=== PATIENT | female | born 1955 | race Caucasian/White ===

== ENCOUNTER 2016-10-05 09:14 | Day surgery (SDC) | payer MEDICARE, MEDICAID ==
[~2016-10-05] VITALS: Ht 165.1 cm; Wt 93.0 kg
[2016-10-05] VITALS (9 sets, daily range): BP systolic 107–142; BP diastolic 56–83
[~2016-10-05 09:14] MED LIST: AMOX-355 PO; ASP81CT PO; ASP81TEC PO; ASPI-906 PO; ASPI-999 PO; ASPI325T32 PO; ATOR40TA70 PO; CEPH500C PO; CIPR500T4 PO; CLOP75TA PO; CLPD75T PO; CPR500T PO; DIABETIC MED; DIABETIC PILL; DICY20TA10 PO; DILT180C84 PO; HORMONE; HTN MED; HYDR-3583 PO; IBUP200T48 PO; INSU100I29 SC; INSU100I29 SQ; INSU100V5 SQ; INSULIN; LEVE1U SQ; LOSA50TA6 PO; LSRT50T PO; METF-380 PO; METF1000 PO; MTF500T PO; NAPR500T3 PO; NOVALOG SQ; PNT40TEC PO; REQUIP; RIVA20TA PO; ROPI0.5T2 PO; ROPI1TAB PO; ROPI1TAB2 PO; SIMV20TA3 PO; SIMV40TA4 PO; TRM50T PO; [UNRECOGNIZED DRUG - OTHER]
--- OUTSIDE RECORDS SUMMARY | 2016-10-05 09:18 | XMS REPORT | Continuity of Care Document ---
Author Author [facility] Organization [facility] Address Unknown Phone Unavailable Care Team Providers Care Receivables Specialist Name Role Phone [facility] PCP Insurance Providers Payer Name Policy Number Subscriber Name Relationship [employer] Medicare [id number] Rei Fernandes 18 Self / Same As Patient Medicaid [place] [id number] Rei Fernandes 18 Self / Same As Patient Advance Directives Directive Response Recorded Date/Time Advance Directives Yes 07/17/14 5:58pm Health Care Power of Network Engineer Administrator No 07/17/14 5:58pm Organ Donor Yes 07/17/14 5:58pm Resuscitation Status Full Code 07/17/14 5:58pm Chief Complaint and Reason for Visit Chief Complaint CHEST PAIN ON EXERTION,COLLAZO,DIZZINESS Reason for Visit Dyspnea on exertion Dizziness Chest pain on exertion Dyspnea on exertion Problems Medical Problems Problem Onset Date Status Dyspnea on exertion Unknown Active Dizziness Unknown Active Chest pain on exertion Unknown Active Dyspnea on exertion Unknown Active Medications Medication Dose Route Sig Days/Qty Instructions Order Date Discontinued Date Status [Requip] 0.5 01/10/09 02/12/10 Discontinued [Diabetic Med] 01/10/09 02/12/10 Discontinued [Insulin] 01/10/09 02/11/10 Discontinued [Htn Med] 01/10/09 02/12/10 Discontinued [Diabetic Pill] 01/10/09 02/11/10 Discontinued Tramadol HCl 50 - 100 Mg PO TWICE A DAY 40 Qty 01/10/09 02/12/10 Discontinued Cephalexin Monohydrate (Keflex) 1 Each PO THREE TIMES A DAY 30 Qty 13/0502/12/10 Discontinued Metformin HCl (Glucophage) 1,000 Mg PO TWICE A DAY 02/11/10 Discontinued [levenir] 50 02/11/10 02/12/10 Discontinued Losartan Potassium 50 Mg PO BEDTIME 02/11/10 12/13/13 Discontinued Dicyclomine Hcl 20 Mg PO NEEDED 02/12/10 07/10/11 Discontinued Ropinirole Hcl 0.5 Mg PO BEDTIME 02/12/10 12/13/13 Discontinued Insulin Detemir 60 Units SQ BEDTIME 02/12/10 12/13/13 Discontinued [Novalog] 10 Unit SQ THREE TIMES A DAY 05/18/11 12/13/13 Discontinued Clopidogrel Bisulfate 1 Each PO DAILY 05/18/11 12/13/13 Discontinued Aspirin 81 Mg PO DAILY 05/18/11 12/13/13 Discontinued Ciprofloxacin 1 Tab PO TWICE A DAY 10 Qty 05/27/11 07/10/11 Discontinued Acetaminophen/Hydrocodone Bitart 1-2 Ea PO Q4HR PRN 05/27/11 Discontinued Aspirin 325 Mg PO DAILY 12/13/13 12/13/13 Discontinued Aspirin 81 Mg PO DAILY 30 Days 12/14/13 07/17/14 Discontinued Insulin Detemir 30 Unit SQ BEDTIME 30 Days 12/14/13 07/17/14 Discontinued Losartan Potassium 50 Mg PO BEDTIME 30 Days 12/14/13 07/17/14 Discontinued Metformin HCl (Glucophage) 1,000 Mg PO DAILY@ 30 Days 12/14/13 Discontinued Simvastatin 40 Mg PO D 07/17/14 07/17/14 Discontinued Aspirin 325 Mg PO BEDTIME 07/17/14 07/18/14 Discontinued Insulin Detemir 30 Unit SQ TWICE A DAY 07/17/14 Active Losartan Potassium 50 Mg PO BEDTIME 07/17/14 Active Metformin Hcl 1,000 Mg PO TWICE A DAY 07/17/14 Active Simvastatin 40 Mg PO BEDTIME TAKES 2 (20MG) TABLETS 07/17/14 Active Ropinirole Hcl 1 Mg PO BEDTIME 07/17/14 Active Ibuprofen 400-1200 Mg PO TWICE A DAY PRN HEADACHE/KNEE PAIN 07/17/14 07/18/14 Discontinued Aspirin 81 Mg PO DAILY 30 Qty 07/18/14 Active Clopidogrel Bisulfate 75 Mg PO DAILY 30 Qty 07/18/14 Active Pantoprazole Sod 40 Mg PO DAILY@0700 30 Qty 07/18/14 Active Social History Social History Problem Response Recorded Date/Time Alcohol Use Denies Use 07/17/2014 5:59pm Recreational Drug Use No 07/17/2014 5:59pm Recent Foreign Travel No 07/17/2014 6:11pm Recent Infectious Disease Exposure No 07/17/2014 5:59pm Hospitalization with Isolation Denies 07/18/2014 10:27pm Sexually Transmitted Disease No 07/17/2014 5:59pm Smoking Status Never a Smoker 07/17/2014 6:06pm Query Response Start Date Stop Date Smoking Status Never a Smoker Hospital Discharge Instructions Patient Instructions Physician Instructions New, Converted or Re-Newed RX: RX on Chart Patient Instructions: Please return on July 23 as previously scheduled for cardiac cath Plan of Care Discharge Date 07/18/14 5:23pm Disposition 01 HOME, SELF-CARE Instructions/Education Provided Chest Pain (GEN) Forms Provided PDI Medical Prescriptions See Medications Section Referrals (Unspecified) Reason(s) for Referral: keep already scheduled appointment for heart cath/ July 23 Functional Status Query Response Date Recorded Comprehension Ability Understands Concepts July 18, 2014 8:30am Allergies, Adverse Reactions, Alerts Allergen Type Severity Reaction Status Last Updated Sulfa (Sulfonamide Antibiotics) ([id number]) Allergy Unknown Active 26/03 Pseudoephedrine Allergy Unknown Active 05/27/07 Triprolidine Allergy Unknown Active 05/27/07 Immunizations Name Given Type Tetanus Booster (TDap) Unknown Historical influenza, split (incl. purified surface antigen) 07/18/14 Administered influenza, split (incl. purified surface antigen) 07/18/14 Administered Vital Signs Acute Vital Signs Vital Response Date/Time Temperature (Fahrenheit) 98.0 degrees F (97.6 - 99.5) Temperature (Calculated Celsius) 36.71264 degrees C (36.4 - 37.5) Temperature Source Tympanic Pulse Rate (adult) 77 bpm (60 - 90) Respiratory Rate 18 bpm (12 - 24) O2 Sat by Pulse Oximetry 97 % (88 - 100) Blood Pressure 129/82 mm Hg Pain Pain Intensity 0 Height (Feet) 5 feet Height (Inches) 5.00 inches Height (Calculated Centimeters) 165.031188 cm Weight (Pounds) 220 pounds Weight (Ounces) 3.0 oz Weight (Calculated Grams) 70286.371 gm Weight (Calculated Kilograms) 99.729478 kilograms Calculated BMI 36.44 Results Laboratory Results Test Name Result Units Flags Reference Collection Date/Time Result Date/ Time Comments Blood Urea Nitrogen 9 MG/DL 03-1506/20/2014 12:45pm 06/20/2014 1:07pm Creatinine 0.85 MG/DL 0.60-1.30 06/20/2014 12:45pm 06/20/2014 1:07pm BUN/Creatinine Ratio 11 06/20/2014 12:45pm 06/20/2014 1:07pm Estimat Glomerular Filtration Rate > 60 06/20/2014 12:45pm 2013 1:07pm GFR INTERPRETIVE DATA UNITS FOR ESTIMATED GFR (eGFR): mL/min/1.73 M2 REFERENCE RANGE FOR ESTIMATED GFR (eGFR) eGFR NORMAL eGFR >60 MODERATELY DECREASED eGFR 30-59 SEVERLY DECREASED eGFR 15-29 KIDNEY FAILURE <15 (OR DIALYSIS) Sodium Level 139 MMOL/L 135-145 07/08/2014 12:14pm 07/08/2014 1:00pm Potassium Level 4.2 MMOL/L 3.6-5.0 07/08/2014 12:14pm 07/08/2014 1: 00pm Chloride Level 103 MMOL/L 98-107 07/08/2014 12:14pm 07/08/2014 1:00pm Carbon Dioxide Level 30 MMOL/L 21-32 07/08/2014 12:14pm 07/08/2014 1: 00pm Blood Urea Nitrogen 10 MG/DL -07/08/2014 12:14pm 07/08/2014 1:00pm Creatinine 0.77 MG/DL 0.60-1.30 07/08/2014 12:14pm 07/08/2014 1:00pm BUN/Creatinine Ratio 13 07/08/2014 12:07/08/2014 1:00pm Estimat Glomerular Filtration Rate > 60 07/08/2014 12:2013 1:00pm GFR INTERPRETIVE DATA UNITS FOR ESTIMATED GFR (eGFR): mL/min/1.73 M2 REFERENCE RANGE FOR ESTIMATED GFR (eGFR) eGFR NORMAL eGFR >60 MODERATELY DECREASED eGFR 30-59 SEVERLY DECREASED eGFR 15-29 KIDNEY FAILURE <15 (OR DIALYSIS) Glucose Level 231 MG/DL H 70-105 07/08/2014 12:07/08/2014 1:00pm Calcium Level 9.2 MG/DL 8.5-10.1 07/08/2014 12:1407/08/2014 1:00pm Total Bilirubin 0.6 MG/DL 0.1-1.0 07/08/2014 12:07/08/2014 1:00pm Alkaline Phosphatase 92 U/L 40-136 07/08/2014 12:07/08/2014 1: 00pm Aspartate Amino Transf (AST/SGOT) 15 U/L 5-34 07/08/2014 12:2013 1:00pm Alanine Aminotransferase (ALT/SGPT) 16 U/L 0-55 07/08/2014 12:05/2014 1:00pm Total Protein 7.1 G/DL 6.4-8.2 07/08/2014 12:07/08/2014 1:00pm Albumin 3.4 G/DL 3.2-4.5 07/08/2014 12:07/08/2014 1:00pm Triglycerides Level 141 MG/DL <150 07/08/2014 12:07/08/2014 1: 00pm Cholesterol Level 158 MG/DL < 200 07/08/2014 12:07/08/2014 1:00pm HDL Cholesterol 37 MG/DL L 40-60 07/08/2014 12:07/08/2014 1:00pm LDL Cholesterol Direct 94 MG/DL 1-129 07/08/2014 12:07/08/2014 1: 00pm VLDL Cholesterol 28 MG/DL 5-40 07/08/2014 12:14pm 07/08/2014 1:00pm White Blood Count 10.4 10^3/uL 4.3-11.0 07/18/2014 5:33am 07/18/2014 5: 48am Red Blood Count 4.49 10^6/uL 4.35-5.85 07/18/2014 5:33am 07/18/2014 5: 48am Hemoglobin 13.0 G/DL 11.5-16.0 07/18/2014 5:33am 07/18/2014 5:48am Hematocrit 39 % 35-52 07/18/2014 5:33am 07/18/2014 5:48am Mean Corpuscular Volume 87 FL 80-99 07/18/2014 5:33am 07/18/2014 5: 48am Mean Corpuscular Hemoglobin 29 PG 25-34 07/18/2014 5:33am 07/18/2014 5: 48am Mean Corpuscular Hemoglobin Concent 33 G/DL 32-36 07/18/2014 5:33am 5:48am Red Cell Distribution Width 13.6 % 10.0-14.5 07/18/2014 5:33am 2013 5:48am Platelet Count 185 10^3/uL 130-400 07/18/2014 5:33am 07/18/2014 5:48am Mean Platelet Volume 11.7 FL H 7.4-10.4 07/18/2014 5:33am 07/18/2014 5: 48am Neutrophils (%) (Auto) 69 % 42-75 07/17/2014 2:58pm 07/17/2014 3:09pm Lymphocytes (%) (Auto) 20 % 12-44 07/17/2014 2:58pm 07/17/2014 3:09pm Monocytes (%) (Auto) 9 % 0-12 07/17/2014 2:58pm 07/17/2014 3:09pm Eosinophils (%) (Auto) 1 % 0-10 07/17/2014 2:58pm 07/17/2014 3:09pm Basophils (%) (Auto) 1 % 0-10 07/17/2014 2:58pm 07/17/2014 3:09pm Neutrophils # (Auto) 5.5 X 10^3 1.8-7.8 07/17/2014 2:58pm 07/17/2014 3: 09pm Lymphocytes # (Auto) 1.6 X 10^3 1.0-4.0 07/17/2014 2:58pm 07/17/2014 3: 09pm Monocytes # (Auto) 0.7 X 10^3 0.0-1.0 07/17/2014 2:58pm 07/17/2014 3: 09pm Eosinophils # (Auto) 0.1 10^3/uL 0.0-0.3 07/17/2014 2:58pm 07/17/2014 3 :09pm Basophils # (Auto) 0.1 10^3/uL 0.0-0.1 07/17/2014 2:58pm 07/17/2014 3: 09pm Prothrombin Time 12.7 SEC 12.2-14.7 07/17/2014 2:58pm 07/17/2014 3: 24pm INR Comment 1.0 0.8-1.4 07/17/2014 2:58pm 07/17/2014 3:24pm INTERPRETIVE DATA SUGGESTED THERAPEUTIC RANGE FOR INR'S: VENOUS THROMBOSIS, PULMONARY EMBOLISM, OR PREVENTION OF SYSTEMIC EMBOLISM (EG. IN ATRIAL FIBRILLATION): 2.0 - 3.0 MECHANICAL PROSTHETIC HEART VALVES: 2.5 - 3.5* *NOTE: INR'S UP TO 4.5 MAY BE NECESSARY IN SELECTED GROUPS OF HIGH RISK PATIENTS. [employer]ST PH[employer]IC[employer] CONSENSUS CONFERENCE ON ANTITHROMBOTIC THERAPY (2000). Activated Partial Thromboplast Time 32 SEC 24-35 07/17/2014 2:58pm 3:24pm Sodium Level 137 MMOL/L 135-145 07/18/2014 5:33am 07/18/2014 6:12am Potassium Level 3.6 MMOL/L 3.6-5.0 07/18/2014 5:33am 07/18/2014 6:12am Chloride Level 105 MMOL/L 98-107 07/18/2014 5:33am 07/18/2014 6:12am Carbon Dioxide Level 23 MMOL/L 21-32 07/18/2014 5:33am 07/18/2014 6: 12am Blood Urea Nitrogen 9 MG/DL 7-18 07/18/2014 5:33am 07/18/2014 6:12am Creatinine 0.82 MG/DL 0.60-1.30 07/18/2014 5:33am 07/18/2014 6:12am BUN/Creatinine Ratio 07/18/2014 5:33am 07/18/2014 6:12am Estimat Glomerular Filtration Rate > 60 07/18/2014 5:33am 2013 6:12am GFR INTERPRETIVE DATA UNITS FOR ESTIMATED GFR (eGFR): mL/min/1.73 M2 REFERENCE RANGE FOR ESTIMATED GFR (eGFR) eGFR NORMAL eGFR >60 MODERATELY DECREASED eGFR 30-59 SEVERLY DECREASED eGFR 15-29 KIDNEY FAILURE <15 (OR DIALYSIS) Glucose Level 239 MG/DL H 70-105 07/18/2014 5:33am 07/18/2014 6:12am Glucometer 263 MG/DL H 70-110 07/18/2014 12:53pm 07/18/2014 12:59pm Calcium Level 8.7 MG/DL 8.5-10.1 07/18/2014 5:33am 07/18/2014 6:12am Magnesium Level 1.8 MG/DL 1.8-2.4 07/17/2014 2:58pm 07/17/2014 3:29pm Total Bilirubin 0.6 MG/DL 0.1-1.0 07/18/2014 5:33am 07/18/2014 6:12am Alkaline Phosphatase 76 U/L 40-136 07/18/2014 5:33am 07/18/2014 6:12am Aspartate Amino Transf (AST/SGOT) 12 U/L 5-34 07/18/2014 5:33am 2013 6:12am Alanine Aminotransferase (ALT/SGPT) 13 U/L 0-55 07/18/2014 5:33am 07/18 6:12am Troponin I < 0.30 NG/ML <0.30 07/17/2014 9:02pm 07/17/2014 9:33pm Troponin I < 0.30 NG/ML <0.30 07/17/2014 2:58pm 07/17/2014 3:34pm Myoglobin 44.9 NG/ML 10.0-92.0 07/17/2014 2:58pm 07/17/2014 3:34pm Total Protein 6.4 G/DL 6.4-8.2 07/18/2014 5:33am 07/18/2014 6:12am Albumin 3.1 G/DL L 3.2-4.5 07/18/2014 5:33am 07/18/2014 6:12am Triglycerides Level 124 MG/DL <150 07/18/2014 5:33am 07/18/2014 6:14am Cholesterol Level 122 MG/DL < 200 07/18/2014 5:33am 07/18/2014 6:14am HDL Cholesterol 32 MG/DL L 40-60 07/18/2014 5:33am 07/18/2014 6:14am LDL Cholesterol Direct 68 MG/DL 1-129 07/18/2014 5:33am 07/18/2014 6: 14am VLDL Cholesterol 25 MG/DL 5-40 07/18/2014 5:33am 07/18/2014 6:14am Procedures Procedure Status Date Provider(s) Tracing only of electrocardiogram completed 07/17/14 NO KIRK APRN Tracing only of electrocardiogram completed 07/17/14 SULEMAN YAP Encounters Encounter Location Date/Time Discharged Inpatient Via [facility] 07/17/14 4:34pm Registered Clinic Via [facility] 07/09/14 8:29am Registered Clinic [facility] 07/08/14 12:05pm Registered Clinic Via [facility] 06/24/14 12:36pm Registered Clinic [facility] 06/20/14 12:31pm Recent Diagnosis Dyspnea on exertion Dizziness Chest pain on exertion Dyspnea on exertion
--- OUTSIDE RECORDS SUMMARY | 2016-10-05 09:18 | XMS REPORT | Continuity of Care Document ---
Author Author [facility] Organization [facility] Address Unknown Phone Unavailable Care Team Providers Care Rn Infusion Name Role Phone [facility] PCP Insurance Providers Payer Name Policy Number Subscriber Name Relationship [employer] Medicare [id number] Rei Fernandes 18 Self / Same As Patient Medicaid [place] [id number] Rei Fernandes 18 Self / Same As Patient Advance Directives Directive Response Recorded Date/Time Advance Directives Yes 07/17/14 5:58pm Health Care Power of Section Leader And Machine Setter No 07/17/14 5:58pm Organ Donor Yes 07/17/14 [...] Reaction Status Last Updated Sulfa (Sulfonamide Antibiotics) ([id number]) Allergy Unknown Active 26/03 Pseudoephedrine Allergy Unknown Active 05/27/07 Triprolidine Allergy Unknown Active 05/27/07 Immunizations Name Given Type Tetanus Booster (TDap) Unknown Historical influenza, split (incl. purified surface antigen) 07/18/14 Administered influenza, split (incl. purified surface antigen) 07/18/14 Administered Vital Signs Acute Vital Signs Vital Response Date/Time Temperature (Fahrenheit) 98.0 degrees F (97.6 - 99.5) Temperature (Calculated Celsius) 36.71706 degrees C (36.4 - 37.5) Temperature Source Tympanic Pulse Rate (adult) 77 bpm (60 - 90) Respiratory Rate 18 bpm (12 - 24) O2 Sat by Pulse Oximetry 97 % (88 - 100) Blood Pressure 129/82 mm Hg Pain Pain Intensity 0 Height (Feet) 5 feet Height (Inches) 5.00 inches Height (Calculated Centimeters) 165.717262 cm Weight (Pounds) 220 pounds Weight (Ounces) 3.0 oz Weight (Calculated Grams) 66732.371 gm Weight (Calculated Kilograms) 99.612963 kilograms Calculated BMI 36.44 Results Laboratory Results [...] SELECTED GROUPS OF HIGH RISK PATIENTS. [employer] CONSENSUS CONFERENCE ON [...] Encounters Encounter Location Date/Time Discharged Inpatient Via [facility] 07/17/14 4:34pm Registered Clinic [facility] 07/09/14 8:29am Registered Clinic [facility] 07/08/14 12:05pm Registered Clinic [facility] 06/24/14 12:36pm Registered Clinic [facility] 06/20/14 12:31pm Recent Diagnosis Dyspnea on exertion Dizziness Chest pain on exertion Dyspnea on exertion
[2016-10-05] MEDS ORDERED: NS IV 1000 ML 1,000 ML ONE (09:26)
[2016-10-05] MEDS ORDERED: LIDOCAINE 1% INJ 20 ML (XYLOCAINE) VIAL ONE (09:26)
[2016-10-05] MEDS ORDERED: HEParin (CATH LAB) 2,000 ML IV ONE (09:27)
[2016-10-05] MEDS ORDERED: NS IV 1000 ML 1,000 ML IV SCH ×2 (09:46→14:34)
[2016-10-05 10:34] LABS: PROTHROMBIN TIME PATIENT 12.7 SEC (12.2-14.7)
[2016-10-05 10:35] LABS: MEAN PLATELET VOLUME 12.2 FL (7.4-10.4); RED BLOOD COUNT 4.85 10^6/uL (4.35-5.85); RED CELL DISTRIBUTION WIDTH 13.7 % (10.0-14.5); WHITE BLOOD COUNT 6.9 10^3/uL (4.3-11.0)
[2016-10-05 10:40] LABS: ALANINE AMINOTRANSFERASE 19 U/L (0-55); ALBUMIN 3.5 G/DL (3.2-4.5); ANION GAP 9 MMOL/L (5-14); ASPARTATE AMINO TRANSFERASE 14 U/L (5-34); BILIRUBIN,TOTAL 0.7 MG/DL (0.1-1.0); BLOOD UREA NITROGEN 17 MG/DL (7-18); BUN/CREATININE RATIO 20; CALCIUM 9.6 MG/DL (8.5-10.1); CARBON DIOXIDE 24 MMOL/L (21-32); CHLORIDE 100 MMOL/L (98-107); CHOLESTEROL 181 MG/DL (< 200); CREATININE SERUM 0.87 MG/DL (0.60-1.30); DIRECT LDL 107 MG/DL (1-129); GFR ESTIMATED > 60; GLUCOSE 398 MG/DL (70-105); POTASSIUM 3.8 MMOL/L (3.6-5.0); SODIUM 133 MMOL/L (135-145); TOTAL PROTEIN 6.9 G/DL (6.4-8.2); TRIGLYCERIDES 336 MG/DL (<150); VLDL CHOLESTEROL 67 MG/DL (5-40)
[2016-10-05] MEDS ORDERED: FLU TRIvalent (5 YOA+) 2016-17 (AFLURIA) 0.5 ML IM ONE (11:00)
[2016-10-05] MEDS ORDERED: NAPR500T3 PO (11:11)
[2016-10-05] MEDS ORDERED: MIDAZOLAM 5 MG/5 ML (VERSED) VIAL ONE (11:58)
[2016-10-05] MEDS ORDERED: fentaNYL INJECTION 100 MCG/2 ML AMP ONE (11:58)
[2016-10-05] MEDS ORDERED: diphenhydrAMINE 50 MG/ML INJ (BENADRYL) ONE (11:58)
--- NOTE | 2016-10-05 12:46 | Cardiac Procedure Note-CS/ASA ---
Pre-Procedure Note Pre-Op Procedure Note H&P Reviewed The H&P was reviewed, patient examined and no changes noted. Date H&P Reviewed: Oct 05, 2016 Time H&P Reviewed: 12:46 Conscious Sedation Pre-Proced Time Reviewed: 12:46 ASA Class: 3 Airway Mallampati Classification: (cachil dehe appropriate class) I. II. III, IV Lungs Heart ASA score ASA 1: a normal healthy patient ASA 2: a patient with a mild systemic disease (mid diabetes, controlled hypertension, obesity ASA 3: a patient with a severe systemic disease that limits activity (angina , COPD, prior Myocardial infarction) ASA 4: a patient with an incapacitating disease that is a constant threat to life (CHF, renal failure) ASA 5: a moribund patient not expected to survive 24 hrs. (ruptured aneurysm) ASA 6: a declared brain patient whose organs are being harvested. For emergent operations, add the letter E after the classification Grade 2 Sedation Plan: Analgesia, Amnesia, Plan communicated to team members, Discussed options with patient/fam, Discussed risks with patient/fam Note The patient is an appropriate candidate to undergo the planned procedure, sedation, and anesthesia. The patient immediately re-assessed prior to indication. REX FERRELL MD FACP FACC CCDS Oct 05, 2016 12:46
[2016-10-05] MEDS ORDERED: HEParin 1000 UNIT/ML (10ML VIAL) FOR BOLUS ONE (13:13)
[2016-10-05] MEDS ORDERED: EPTIFIBATIDE DRIP 100 ML IV ONE (13:14)
[2016-10-05] MEDS ORDERED: EPTIFIBATIDE BOLUS 20 ML IV ONE (13:14)
[2016-10-05] MEDS ORDERED: NITROGLYCERIN DRIP 25 MG/D5W 250 ML IV ONE (13:25)
[2016-10-05] MEDS ORDERED: CLOPIDOGREL 300 MG (PLAVIX) TABLET PO ONE (14:07)
[2016-10-05] MEDS ORDERED: ASPIRIN 81 MG CHEW (CHILDREN'S ASA) ONE (14:07)
[2016-10-05] MEDS ORDERED: NON-FORMULARY MEDICATION 1 EA EA (Naproxen 500 MG) PO PRN (14:45)
[2016-10-05] MEDS ORDERED: PANTOPRAZOLE 40 MG (PROTONIX) TAB PO NR (14:45)
[2016-10-05] MEDS ORDERED: PATIENT MAY USE OWN MEDS, ALL PO SCH (14:45)
[2016-10-05] MEDS ORDERED: NAPROXEN 250 MG (NAPROSYN) TABLET PO PRN (16:30)
[2016-10-05] MEDS ORDERED: rOPINIRole 1 MG (REQUIP) TABLET PO SCH (21:00)
[2016-10-05] MEDS ORDERED: ATORVASTATIN 40 MG (LIPITOR) TABLET PO SCH (21:00)
[2016-10-06] VITALS: BP 102/65
[2016-10-06] MEDS ORDERED: METF500T4 PO (01:26)
[2016-10-06 04:00] VITALS: BP 111/69
[2016-10-06 04:32] LABS: MEAN PLATELET VOLUME 11.9 FL (7.4-10.4); RED BLOOD COUNT 3.91 10^6/uL (4.35-5.85); RED CELL DISTRIBUTION WIDTH 13.7 % (10.0-14.5); WHITE BLOOD COUNT 9.1 10^3/uL (4.3-11.0)
[2016-10-06 05:05] LABS: ANION GAP 9 MMOL/L (5-14); BLOOD UREA NITROGEN 14 MG/DL (7-18); BUN/CREATININE RATIO 18; CALCIUM 8.4 MG/DL (8.5-10.1); CARBON DIOXIDE 25 MMOL/L (21-32); CHLORIDE 100 MMOL/L (98-107); GFR ESTIMATED > 60; GLUCOSE 264 MG/DL (70-105); POTASSIUM 3.8 MMOL/L (3.6-5.0); SODIUM 134 MMOL/L (135-145)
[2016-10-06] MEDS ORDERED: PANTOPRAZOLE 40 MG (PROTONIX) TAB PO SCH (07:00)
[2016-10-06 08:01] VITALS: BP 91/60
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
[2016-10-06] MEDS ORDERED: PANT40TA3 PO (08:50)
[2016-10-06] MEDS ORDERED: CLOP75TA28 PO (08:50)
[2016-10-06] MEDS ORDERED: ATOR40TA PO (08:50)
--- NOTE | 2016-10-06 08:51 | Discharge Inst-Cardiology ---
Discharge Inst-Cardiac Discharge Medications New Medications: Atorvastatin Calcium (Lipitor) 40 Mg Tablet 40 MG PO HS #90 Ref 3 TAB Clopidogrel Bisulfate (Clopidogrel) 75 Mg Tablet 75 MG PO DAILY #90 Ref 3 TAB Pantoprazole Sodium (Pantoprazole Sodium) 40 Mg Tablet.dr 40 MG PO DAILY@0700 #30 Ref 3 TAB Continued Medications: Aspirin (Aspirin) 81 Mg Tab.chew 81 MG PO DAILY TAB Ropinirole HCl (Ropinirole HCl) 1 Mg Tablet 1 MG PO HS TAB Discontinued Medications: Naproxen (Naproxen) 500 Mg Tablet 500 MG PO BID PRN PAIN TAB New, Converted or Re-Newed RX: Transmitted to Pharmacy Patient Instructions Patient Instructions: Follow up appt to see Dr. Gonzalez in 1 week Orders-Post D/C & Referrals Pneu Vac Indicated: Yes SULEMAN YAP Oct 06, 2016 08:51
[2016-10-06] MEDS ORDERED: ASPIRIN 81 MG CHEW (CHILDREN'S ASA) PO SCH (09:00)
[2016-10-06] MEDS ORDERED: CLOPIDOGREL 75 MG (PLAVIX) TABLET PO SCH (09:00)
--- NOTE | 2016-10-06 09:58 | Diagnostic Imaging Report ---
EXAMINATION: Arterial duplex ultrasound of the right groin. INDICATION: Right groin lumps after cardiac catheterization. FINDINGS: There is no pseudoaneurysm or evidence of an AV fistula. There is patent SFA, WAREHOUSE COORDINATOR, and CFV seen with color Doppler. Arterial biphasic waveforms are seen in the right WAREHOUSE COORDINATOR. There are nonspecific small lymph nodes in the groin measuring up to 1.9 cm with benign appearing fatty mary beth seen. No significant hematoma is seen. IMPRESSION: No significant abnormality. Dictated by: Dictated on workstation # [id number]
[2016-10-06 11:45] VITALS: BP 123/68
--- NOTE | 2016-10-06 13:05 | CARDIAC CATHETERIZATION ---
PROCEDURE PHYSICIAN: REX FERRELL CARDIAC CATHETERIZATION AND CORONARY INTERVENTION REPORT: DATE OF PROCEDURE: 10/05/2016 Anisha Fernandes is a 61-year-old lady who is known to have coronary artery disease and who has recently had recurrence of symptoms of classical angina. She has multiple coronary artery disease risk factors. Cardiac catheterization was carried out today after having obtained an informed consent. PROCEDURE: She is brought to the cardiac catheterization laboratory in a fasting state. The right groin was prepped and draped in usual sterile fashion. 1% lidocaine was used for local anesthesia. Modified Seldinger technique was used to advance a 5-Samoan sheath in right femoral artery. 5-Samoan JL4 catheter for left coronary angiography. 5-Samoan JR4 catheter for right coronary angiography. A 5-Samoan pigtail catheter was used for left heart catheterization, left ventricular angiography. PERCUTANEOUS INTERVENTION TO THE FIRST OBTUSE MARGINAL BRANCH OF THE LEFT CIRCUMFLEX ARTERY: Following completion of diagnostic procedure, we exchanged the sheath over a wire for a 6-Samoan sheath. We gave 6000 units of intravenous heparin. We gave a double bolus of Integrilin and Integrilin infusion was continued throughout the procedure. We used a 6-Samoan JL4 guide catheter and engaged the left coronary artery. We advanced a BMW wire across the 90% ostial stenosis in the first obtuse marginal branch and the tip was placed in distal vessel. We carried out multiple balloon angioplasties using Emerge 2 x 20 mm balloon which reduced the stenosis seemingly to less than 30%. We then proceeded with percutaneous intervention of the right coronary artery but the patient was reporting chest discomfort after the right coronary artery intervention which had gone smoothly. We, therefore, came back and we engaged the left coronary artery and found that there had been recoil at the ostial part of the first obtuse marginal branch. Therefore, we decided to stent it. We rewired the artery with BMW wire and advanced Alpine Xience 2.25 x 8 mm stent and this was carefully positioned to cover the ostial stenosis and the stent was deployed at 14 atmospheres. Subsequent angiography revealed 0% residual stenosis in the ostial portion of the first obtuse marginal branch and flow throughout the vessel was normal. PERCUTANEOUS INTERVENTION TO THE RIGHT CORONARY ARTERY: The right coronary artery had 70% proximal stenosis. We used a 6-Samoan JL4 guide catheter to engage the right coronary artery. We advanced a BMW wire across the lesion and the tip of the wire was placed in distal vessel. We advanced Alpine Xience 2.5 x 15 mm stent and covered the lesion and the stent was deployed at 18 atmospheres. Subsequent angiography indicated that the stent may be somewhat under deployed. Therefore, we advanced an NC Quantum 3 x 15 mm balloon and multiple balloon inflations were carried out in the stented area. Subsequent angiography revealed 0% residual stenosis, normal flow and the stent appeared well opposed to the vessel hines on angiography. Following completion of the diagnostic and intervention procedure, we used Mynx to achieve hemostasis. Angiography of the right femoral artery had been carried out at the beginning of the procedure at the time of initiation of the femoral sheath. Overall, she tolerated the procedure well. HEMODYNAMICS: Left ventricular end diastolic pressure following coronary angiography was 13 mmHg. There was no significant pressure gradient on pullback across the aortic valve. Ascending aortic pressure 135/67 with mean of 57 mmHg. LEFT VENTRICULAR ANGIOGRAPHY: Left ventricular angiography was carried out in the right anterior oblique projection. Global left ventricular systolic function is normal. Left ventricular ejection fraction is approximately 55 to 60%. There does not appear to be significant mitral regurgitation. CORONARY ANGIOGRAPHY: There is diffuse coronary calcification. The left main coronary artery does not exhibit significant obstructive disease. The left anterior descending artery has diffuse, moderate disease. There is a patent stent in the midportion of the left anterior descending artery. Left circumflex artery is a large obtuse marginal branch but had 90% ostial stenosis, to which successful stenting was carried out as detailed above. Following stenting with Alpine Xience 2.25 x 8 mm stent, there is no significant residual stenosis. The right coronary artery is dominant and has diffuse, moderate disease. In addition, it had a 70% proximal stenosis, to which successful stenting was carried out using Alpine Xience 2.5 x 15 mm stent that was postdilated with a 3 mm balloon. CONCLUSION: 1. Multivessel coronary artery disease as detailed above. The patient underwent stenting of the ostial first obtuse marginal branch with Alpine Xience 2.25 x 8 mm stent, which reduced the stenosis to 0% residual. The patient underwent right coronary artery stenting to the proximal portion with Alpine Xience 2.5 x 15 mm stent that was postdilated with a 3 mm balloon. The rest of the coronary vessels have diffuse, moderate disease. There is a patent stent in the mid left anterior descending artery this is known to be Promus 2.5 x 15 mm stent that was placed in 01/2010. 2. Mild elevation of left ventricular end-diastolic pressure. 3. Normal global left ventricular systolic function with an ejection of 55 to 60%. 4. No significant mitral regurgitation. DISCUSSION AND RECOMMENDATIONS: Risk factor modification was reviewed. She is being hospitalized for observation following today's multivessel intervention. Medication compliance is advised. She has not been compliant with antiplatelet therapy. We are adding aspirin and Plavix back to the regimen. 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
== END 2016-10-06 11:45 | disposition home or self-care (01) ==
LOC: CATH 09:14 → ICU 14:30 → CATH 10-06 11:45
PROVIDERS: ATTEND Internal Medicine Cardiovascular Disease
DX: I25.118 Atherosclerotic heart disease of native coronary artery with other forms of angina pectoris (principal); I25.84 Coronary atherosclerosis due to calcified coronary lesion; E11.9 Type 2 diabetes mellitus without complications; I10 Essential (primary) hypertension; E66.9 Obesity, unspecified; E78.5 Hyperlipidemia, unspecified; Z91.19 Patient's noncompliance with other medical treatment and regimen; Z79.899 Other long term (current) drug therapy; Z68.34 Body mass index [BMI] 34.0-34.9, adult; Z95.5 Presence of coronary angioplasty implant and graft
CPT/HCPCS: 36415; 80048; 80053; 80061; 82962; 85027; 85610; 85730; 87081; 93005; 93458; 93926

== ENCOUNTER 2016-10-19 10:32 | Emergency (ER) | payer MEDICARE, MEDICAID ==
[~2016-10-19] VITALS: Ht 165.1 cm; Wt 93.0 kg
[~2016-10-19 10:32] MED LIST changes: +ATOR40TA PO; +CLOP75TA28 PO; +METF500T4 PO; +PANT40TA3 PO
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
[2016-10-19] MEDS ORDERED: CLOP75TA69 PO (12:15)
[2016-10-19] MEDS ORDERED: DIPH25CA79 PO (12:15)
[2016-10-19] MEDS ORDERED: ONDN4T PO (12:15)
[2016-10-19 13:22] VITALS: BP 124/87
--- NOTE | 2016-10-19 13:26 | Diagnostic Imaging Report ---
INDICATION: Right groin hematoma after cardiac catheterization. Grayscale and color Doppler evaluation of the right groin reveals normal flow within the right common femoral artery and vein. Hypoechoic region measuring 9.1 x 4.7 x 1.1 cm and demonstrates no internal flow and likely represents hematoma. No pseudoaneurysm is identified. IMPRESSION: Right groin hematoma without evidence of internal flow or pseudoaneurysm . Dictated by: Dictated on workstation # [id number]
--- OUTSIDE RECORDS SUMMARY | 2016-10-19 13:29 | XMS REPORT | Continuity of Care Document ---
Author Author [facility] Organization [facility] Address Unknown Phone Unavailable Care Team Providers Care Medical Care Evaluation Specialist Name Role Phone [facility] Insurance Providers Payer Name Policy Number Subscriber Name Relationship [employer] Medicare [id number] Rei Fernandes 18 Self / Same As Patient Medicaid [place] [id number] Rei Fernandes 18 Self / Same As Patient Advance Directives Directive Response Recorded Date/Time Advance Directives Yes 07/17/14 5:58pm Health Care Power of Punch Press Feeder No 07/17/14 5:58pm Organ Donor Yes 07/17/14 [...] Reaction Status Last Updated Sulfa (Sulfonamide Antibiotics) ([id number]) Allergy Unknown Active 26/03 Pseudoephedrine Allergy Unknown Active 05/27/07 Triprolidine Allergy Unknown Active 05/27/07 Immunizations Name Given Type Tetanus Booster (TDap) Unknown Historical influenza, split (incl. purified surface antigen) 07/18/14 Administered influenza, split (incl. purified surface antigen) 07/18/14 Administered Vital Signs Acute Vital Signs Vital Response Date/Time Temperature (Fahrenheit) 98.0 degrees F (97.6 - 99.5) Temperature (Calculated Celsius) 36.12403 degrees C (36.4 - 37.5) Temperature Source Tympanic Pulse Rate (adult) 77 bpm (60 - 90) Respiratory Rate 18 bpm (12 - 24) O2 Sat by Pulse Oximetry 97 % (88 - 100) Blood Pressure 129/82 mm Hg Pain Pain Intensity 0 Height (Feet) 5 feet Height (Inches) 5.00 inches Height (Calculated Centimeters) 165.882509 cm Weight (Pounds) 220 pounds Weight (Ounces) 3.0 oz Weight (Calculated Grams) 24358.371 gm Weight (Calculated Kilograms) 99.923824 kilograms Calculated BMI 36.44 Results Laboratory Results [...] SELECTED GROUPS OF HIGH RISK PATIENTS. [employer] CONSENSUS CONFERENCE ON [...] Encounters Encounter Location Date/Time Discharged Inpatient Via [facility] 07/17/14 4:34pm Registered Clinic Via [facility] 07/09/14 8:29am Registered Clinic [facility] 07/08/14 12:05pm Registered Clinic [facility] 06/24/14 12:36pm Registered Clinic [facility] 06/20/14 12:31pm Recent Diagnosis Dyspnea on exertion Dizziness Chest pain on exertion Dyspnea on exertion
== END 2016-10-19 13:22 | disposition home or self-care (01) ==
LOC: EDUNIT# 10:32 → ER 10:35
DX: I97.630 Postprocedural hematoma of a circulatory system organ or structure following a cardiac catheterization (principal); E11.9 Type 2 diabetes mellitus without complications; Z79.82 Long term (current) use of aspirin; Z79.02 Long term (current) use of antithrombotics/antiplatelets; Z79.899 Other long term (current) drug therapy; Z79.84 Long term (current) use of oral hypoglycemic drugs; Z95.5 Presence of coronary angioplasty implant and graft
CPT/HCPCS: 93926; 99281

== ENCOUNTER → 2016-11-19 | Outpatient (CLI) | payer MEDICARE, MEDICAID ==
[~2016-11-19] MED LIST changes: +ASPI-983 PO; +CLOP75TA69 PO; +DIPH25CA79 PO; +GABA-488 PO; +METO-351 PO; +OMEG-160 PO; +OMG1KC PO; +ONDN4T PO; +PANT40TA2 PO; +TICA90TA PO
[2016-11-19 11:27] LABS: BASOPHILS % (AUTO) 1 % (0-10); EOSINOPHILS % (AUTO) 0 % (0-10); LYMPHOCYTES # (AUTO) 0.9 X 10^3 (1.0-4.0); LYMPHOCYTES % (AUTO) 12 % (12-44); MEAN CORPUSCULAR HEMOGLOBIN 28 PG (25-34); MEAN CORPUSCULAR HGB CONC 34 G/DL (32-36); MEAN CORPUSCULAR VOLUME 84 FL (80-99); MEAN PLATELET VOLUME 11.7 FL (7.4-10.4); MONOCYTES # (AUTO) 0.6 X 10^3 (0.0-1.0); MONOCYTES % (AUTO) 8 % (0-12); NEUTROPHILS % (AUTO) 79 % (42-75); PLATELET COUNT 222 10^3/uL (130-400); RED BLOOD COUNT 4.94 10^6/uL (4.35-5.85); RED CELL DISTRIBUTION WIDTH 13.6 % (10.0-14.5); WHITE BLOOD COUNT 7.5 10^3/uL (4.3-11.0)
[2016-11-19 11:46] LABS: ALANINE AMINOTRANSFERASE 20 U/L (0-55); ALBUMIN 3.4 G/DL (3.2-4.5); ANION GAP 12 MMOL/L (5-14); ASPARTATE AMINO TRANSFERASE 18 U/L (5-34); BILIRUBIN,TOTAL 0.7 MG/DL (0.1-1.0); BLOOD UREA NITROGEN 10 MG/DL (7-18); BUN/CREATININE RATIO 12; CALCIUM 8.8 MG/DL (8.5-10.1); CARBON DIOXIDE 21 MMOL/L (21-32); CHLORIDE 101 MMOL/L (98-107); CHOLESTEROL 155 MG/DL (< 200); CREATININE SERUM 0.85 MG/DL (0.60-1.30); DIRECT LDL 90 MG/DL (1-129); GFR ESTIMATED > 60; GLUCOSE 286 MG/DL (70-105); POTASSIUM 3.7 MMOL/L (3.6-5.0); SODIUM 134 MMOL/L (135-145); TRIGLYCERIDES 151 MG/DL (<150); VLDL CHOLESTEROL 30 MG/DL (5-40)
[2016-11-19 11:55] LABS: ERYTHROCYTE SEDIMENTATION RATE 20 MM/HR (0-30)
== END ==
LOC: LAB 11:07
PROVIDERS: ATTEND Internal Medicine Cardiovascular Disease
DX: I25.10 Atherosclerotic heart disease of native coronary artery without angina pectoris (principal); R20.8 Other disturbances of skin sensation; R11.0 Nausea; E13.9 Other specified diabetes mellitus without complications; E78.4 Other hyperlipidemia; I10 Essential (primary) hypertension
CPT/HCPCS: 36415; 80053; 80061; 85025; 85652

== ENCOUNTER 2016-12-02 16:16 | Inpatient (IN) | payer MEDICARE, MEDICAID ==
[~2016-12-02] VITALS: Ht 165.1 cm; Wt 97.1 kg
[~2016-12-02 16:16] MED LIST changes: -ASPI-983 PO; -GABA-488 PO; -METO-351 PO; -OMEG-160 PO; -OMG1KC PO; -PANT40TA2 PO; -TICA90TA PO
[2016-12-02] MEDS ORDERED: ASPIRIN 81 MG CHEW (CHILDREN'S ASA) PO ONE (16:27)
[2016-12-02] MEDS ORDERED: ASPIRIN 81 MG CHEW (CHILDREN'S ASA) ONE (16:27)
[2016-12-02 16:31] VITALS: BP 189/90
[2016-12-02] MEDS ORDERED: HEParin (CATH LAB) 2,000 ML IV ONE (16:43)
[2016-12-02] MEDS ORDERED: LIDOCAINE 1% INJ 20 ML (XYLOCAINE) VIAL ONE (16:43)
[2016-12-02] MEDS ORDERED: NS IV 1000 ML 1,000 ML ONE (16:43)
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
[2016-12-02] MEDS ORDERED: HEParin 1000 UNIT/ML (10ML VIAL) FOR BOLUS ONE ×2 (16:45→16:46)
[2016-12-02] MEDS ORDERED: NITROGLYCERIN DRIP 25 MG/D5W 250 ML IV ONE (16:45)
[2016-12-02] MEDS ORDERED: MIDAZOLAM 5 MG/5 ML (VERSED) VIAL ONE (16:45)
[2016-12-02] MEDS ORDERED: fentaNYL INJECTION 100 MCG/2 ML AMP ONE (16:45)
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
--- NOTE | 2016-12-02 16:48 | Cardiac Procedure Note-CS/ASA ---
Pre-Procedure Note Pre-Op Procedure Note H&P Reviewed The H&P was reviewed, patient examined and no changes noted. Date H&P Reviewed: Dec 02, 2016 Time H&P Reviewed: 16:47 Conscious Sedation Pre-Proced Time Reviewed: 16:48 ASA Class: 3 Airway Mallampati Classification: (brevig mission appropriate class) I. II. III, IV Lungs Heart ASA score ASA 1: a normal healthy patient ASA 2: a patient with a mild systemic disease (mid diabetes, controlled hypertension, obesity x ASA 3: a patient with a severe systemic disease that limits activity (angina , COPD, prior Myocardial infarction) ASA 4: a patient with an incapacitating disease that is a constant threat to life (CHF, renal failure) ASA 5: a moribund patient not expected to survive 24 hrs. (ruptured aneurysm) ASA 6: a declared brain patient whose organs are being harvested. For emergent operations, add the letter E after the classification Grade 3 Sedation Plan: Analgesia, Amnesia, Plan communicated to team members, Discussed options with patient/fam, Discussed risks with patient/fam Note The patient is an appropriate candidate to undergo the planned procedure, sedation, and anesthesia. The patient immediately re-assessed prior to indication. GOMEZ REBOLLEDO MD Dec 02, 2016 16:48
[2016-12-02 16:55] LABS: BASOPHILS # (AUTO) 0.1 10^3/uL (0.0-0.1); BASOPHILS % (AUTO) 1 % (0-10); EOSINOPHILS # (AUTO) 0.1 10^3/uL (0.0-0.3); EOSINOPHILS % (AUTO) 1 % (0-10); LYMPHOCYTES # (AUTO) 2.8 X 10^3 (1.0-4.0); LYMPHOCYTES % (AUTO) 24 % (12-44); MEAN CORPUSCULAR HEMOGLOBIN 28 PG (25-34); MEAN CORPUSCULAR HGB CONC 33 G/DL (32-36); MEAN CORPUSCULAR VOLUME 84 FL (80-99); MEAN PLATELET VOLUME 11.5 FL (7.4-10.4); MONOCYTES # (AUTO) 1.2 X 10^3 (0.0-1.0); MONOCYTES % (AUTO) 10 % (0-12); NEUTROPHILS # (AUTO) 7.8 X 10^3 (1.8-7.8); NEUTROPHILS % (AUTO) 65 % (42-75); PLATELET COUNT 255 10^3/uL (130-400); RED BLOOD COUNT 4.96 10^6/uL (4.35-5.85); RED CELL DISTRIBUTION WIDTH 13.8 % (10.0-14.5); WHITE BLOOD COUNT 11.9 10^3/uL (4.3-11.0)
--- NOTE | 2016-12-02 17:02 | Diagnostic Imaging Report ---
INDICATION: Chest pain. EXAMINATION: Portable chest at 4:48 p.m. FINDINGS: Heart size and pulmonary vascularity are normal. Lungs are clear. There are no effusions or pneumothoraces. IMPRESSION: Negative chest. Dictated by: Dictated on workstation # [id number]
[2016-12-02 17:04] LABS: INR 1.8 (0.8-1.4); PROTHROMBIN TIME PATIENT 20.6 SEC (12.2-14.7)
[2016-12-02 17:12] LABS: ALANINE AMINOTRANSFERASE 12 U/L (0-55); ALBUMIN 3.5 G/DL (3.2-4.5); ANION GAP 13 MMOL/L (5-14); ASPARTATE AMINO TRANSFERASE 13 U/L (5-34); BILIRUBIN,TOTAL 0.6 MG/DL (0.1-1.0); BLOOD UREA NITROGEN 8 MG/DL (7-18); BUN/CREATININE RATIO 7; CALCIUM 8.9 MG/DL (8.5-10.1); CARBON DIOXIDE 20 MMOL/L (21-32); CHLORIDE 103 MMOL/L (98-107); CREATININE SERUM 1.11 MG/DL (0.60-1.30); GFR ESTIMATED 50; MAGNESIUM 1.8 MG/DL (1.8-2.4); POTASSIUM 3.5 MMOL/L (3.6-5.0); SODIUM 136 MMOL/L (135-145); TOTAL PROTEIN 7.2 G/DL (6.4-8.2)
[2016-12-02 17:15] LABS: GLUCOSE 443 MG/DL (70-105)
[2016-12-02 17:19] LABS: MYOGLOBIN SERUM 27.9 NG/ML (10.0-92.0)
[2016-12-02] MEDS ORDERED: EPTIFIBATIDE BOLUS 10 ML IV ONE (17:20)
[2016-12-02] MEDS ORDERED: TICAGRELOR 90 MG TABLET (BRILINTA) PO ONE (17:33)
[2016-12-02] MEDS ORDERED: PATIENT MAY USE OWN MEDS, ALL PO SCH (17:45)
[2016-12-02] MEDS ORDERED: diphenhydrAMINE 25 MG TAB (BENADRYL) PO PRN (18:45)
[2016-12-02 19:00] VITALS: BP 158/76
[2016-12-02] MEDS ORDERED: ONDANSETRON 4 MG (ZOFRAN) ORAL DISSOLVE TAB PO PRN (19:00)
[2016-12-02] MEDS: NS IV 1000 ML 1,000 ML IV SCH (19:38)
[2016-12-02 20:00] VITALS: BP 164/76
[2016-12-02 21:00] VITALS: BP 184/85
[2016-12-02] MEDS: rOPINIRole 1 MG (REQUIP) TABLET PO SCH (21:11)
[2016-12-02] MEDS: TICAGRELOR 90 MG TABLET (BRILINTA) PO SCH (21:11)
[2016-12-02] MEDS: inSUlin ASPART (NovoLOG) 1 UNIT/0.01 ML (CHARGE PER UNIT) SC SCH (21:11)
[2016-12-02] MEDS: ATORVASTATIN 40 MG (LIPITOR) TABLET PO SCH (21:11)
[2016-12-02 22:00] VITALS: BP 155/79
[2016-12-02 23:00] VITALS: BP 155/70
[2016-12-03] VITALS (23 sets, daily range): BP systolic 114–157; BP diastolic 54–119
[2016-12-03] MEDS: NS IV 1000 ML 1,000 ML IV SCH ×2 (03:37→13:06)
[2016-12-03 03:52] LABS: MEAN PLATELET VOLUME 11.7 FL (7.4-10.4); RED BLOOD COUNT 4.29 10^6/uL (4.35-5.85); RED CELL DISTRIBUTION WIDTH 13.6 % (10.0-14.5); WHITE BLOOD COUNT 9.1 10^3/uL (4.3-11.0)
[2016-12-03 04:18] LABS: ANION GAP 8 MMOL/L (5-14); BLOOD UREA NITROGEN 9 MG/DL (7-18); BUN/CREATININE RATIO 12; CALCIUM 8.4 MG/DL (8.5-10.1); CARBON DIOXIDE 26 MMOL/L (21-32); CHLORIDE 103 MMOL/L (98-107); CHOLESTEROL 172 MG/DL (< 200); CREATININE SERUM 0.78 MG/DL (0.60-1.30); DIRECT LDL 108 MG/DL (1-129); GFR ESTIMATED > 60; GLUCOSE 223 MG/DL (70-105); POTASSIUM 3.2 MMOL/L (3.6-5.0); SODIUM 137 MMOL/L (135-145); TRIGLYCERIDES 182 MG/DL (<150); VLDL CHOLESTEROL 36 MG/DL (5-40)
[2016-12-03 04:37] LABS: TROPONIN I 11.41 NG/ML (<0.30)
[2016-12-03] MEDS: inSUlin ASPART (NovoLOG) 1 UNIT/0.01 ML (CHARGE PER UNIT) SC SCH ×4 (06:28→21:38)
[2016-12-03] MEDS: OMEGA 3 (FISH OIL) 1000 MG CAP PO SCH ×2 (06:29→16:10)
[2016-12-03] MEDS: PANTOPRAZOLE 40 MG (PROTONIX) TAB PO SCH (06:30)
[2016-12-03] MEDS: ASPIRIN E.C. 81 MG (ECOTRIN) TAB PO SCH (08:27)
[2016-12-03] MEDS: TICAGRELOR 90 MG TABLET (BRILINTA) PO SCH ×2 (08:27→21:39)
[2016-12-03] MEDS ORDERED: NITROGLYCERIN SUBLINGUAL 0.4 MG TAB (NITROSTAT) SL ONE (08:38)
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
[2016-12-03] MEDS ORDERED: NITROGLYCERIN SUBLINGUAL 0.4 MG TAB (NITROSTAT) SL PRN (08:45)
[2016-12-03] MEDS ORDERED: morphine INJ 4 MG/ML 1 ML (VIAL/SYRINGE) ONE (08:46)
[2016-12-03] MEDS ORDERED: morphine INJ 4 MG/ML 1 ML (VIAL/SYRINGE) IVP PRN (09:00)
[2016-12-03] MEDS ORDERED: ACETAMINOPHEN 325 MG TABLET/CAPLET (TYLENOL) PO ONE (09:00)
[2016-12-03] MEDS ORDERED: INSU100I29 SQ (09:14)
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
--- NOTE | 2016-12-03 10:48 | CARDIAC CATHETERIZATION ---
PROCEDURE PHYSICIAN: GOMEZ REBOLLEDO DATE OF PROCEDURE: 12/02/2016 REFERRING PHYSICIAN: Dr. Ml Chavez and Dr. Mirna Gonzalez BRIEF HISTORY: Mrs. Fernandes is a 61-year-old lady admitted with acute ST elevation myocardial infarction and inferior wall. She had a recent stent placed in the right coronary artery and obtuse marginal branch. She was brought for emergency cardiac catheterization. PROCEDURE NOTE: After explaining the procedure to the patient, all pros and cons were explained. All questions were answered. The patient signed a consent, then she was placed on the cardiac catheterization laboratory. The right groin was prepped in a sterile fashion. Local anesthesia applied to the right groin. 6-Brazilian sheath was placed in the right femoral artery. Willis left was advanced to the left coronary system. Multiple views were obtained. Willis right guide was advanced and right coronary system, angiogram was done, then BMW wire was advanced to the right coronary artery. The patient has subtotal occlusion of the stent in the proximal right coronary artery. I proceeded with balloon angioplasty using Emerge 3.0 x 20 mm, inflated it multiple times. Then I was unable to advance it. I exchange it into another Emerge 3.0 x 20 mm with excellent results. There was still significant thrombus in the stent after multiple inflations. I decided to overlap the stent with a new stent using 3.0 x 15 mm Xience Alpine stent, deployed under high pressure up to the 16 atmosphere which expanded the stent to 3.24 mm. Angiogram showed excellent results. No residual thrombus. No residual stenosis. Then I advanced the pigtail catheter to the left ventricular cavity. Pressure was measured. Left ventriculogram was done. Pullback LV to aorta was done. At the end of the procedure, sheath was removed. Mynx device deployed. Total radiation exposure was 1,056 mGy. Total contrast 112 mL. At the end of the procedure, Mynx device deployed. FINDINGS: HEMODYNAMICS: LV pressure 153/17, end-diastolic pressure of 17, aortic pressure 145/74, mean of 105. ANATOMY: 1. Left main coronary artery is bifurcating to left anterior descending and left circumflex artery with no obstructive disease. 2. The left anterior descending artery is moderate in size, has 50% stenosis proximally. Nonobstructive disease. 3. Left circumflex artery is moderate in size with the stent in the first obtuse marginal branch, is patent with good flow distally. 4. Right coronary artery is moderate in size. Proximally the stent has a thrombus with subtotal occlusion. Complex intervention with multiple balloon inflations without resolution of the ST changes or the thrombus. Successful deployment of a new stent overlapping using Xience Alpine 3.0 x 15 mm, expanded under 16 atmosphere to 3.24 mm with excellent results. No residual stenosis was noted. Distal right coronary artery has 50% stenosis, which is treated medically. 5. Left ventriculogram was done in the right anterior oblique position. The left ventricle is normal in size with normal systolic function. Estimated ejection fraction 60%. CONCLUSION: 1. Acute ST elevation myocardial infarction with subtotal occlusion of the right coronary artery with in-stent thrombosis. Successful balloon angioplasty with total balloon time 59 minutes, multiple balloon inflations then deployment of a new overlapping stent using Xience Alpine 3.0 x 15 mm stent expanded to 3.24 mm with excellent results. 2. 50% stenosis at the distal right coronary artery, treated medically. 3. Patent stent in the 4th obtuse marginal branch with mild disease distally. 4. 50% stenosis in the proximal LAD with patent stent in the mid LAD with 40% in-stent restenosis. Mild disease distally. 5. Normal left ventricular size with normal contractility. Estimated ejection fraction 60%. DISCUSSION AND RECOMMENDATION: I will continue maximizing medical therapy at this point. Job ID: [id number] Dictated Date: 12/02/2016 17:48:53 Chemical Milling Processor Date: 12/03/2016 10:36:34 / arabella
[2016-12-03] MEDS ORDERED: ENOXAPARIN 40 MG/0.4 ML (LOVENOX) SYR SC SCH (12:00)
[2016-12-03] MEDS ORDERED: NON-FORMULARY MEDICATION 1 EA EA (Insulin Detemir (Levemir Flextouch) 30 UNIT) SQ SCH (21:00)
[2016-12-03] MEDS: inSUlin DETERMIR 1 UNIT/0.01 ML (LEVEMIR) CHARGE PER UNIT SQ SCH (21:38)
[2016-12-03] MEDS: rOPINIRole 1 MG (REQUIP) TABLET PO SCH (21:38)
[2016-12-03] MEDS: ATORVASTATIN 40 MG (LIPITOR) TABLET PO SCH (21:39)
[2016-12-03] MEDS ORDERED: ACETAMINOPHEN 325 MG TABLET/CAPLET (TYLENOL) ONE (21:52)
[2016-12-03] MEDS ORDERED: ACETAMINOPHEN 325 MG TABLET/CAPLET (TYLENOL) PO PRN (22:15)
[2016-12-04] VITALS (12 sets, daily range): BP systolic 104–136; BP diastolic 47–110
[2016-12-04] MEDS: PANTOPRAZOLE 40 MG (PROTONIX) TAB PO SCH (06:54)
[2016-12-04] MEDS: OMEGA 3 (FISH OIL) 1000 MG CAP PO SCH (06:54)
[2016-12-04] MEDS: inSUlin ASPART (NovoLOG) 1 UNIT/0.01 ML (CHARGE PER UNIT) SC SCH (07:01)
[2016-12-04] MEDS: inSUlin DETERMIR 1 UNIT/0.01 ML (LEVEMIR) CHARGE PER UNIT SQ SCH (08:37)
[2016-12-04] MEDS: ASPIRIN E.C. 81 MG (ECOTRIN) TAB PO SCH (08:37)
[2016-12-04] MEDS: TICAGRELOR 90 MG TABLET (BRILINTA) PO SCH (08:37)
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
[2016-12-04] MEDS ORDERED: LIDOCAINE 1% INJ 20 ML (XYLOCAINE) VIAL ONE (10:21)
[2016-12-04] MEDS ORDERED: TICA90TA PO (10:47)
[2016-12-04] MEDS ORDERED: OMG1KC PO (10:47)
--- NOTE | 2016-12-04 10:48 | Discharge Inst-Post CATH ---
Discharge Inst-CATH Post Cardiac Cath D/C Inst Follow Up/Plan Hold metformin for [address] Gonzalez's office next week for wound check CARDIAC CATH DISCHARGE INSTRUCTIONS *Hold Metformin for 48 hours post heart cath. ACTIVITY * Go Home directly and rest. * Limit activity of the leg (or wrist if it was used) for 7 days including aerobics, swimming, jogging, bicycling, etc. * Restrict stair-climbing for 7 days if possible, if not, climb up with your non -cath leg, then bring together on the same step. * Avoid lifting, pushing, pulling or excessive movement of the affected extremity for 7 days. * Customary sexual activity may be resumed after 2 days-use caution not to use a position that strains or causes pain to the affected extremity. * No driving for 24 hours. * NO SMOKING. * Avoid straining for bowel movements for 7 days. * Gentle walking on level ground is allowed. * Returning to work will depend on the type of procedure and the results. Your doctor will discuss this with you. CALL YOUR DOCTOR FOR ANY OF THE FOLLOWING: *If bleeding from the puncture site occurs- Apply gentle pressure to site with clean cloth and call your doctor or EMS. * If a knot or lump forms under the skin, increases in size, or causes pain. * If bruising appears to be worsening or moving further down your leg instead of disappearing. * Temperature above 101 F. CARE OF YOUR GROIN INCISION; * Bruising or purple discoloration of the skin near the puncture site is common. * You may shower only, no bathtub bathing for 5 days. Be careful to avoid slipping as your leg may feel stiff. * If a closure device was used on your femoral artery, please see the attached guide regarding care of the device and your leg. * REMOVE the dressing from your groin the next day after your procedure in the shower. CARE OF YOUR WRIST INCISION; * Bruising or purple discoloration of the skin near the puncture site is common. * You may shower. * DO NOT submerge wrist. * Remove dressing in 24 hours. GOMEZ REBOLLEDO MD Dec 04, 2016 10:47
--- NOTE | 2016-12-05 13:30 | PROCEDURE REPORT ---
PROCEDURE PHYSICIAN: GOMEZ REBOLLEDO DATE OF PROCEDURE: 12/04/2016 BRIEF HISTORY: Mrs. Fernandes is a 61-year-old lady who had history of atrial fibrillation reported in 2015. Has been on Xarelto, had a recent myocardial infarction with ST elevation LA. Had a emergency angioplasty and stenting to the right coronary artery. The patient was started on aspirin and Brilinta instead of aspirin and Plavix. She has been on Xarelto and I am hesitant to use triple blood thinners. I decided to proceed with Reveal device implantation with monitoring for the need for Xarelto and use it only as a pill in the pocket medicine. PROCEDURE NOTE: After explaining the procedure to the patient, all pros and cons were explained. All questions were answered. The patient was prepped in a sterile fashion. Local anesthesia applied. Reveal LINQ device with serial [id number] implanted subcutaneously. No complication noted. CONCLUSION: Successful Reveal device implantation with no complications Job ID: [id number] Dictated Date: 12/04/2016 10:43:49 Agency Sales Director Date: 12/05/2016 13:25:41 / arabella
[2016-12-09 07:15] LABS: CYP2C19 PHENOTYPE INTERP Normal; CYP2C19 SPEC Whole Blood
--- OUTSIDE RECORDS SUMMARY | 2017-01-02 21:56 | XMS REPORT | Continuity of Care Document ---
Author Author [facility] Organization [facility] Address Unknown Phone Unavailable Allergies Active Description Code Type Severity Reaction Onset Reported/Identified Relationship to Patient Clinical Status Yes pseudoephedrine [id number] Drug Allergy Unknown N/A 05/27/2007 Yes Sulfa (Sulfonamide Antibiotics) [id number] Drug Allergy Unknown N/A 05/27/2007 Yes triprolidine [id number] Drug Allergy Unknown N/A 05/27/2007 Medications Problems Date Dx Coded Attending Type Code Diagnosis Diagnosed By 05/27/2011 Ot 250.00 DIAB LESLIE WO COMPL, TYPE II OR UNSPEC TY 05/27/2011 Ot 401.9 HYPERTENSION NOS 05/27/2011 Ot 552.20 OBSTR VENTRAL HERNIA NOS 05/27/2011 Ot 574.10 CHOLELITH W CHOLECYS NEC 05/27/2011 Ot V16.0 FAMILY HX-GI MALIGNANCY 05/27/2011 Ot V58.69 OTH MED,LT,CURRENT USE 05/27/2011 Ot V76.51 SCREEN MAL NEOP-COLON 07/10/2011 Ot 850.0 CONCUSSION W/O COMA 07/10/2011 Ot 920 CONTUSION FACE/SCALP/NCK 07/10/2011 Ot 959.01 HEAD INJURY, NOS 07/10/2011 Ot E000.8 OTHER EXTERNAL CAUSE STATUS 07/10/2011 Ot E849.[address]/HIGHWAY 07/10/2011 Ot E884.9 FALL-1 LEVEL TO OTH NEC 12/14/2013 ANDREA RIVERA MD Ot 027.2 PASTEURELLOSIS 12/14/2013 NICOLE POLANCO, ANDREA [place] Ot 250.00 DIAB LESLIE WO COMPL, TYPE II OR UNSPEC TY 12/14/2013 ANDREA RIVERA MD Ot 272.4 HYPERLIPIDEMIA NEC/NOS 12/14/2013 ANDREA RIVERA MD Ot 278.00 OBESITY, NOS 12/14/2013 ANDREA RIVERA MD Ot 401.9 HYPERTENSION NOS 12/14/2013 ANDREA RIVERA MD Ot 414.01 CORONARY ATHEROSCLEROSIS OF [place] CORON 12/14/2013 ANDREA RIVERA MD Ot 681.00 CELLULITIS, FINGER NOS 12/14/2013 ANDREA RIVERA MD Ot 716.90 ARTHROPATHY NOS-UNSPEC 12/14/2013 ANDREA RIVERA MD Ot 883.0 OPEN WOUND OF FINGER 12/14/2013 ANDREA RIVERA MD Ot E000.8 OTHER EXTERNAL CAUSE STATUS 12/14/2013 ANDREA RIVERA MD Ot E849.0 ACCIDENT IN HOME 12/14/2013 ANDREA RIVERA MD Ot E906.8 INJ NEC CAUSED BY ANIMAL 12/14/2013 ANDREA RIVERA MD Ot V15.81 HX OF PAST NONCOMPLIANCE 12/14/2013 ANDREA RIVERA MD Ot V85.37 BODY MASS INDEX 37.0-37.9, ADULT 07/12/2014 JOSH DANIELSON DO Ot 789.01 07/18/2014 MARIAELENA POLANCO FACC, REX FACP CCDS Ot 250.00 DIAB LESLIE WO COMPL, TYPE II OR UNSPEC TY 07/18/2014 MARIAELENA POLANCO FACC, ALI FACP CCDS Ot 272.4 HYPERLIPIDEMIA NEC/NOS 07/18/2014 MARIAELENA POLANCO FACC, ALI FACP CCDS Ot 401.9 HYPERTENSION NOS 07/18/2014 MARIAELENA POLANCO FACC, ALI FACP CCDS Ot 414.01 CORONARY ATHEROSCLEROSIS OF [place] CORON 07/18/2014 MARIAELENA POLANCO FACC, REX FACP CCDS Ot 780.4 DIZZINESS AND GIDDINESS 07/18/2014 MARIAELENA POLANCO FACC, REX FACP CCDS Ot 784.0 HEADACHE 07/18/2014 MARIAELENA POLANCO FACC, ALI FACP CCDS Ot 786.50 CHEST PAIN NOS 07/18/2014 MARIAELENA POLANCO FACC, REX FACP CCDS Ot V04.81 ND FOR PROPHYLACTIC VACCIN AND INOCULATI 07/18/2014 MARIAELENA POLANCO FACC, REX FACP CCDS Ot V45.82 PERCUTANEOUS TRANSLUM CORON ANGIOPLASTY 07/18/2014 MARIAELENA POLANCO FACC, REX FACP CCDS Ot V58.67 LONG-TERM (CURRENT) USE OF INSULIN 07/18/2014 MARIAELENA POLANCO FACC, ALI FACP CCDS Ot 250.00 07/18/2014 MARIAELENA POLANCO FACC, ALI FACP CCDS Ot 272.4 07/18/2014 MARIAELENA POLANCO FACC, ALI FACP CCDS Ot 401.9 07/18/2014 MARIAELENA POLANCO FACC, ALI FACP CCDS Ot 414.01 07/18/2014 MARIAELENA POLANCO FACC, ALI FACP CCDS Ot 780.4 07/18/2014 MARIAELENA POLANCO FACRonaldo, ALI FACP CCDS Ot 784.0 07/18/2014 MARIAELENA RAMOSC, ALI FACP CCDS Ot 786.50 07/18/2014 MARIAELENA POLANCO FACC, ALI FACP CCDS Ot V04.81 07/18/2014 MARIAELENA POLANCO FACC, ALI FACP CCDS Ot V45.82 07/18/2014 MARIAELENA POLANCO FACC, ALI FACP CCDS Ot V58.67 07/24/2014 MARIAELENA POLANCO FACC, ALI FACP CCDS Ot 250.00 DIAB LESLIE WO COMPL, TYPE II OR UNSPEC TY 07/24/2014 MARIAELENA RAMOSC, ALI FACP CCDS Ot 272.4 HYPERLIPIDEMIA NEC/NOS 07/24/2014 MARIAELENA RAMOSC, ALI FACP CCDS Ot 278.00 OBESITY, NOS 07/24/2014 MARIAELENA POLANCO FACC, ALI FACP CCDS Ot 401.9 HYPERTENSION NOS 07/24/2014 MARIAELENA POLANCO FACC, ALI FACP CCDS Ot 414.01 CORONARY ATHEROSCLEROSIS OF [place] CORON 07/24/2014 MARIAELENA POLANCO FACC, ALI FACP CCDS Ot V17.3 FAM HX-ISCHEM HEART DIS 07/24/2014 MARIAELENA POLANCO FACC, ALI FACP CCDS Ot V45.82 PERCUTANEOUS TRANSLUM CORON ANGIOPLASTY 07/24/2014 MARIAELENA POLANCO FACC, ALI FACP CCDS Ot V58.67 LONG-TERM (CURRENT) USE OF INSULIN 07/24/2014 MARIAELENA POLANCO FACC, ALI FACP CCDS Ot V58.69 OT MED,LT,CURRENT USE 07/24/2014 MARIAELENA POLANCO FACC, ALI FACP CCDS Ot V85.37 BODY MASS INDEX 37.0-37.9, ADULT 07/24/2014 JOSH DANIELSON DO Ot 789.01 07/28/2014 NO KIRK APRN Ot 998.12 HEMATOMA COMPLIC A PROC 08/06/2014 SULEMAN YAP Ot 272.4 08/06/2014 SULEMAN YAP Ot 414.00 08/19/2014 JOSH DANIELSON DO Ot 789.01 08/19/2014 MARIAELENA POLANCO FACC, ALI FACP CCDS Ot 250.00 08/19/2014 MARIAELENA POLANCO FACC, ALI FACP CCDS Ot 272.4 08/19/2014 MARIAELENA POLANCO FACC, ALI FACP CCDS Ot 401.9 08/19/2014 MARIAELENA POLANCO FACC, ALI FACP CCDS Ot 414.00 08/19/2014 MARIAELENA POLANCO FACC, ALI FACP CCDS Ot 785.1 08/19/2014 MARIAELENA POLANCO FACC, ALI FACP CCDS Ot V58.67 08/19/2014 MARIAELENA POLANCO FACC, REX FACP CCDS Ot V58.69 06/11/2015 ANDREA RIVERA MD Ot E11.9 TYPE 2 DIABETES MELLITUS WITHOUT COMPLIC 06/11/2015 ANDREA RIVERA MD Ot E66.9 OBESITY, UNSPECIFIED 06/11/2015 ANDREA RIVERA MD Ot E78.5 HYPERLIPIDEMIA, UNSPECIFIED 06/11/2015 ANDREA RIVERA MD Ot I10 ESSENTIAL (PRIMARY) HYPERTENSION 06/11/2015 ANDREA RIVERA MD Ot I25.10 ATHSCL HEART DISEASE OF [place] CORONARY 06/11/2015 ANDREA RIVERA MD Ot I48.0 PAROXYSMAL ATRIAL FIBRILLATION 06/11/2015 ANDREA RIVERA MD Ot N39.0 URINARY TRACT INFECTION, SITE NOT SPECIF 06/11/2015 ANDREA RIVERA MD Ot Z68.35 BODY MASS INDEX (BMI) 35.0-35.9, ADULT 06/11/2015 ANDREA RIVERA MD Ot Z79.4 CONTENT DEVELOPER (CURRENT) USE OF INSULIN 06/11/2015 ANDREA RIVERA MD Ot Z91.14 PATIENT'S OTHER NONCOMPLIANCE WITH MEDIC 02/02/2016 ALEA FAUSTIN Ot M54.10 RADICULOPATHY, SITE UNSPECIFIED 02/02/2016 ALEA FAUSTIN Ot M54.2 CERVICALGIA 10/06/2016 MARIAELENA POLANCO FACC, REX RAMOSP CCDS Ot E11.9 TYPE 2 DIABETES MELLITUS WITHOUT COMPLIC 10/06/2016 MARIAELENA POLANCO FACC, ALI FACP CCDS Ot E66.9 OBESITY, UNSPECIFIED 10/06/2016 MARIAELENA POLANCO FACC, ALI FACP CCDS Ot E78.5 HYPERLIPIDEMIA, UNSPECIFIED 10/06/2016 MARIAELENA POLANCO FACC, ALI FACP CCDS Ot I10 ESSENTIAL (PRIMARY) HYPERTENSION 10/06/2016 MARIAELENA POLANCO FACC, ALI FACP CCDS Ot I25.118 ATHSCL HEART DISEASE OF [place] COR ART W 10/06/2016 MARIAELENA POLANCO FACC, ALI FACP CCDS Ot I25.84 CORONARY ATHEROSCLEROSIS DUE TO CALCIFIE 10/06/2016 MARIAELENA POLANCO FACC, ALI FACP CCDS Ot Z68.34 BODY MASS INDEX (BMI) 34.0-34.9 , ADULT 10/06/2016 MARIAELENA POLANCO FACC, ALI FACP CCDS Ot Z79.899 OTHER CONTENT DEVELOPER (CURRENT) DRUG THERAPY 10/06/2016 MARIAELENA POLANCO FACC, ALI FACP CCDS Ot Z91.19 PATIENT'S NONCOMPLIANCE W [facility] 10/06/2016 MARIAELENA POLANCO FACC, ALI FACP CCDS Ot Z95.5 PRESENCE OF CORONARY ANGIOPLASTY IMPLANT 10/11/2016 MARIAELENA POLANCO FACC, ALI FACP CCDS Ot E11.9 TYPE 2 DIABETES MELLITUS WITHOUT COMPLIC 10/11/2016 MARIAELENA POLANCO FACC, REX FACP CCDS Ot E66.9 OBESITY, UNSPECIFIED 10/11/2016 MARIAELENA POLANCO FACC, ALI FACP CCDS Ot E78.5 HYPERLIPIDEMIA, UNSPECIFIED 10/11/2016 MARIAELENA POLANCO FACC, ALI FACP CCDS Ot I10 ESSENTIAL (PRIMARY) HYPERTENSION 10/11/2016 MARIAELENA POLANCO FACC, ALI FACP CCDS Ot I25.118 ATHSCL HEART DISEASE OF [place] COR ART W 10/11/2016 MARIAELENA POLANCO FACC, ALI FACP CCDS Ot I25.84 CORONARY ATHEROSCLEROSIS DUE TO CALCIFIE 10/11/2016 MARIAELENA POLANCO FACC, ALI FACP CCDS Ot Z68.34 BODY MASS INDEX (BMI) 34.0-34.9 , ADULT 10/11/2016 MARIAELENA POLANCO FACC, ALI FACP CCDS Ot Z79.899 OTHER PENITENTIARY (CURRENT) DRUG THERAPY 10/11/2016 MARIAELENA POLANCO FACC, ALI FACP CCDS Ot Z91.19 PATIENT'S NONCOMPLIANCE W [facility] 10/11/2016 MARIAELENA POLANCO FACC, REX FACP CCDS Ot Z95.5 PRESENCE OF CORONARY ANGIOPLASTY IMPLANT 10/19/2016 NO KIRK APRN Ot E11.9 TYPE 2 DIABETES MELLITUS WITHOUT COMPLIC 10/19/2016 NO KIRK APRN Ot I97.630 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 10/19/2016 NO KIRK APRN Ot Z79.02 CONTENT DEVELOPER (CURRENT) USE OF ANTITHROMBOTI 10/19/2016 NO KIRK APRN Ot Z79.82 CONTENT DEVELOPER (CURRENT) USE OF ASPIRIN 10/19/2016 NO KIRK APRN Ot Z79.84 PENITENTIARY (CURRENT) USE OF ORAL HYPOGLYC 10/19/2016 NO KIRK APRN Ot Z79.899 OTHER PENITENTIARY (CURRENT) DRUG THERAPY 10/19/2016 NO KIRK APRN Ot Z95.5 PRESENCE OF CORONARY ANGIOPLASTY IMPLANT 10/19/2016 JOSH DANIELSON DO Ot 789.01 ABDOMINAL PAIN, RIGHT UPPER QUADRANT 10/19/2016 Ot 575.8 DIS OF GALLBLADDER NEC 10/19/2016 Ot V16.0 FAMILY HX-GI MALIGNANCY 10/19/2016 Ot V72.63 PRE-PROCEDURAL LABORATORY EXAMINATION 10/19/2016 Ot V74.8 SCREEN-BACTERIAL DIS NEC 10/19/2016 JOSH DANIELSON DO Ot 789.01 ABDOMINAL PAIN, RIGHT UPPER QUADRANT 10/19/2016 MARIAELENA POLANCO FACC, REX FACP CCDS Ot 250.00 DIAB LESLIE WO COMPL, TYPE II OR UNSPEC TY 10/19/2016 MARIAELENA POLANCO FACC, REX FACP CCDS Ot 272.4 HYPERLIPIDEMIA NEC/NOS 10/19/2016 MARIAELENA POALNCO FACC, ALI FACP CCDS Ot 401.9 HYPERTENSION NOS 10/19/2016 MARIAELENA POLANCO FACC, REX FACP CCDS Ot 414.00 CORON ATHEROSCLER NOS TYPE VESSEL, NATIV 10/19/2016 MARIAELENA POLANCO FACC, REX FACP CCDS Ot 785.1 PALPITATIONS 10/19/2016 MARIAELENA POLANCO FACC, REX FACP CCDS Ot V58.67 LONG-TERM (CURRENT) USE OF INSULIN 10/19/2016 MARIAELENA POLANCO FACC, REX FACP CCDS Ot V58.69 OT MED,LT,CURRENT USE 10/19/2016 SULEMAN YAP L DATA WAREHOUSING ARCHITECT Ot 272.4 HYPERLIPIDEMIA NEC/NOS 10/19/2016 FRACISCO SULEMAN L DATA WAREHOUSING ARCHITECT Ot 414.00 CORON ATHEROSCLER NOS TYPE VESSEL, NATIV 10/19/2016 JOSH DANIELSON DO Ot 789.01 ABDOMINAL PAIN, RIGHT UPPER QUADRANT 10/19/2016 Ot 575.8 DIS OF GALLBLADDER NEC 10/19/2016 Ot V16.0 FAMILY HX-GI MALIGNANCY 10/19/2016 Ot V72.63 PRE-PROCEDURAL LABORATORY EXAMINATION 10/19/2016 Ot V74.8 SCREEN-BACTERIAL DIS NEC 10/19/2016 JOSH DANIELSON DO Ot 789.01 ABDOMINAL PAIN, RIGHT UPPER QUADRANT 10/19/2016 MARIAELENA POLANCO FACC, ALI FACP CCDS Ot 250.00 DIAB LESLIE WO COMPL, TYPE II OR UNSPEC TY 10/19/2016 MARIAELENA POLANCO FACC, ALI FACP CCDS Ot 272.4 HYPERLIPIDEMIA NEC/NOS 10/19/2016 MARIAELENA POLANCO FACC, ALI FACP CCDS Ot 401.9 HYPERTENSION NOS 10/19/2016 MARIAELENA POLANCO FACC, ALI FACP CCDS Ot 414.00 CORON ATHEROSCLER NOS TYPE VESSEL, NATIV 10/19/2016 MARIAELENA POLANCO FACC, ALI FACP CCDS Ot 785.1 PALPITATIONS 10/19/2016 MARIAELENA POLANCO FACC, ALI FACP CCDS Ot V58.67 LONG-TERM (CURRENT) USE OF INSULIN 10/19/2016 MARIAELENA POLANCO FACC, ALI FACP CCDS Ot V58.69 OT MED,LT,CURRENT USE 10/19/2016 SULEMAN YAP DATA WAREHOUSING ARCHITECT Ot 272.4 HYPERLIPIDEMIA NEC/NOS 10/19/2016 SULEMAN YAP L DATA WAREHOUSING ARCHITECT Ot 414.00 CORON ATHEROSCLER NOS TYPE VESSEL, NATIV 10/19/2016 JOSH DANIELSON DO Ot 789.01 ABDOMINAL PAIN, RIGHT UPPER QUADRANT 10/19/2016 Ot 575.8 DIS OF GALLBLADDER NEC 10/19/2016 Ot V16.0 FAMILY HX-GI MALIGNANCY 10/19/2016 Ot V72.63 PRE-PROCEDURAL LABORATORY EXAMINATION 10/19/2016 Ot V74.8 SCREEN-BACTERIAL DIS NEC 10/19/2016 JOSH DANIELSON DO Ot 789.01 ABDOMINAL PAIN, RIGHT UPPER QUADRANT 10/19/2016 MARIAELENA POLANCO FACC, ALI FACP CCDS Ot 250.00 DIAB LESLIE WO COMPL, TYPE II OR UNSPEC TY 10/19/2016 MARIAELENA POLANCO FACC, REX FACP CCDS Ot 272.4 HYPERLIPIDEMIA NEC/NOS 10/19/2016 MARIAELENA POLANCO FACC, REX FACP CCDS Ot 401.9 HYPERTENSION NOS 10/19/2016 MARIAELENA POLANCO FACC, ALI FACP CCDS Ot 414.00 CORON ATHEROSCLER NOS TYPE VESSEL, NATIV 10/19/2016 MARIAELENA POLANCO FACC, REX FACP CCDS Ot 785.1 PALPITATIONS 10/19/2016 MARIAELENA POLANCO FACC, REX FACP CCDS Ot V58.67 LONG-TERM (CURRENT) USE OF INSULIN 10/19/2016 REX FERRELL MD, FACC FACP CCDS Ot V58.69 OTH MED,LT,CURRENT USE 10/19/2016 BAIMASULEMAN DATA WAREHOUSING ARCHITECT Ot 272.4 HYPERLIPIDEMIA NEC/NOS 10/19/2016 BAISULEMAN WONG DATA WAREHOUSING ARCHITECT Ot 414.00 CORON ATHEROSCLER NOS TYPE VESSEL, NATIV 10/21/2016 NO KIRK APRN Ot E11.9 TYPE 2 DIABETES MELLITUS WITHOUT COMPLIC 10/21/2016 NO KIRK APRN Ot I97.630 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 10/21/2016 NO KIRK APRN Ot Z79.02 PENITENTIARY (CURRENT) USE OF ANTITHROMBOTI 10/21/2016 NO KIRK BREAKER TABLE WORKER Ot Z79.82 CONTENT DEVELOPER (CURRENT) USE OF ASPIRIN 10/21/2016 NO KIRK BREAKER TABLE WORKER Ot Z79.84 PENITENTIARY (CURRENT) USE OF ORAL HYPOGLYC 10/21/2016 NO KIRK BREAKER TABLE WORKER Ot Z79.899 OTHER CONTENT DEVELOPER (CURRENT) DRUG THERAPY 10/21/2016 NO KIRK APRN Ot Z95.5 PRESENCE OF CORONARY ANGIOPLASTY IMPLANT 11/19/2016 REX FERRELL MD, FACC FACP CCDS Ot I25.10 ATHSCL HEART DISEASE OF [place] CORONARY 11/19/2016 REX FERRELL MD, FACC FACP CCDS Ot I25.10 ATHSCL HEART DISEASE OF [place] CORONARY 11/19/2016 REX FERRELL MD, FACC FACP CCDS Ot E13.9 OTHER SPECIFIED DIABETES MELLITUS WITHOU 11/19/2016 REX FERRELL MD, FACC FACP CCDS Ot E78.4 OTHER HYPERLIPIDEMIA 11/19/2016 MARIAELENA POLANCO FAC, ALI FACP CCDS Ot I10 ESSENTIAL (PRIMARY) HYPERTENSION 11/19/2016 MARIAELENA POLANCO [facility], ALI [facility] LINDAS Ot I25.10 ATHSCL HEART DISEASE OF [place] CORONARY 11/19/2016 MARIAELENA POLANCO FAC, ALI FACP CCDS Ot R11.0 NAUSEA 11/19/2016 MARIAELENA POLANCO FAC, ALI [place] CCDS Ot R20.8 OTHER DISTURBANCES OF SKIN SENSATION 12/04/2016 GOMEZ REBOLLEDO MD Ot B02.9 ZOSTER WITHOUT COMPLICATIONS 12/04/2016 GOMEZ REBOLLEDO MD Ot E11.9 TYPE 2 DIABETES MELLITUS WITHOUT COMPLIC 12/04/2016 GOMEZ REBOLLEDO MD Ot E66.9 OBESITY, UNSPECIFIED 12/04/2016 GOMEZ REBOLLEDO MD Ot E78.5 HYPERLIPIDEMIA, UNSPECIFIED 12/04/2016 GOMEZ REBOLLEDO MD Ot I10 ESSENTIAL (PRIMARY) HYPERTENSION 12/04/2016 GOMEZ REBOLLEDO MD Ot I21.19 STEMI INVOLVING OTH CORONARY ARTERY OF I 12/04/2016 GOMEZ REBOLLEDO MD, Ot I25.10 ATHSCL HEART DISEASE OF [place] CORONARY 12/04/2016 GOMEZ REBOLLEDO MD Ot I48.0 PAROXYSMAL ATRIAL FIBRILLATION 12/04/2016 GOMEZ REBOLLEDO MD, Ot K21.9 GASTRO-ESOPHAGEAL REFLUX DISEASE WITHOUT 12/04/2016 GOMEZ REBOLLEDO MD Ot T82.867A THROMBOSIS DUE TO CARDIAC PROSTH DEV/ GRF 12/04/2016 GOMEZ REBOLLEDO MD, Ot Z68.37 BODY MASS INDEX (BMI) 37.0-37.9, ADULT 12/04/2016 GOMEZ REBOLLEDO MD, Ot Z79.4 CONTENT DEVELOPER (CURRENT) USE OF INSULIN 12/04/2016 GOMEZ REBOLLEDO MD, Ot Z91.14 PATIENT'S OTHER NONCOMPLIANCE WITH MEDIC 12/04/2016 GOMEZ REBOLLEDO MD, Ot Z95.5 PRESENCE OF CORONARY ANGIOPLASTY IMPLANT 12/09/2016 SULEMAN YAP Ot I97.610 POSTPROC HEMOR OF A CIRC SYS ORG FOLLOWI 12/09/2016 SULEMAN YAP Ot I97.610 POSTPROC HEMOR OF A CIRC SYS ORG FOLLOWI 12/10/2016 MARIAELENA POLANCO FACC, REX [facility] CCDS Ot E13.9 OTHER SPECIFIED DIABETES MELLITUS WITHOU 12/10/2016 MARIAELENA POLANCO [facility]ACC, [facility] Ot E78.4 OTHER HYPERLIPIDEMIA 12/10/2016 MARIAELENA POLANCO FACC, REX [facility] CCD[facility] Ot I10 ESSENTIAL (PRIMARY) HYPERTENSION 12/10/2016 MARIAELENA POLANCO FACC, REX [facility] Ot I25.10 ATHSCL HEART DISEASE OF [place] CORONARY 12/10/2016 MARIAELENA POLANCO FACC, REX [facility] CCD[facility] Ot R11.0 NAUSEA 12/10/2016 MARIAELENA POLANCO FACC, [facility] CCD[facility] Ot R20.8 OTHER DISTURBANCES OF SKIN SENSATION Procedures Code Description Performed By Performed On 45.23 COLONOSCOPY 05/24 51.23 LAPAROSCOPIC CHOLECYSTECTOMY 05/24/2011 53.59 ABD WALL ANALI REPAIR NEC 05/24/2011 86.04 OTHER SKIN SUBQ I D 12/14/2013 [id number] DILATION OF 1 COR ART WITH DRUG-ELUT INT 12/02/2016 [id number] INSERT OF MONITOR DEV INTO CHEST SUBCU/F 12/02/2016 [id number] MEASURE OF CARDIAC SAMPL PRESSURE, L H 12/02/2016 [id number] FLUOROSCOPY OF MULT COR ART USING L OSM 12/02/2016 [id number] FLUOROSCOPY OF LEFT HEART USING LOW OSMO 12/02/2016 Results Test Result Range Automated blood complete blood count (hemogram) panel - 10/05/16 10:02 Blood leukocytes automated count (number/volume) 6.9 10*3/ uL 4.3-11.0 Blood erythrocytes automated count (number/volume) 4.85 10*6 /uL 4.35-5.85 Venous blood hemoglobin measurement (mass/volume) 13.9 g/dL 11.5-16.0 Blood hematocrit (volume fraction) 41 % 35-52 Automated erythrocyte mean corpuscular volume 84 [foz_us] 80-99 Automated erythrocyte mean corpuscular hemoglobin (mass per erythrocyte) 29 pg 25-34 Automated erythrocyte mean corpuscular hemoglobin concentration measurement ( mass/volume) 34 g/dL 32-36 Automated erythrocyte distribution width ratio 13.7 % 10.0-14.5 Automated blood platelet count (count/volume) 192 10*3/uL 130-400 Automated blood platelet mean volume measurement 12.2 [foz_ us] 7.4-10.4 PT panel in platelet poor plasma by coagulation assay - 10/05/16 10:12 Prothrombin time (PT) in platelet poor plasma by coagulation assay 12.7 s 12.2-14.7 INR in platelet poor plasma or blood by coagulation assay 1.0 0.8-1.4 Activated partial thromboplastin time (aPTT) in platelet poor plasma bycoagulation assay - 10/05/16 10:12 Activated partial thromboplastin time (aPTT) in platelet poor plasma bycoagulation assay 30 s 24-35 Comprehensive metabolic panel - 10/05/16 10:12 Serum or plasma sodium measurement (moles/volume) 133 mmol/ L 135-145 Serum or plasma potassium measurement (moles/volume) 3.8 mmol/L 3.6-5.0 Serum or plasma chloride measurement (moles/volume) 100 mmol /L 98-107 Carbon dioxide 24 mmol/L 21-32 Serum or plasma anion gap determination (moles/volume) 9 mmol/L 5-14 Serum or plasma urea nitrogen measurement (mass/volume) 17 mg/dL 7-18 Serum or plasma creatinine measurement (mass/volume) 0.87 mg /dL 0.60-1.30 Serum or plasma urea nitrogen/creatinine mass ratio 20 NRG Serum or plasma creatinine measurement with calculation of estimated glomerular filtration rate > NRG Serum or plasma glucose measurement (mass/volume) 398 mg/dL 70-105 Serum or plasma calcium measurement (mass/volume) 9.6 mg/dL 8.5-10.1 Serum or plasma total bilirubin measurement (mass/volume) 0.7 mg/dL 0.1-1.0 Serum or plasma alkaline phosphatase measurement (enzymatic activity/volume) 85 U/L 40-136 Serum or plasma aspartate aminotransferase measurement (enzymatic activity/ volume) 14 U/L 5-34 Serum or plasma alanine aminotransferase measurement (enzymatic activity/volume ) 19 U/L 0-55 Serum or plasma protein measurement (mass/volume) 6.9 g/dL 6.4-8.2 Serum or plasma albumin measurement (mass/volume) 3.5 g/dL 3.2-4.5 Lipid 1996 panel - 10/05/16 10:12 Serum or plasma triglyceride measurement (mass/volume) 336 mg/dL <150 Serum or plasma cholesterol measurement (mass/volume) 181 mg /dL < 200 Serum or plasma cholesterol in HDL measurement (mass/volume) 31 mg/dL 40-60 Cholesterol in LDL [mass/volume] in serum or plasma by direct assay 107 mg/dL 1-129 Serum or plasma cholesterol in VLDL measurement (mass/volume) 67 mg/dL 5-40 Methicillin resistant Staphylococcus aureus (MRSA) screening culture - 10:12 Methicillin resistant Staphylococcus aureus (MRSA) screening culture NEG NRG Capillary blood glucose measurement by glucometer (mass/volume) - 10/06/16 01: 21 Capillary blood glucose measurement by glucometer (mass/volume) 282 mg/dL 70-110 Automated blood complete blood count (hemogram) panel - 10/06/16 03:26 Blood leukocytes automated count (number/volume) 9.1 10*3/ uL 4.3-11.0 Blood erythrocytes automated count (number/volume) 3.91 10*6 /uL 4.35-5.85 Venous blood hemoglobin measurement (mass/volume) 11.2 g/dL 11.5-16.0 Blood hematocrit (volume fraction) 33 % 35-52 Automated erythrocyte mean corpuscular volume 85 [foz_us] 80-99 Automated erythrocyte mean corpuscular hemoglobin (mass per erythrocyte) 29 pg 25-34 Automated erythrocyte mean corpuscular hemoglobin concentration measurement ( mass/volume) 34 g/dL 32-36 Automated erythrocyte distribution width ratio 13.7 % 10.0-14.5 Automated blood platelet count (count/volume) 171 10*3/uL 130-400 Automated blood platelet mean volume measurement 11.9 [foz_ us] 7.4-10.4 Whole blood basic metabolic panel - 10/06/16 03:36 Serum or plasma sodium measurement (moles/volume) 134 mmol/ L 135-145 Serum or plasma potassium measurement (moles/volume) 3.8 mmol/L 3.6-5.0 Serum or plasma chloride measurement (moles/volume) 100 mmol /L 98-107 Carbon dioxide 25 mmol/L 21-32 Serum or plasma anion gap determination (moles/volume) 9 mmol/L 5-14 Serum or plasma urea nitrogen measurement (mass/volume) 14 mg/dL 7-18 Serum or plasma creatinine measurement (mass/volume) 0.80 mg /dL 0.60-1.30 Serum or plasma urea nitrogen/creatinine mass ratio 18 NRG Serum or plasma creatinine measurement with calculation of estimated glomerular filtration rate > NRG Serum or plasma glucose measurement (mass/volume) 264 mg/dL 70-105 Serum or plasma calcium measurement (mass/volume) 8.4 mg/dL 8.5-10.1 PT panel in platelet poor plasma by coagulation assay - 12/02/16 16:27 Prothrombin time (PT) in platelet poor plasma by coagulation assay 20.6 s 12.2-14.7 INR in platelet poor plasma or blood by coagulation assay 1.8 0.8-1.4 Activated partial thromboplastin time (aPTT) in platelet poor plasma bycoagulation assay - 12/02/16 16:27 Activated partial thromboplastin time (aPTT) in platelet poor plasma bycoagulation assay 39 s 24-35 Comprehensive metabolic panel - 12/02/16 16:27 Serum or plasma sodium measurement (moles/volume) 136 mmol/ L 135-145 Serum or plasma potassium measurement (moles/volume) 3.5 mmol/L 3.6-5.0 Serum or plasma chloride measurement (moles/volume) 103 mmol /L 98-107 Carbon dioxide 20 mmol/L 21-32 Serum or plasma anion gap determination (moles/volume) 13 mmol/L 5-14 Serum or plasma urea nitrogen measurement (mass/volume) 8 mg /dL 7-18 Serum or plasma creatinine measurement (mass/volume) 1.11 mg /dL 0.60-1.30 Serum or plasma urea nitrogen/creatinine mass ratio 7 NRG Serum or plasma creatinine measurement with calculation of estimated glomerular filtration rate 50 NRG Serum or plasma glucose measurement (mass/volume) 443 mg/dL 70-105 Serum or plasma calcium measurement (mass/volume) 8.9 mg/dL 8.5-10.1 Serum or plasma total bilirubin measurement (mass/volume) 0.6 mg/dL 0.1-1.0 Serum or plasma alkaline phosphatase measurement (enzymatic activity/volume) 92 U/L 40-136 Serum or plasma aspartate aminotransferase measurement (enzymatic activity/ volume) 13 U/L 5-34 Serum or plasma alanine aminotransferase measurement (enzymatic activity/volume ) 12 U/L 0-55 Serum or plasma protein measurement (mass/volume) 7.2 g/dL 6.4-8.2 Serum or plasma albumin measurement (mass/volume) 3.5 g/dL 3.2-4.5 Magnesium - 12/02/16 16:27 Magnesium 1.8 mg/dL 1.8-2.4 Serum or plasma troponin i.cardiac measurement (mass/volume) - 12/02/16 16:27 Serum or plasma troponin i.cardiac measurement (mass/volume) < ng/mL <0.30 Myoglobin, serum - 12/02/16 16:27 Myoglobin, serum 27.9 ng/mL 10.0-92.0 [id number] gene mutation analysis - 12/02/16 16:27 [id number] gene mutation analysis Normal NRG Capillary blood glucose measurement by glucometer (mass/volume) - 12/02/16 21: 07 Capillary blood glucose measurement by glucometer (mass/volume) 332 mg/dL 70-110 Automated blood complete blood count (hemogram) panel - 12/03/16 03:45 Blood leukocytes automated count (number/volume) 9.1 10*3/ uL 4.3-11.0 Blood erythrocytes automated count (number/volume) 4.29 10*6 /uL 4.35-5.85 Venous blood hemoglobin measurement (mass/volume) 12.0 g/dL 11.5-16.0 Blood hematocrit (volume fraction) 36 % 35-52 Automated erythrocyte mean corpuscular volume 84 [foz_us] 80-99 Automated erythrocyte mean corpuscular hemoglobin (mass per erythrocyte) 28 pg 25-34 Automated erythrocyte mean corpuscular hemoglobin concentration measurement ( mass/volume) 33 g/dL 32-36 Automated erythrocyte distribution width ratio 13.6 % 10.0-14.5 Automated blood platelet count (count/volume) 179 10*3/uL 130-400 Automated blood platelet mean volume measurement 11.7 [foz_ us] 7.4-10.4 Whole blood basic metabolic panel - 12/03/16 03:45 Serum or plasma sodium measurement (moles/volume) 137 mmol/ L 135-145 Serum or plasma potassium measurement (moles/volume) 3.2 mmol/L 3.6-5.0 Serum or plasma chloride measurement (moles/volume) 103 mmol /L 98-107 Carbon dioxide 26 mmol/L 21-32 Serum or plasma anion gap determination (moles/volume) 8 mmol/L 5-14 Serum or plasma urea nitrogen measurement (mass/volume) 9 mg /dL 7-18 Serum or plasma creatinine measurement (mass/volume) 0.78 mg /dL 0.60-1.30 Serum or plasma urea nitrogen/creatinine mass ratio 12 NRG Serum or plasma creatinine measurement with calculation of estimated glomerular filtration rate > NRG Serum or plasma glucose measurement (mass/volume) 223 mg/dL 70-105 Serum or plasma calcium measurement (mass/volume) 8.4 mg/dL 8.5-10.1 Serum or plasma troponin i.cardiac measurement (mass/volume) - 12/03/16 03:45 Serum or plasma troponin i.cardiac measurement (mass/volume) 11.41 ng/mL <0.30 Lipid 1996 panel - 12/03/16 03:45 Serum or plasma triglyceride measurement (mass/volume) 182 mg/dL <150 Serum or plasma cholesterol measurement (mass/volume) 172 mg /dL < 200 Serum or plasma cholesterol in HDL measurement (mass/volume) 32 mg/dL 40-60 Cholesterol in LDL [mass/volume] in serum or plasma by direct assay 108 mg/dL 1-129 Serum or plasma cholesterol in VLDL measurement (mass/volume) 36 mg/dL 5-40 Capillary blood glucose measurement by glucometer (mass/volume) - 12/03/16 11: 51 Capillary blood glucose measurement by glucometer (mass/volume) 235 mg/dL 70-110 Capillary blood glucose measurement by glucometer (mass/volume) - 12/03/16 16: 06 Capillary blood glucose measurement by glucometer (mass/volume) 319 mg/dL 70-110 Capillary blood glucose measurement by glucometer (mass/volume) - 12/03/16 21: 29 Capillary blood glucose measurement by glucometer (mass/volume) 223 mg/dL 70-110 Capillary blood glucose measurement by glucometer (mass/volume) - 12/04/16 06: 53 Capillary blood glucose measurement by glucometer (mass/volume) 175 mg/dL 70-110 Complete blood count (CBC) with automated white blood cell (WBC) differential - 01/02/17 15:10 Blood leukocytes automated count (number/volume) 9.1 10*3/ uL 4.3-11.0 Blood erythrocytes automated count (number/volume) 5.12 10*6 /uL 4.35-5.85 Venous blood hemoglobin measurement (mass/volume) 14.0 g/dL 11.5-16.0 Blood hematocrit (volume fraction) 43 % 35-52 Automated erythrocyte mean corpuscular volume 84 [foz_us] 80-99 Automated erythrocyte mean corpuscular hemoglobin (mass per erythrocyte) 27 pg 25-34 Automated erythrocyte mean corpuscular hemoglobin concentration measurement ( mass/volume) 33 g/dL 32-36 Automated erythrocyte distribution width ratio 14.4 % 10.0-14.5 Automated blood platelet count (count/volume) 198 10*3/uL 130-400 Automated blood platelet mean volume measurement 11.8 [z_ us] 7.4-10.4 Automated blood neutrophils/100 leukocytes 64 % 42-75 Automated blood lymphocytes/100 leukocytes 26 % 12-44 Blood monocytes/100 leukocytes 7 % 0-12 Automated blood eosinophils/100 leukocytes 3 % 0-10 Automated blood basophils/100 leukocytes 0 % 0-10 Blood neutrophils automated count (number/volume) 5.9 10*3 1.8-7.8 Blood lymphocytes automated count (number/volume) 2.3 10*3 1.0-4.0 Blood monocytes automated count (number/volume) 0.6 10*3 0.0-1.0 Automated eosinophil count 0.3 10*3/uL 0.0-0.3 Automated blood basophil count (count/volume) 0.0 10*3/uL 0.0-0.1 PT panel in platelet poor plasma by coagulation assay - 01/02/17 15:10 Prothrombin time (PT) in platelet poor plasma by coagulation assay 12.7 s 12.2-14.7 INR in platelet poor plasma or blood by coagulation assay 1.0 0.8-1.4 Activated partial thromboplastin time (aPTT) in platelet poor plasma bycoagulation assay - 01/02/17 15:10 Activated partial thromboplastin time (aPTT) in platelet poor plasma bycoagulation assay 30 s 24-35 Comprehensive metabolic panel - 01/02/17 15:10 Serum or plasma sodium measurement (moles/volume) 139 mmol/ L 135-145 Serum or plasma potassium measurement (moles/volume) 4.0 mmol/L 3.6-5.0 Serum or plasma chloride measurement (moles/volume) 103 mmol /L 98-107 Carbon dioxide 28 mmol/L 21-32 Serum or plasma anion gap determination (moles/volume) 8 mmol/L 5-14 Serum or plasma urea nitrogen measurement (mass/volume) 11 mg/dL 7-18 Serum or plasma creatinine measurement (mass/volume) 0.84 mg /dL 0.60-1.30 Serum or plasma urea nitrogen/creatinine mass ratio 13 NRG Serum or plasma creatinine measurement with calculation of estimated glomerular filtration rate > NRG Serum or plasma glucose measurement (mass/volume) 260 mg/dL 70-105 Serum or plasma calcium measurement (mass/volume) 9.3 mg/dL 8.5-10.1 Serum or plasma total bilirubin measurement (mass/volume) 0.6 mg/dL 0.1-1.0 Serum or plasma alkaline phosphatase measurement (enzymatic activity/volume) 87 U/L 40-136 Serum or plasma aspartate aminotransferase measurement (enzymatic activity/ volume) 16 U/L 5-34 Serum or plasma alanine aminotransferase measurement (enzymatic activity/volume ) 19 U/L 0-55 Serum or plasma protein measurement (mass/volume) 7.4 g/dL 6.4-8.2 Serum or plasma albumin measurement (mass/volume) 3.7 g/dL 3.2-4.5 Magnesium - 01/02/17 15:10 Magnesium 2.0 mg/dL 1.8-2.4 Serum or plasma troponin i.cardiac measurement (mass/volume) - 01/02/17 15:10 Serum or plasma troponin i.cardiac measurement (mass/volume) < ng/mL <0.30 Myoglobin, serum - 01/02/17 15:10 Myoglobin, serum 32.6 ng/mL 10.0-92.0 Capillary blood glucose measurement by glucometer (mass/volume) - 01/02/17 17: 40 Capillary blood glucose measurement by glucometer (mass/volume) 249 mg/dL 70-110 Encounters ACCT No. Visit Date/Time Discharge Status Pt. Type Provider Facility Loc./Unit Complaint [id number] 12/02/2016 16:44:00 2016 12:00:00 DIS Inpatient GOMEZ REBOLLEDO MD [facility] ICU STEMI [id number] 10/19/2016 10:35:00 2016 13:22:00 DIS Emergency NO KIRK APRN [facility] ER POST OP BLEEDING [id number] 10/05/2016 09:14:00 2016 11:45:00 DIS Outpatient MARIAELENA POLANCO FACC, REX PERALES CCDS [facility] CATH SOB,CAD [id number] 01/27/2016 13:59:00 2015 13:46:00 DIS Outpatient ALEA FAUSTIN [facility] REHAB NECK PAIN WITH L RADICULOPATHY [id number] 06/10/2015 21:09:00 2014 10:06:00 DIS Inpatient ANDREA RIVERA MD [facility] ICU NEW ONSET AFIB;UTI;H/O CAD [id number] 07/28/2014 15:06:00 2013 17:02:00 DIS Emergency NO KIRK APRN [facility] ER LUMP IN GROIN AREA POST HEART CATH [id number] 07/23/2014 08:11:00 2013 09:50:00 DIS Outpatient MARIAELENA POLANCO FACC, REX PERALES CCDS [facility] CATH ABNORMAL STRESS, CHEST PAIN [id number] 07/17/2014 16:34:00 2013 17:23:00 DIS Inpatient MARIAELENA POLANCO FACC, REX PERALES CCDS [facility] CSD CHEST PAIN ON EXERTION,COLLAZO, DIZZINESS [id number] 07/09/2014 08:29:00 2013 23:59:59 CLS Outpatient MARIAELENA POLANCO FACC, REX PERALES CCDS [facility] CARD CAD,HLP,HTN [id number] 07/08/2014 12:05:00 2013 23:59:59 CLS Outpatient SULEMAN YAP [facility] LAB CAD,HYPERLIPIDEMIA [id number] 06/24/2014 12:36:00 2013 23:59:59 CLS Outpatient JOSH DANIELSON DO [facility] RAD RUQ PAIN [id number] 06/20/2014 12:31:00 2013 23:59:59 CLS Outpatient JOSH DANIELSON DO [facility] LAB RUQ PAIN [id number] 12/14/2013 15:41:00 2013 17:23:00 DIS Inpatient NICOLE POLANCO, ANDREA [place] [facility] 4TH CAT BITE CELLULITIS R HAND; DIABETES OUT OF CONTRO [id number] 01/02/2017 15:22:00 Document Registration [id number] 12/31/2016 12:51:00 ACT Outpatient MARIAELENA POLANCO FACC, REX PERALES CCDS [facility] CARD Z95.5,I25.10 [id number] 12/09/2016 11:27:00 ACT Outpatient SULEMAN YAP [facility] RAD RT GROIN PAIN [id number] 11/19/2016 11:07:00 ACT Outpatient MARIAELENA POLANCO FACC, REX PERALES CCDS [facility] LAB CAD,DIABETES,HYPERLIDEMIA,HTN [id number] 07/10/2011 16:47:00 Document Registration [id number] 05/24/2011 18:15:00 Document Registration [id number] 05/18/2011 15:49:00 Document Registration
--- OUTSIDE RECORDS SUMMARY | 2017-01-02 22:20 | XMS REPORT | Continuity of Care Document ---
Author Author [facility] Organization [facility] Address Unknown Phone Unavailable Allergies Active Description Code Type Severity Reaction Onset Reported/Identified Relationship to Patient Clinical Status Yes pseudoephedrine [id number] Drug Allergy Unknown N/A 05/27/2007 Yes Sulfa (Sulfonamide Antibiotics) [id number] Drug Allergy Unknown N/A 05/27/2007 Yes triprolidine [id number] Drug Allergy Unknown N/A 05/27/2007 Medications Problems [...] RIVERA MD Ot 414.01 CORONARY ATHEROSCLEROSIS OF [place] CORON 12/14/2013 ANDREA RIVERA MD Ot 681.00 [...] FACP CCDS Ot 414.01 CORONARY ATHEROSCLEROSIS OF [place] CORON 07/18/2014 MARIAELENA POLANCO FACC, REX FACP [...] FACP CCDS Ot 414.01 CORONARY ATHEROSCLEROSIS OF [place] CORON 07/24/2014 MARIAELENA POLANCO FACC, ALI FACP [...] MD Ot I25.10 ATHSCL HEART DISEASE OF [place] CORONARY 06/11/2015 ANDREA RIVERA MD Ot I48.0 PAROXYSMAL ATRIAL FIBRILLATION 06/11/2015 ANDREA RIVERA MD Ot N39.0 URINARY TRACT INFECTION, SITE NOT SPECIF 06/11/2015 ANDREA RIVERA MD Ot Z68.35 BODY MASS INDEX (BMI) 35.0-35.9, ADULT 06/11/2015 ANDREA RIVERA MD Ot Z79.4 RESEARCH METHODOLOGIST (CURRENT) USE OF INSULIN 06/11/2015 ANDREA RIVERA [...] CCDS Ot I25.118 ATHSCL HEART DISEASE OF [place] COR ART W 10/06/2016 MARIAELENA POLANCO FACC, ALI FACP CCDS Ot I25.84 CORONARY ATHEROSCLEROSIS DUE TO CALCIFIE 10/06/2016 MARIAELENA POLANCO FACC, ALI FACP CCDS Ot Z68.34 BODY MASS INDEX (BMI) 34.0-34.9 , ADULT 10/06/2016 MARIAELENA POLANCO FACC, ALI FACP CCDS Ot Z79.899 OTHER RESEARCH METHODOLOGIST (CURRENT) DRUG THERAPY 10/06/2016 MARIAELENA PLOANCO FACC, ALI FACP CCDS Ot Z91.19 PATIENT'S NONCOMPLIANCE W [facility] TR 10/06/2016 MARIAELENA POLANCO FACC, ALI [...] CCDS Ot I25.118 ATHSCL HEART DISEASE OF [place] COR ART W 10/11/2016 MARIAELENA POLANCO FACC, ALI FACP CCDS Ot I25.84 CORONARY ATHEROSCLEROSIS DUE TO CALCIFIE 10/11/2016 MARIAELENA POLANCO FACC, ALI FACP CCDS Ot Z68.34 BODY MASS INDEX (BMI) 34.0-34.9 , ADULT 10/11/2016 MARIAELENA POLANCO FACC, ALI FACP CCDS Ot Z79.899 OTHER RESIDENTIAL (CURRENT) DRUG THERAPY 10/11/2016 MARIAELENA POLANCO FACC, ALI FACP CCDS Ot Z91.19 PATIENT'S NONCOMPLIANCE W [facility] 10/11/2016 MARIAELENA POLANCO FACC, REX FACP CCDS Ot Z95.5 PRESENCE OF CORONARY ANGIOPLASTY IMPLANT 10/19/2016 NO KIRK APRN Ot E11.9 TYPE 2 DIABETES MELLITUS WITHOUT COMPLIC 10/19/2016 NO KIRK APRN Ot I97.630 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 10/19/2016 NO KIRK APRN Ot Z79.02 RESEARCH METHODOLOGIST (CURRENT) USE OF ANTITHROMBOTI 10/19/2016 NO KIRK APRN Ot Z79.82 RESEARCH METHODOLOGIST (CURRENT) USE OF ASPIRIN 10/19/2016 NO KIRK APRN Ot Z79.84 RESIDENTIAL (CURRENT) USE OF ORAL HYPOGLYC 10/19/2016 NO KIRK APRN Ot Z79.899 OTHER RESIDENTIAL (CURRENT) DRUG THERAPY 10/19/2016 NO KIRK APRN [...] OT MED,LT,CURRENT USE 10/19/2016 SULEMAN YAP L PARLIAMENTARY COUNSEL Ot 272.4 HYPERLIPIDEMIA NEC/NOS 10/19/2016 FRACISCO SULEMAN L PARLIAMENTARY COUNSEL Ot 414.00 CORON ATHEROSCLER NOS TYPE VESSEL, [...] V58.69 OT MED,LT,CURRENT USE 10/19/2016 SULEMAN YAP PARLIAMENTARY COUNSEL Ot 272.4 HYPERLIPIDEMIA NEC/NOS 10/19/2016 SULEMAN YAP L PARLIAMENTARY COUNSEL Ot 414.00 CORON ATHEROSCLER NOS TYPE VESSEL, [...] Ot V58.69 OTH MED,LT,CURRENT USE 10/19/2016 BAIMASULEMAN PARLIAMENTARY COUNSEL Ot 272.4 HYPERLIPIDEMIA NEC/NOS 10/19/2016 BAISULEMAN WONG PARLIAMENTARY COUNSEL Ot 414.00 CORON ATHEROSCLER NOS TYPE VESSEL, NATIV 10/21/2016 NO KIRK APRN Ot E11.9 TYPE 2 DIABETES MELLITUS WITHOUT COMPLIC 10/21/2016 NO KIRK APRN Ot I97.630 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 10/21/2016 NO KIRK APRN Ot Z79.02 RESIDENTIAL (CURRENT) USE OF ANTITHROMBOTI 10/21/2016 NO KIRK CHEMICAL PROCESS PROJECT ENGINEER Ot Z79.82 RESEARCH METHODOLOGIST (CURRENT) USE OF ASPIRIN 10/21/2016 NO KIRK CHEMICAL PROCESS PROJECT ENGINEER Ot Z79.84 RESIDENTIAL (CURRENT) USE OF ORAL HYPOGLYC 10/21/2016 NO KIRK CHEMICAL PROCESS PROJECT ENGINEER Ot Z79.899 OTHER RESEARCH METHODOLOGIST (CURRENT) DRUG THERAPY 10/21/2016 NO KIRK APRN Ot Z95.5 PRESENCE OF CORONARY ANGIOPLASTY IMPLANT 11/19/2016 REX FERRELL MD, FACC FACP CCDS Ot I25.10 ATHSCL HEART DISEASE OF [place] CORONARY 11/19/2016 REX FERRELL MD, FACC FACP CCDS Ot I25.10 ATHSCL HEART DISEASE OF [place] CORONARY 11/19/2016 REX FERRELL MD, FACC FACP CCDS Ot E13.9 OTHER SPECIFIED DIABETES MELLITUS WITHOU 11/19/2016 REX FERRELL MD, FACC FACP CCDS Ot E78.4 OTHER HYPERLIPIDEMIA 11/19/2016 MARIAELENA POLANCO FAC, ALI FACP CCDS Ot I10 ESSENTIAL (PRIMARY) HYPERTENSION 11/19/2016 MARIAELENA POLANCO [facility], ALI [facility] Ot I25.10 ATHSCL HEART DISEASE OF [place] CORONARY 11/19/2016 MARIAELENA POLANCO FAC, ALI FACP [...] MD, Ot I25.10 ATHSCL HEART DISEASE OF [place] CORONARY 12/04/2016 GOMEZ REBOLLEDO MD Ot I48.0 PAROXYSMAL ATRIAL FIBRILLATION 12/04/2016 GOMEZ REBOLLEDO MD, Ot K21.9 GASTRO-ESOPHAGEAL REFLUX DISEASE WITHOUT 12/04/2016 GOMEZ REBOLLEDO MD Ot T82.867A THROMBOSIS DUE TO CARDIAC PROSTH DEV/ GRF 12/04/2016 GOMEZ REBOLLEDO MD, Ot Z68.37 BODY MASS INDEX (BMI) 37.0-37.9, ADULT 12/04/2016 GOMEZ REBOLLEDO MD, Ot Z79.4 RESEARCH METHODOLOGIST (CURRENT) USE OF INSULIN 12/04/2016 GOMEZ REBOLLEDO MD, Ot Z91.14 PATIENT'S OTHER NONCOMPLIANCE WITH MEDIC 12/04/2016 GOMEZ REBOLLEDO MD, Ot Z95.5 PRESENCE OF CORONARY ANGIOPLASTY IMPLANT 12/09/2016 SULEMAN YAP Ot I97.610 POSTPROC HEMOR OF A CIRC SYS ORG FOLLOWI 12/09/2016 SULEMAN YAP Ot I97.610 POSTPROC HEMOR OF A CIRC SYS ORG FOLLOWI 12/10/2016 MARIAELENA POLANCO FACC, REX [facility] CCDS Ot E13.9 OTHER SPECIFIED DIABETES MELLITUS WITHOU 12/10/2016 MARIAELENA POLANCO [facility] Ot E78.4 OTHER HYPERLIPIDEMIA 12/10/2016 MARIAELENA POLANCO [facility]ACC[facility] Ot I10 ESSENTIAL (PRIMARY) HYPERTENSION 12/10/2016 MARIAELENA POLANCO [facility]ACC[facility] Ot I25.10 ATHSCL HEART DISEASE OF [place] CORONARY 12/10/2016 MARIAELENA POLANCO [facility]ACC[facility] Ot R11.0 NAUSEA 12/10/2016 MARIAELENA POLANCO [facility]ACC[facility] Ot R20.8 OTHER DISTURBANCES OF SKIN SENSATION Procedures Code Description Performed By Performed On 45.23 COLONOSCOPY 05/24 51.23 LAPAROSCOPIC CHOLECYSTECTOMY 05/24/2011 53.59 ABD WALL ANALI REPAIR NEC 05/24/2011 86.04 OTHER SKIN SUBQ I D 12/14/2013 [id number] DILATION OF 1 COR ART WITH DRUG-ELUT INT 12/02/2016 [id number] INSERT OF MONITOR DEV INTO CHEST SUBCU/F 12/02/2016 [id number] MEASURE OF CARDIAC SAMPL PRESSURE, L H 12/02/2016 [id number] FLUOROSCOPY OF MULT COR ART USING L OSM 12/02/2016 [id number] FLUOROSCOPY OF LEFT HEART USING LOW OSMO [...] 12/02/16 16:27 Myoglobin, serum 27.9 ng/mL 10.0-92.0 [id number] gene mutation analysis - 12/02/16 16:27 [id number] gene mutation analysis Normal NRG Capillary blood [...] Status Pt. Type Provider Facility Loc./Unit Complaint [id number] 12/02/2016 16:44:00 2016 12:00:00 DIS Inpatient GOMEZ REBOLLEDO MD [facility] ICU STEMI [id number] 10/19/2016 10:35:00 2016 13:22:00 DIS Emergency NO KIRK APRN [facility] ER POST OP BLEEDING [id number] 10/05/2016 09:14:00 2016 11:45:00 DIS Outpatient MARIAELENA POLANCO FACC, REX PERALES CCDS [facility] CATH SOB,CAD [id number] 01/27/2016 13:59:00 2015 13:46:00 DIS Outpatient ALEA FAUSTIN [facility] REHAB NECK PAIN WITH L RADICULOPATHY [id number] 06/10/2015 21:09:00 2014 10:06:00 DIS Inpatient ANDREA RIVERA MD [facility] ICU NEW ONSET AFIB;UTI;H/O CAD [id number] 07/28/2014 15:06:00 2013 17:02:00 DIS Emergency NO KIRK APRN [facility] ER LUMP IN GROIN AREA POST HEART CATH [id number] 07/23/2014 08:11:00 2013 09:50:00 DIS Outpatient MARIAELENA POLANCO FACC, REX PERALES CCDS [facility] CATH ABNORMAL STRESS, CHEST PAIN [id number] 07/17/2014 16:34:00 2013 17:23:00 DIS Inpatient MARIAELENA POLANCO FACC, REX PERALES CCDS [facility] CSD CHEST PAIN ON EXERTION,COLLAZO, DIZZINESS [id number] 07/09/2014 08:29:00 2013 23:59:59 CLS Outpatient MARIAELENA POLANCO FACC, REX PERALES CCDS [facility] CARD CAD,HLP,HTN [id number] 07/08/2014 12:05:00 2013 23:59:59 CLS Outpatient SULEMAN YAP [facility] LAB CAD,HYPERLIPIDEMIA [id number] 06/24/2014 12:36:00 2013 23:59:59 CLS Outpatient JOSH DANIELSON DO [facility] RAD RUQ PAIN [id number] 06/20/2014 12:31:00 2013 23:59:59 CLS Outpatient JOSH DANIELSON DO [facility] LAB RUQ PAIN [id number] 12/14/2013 15:41:00 2013 17:23:00 DIS Inpatient NICOLE POLANCO, ANDREA [place] [facility] 4TH CAT BITE CELLULITIS R HAND; DIABETES OUT OF CONTRO [id number] 01/02/2017 15:22:00 Document Registration [id number] 12/31/2016 12:51:00 ACT Outpatient MARIAELENA POLANCO FACC, REX PERALES CCDS [facility] CARD Z95.5,I25.10 [id number] 12/09/2016 11:27:00 ACT Outpatient SULEMAN YAP [facility] RAD RT GROIN PAIN [id number] 11/19/2016 11:07:00 ACT Outpatient MARIAELENA POLANCO FACC, REX PERALES CCDS [facility] LAB CAD,DIABETES,HYPERLIDEMIA,HTN [id number] 07/10/2011 16:47:00 Document Registration [id number] 05/24/2011 18:15:00 Document Registration [id number] 05/18/2011 15:49:00 Document Registration
--- OUTSIDE RECORDS SUMMARY | 2017-01-06 22:11 | XMS REPORT | Continuity of Care Document ---
Author Author [facility] Organization [facility] Address Unknown Phone Unavailable Allergies Active Description Code Type Severity Reaction Onset Reported/Identified Relationship to Patient Clinical Status Yes pseudoephedrine [id number] Drug Allergy Unknown N/A 05/27/2007 Yes Sulfa (Sulfonamide Antibiotics) [id number] Drug Allergy Unknown N/A 05/27/2007 Yes triprolidine [id number] Drug Allergy Unknown N/A 05/27/2007 Medications Problems [...] RIVERA MD Ot 414.01 CORONARY ATHEROSCLEROSIS OF [place] CORON 12/14/2013 ANDREA RIVERA MD Ot 681.00 [...] FACP CCDS Ot 414.01 CORONARY ATHEROSCLEROSIS OF [place] CORON 07/18/2014 MARIAEELNA POLANCO FACC, REX FACP CCDS Ot 780.4 [...] FACP CCDS Ot 414.01 CORONARY ATHEROSCLEROSIS OF [place] CORON 07/24/2014 MARIAELENA POLANCO FACC, ALI FACP [...] BODY MASS INDEX 37.0-37.9, ADULT 07/24/2014 JOSH ADNIELSON DO Ot 789.01 07/28/2014 NO KIRK APRN [...] MD Ot I25.10 ATHSCL HEART DISEASE OF [place] CORONARY 06/11/2015 ANDREA RIVERA MD Ot I48.0 PAROXYSMAL ATRIAL FIBRILLATION 06/11/2015 ANDREA RIVERA MD Ot N39.0 URINARY TRACT INFECTION, SITE NOT SPECIF 06/11/2015 ANDREA RIVERA MD Ot Z68.35 BODY MASS INDEX (BMI) 35.0-35.9, ADULT 06/11/2015 ANDREA RIVERA MD Ot Z79.4 PHARMACY DATA ANALYST (CURRENT) USE OF INSULIN 06/11/2015 ANDREA RIVERA MD Ot Z91.14 PATIENT'S OTHER NONCOMPLIANCE WITH MEDIC 02/02/2016 ALEA FAUSTIN Ot M54.10 RADICULOPATHY, SITE UNSPECIFIED 02/02/2016 ALEA FAUSTIN Ot M54.2 CERVICALGIA 10/06/2016 MARIAELENA POLANCO FACC, ERX RAMOSP CCDS Ot E11.9 TYPE 2 DIABETES MELLITUS WITHOUT COMPLIC 10/06/2016 MARIAELENA POLANCO FACC, ALI FACP CCDS Ot E66.9 OBESITY, UNSPECIFIED 10/06/2016 MARIAELENA POLANCO FACC, ALI FACP CCDS Ot E78.5 HYPERLIPIDEMIA, UNSPECIFIED 10/06/2016 MARIAELENA POLANCO FACC, ALI FACP CCDS Ot I10 ESSENTIAL (PRIMARY) HYPERTENSION 10/06/2016 MARIAELENA POLANCO FACC, ALI FACP CCDS Ot I25.118 ATHSCL HEART DISEASE OF [place] COR ART W 10/06/2016 MARIAELENA POLANCO FACC, ALI FACP CCDS Ot I25.84 CORONARY ATHEROSCLEROSIS DUE TO CALCIFIE 10/06/2016 MARIAELENA POLANCO FACC, ALI FACP CCDS Ot Z68.34 BODY MASS INDEX (BMI) 34.0-34.9 , ADULT 10/06/2016 MARIAELENA POLANCO FACC, ALI FACP CCDS Ot Z79.899 OTHER PHARMACY DATA ANALYST (CURRENT) DRUG THERAPY 10/06/2016 MARIAELENA POLANCO FACC, ALI FACP CCDS Ot Z91.19 PATIENT'S NONCOMPLIANCE W [facility] MEDICAL TR 10/06/2016 MARIAELENA POLANCO FACC, ALI [...] CCDS Ot I25.118 ATHSCL HEART DISEASE OF [place] COR ART W 10/11/2016 MARIAELENA POLANCO FACC, ALI FACP CCDS Ot I25.84 CORONARY ATHEROSCLEROSIS DUE TO CALCIFIE 10/11/2016 MARIAELENA POLANCO FACC, ALI FACP CCDS Ot Z68.34 BODY MASS INDEX (BMI) 34.0-34.9 , ADULT 10/11/2016 MARIAELENA POLANCO FACC, ALI FACP CCDS Ot Z79.899 OTHER USP (CURRENT) DRUG THERAPY 10/11/2016 MARIAELENA POLANCO FACC, ALI FACP CCDS Ot Z91.19 PATIENT'S NONCOMPLIANCE W [facility] MEDICAL TR 10/11/2016 MARIAELENA POLANCO FACC, REX FACP CCDS Ot Z95.5 PRESENCE OF CORONARY ANGIOPLASTY IMPLANT 10/19/2016 NO KIRK APRN Ot E11.9 TYPE 2 DIABETES MELLITUS WITHOUT COMPLIC 10/19/2016 NO KIRK APRN Ot I97.630 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 10/19/2016 NO KIRK APRN Ot Z79.02 PHARMACY DATA ANALYST (CURRENT) USE OF ANTITHROMBOTI 10/19/2016 NO KIRK APRN Ot Z79.82 PHARMACY DATA ANALYST (CURRENT) USE OF ASPIRIN 10/19/2016 NO KIRK APRN Ot Z79.84 USP (CURRENT) USE OF ORAL HYPOGLYC 10/19/2016 NO KIRK APRN Ot Z79.899 OTHER USP (CURRENT) DRUG THERAPY 10/19/2016 NO KIRK APRN [...] OT MED,LT,CURRENT USE 10/19/2016 SULEMAN YAP L [employer] Ot 272.4 HYPERLIPIDEMIA NEC/NOS 10/19/2016 FRACISCO SULEMAN L [employer] Ot 414.00 CORON ATHEROSCLER NOS TYPE VESSEL, NATIV 10/19/2016 JOSH DANEILSON DO Ot 789.01 ABDOMINAL PAIN, RIGHT UPPER QUADRANT 10/19/2016 Ot 575.8 DIS OF GALLBLADDER NEC 10/19/2016 Ot V16.0 FAMILY HX-GI MALIGNANCY 10/19/2016 Ot V72.63 PRE-PROCEDURAL LABORATORY EXAMINATION 10/19/2016 Ot V74.8 SCREEN-BACTERIAL DIS NEC 10/19/2016 JOHS DANIELSON DO Ot 789.01 ABDOMINAL PAIN, RIGHT [...] V58.69 OT MED,LT,CURRENT USE 10/19/2016 SULEMAN YAP [employer] Ot 272.4 HYPERLIPIDEMIA NEC/NOS 10/19/2016 SULEMAN YAP L [employer] Ot 414.00 CORON ATHEROSCLER NOS TYPE VESSEL, [...] Ot V58.69 OTH MED,LT,CURRENT USE 10/19/2016 BAIMASULEMAN PI[employer] Ot 272.4 HYPERLIPIDEMIA NEC/NOS 10/19/2016 BAISULEMAN WONG [employer] Ot 414.00 CORON ATHEROSCLER NOS TYPE VESSEL, NATIV 10/21/2016 NO KIRK APRN Ot E11.9 TYPE 2 DIABETES MELLITUS WITHOUT COMPLIC 10/21/2016 NO KIRK APRN Ot I97.630 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 10/21/2016 NO KIRK APRN Ot Z79.02 USP (CURRENT) USE OF ANTITHROMBOTI 10/21/2016 NO KIRK RN CVOR Ot Z79.82 PHARMACY DATA ANALYST (CURRENT) USE OF ASPIRIN 10/21/2016 NO KIRK RN CVOR Ot Z79.84 USP (CURRENT) USE OF ORAL HYPOGLYC 10/21/2016 NO KIRK RN CVOR Ot Z79.899 OTHER PHARMACY DATA ANALYST (CURRENT) DRUG THERAPY 10/21/2016 NO KIRK APRN Ot Z95.5 PRESENCE OF CORONARY ANGIOPLASTY IMPLANT 11/19/2016 REX FERRELL MD, FACC FACP CCDS Ot I25.10 ATHSCL HEART DISEASE OF [place] CORONARY 11/19/2016 REX FERRELL MD, FACC FACP CCDS Ot I25.10 ATHSCL HEART DISEASE OF [place] CORONARY 11/19/2016 REX FERRELL MD, FACC FACP CCDS Ot E13.9 OTHER SPECIFIED DIABETES MELLITUS WITHOU 11/19/2016 REX FERRELL MD, FACC FACP CCDS Ot E78.4 OTHER HYPERLIPIDEMIA 11/19/2016 MARIAELENA POLANCO FAC, ALI FACP CCDS Ot I10 ESSENTIAL (PRIMARY) HYPERTENSION 11/19/2016 MARIAELENA POLANCO [facility] ALI [facility] Ot I25.10 ATHSCL HEART DISEASE OF [place] CORONARY 11/19/2016 MARIAELENA POLANCO FAC, ALI FACP [...] MD, Ot I25.10 ATHSCL HEART DISEASE OF [place] CORONARY 12/04/2016 GOMEZ REBOLLEDO MD Ot I48.0 PAROXYSMAL ATRIAL FIBRILLATION 12/04/2016 GOMEZ REBOLLEDO MD, Ot K21.9 GASTRO-ESOPHAGEAL REFLUX DISEASE WITHOUT 12/04/2016 GOMEZ REBOLLEDO MD Ot T82.867A THROMBOSIS DUE TO CARDIAC PROSTH DEV/ GRF 12/04/2016 GOMEZ REBOLLEDO MD, Ot Z68.37 BODY MASS INDEX (BMI) 37.0-37.9, ADULT 12/04/2016 GOMEZ REBOLLEDO MD, Ot Z79.4 PHARMACY DATA ANALYST (CURRENT) USE OF INSULIN 12/04/2016 GOMEZ REBOLLEDO MD, Ot Z91.14 PATIENT'S OTHER NONCOMPLIANCE WITH MEDIC 12/04/2016 GOMEZ REBOLLEDO MD, Ot Z95.5 PRESENCE OF CORONARY ANGIOPLASTY IMPLANT 12/09/2016 SULEMAN YAP Ot I97.610 POSTPROC HEMOR OF A CIRC SYS ORG FOLLOWI 12/09/2016 SULEMAN YAP Ot I97.610 POSTPROC HEMOR OF A CIRC SYS ORG FOLLOWI 12/10/2016 MARIAELENA POLANCO FACC, REX [facility] CCDS Ot E13.9 OTHER SPECIFIED DIABETES MELLITUS WITHOU 12/10/2016 MARIAELENA POLANCO FACC, REX [facility] Ot E78.4 OTHER HYPERLIPIDEMIA 12/10/2016 MARIAELENA POLANCO FACC, REX [facility] Ot I10 ESSENTIAL (PRIMARY) HYPERTENSION 12/10/2016 MARIAELENA POLANCO FACC, REX [facility] CCD[facility] Ot I25.10 ATHSCL HEART DISEASE OF [place] CORONARY 12/10/2016 MARIAELENA POLANCO FACC, REX [facility] CCD[facility] Ot R11.0 NAUSEA 12/10/2016 MARIAELENA POLANCO FACC, REX [facility] CCD[facility] Ot R20.8 OTHER DISTURBANCES OF SKIN SENSATION Procedures Code Description Performed By Performed On 45.23 COLONOSCOPY 05/24 51.23 LAPAROSCOPIC CHOLECYSTECTOMY 05/24/2011 53.59 ABD WALL ANALI REPAIR NEC 05/24/2011 86.04 OTHER SKIN SUBQ I D 12/14/2013 [id number] DILATION OF 1 COR ART WITH DRUG-ELUT INT 12/02/2016 [id number] INSERT OF MONITOR DEV INTO CHEST SUBCU/F 12/02/2016 [id number] MEASURE OF CARDIAC SAMPL PRESSURE, L H 12/02/2016 [id number] FLUOROSCOPY OF MULT COR ART USING L OSM 12/02/2016 [id number] FLUOROSCOPY OF LEFT HEART USING LOW OSMO [...] 12/02/16 16:27 Myoglobin, serum 27.9 ng/mL 10.0-92.0 [id number] gene mutation analysis - 12/02/16 16:27 [id number] gene mutation analysis Normal NRG Capillary blood [...] measurement by glucometer (mass/volume) 249 mg/dL 70-110 Capillary blood glucose measurement by glucometer (mass/volume) - 01/02/17 20: 52 Capillary blood glucose measurement by glucometer (mass/volume) 197 mg/dL 70-110 Complete blood count (CBC) with automated white blood cell (WBC) differential - 01/03/17 03:45 Blood leukocytes automated count (number/volume) 8.9 10*3/ uL 4.3-11.0 Blood erythrocytes automated count (number/volume) 4.71 10*6 /uL 4.35-5.85 Venous blood hemoglobin measurement (mass/volume) 12.9 g/dL 11.5-16.0 Blood hematocrit (volume fraction) 40 % 35-52 Automated erythrocyte mean corpuscular volume 84 [foz_us] 80-99 Automated erythrocyte mean corpuscular hemoglobin (mass per erythrocyte) 27 pg 25-34 Automated erythrocyte mean corpuscular hemoglobin concentration measurement ( mass/volume) 33 g/dL 32-36 Automated erythrocyte distribution width ratio 14.3 % 10.0-14.5 Automated blood platelet count (count/volume) 175 10*3/uL 130-400 Automated blood platelet mean volume measurement 11.9 [foz_ us] 7.4-10.4 Automated blood neutrophils/100 leukocytes 52 % 42-75 Automated blood lymphocytes/100 leukocytes 32 % 12-44 Blood monocytes/100 leukocytes 9 % 0-12 Automated blood eosinophils/100 leukocytes 6 % 0-10 Automated blood basophils/100 leukocytes 1 % 0-10 Blood neutrophils automated count (number/volume) 4.6 10*3 1.8-7.8 Blood lymphocytes automated count (number/volume) 2.8 10*3 1.0-4.0 Blood monocytes automated count (number/volume) 0.8 10*3 0.0-1.0 Automated eosinophil count 0.6 10*3/uL 0.0-0.3 Automated blood basophil count (count/volume) 0.1 10*3/uL 0.0-0.1 Comprehensive metabolic panel - 01/03/17 03:45 Serum or plasma sodium measurement (moles/volume) 140 mmol/ L 135-145 Serum or plasma potassium measurement (moles/volume) 3.6 mmol/L 3.6-5.0 Serum or plasma chloride measurement (moles/volume) 105 mmol /L 98-107 Carbon dioxide 26 mmol/L [...] NRG Serum or plasma glucose measurement (mass/volume) 215 mg/dL 70-105 Serum or plasma calcium measurement (mass/volume) 9.1 mg/dL 8.5-10.1 Serum or plasma total bilirubin measurement (mass/volume) 0.4 mg/dL 0.1-1.0 Serum or plasma alkaline phosphatase measurement (enzymatic activity/volume) 76 U/L 40-136 Serum or plasma aspartate aminotransferase measurement (enzymatic activity/ volume) 13 U/L 5-34 Serum or plasma alanine aminotransferase measurement (enzymatic activity/volume ) 16 U/L 0-55 Serum or plasma protein measurement (mass/volume) 6.3 g/dL 6.4-8.2 Serum or plasma albumin measurement (mass/volume) 3.2 g/dL 3.2-4.5 Lipid 1996 panel - 01/03/17 03:45 Serum or plasma triglyceride measurement (mass/volume) 175 mg/dL <150 Serum or plasma cholesterol measurement (mass/volume) 185 mg /dL < 200 Serum or plasma cholesterol in HDL measurement (mass/volume) 37 mg/dL 40-60 Cholesterol in LDL [mass/volume] in serum or plasma by direct assay 117 mg/dL 1-129 Serum or plasma cholesterol in VLDL measurement (mass/volume) 35 mg/dL 5-40 Serum or plasma troponin i.cardiac measurement (mass/volume) - 01/03/17 03:45 Serum or plasma troponin i.cardiac measurement (mass/volume) < ng/mL <0.30 Capillary blood glucose measurement by glucometer (mass/volume) - 01/03/17 11: 24 Capillary blood glucose measurement by glucometer (mass/volume) 304 mg/dL 70-110 Capillary blood glucose measurement by glucometer (mass/volume) - 01/03/17 16: 53 Capillary blood glucose measurement by glucometer (mass/volume) 205 mg/dL 70-110 Capillary blood glucose measurement by glucometer (mass/volume) - 01/03/17 22: 02 Capillary blood glucose measurement by glucometer (mass/volume) 247 mg/dL 70-110 Complete blood count (CBC) with automated white blood cell (WBC) differential - 01/04/17 05:10 Blood leukocytes automated count (number/volume) 8.8 10*3/ uL 4.3-11.0 Blood erythrocytes automated count (number/volume) 4.66 10*6 /uL 4.35-5.85 Venous blood hemoglobin measurement (mass/volume) 12.8 g/dL 11.5-16.0 Blood hematocrit (volume fraction) 39 % 35-52 Automated erythrocyte mean corpuscular volume 84 [foz_us] 80-99 Automated erythrocyte mean corpuscular hemoglobin (mass per erythrocyte) 28 pg 25-34 Automated erythrocyte mean corpuscular hemoglobin concentration measurement ( mass/volume) 33 g/dL 32-36 Automated erythrocyte distribution width ratio 14.3 % 10.0-14.5 Automated blood platelet count (count/volume) 190 10*3/uL 130-400 Automated blood platelet mean volume measurement 12.0 [foz_ us] 7.4-10.4 Automated blood neutrophils/100 leukocytes 57 % 42-75 Automated blood lymphocytes/100 leukocytes 31 % 12-44 Blood monocytes/100 leukocytes 8 % 0-12 Automated blood eosinophils/100 leukocytes 5 % 0-10 Automated blood basophils/100 leukocytes 1 % 0-10 Blood neutrophils automated count (number/volume) 5.0 10*3 1.8-7.8 Blood lymphocytes automated count (number/volume) 2.7 10*3 1.0-4.0 Blood monocytes automated count (number/volume) 0.7 10*3 0.0-1.0 Automated eosinophil count 0.4 10*3/uL 0.0-0.3 Automated blood basophil count (count/volume) 0.0 10*3/uL 0.0-0.1 Comprehensive metabolic panel - 01/04/17 05:10 Serum or plasma sodium measurement (moles/volume) 140 mmol/ L 135-145 Serum or plasma potassium measurement (moles/volume) 3.2 mmol/L 3.6-5.0 Serum or plasma chloride measurement (moles/volume) 107 mmol /L 98-107 Carbon dioxide 23 mmol/L 21-32 Serum or plasma anion gap determination (moles/volume) 10 mmol/L 5-14 Serum or plasma urea nitrogen measurement (mass/volume) 11 mg/dL 7-18 Serum or plasma creatinine measurement (mass/volume) 0.77 mg /dL 0.60-1.30 Serum or plasma urea nitrogen/creatinine mass ratio 14 NRG Serum or plasma creatinine measurement with calculation of estimated glomerular filtration rate > NRG Serum or plasma glucose measurement (mass/volume) 200 mg/dL 70-105 Serum or plasma calcium measurement (mass/volume) 8.9 mg/dL 8.5-10.1 Serum or plasma total bilirubin measurement (mass/volume) 0.5 mg/dL 0.1-1.0 Serum or plasma alkaline phosphatase measurement (enzymatic activity/volume) 83 U/L 40-136 Serum or plasma aspartate aminotransferase measurement (enzymatic activity/ volume) 12 U/L 5-34 Serum or plasma alanine aminotransferase measurement (enzymatic activity/volume ) 14 U/L 0-55 Serum or plasma protein measurement (mass/volume) 6.0 g/dL 6.4-8.2 Serum or plasma albumin measurement (mass/volume) 3.1 g/dL 3.2-4.5 Magnesium - 01/04/17 05:10 Magnesium 1.8 mg/dL 1.8-2.4 THYROID STIMULATING HORMONE - 01/04/17 05:10 THYROID STIMULATING HORMONE 4.42 u[iU]/mL 0.35-4.94 Capillary blood glucose measurement by glucometer (mass/volume) - 01/04/17 11: 15 Capillary blood glucose measurement by glucometer (mass/volume) 146 mg/dL 70-110 Capillary blood glucose measurement by glucometer (mass/volume) - 01/04/17 15: 43 Capillary blood glucose measurement by glucometer (mass/volume) 266 mg/dL 70-110 Encounters ACCT No. Visit Date/Time Discharge Status Pt. Type Provider Facility Loc./Unit Complaint [id number] 01/02/2017 16:55:00 2016 17:28:00 DIS Inpatient MANUELA MUNOZ MD [facility] 4TH ATYPICAL CONCERN FOR MYDOCANDIAL INFACTION [id number] 12/02/2016 16:44:00 2016 12:00:00 DIS Inpatient GOMEZ REBOLLEDO MD [facility] ICU STEMI [id number] 10/19/2016 10:35:00 2016 13:22:00 DIS Emergency NO KIRK RN CVOR [facility] ER POST OP BLEEDING [id number] 10/05/2016 09:14:00 2016 11:45:00 DIS Outpatient MARIAELENA POLANCO FACCREX FACP CCDS [facility] CATH SOB,CAD [id number] 01/27/2016 13:59:00 2015 13:46:00 DIS Outpatient ALEA FAUSTIN [facility] REHAB NECK PAIN WITH L RADICULOPATHY [id number] 06/10/2015 21:09:00 2014 10:06:00 DIS Inpatient ANDREA RIVERA MD [facility] ICU NEW ONSET AFIB;UTI;H/O CAD [id number] 07/28/2014 15:06:00 2013 17:02:00 DIS Emergency NO KIRK APRN [facility] ER LUMP IN GROIN AREA POST HEART CATH [id number] 07/23/2014 08:11:00 2013 09:50:00 DIS Outpatient MARIAELENA POLANCO FACC, ALI FACP CCDS [facility] CATH ABNORMAL STRESS, CHEST PAIN [id number] 07/17/2014 16:34:00 2013 17:23:00 DIS Inpatient MARIAELENA POLANCO FACC, REX FACP CCDS [facility] CSD CHEST PAIN ON EXERTION,COLLAZO, DIZZINESS [id number] 07/09/2014 08:29:00 2013 23:59:59 CLS Outpatient MARIAELENA POLANCO FACC, REX FACP CCDS [facility] CARD CAD,HLP,HTN [id number] 07/08/2014 12:05:00 2013 23:59:59 CLS Outpatient SULEMAN YAP [facility] LAB CAD,HYPERLIPIDEMIA [id number] 06/24/2014 12:36:00 2013 23:59:59 CLS Outpatient JOSH DANIELSON DO [facility] RAD RUQ PAIN [id number] 06/20/2014 12:31:00 2013 23:59:59 CLS Outpatient JESUSITA DANIELSON DOTIE [facility] LAB RUQ PAIN [id number] 12/14/2013 15:41:00 2013 17:23:00 DIS Inpatient ANDREA RIVERA MD [facility] 4TH CAT BITE CELLULITIS R HAND; DIABETES OUT OF CONTRO [id number] 12/31/2016 12:51:00 ACT Outpatient MARIAELENA POLANCO FACC, ALI FACP CCDS [facility] CARD Z95.5,I25.10 [id number] 12/09/2016 11:27:00 ACT Outpatient SULEMAN YAP [facility] RAD RT GROIN PAIN [id number] 11/19/2016 11:07:00 ACT Outpatient MARIAELENA POLANCO FACC, REX PERALES CCDS [facility] LAB CAD,DIABETES,HYPERLIDEMIA,HTN [id number] 07/10/2011 16:47:00 Document Registration [id number] 05/24/2011 18:15:00 Document Registration [id number] 05/18/2011 15:49:00 Document Registration
== END 2016-12-04 12:00 | disposition home or self-care (01) | DRG 247 ==
LOC: EDUNIT# 16:16 → ER 16:18 → CATH 16:43 → ICU 16:44
PROVIDERS: ADMIT Internal Medicine Cardiovascular Disease; ATTEND Internal Medicine Cardiovascular Disease
PROC: 027034Z Dilation of Coronary Artery, One Artery with Drug-eluting Intraluminal Device, Percutaneous Approach (ICD-10-PCS; principal; 2016-12-02)
PROC: 4A023N7 Measurement of Cardiac Sampling and Pressure, Left Heart, Percutaneous Approach (ICD-10-PCS; 2016-12-02)
PROC: B2151ZZ Fluoroscopy of Left Heart using Low Osmolar Contrast (ICD-10-PCS; 2016-12-02)
PROC: B2111ZZ Fluoroscopy of Multiple Coronary Arteries using Low Osmolar Contrast (ICD-10-PCS; 2016-12-02)
PROC: 0JH632Z Insertion of Monitoring Device into Chest Subcutaneous Tissue and Fascia, Percutaneous Approach (ICD-10-PCS; 2016-12-02)
DX: I21.19 ST elevation (STEMI) myocardial infarction involving other coronary artery of inferior wall (principal); T82.867A Thrombosis due to cardiac prosthetic devices, implants and grafts, initial encounter; I25.10 Atherosclerotic heart disease of native coronary artery without angina pectoris; I48.0 Paroxysmal atrial fibrillation; I10 Essential (primary) hypertension; E78.5 Hyperlipidemia, unspecified; K21.9 Gastro-esophageal reflux disease without esophagitis; E11.9 Type 2 diabetes mellitus without complications; B02.9 Zoster without complications; E66.9 Obesity, unspecified; Z68.37 Body mass index [BMI] 37.0-37.9, adult; Z91.14 Patient's other noncompliance with medication regimen; Z79.4 Long term (current) use of insulin; Z95.5 Presence of coronary angioplasty implant and graft
CPT/HCPCS: 33282; 36415; 71010; 80048; 80053; 80061; 81225; 82962; 83735; 83874; 84484; 85025; 85027; 85610; 85730; 93005; 93041; 93458

== ENCOUNTER → 2016-12-09 | Outpatient (CLI) | payer MEDICARE, MEDICAID ==
[~2016-12-09] MED LIST changes: +ASPI-983 PO; +GABA-488 PO; +METO-351 PO; +OMEG-160 PO; +OMG1KC PO; +PANT40TA2 PO; +TICA90TA PO
--- NOTE | 2016-12-09 12:21 | Diagnostic Imaging Report ---
Right groin vascular duplex ultrasound. INDICATION: Palpable lump at the cardiac catheter site. FINDINGS: There is a small subcutaneous hematoma measuring 2.6 x 1.9 cm in the right groin. No pseudoaneurysm. Biphasic arterial waveform is seen in the right common femoral artery and normal venous waveform in the common femoral vein is seen. No pseudoaneurysm. IMPRESSION: No pseudoaneurysm or evidence of AV fistula. Dictated by: Dictated on workstation # [id number]
== END ==
LOC: RAD 11:27
PROVIDERS: ATTEND Nurse Practitioner Family
DX: I97.610 Postprocedural hemorrhage of a circulatory system organ or structure following a cardiac catheterization (principal); R10.30 Lower abdominal pain, unspecified
CPT/HCPCS: 93926

== ENCOUNTER → 2016-12-31 | Outpatient (CLI) | payer MEDICARE, MEDICAID ==
--- NOTE | 2017-01-04 08:01 | ECHOCARDIOGRAPHY REPORT ---
DATE OF SERVICE: 12/31/2016 ECHOCARDIOGRAM ORDERING PHYSICIAN: Dr. Gonzalez. PRIMARY PHYSICIAN: Dr. Chavez. OTHER PHYSICIANS: Lucrecia Campos APRN CLINICAL DIAGNOSES: Coronary artery disease, recent myocardial infarction. MEASUREMENTS: Left atrium 3 Aortic root 3.3 LV diameter, diastolic 5.2 AVF thickness, diastolic 1 LVPW thickness, diastolic 0.9 DESCRIPTION: Two-dimensional echocardiography showed normal global left ventricular systolic function without any distinct regional wall motion abnormality. The aortic, mitral and tricuspid valve leaflets show good leaflet excursion. There is mild mitral annular calcification. There is mild to moderate aortic valve sclerosis. The aortic valve appears to be trileaflet. Doppler imaging shows trivial mitral and tricuspid regurgitation. Pulmonary artery systolic pressure is estimated to be within normal limits. Mitral inflow is consistent with grade 1 diastolic dysfunction of the left ventricle. There is no Doppler evidence of any significant intracardiac shunt. The inferior vena cava appears to be of normal size and exhibits inspiratory collapse. CONCLUSIONS: 1. Normal global left ventricular systolic function with an ejection fraction of approximately 65%. 2. Trivial mitral and tricuspid regurgitation. 3. Mild aortic valve sclerosis and mild mitral annular calcification without evidence of significant valvular stenosis. 4. No evidence of significant intracardiac shunt on this study. 5. Mild diastolic dysfunction, left ventricle. 6. Pulmonary artery systolic pressure is estimated to be within normal limits. Job ID: [id number] DocumentID: [id number] Dictated Date: 01/03/2017 17:27:13 Granulizing Machine Operator Date: 01/03/2017 21:14:14 Dictated By: REX GONZALEZ MD, MA, FACP, FACC,
== END ==
LOC: CARD 12:51
PROVIDERS: ATTEND Internal Medicine Cardiovascular Disease
DX: I25.10 Atherosclerotic heart disease of native coronary artery without angina pectoris (principal); Z95.5 Presence of coronary angioplasty implant and graft
CPT/HCPCS: 93306

== ENCOUNTER 2017-01-02 13:18 | Observation (INO) | payer MEDICARE, MEDICAID ==
[~2017-01-02] VITALS: Ht 165.1 cm; Wt 93.4 kg
[~2017-01-02 13:18] MED LIST changes: -ASPI-983 PO; -GABA-488 PO; -METO-351 PO; -OMEG-160 PO; -PANT40TA2 PO
[2017-01-02] MEDS ORDERED: ASPIRIN 325 MG (5 GR) TABLET PO ONE (15:00)
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
[2017-01-02 15:21] LABS: BASOPHILS % (AUTO) 0 % (0-10); EOSINOPHILS # (AUTO) 0.3 10^3/uL (0.0-0.3); EOSINOPHILS % (AUTO) 3 % (0-10); LYMPHOCYTES # (AUTO) 2.3 X 10^3 (1.0-4.0); LYMPHOCYTES % (AUTO) 26 % (12-44); MEAN CORPUSCULAR HEMOGLOBIN 27 PG (25-34); MEAN CORPUSCULAR HGB CONC 33 G/DL (32-36); MEAN CORPUSCULAR VOLUME 84 FL (80-99); MEAN PLATELET VOLUME 11.8 FL (7.4-10.4); MONOCYTES # (AUTO) 0.6 X 10^3 (0.0-1.0); MONOCYTES % (AUTO) 7 % (0-12); NEUTROPHILS # (AUTO) 5.9 X 10^3 (1.8-7.8); NEUTROPHILS % (AUTO) 64 % (42-75); PLATELET COUNT 198 10^3/uL (130-400); RED BLOOD COUNT 5.12 10^6/uL (4.35-5.85); RED CELL DISTRIBUTION WIDTH 14.4 % (10.0-14.5); WHITE BLOOD COUNT 9.1 10^3/uL (4.3-11.0)
--- NOTE | 2017-01-02 15:27 | Diagnostic Imaging Report ---
INDICATION: Tightness in the throat. Irregular heartbeat. FINDINGS: Upright chest shows normal heart size and vascularity. The lungs are clear. There is no effusion or pneumothorax. There is no bony abnormality. IMPRESSION: No acute abnormality is seen with no change from 12/02/16. Dictated by: Dictated on workstation # [id number]
[2017-01-02 15:31] LABS: PROTHROMBIN TIME PATIENT 12.7 SEC (12.2-14.7)
[2017-01-02 15:42] LABS: ALANINE AMINOTRANSFERASE 19 U/L (0-55); ALBUMIN 3.7 G/DL (3.2-4.5); ANION GAP 8 MMOL/L (5-14); ASPARTATE AMINO TRANSFERASE 16 U/L (5-34); BILIRUBIN,TOTAL 0.6 MG/DL (0.1-1.0); BLOOD UREA NITROGEN 11 MG/DL (7-18); BUN/CREATININE RATIO 13; CALCIUM 9.3 MG/DL (8.5-10.1); CARBON DIOXIDE 28 MMOL/L (21-32); CHLORIDE 103 MMOL/L (98-107); CREATININE SERUM 0.84 MG/DL (0.60-1.30); GFR ESTIMATED > 60; GLUCOSE 260 MG/DL (70-105); SODIUM 139 MMOL/L (135-145); TOTAL PROTEIN 7.4 G/DL (6.4-8.2)
[2017-01-02 15:48] LABS: MYOGLOBIN SERUM 32.6 NG/ML (10.0-92.0)
[2017-01-02 17:00] VITALS: BP 162/80
[2017-01-02] MEDS: inSUlin ASPART (NovoLOG) 1 UNIT/0.01 ML (CHARGE PER UNIT) SC SCH ×2 (17:52→20:58)
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
[2017-01-02 20:00] VITALS: BP 125/71
[2017-01-02] MEDS: TICAGRELOR 90 MG TABLET (BRILINTA) PO SCH (20:50)
[2017-01-02] MEDS: ATORVASTATIN 40 MG (LIPITOR) TABLET PO SCH (20:50)
[2017-01-02] MEDS: ENOXAPARIN 100 MG/1 ML (LOVENOX) SYR SC SCH (20:52)
[2017-01-02] MEDS: inSUlin DETERMIR 1 UNIT/0.01 ML (LEVEMIR) CHARGE PER UNIT SQ SCH (20:57)
[2017-01-02] MEDS: rOPINIRole 1 MG (REQUIP) TABLET PO SCH (21:15)
[2017-01-03] VITALS (8 sets, daily range): BP systolic 109–185; BP diastolic 56–81
[2017-01-03 04:06] LABS: BASOPHILS # (AUTO) 0.1 10^3/uL (0.0-0.1); BASOPHILS % (AUTO) 1 % (0-10); EOSINOPHILS # (AUTO) 0.6 10^3/uL (0.0-0.3); EOSINOPHILS % (AUTO) 6 % (0-10); LYMPHOCYTES # (AUTO) 2.8 X 10^3 (1.0-4.0); LYMPHOCYTES % (AUTO) 32 % (12-44); MEAN CORPUSCULAR HEMOGLOBIN 27 PG (25-34); MEAN CORPUSCULAR HGB CONC 33 G/DL (32-36); MEAN CORPUSCULAR VOLUME 84 FL (80-99); MEAN PLATELET VOLUME 11.9 FL (7.4-10.4); MONOCYTES # (AUTO) 0.8 X 10^3 (0.0-1.0); MONOCYTES % (AUTO) 9 % (0-12); NEUTROPHILS # (AUTO) 4.6 X 10^3 (1.8-7.8); NEUTROPHILS % (AUTO) 52 % (42-75); PLATELET COUNT 175 10^3/uL (130-400); RED BLOOD COUNT 4.71 10^6/uL (4.35-5.85); RED CELL DISTRIBUTION WIDTH 14.3 % (10.0-14.5); WHITE BLOOD COUNT 8.9 10^3/uL (4.3-11.0)
[2017-01-03 04:27] LABS: ALANINE AMINOTRANSFERASE 16 U/L (0-55); ALBUMIN 3.2 G/DL (3.2-4.5); ANION GAP 9 MMOL/L (5-14); ASPARTATE AMINO TRANSFERASE 13 U/L (5-34); BILIRUBIN,TOTAL 0.4 MG/DL (0.1-1.0); BLOOD UREA NITROGEN 9 MG/DL (7-18); BUN/CREATININE RATIO 12; CALCIUM 9.1 MG/DL (8.5-10.1); CARBON DIOXIDE 26 MMOL/L (21-32); CHLORIDE 105 MMOL/L (98-107); CREATININE SERUM 0.78 MG/DL (0.60-1.30); GFR ESTIMATED > 60; GLUCOSE 215 MG/DL (70-105); POTASSIUM 3.6 MMOL/L (3.6-5.0); SODIUM 140 MMOL/L (135-145); TOTAL PROTEIN 6.3 G/DL (6.4-8.2)
[2017-01-03 04:28] LABS: CHOLESTEROL 185 MG/DL (< 200); DIRECT LDL 117 MG/DL (1-129); TRIGLYCERIDES 175 MG/DL (<150); VLDL CHOLESTEROL 35 MG/DL (5-40)
[2017-01-03] MEDS: inSUlin ASPART (NovoLOG) 1 UNIT/0.01 ML (CHARGE PER UNIT) SC SCH ×4 (06:14→22:09)
[2017-01-03] MEDS: PANTOPRAZOLE 40 MG (PROTONIX) TAB PO SCH ×2 (06:15→09:30)
[2017-01-03] MEDS: ENOXAPARIN 100 MG/1 ML (LOVENOX) SYR SC SCH (08:51)
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
[2017-01-03] MEDS: inSUlin DETERMIR 1 UNIT/0.01 ML (LEVEMIR) CHARGE PER UNIT SQ SCH ×2 (09:29→22:08)
[2017-01-03] MEDS: ASPIRIN 81 MG CHEW (CHILDREN'S ASA) PO SCH (09:30)
[2017-01-03] MEDS: TICAGRELOR 90 MG TABLET (BRILINTA) PO SCH ×2 (09:30→21:37)
[2017-01-03] MEDS ORDERED: GABA-488 PO (10:29)
[2017-01-03] MEDS ORDERED: TICA90TA PO (10:29)
[2017-01-03] MEDS ORDERED: PANT40TA2 PO (10:29)
[2017-01-03] MEDS ORDERED: OMEG-160 PO (10:29)
[2017-01-03] MEDS ORDERED: NAPR500T3 PO (10:29)
[2017-01-03] MEDS ORDERED: ATOR40TA70 PO (10:29)
[2017-01-03] MEDS ORDERED: ASPI-983 PO (10:29)
[2017-01-03] MEDS ORDERED: METF500T4 PO (10:29)
--- NOTE | 2017-01-03 11:17 | Progress Note (SOAP) ---
Subjective Subjective/Events-last exam Patient having symptomatic PVCs. Denies chest pain or shortness of breath. Date seen by provider: January 03, 2017 Objective Exam Last Set of Vital Signs Vital Signs Date Time Temp Pulse Resp B/P (MAP) Pulse Ox O2 Delivery O2 Flow Rate FiO2 01/03/17 08:30 97.7 61 18 139/70 99 Room Air Capillary Refill : Less Than 3 Seconds I&O Bad tableGeneral: Alert, Oriented X3, Cooperative, No Acute Distress HEENT: Mucous Memb Moist/[place] Neck: Supple, No JVD Lungs: Clear to Auscultation, Normal Air Movement Heart: Normal S1, Normal S2, Other (bradycardic rate) Abdomen: Normal Bowel Sounds, Soft, No Tenderness Extremities: No Edema, No Tenderness/Swelling Psych/Mental Status: Mental Status NL, Mood NL Results/Procedures Lab Laboratory Tests 01/02/17 15:10: White Blood Count 9.1, Red Blood Count 5.12, Hemoglobin 14.0, Hematocrit 43, Mean Corpuscular Volume 84, Mean Corpuscular Hemoglobin 27, Mean Corpuscular Hemoglobin Concent 33, Red Cell Distribution Width 14.4, Platelet Count 198, Mean Platelet Volume 11.8H, Neutrophils (%) (Auto) 64, Lymphocytes (%) (Auto) 26 , Monocytes (%) (Auto) 7, Eosinophils (%) (Auto) 3, Basophils (%) (Auto) 0, Neutrophils # (Auto) 5.9, Lymphocytes # (Auto) 2.3, Monocytes # (Auto) 0.6, Eosinophils # (Auto) 0.3, Basophils # (Auto) 0.0, Prothrombin Time 12.7, INR Comment 1.0, Activated Partial Thromboplast Time 30, Sodium Level 139, Potassium Level 4.0, Chloride Level 103, Carbon Dioxide Level 28, Anion Gap 8, Blood Urea Nitrogen 11, Creatinine 0.84, Estimat Glomerular Filtration Rate > 60 , BUN/Creatinine Ratio 13, Glucose Level 260H, Calcium Level 9.3, Magnesium Level 2.0, Total Bilirubin 0.6, Aspartate Amino Transf (AST/SGOT) 16, Alanine Aminotransferase (ALT/SGPT) 19, Alkaline Phosphatase 87, Myoglobin 32.6, Troponin I < 0.30, Total Protein 7.4, Albumin 3.7 01/02/17 17:40: Glucometer 249H 01/02/17 20:52: Glucometer 197H 01/03/17 03:45: White Blood Count 8.9, Red Blood Count 4.71, Hemoglobin 12.9, Hematocrit 40, Mean Corpuscular Volume 84, Mean Corpuscular Hemoglobin 27, Mean Corpuscular Hemoglobin Concent 33, Red Cell Distribution Width 14.3, Platelet Count 175, Mean Platelet Volume 11.9H, Neutrophils (%) (Auto) 52, Lymphocytes (%) (Auto) 32 , Monocytes (%) (Auto) 9, Eosinophils (%) (Auto) 6, Basophils (%) (Auto) 1, Neutrophils # (Auto) 4.6, Lymphocytes # (Auto) 2.8, Monocytes # (Auto) 0.8, Eosinophils # (Auto) 0.6H, Basophils # (Auto) 0.1, Sodium Level 140, Potassium Level 3.6, Chloride Level 105, Carbon Dioxide Level 26, Anion Gap 9, Blood Urea Nitrogen 9, Creatinine 0.78, Estimat Glomerular Filtration Rate > 60, BUN/ Creatinine Ratio 12, Glucose Level 215H, Calcium Level 9.1, Total Bilirubin 0.4 , Aspartate Amino Transf (AST/SGOT) 13, Alanine Aminotransferase (ALT/SGPT) 16, Alkaline Phosphatase 76, Troponin I < 0.30, Total Protein 6.3L, Albumin 3.2, Triglycerides Level 175H, Cholesterol Level 185, LDL Cholesterol Direct 117, VLDL Cholesterol 35, HDL Cholesterol 37L Radiology NAME: REI PRYOR [facility] REC#: [id number] PT STATUS: REG ER : 1955 PHYSICIAN: YING FIERRO MD ADMIT DATE: 01/02/17/ER Signed Date of Exam: 01/02/17 CHEST 1 VIEW, AP/PA ONLY INDICATION: Tightness in the throat. Irregular heartbeat. FINDINGS: Upright chest shows normal heart size and vascularity. The lungs are clear. There is no effusion or pneumothorax. There is no bony abnormality. IMPRESSION: No acute abnormality is seen with no change from 12/02/16. Dictated by: Dictated on workstation # [id number] Dict: 01/02/17 1524 Trans: 01/02/17 1528 Interpreted by: DENISE SANDOVAL MD Electronically signed by: DENISE SANDOVAL MD 01/02/17 1528 Assessment/Plan Assessment/Plan Admission Dx 1. Atypical chest pain 2. Known coronary artery disease 3. Diabetes mellitusknown Plan 61 yo F with known CAD with recent stent placement that is admitted for chest pain 1. Atypical chest pain - Dr Gonzalez to stress patient today - Will continue to monitor in hospital 2. Known coronary artery disease - Maintain home medications 3. Diabetes mellitusknown - A1c pending, will continue home medications FEN: Cardiac diet DVT PPX: Lovenox Dispo: Will plan on home tomorrow after stress if normal Diagnosis/Problems: Clinical Quality Measures DVT/VTE Risk/Contraindication: Risk Factor Score Per Nursin RFS Level Per Nursing on Admit: 4+=Very High MARISSA NOWAK MD January 03, 2017 11:17
[2017-01-03] MEDS: ACETAMINOPHEN 500 MG TAB (TYLENOL) PO PRN ×2 (15:55→23:32)
[2017-01-03] MEDS ORDERED: ENOXAPARIN 40 MG/0.4 ML (LOVENOX) SYR SC SCH (21:00)
[2017-01-03] MEDS: ATORVASTATIN 40 MG (LIPITOR) TABLET PO SCH (21:37)
[2017-01-03] MEDS: rOPINIRole 1 MG (REQUIP) TABLET PO SCH (21:37)
[2017-01-04 04:00] VITALS: BP 123/69
[2017-01-04 05:27] LABS: BASOPHILS % (AUTO) 1 % (0-10); EOSINOPHILS # (AUTO) 0.4 10^3/uL (0.0-0.3); EOSINOPHILS % (AUTO) 5 % (0-10); LYMPHOCYTES # (AUTO) 2.7 X 10^3 (1.0-4.0); LYMPHOCYTES % (AUTO) 31 % (12-44); MEAN CORPUSCULAR HEMOGLOBIN 28 PG (25-34); MEAN CORPUSCULAR HGB CONC 33 G/DL (32-36); MEAN CORPUSCULAR VOLUME 84 FL (80-99); MONOCYTES # (AUTO) 0.7 X 10^3 (0.0-1.0); MONOCYTES % (AUTO) 8 % (0-12); NEUTROPHILS % (AUTO) 57 % (42-75); PLATELET COUNT 190 10^3/uL (130-400); RED BLOOD COUNT 4.66 10^6/uL (4.35-5.85); RED CELL DISTRIBUTION WIDTH 14.3 % (10.0-14.5); WHITE BLOOD COUNT 8.8 10^3/uL (4.3-11.0)
[2017-01-04 05:55] LABS: ALANINE AMINOTRANSFERASE 14 U/L (0-55); ALBUMIN 3.1 G/DL (3.2-4.5); ANION GAP 10 MMOL/L (5-14); ASPARTATE AMINO TRANSFERASE 12 U/L (5-34); BILIRUBIN,TOTAL 0.5 MG/DL (0.1-1.0); BLOOD UREA NITROGEN 11 MG/DL (7-18); BUN/CREATININE RATIO 14; CALCIUM 8.9 MG/DL (8.5-10.1); CARBON DIOXIDE 23 MMOL/L (21-32); CHLORIDE 107 MMOL/L (98-107); CREATININE SERUM 0.77 MG/DL (0.60-1.30); GFR ESTIMATED > 60; GLUCOSE 200 MG/DL (70-105); MAGNESIUM 1.8 MG/DL (1.8-2.4); POTASSIUM 3.2 MMOL/L (3.6-5.0); SODIUM 140 MMOL/L (135-145)
[2017-01-04 06:15] LABS: THYROID STIMULATING HORMONE 4.42 UIU/ML (0.35-4.94)
[2017-01-04] MEDS: inSUlin ASPART (NovoLOG) 1 UNIT/0.01 ML (CHARGE PER UNIT) SC SCH ×3 (06:26→16:25)
[2017-01-04 08:00] VITALS: BP 141/68
[2017-01-04] MEDS: ASPIRIN 81 MG CHEW (CHILDREN'S ASA) PO SCH (08:05)
[2017-01-04] MEDS: TICAGRELOR 90 MG TABLET (BRILINTA) PO SCH (08:06)
[2017-01-04] MEDS: inSUlin DETERMIR 1 UNIT/0.01 ML (LEVEMIR) CHARGE PER UNIT SQ SCH (08:06)
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
[2017-01-04] MEDS ORDERED: KCL 20 MEQ TAB (K-DUR) PO NR (10:00)
[2017-01-04] MEDS: POTASSIUM CL 10MEQ/50ML IVPB 50 ML IV SCH ×2 (11:13→15:13)
[2017-01-04] MEDS ORDERED: NS IV 500 ML 500 ML IV ONE (11:15)
[2017-01-04] MEDS: CATHETER FLUSH 10 ML SYR IV PRN ×2 (12:16→13:35)
[2017-01-04] MEDS ORDERED: REGADENOSON 0.4 MG/5 ML SYR (LEXISCAN) IV ONE ×2 (13:02→13:45)
[2017-01-04 13:37] VITALS: BP 147/74
[2017-01-04 16:00] VITALS: BP 158/70
[2017-01-04] MEDS ORDERED: METO-351 PO (16:28)
--- NOTE | 2017-01-04 16:31 | Discharge Inst-Cardiology ---
Discharge Inst-Cardiac Discharge Medications New Medications: Metoprolol Succinate (Toprol Xl) 25 Mg Tab.er.24h 12.5 MG PO DAILY, #30 TAB 3 Refills Continued Medications: Atorvastatin Calcium (Atorvastatin Calcium) 40 Mg Tablet 40 MG PO HS, TAB Gabapentin (Gabapentin) 300 Mg Capsule 300 MG PO HS, CAP Insulin Detemir (Levemir Flextouch) 100 Unit/1 Ml Insuln.pen 30 UNIT SQ BID, EA Naproxen (Naproxen) 500 Mg Tablet 500 MG PO Q12H PRN for KNEE PAIN, TAB [place]-3/Dha/Epa/Fish Oil (Fish Oil 1,000 mg Softgel) 1 Each Capsule 1000 MG PO BID, CAP Pantoprazole Sodium (Protonix) 40 Mg Tablet.dr 40 MG PO 0700, TAB Ropinirole HCl (Ropinirole HCl) 1 Mg Tablet 1 MG PO HS, TAB Ticagrelor (Brilinta) 90 Mg Tablet 90 MG PO BID, TAB Discontinued Medications: Aspirin (Aspirin EC) 81 Mg Tablet. 81 MG PO DAILY, TAB Patient Instructions Patient Instructions: F/u with Dr Gonzalez tomorrow Orders-Post D/C & Referrals Pneu Vac Indicated: Yes REX GONZALEZ MD FACP FACC [facility] January 04, 2017 16:31
--- NOTE | 2017-01-04 20:33 | Discharge Summary ---
Diagnosis/Chief Complaint Date of Admission January 02, 2017 at 16:55 Date of Discharge January 04, 2017 at 17:28 Admission Diagnosis Admission Diagnosis 1. Atypical chest pain 2. Known coronary artery disease 3. Diabetes mellitusknown Discharge Diagnosis See above Chief Complaint/HPI Chief Complaint/HPI 61-year-old female presents to [facility] emergency department with weird feeling in her chest. She was also reporting that she had fast pulse. She has also had some slight shortness of breath. She apparently has known coronary artery disease and had what she describes as a heart attack 3 months ago with stents placed 1 month ago as well. She is also a known diabetic. Discharge Summary-Simple/Stand Procedures Stress Test 01/04/17: No signs of ischemia Consultations Dr Gonzalez: Cardiology Discharge Physical Examination Allergies: Coded Allergies: Sulfa (Sulfonamide Antibiotics) (Verified Allergy, Unknown, 05/27/07) pseudoephedrine (Verified Allergy, Unknown, 05/27/07) triprolidine (Verified Allergy, Unknown, 05/27/07) Vitals & I&Os Vital Sign - Last 12Hours Date Time Temp Pulse Resp B/P (MAP) Pulse Ox O2 Delivery O2 Flow Rate FiO2 01/04/17 16:00 96.1 72 18 158/70 99 Room Air Intake and Output 01/04/17 00:00 Intake Total 2380 ml Output Total 1550 ml Balance 830 ml General Appearance: Alert, Oriented X3, Cooperative, No Acute Distress HEENT: Mucous Memb Moist/[place] Respiratory: Clear to Auscultation, Normal Air Movement Cardiovascular: Regular Rate, No Murmurs Abdominal: Normal Bowel Sounds, Soft, No Tenderness, No Hepatosplenomegaly, No Masses Extremities: No Edema, No Tenderness/Swelling Skin: No Rashes Neuro: Normal Gait, Normal Speech, Strength at 5/5 X4 Ext, Sensation Intact, Cranial Nerves 3-12 NL Hospital Course See final discharge diagnosis. Pending Labs None Radiology Reviewed NAME: REI PRYOR [facility] REC#: [id number] PT STATUS: REG ER : 1955 PHYSICIAN: YNIG FIERRO MD ADMIT DATE: 01/02/17/ER Signed Date of Exam: 01/02/17 CHEST 1 VIEW, AP/PA ONLY INDICATION: Tightness in the throat. Irregular heartbeat. FINDINGS: Upright chest shows normal heart size and vascularity. The lungs are clear. There is no effusion or pneumothorax. There is no bony abnormality. IMPRESSION: No acute abnormality is seen with no change from 12/02/16. Dictated by: Dictated on workstation # [id number] Dict: 01/02/17 1524 Trans: 01/02/17 1528 Interpreted by: DENISE SANDOVAL MD Electronically signed by: DENISE SANDOVAL MD 01/02/17 1528 Discussion & Recommendations 61 yo F that was admitted for concerns of cardiac ischemia and palpitations. Patient was on tele and found to have PVCs that she was feeling. Dr Gonzalez the patient's equipment driver saw patient while she was admitted and given her long history of CAD completed a stress test on the patient which was negative for any ischemia. He plans to follow up with patient tomorrow in clinic. No other changes were made to patient's home medications Discharge Condition at discharge stable Instructions to patient/family Please see electonic discharge instructions given to patient. Discharge Medications Reviewed and agree with Discharge Medication list on patient's Discharge Instruction sheet Clinical Quality Measures DVT/VTE Risk/Contraindication: Risk Factor Score Per Nursin RFS Level Per Nursing on Admit: 4+=Very High Copy Copies To 1: ANDREA RIVERA MD, HOLLY R MD January 04, 2017 20:33
--- NOTE | 2017-01-04 21:02 | STRESS TEST ---
DATE OF SERVICE: 01/04/2017 DATE: 01/04/2017. ORDERING PHYSICIAN: Dr. Gonzalez. PRIMARY PHYSICIAN: Dr. Chavez. ATTENDING PHYSICIAN: Dr. Coughlin. CLINICAL DIAGNOSES: Palpitations, coronary artery disease. Baseline images were carried out after injection of 10.88 mCi of technetium-99m Tetrofosmin. This was followed by 0.4 mg of regadenoson and 31.3 mCi of technetium 99 Tetrofosmin for stress imaging. The electrocardiogram showed sinus rhythm with nonspecific T-wave abnormality. Very rare isolated premature ventricular contractions were seen. There was no ventricular or supraventricular tachycardia. She did not report any symptoms and tolerated the procedure well. Review of images at rest and following stress does not indicate any significant perfusion defects consistent with significant myocardial ischemia or infarction. Gated images show normal global left ventricular systolic function with normal regional wall motion. Left ventricular ejection fraction is calculated to be 64%. Left ventricular end-diastolic volume is 64 mL. TID is absent (1.11). CONCLUSIONS: 1. No evidence of any significant myocardial ischemia or infarction on this study. 2. Normal regional wall motion. 3. Normal global left ventricular systolic function with a calculated ejection fraction of 64%. 4. Normal left ventricular cavity size. Job ID: [id number] DocumentID: [id number] Dictated Date: 01/04/2017 15:26:56 Fitting Supervisor Date: 01/04/2017 16:03:01 Dictated By: REX GONZALEZ MD, MA, FACP, FACC,
== END 2017-01-04 16:29 | disposition home or self-care (01) ==
LOC: EDUNIT# 13:18 → ER 13:20 → UNDOADMOB 16:00 → ICU 16:00 → 4TH 01-03 10:40 → ICU 01-03 10:40
PROVIDERS: ADMIT Family Medicine; ATTEND Family Medicine
DX: R07.89 Other chest pain (principal); I25.10 Atherosclerotic heart disease of native coronary artery without angina pectoris; E11.9 Type 2 diabetes mellitus without complications; I49.3 Ventricular premature depolarization; I48.0 Paroxysmal atrial fibrillation; K21.9 Gastro-esophageal reflux disease without esophagitis; I10 Essential (primary) hypertension; E78.5 Hyperlipidemia, unspecified; I25.2 Old myocardial infarction; Z95.5 Presence of coronary angioplasty implant and graft; Z79.4 Long term (current) use of insulin; Z91.14 Patient's other noncompliance with medication regimen
CPT/HCPCS: 36415; 71010; 78452; 80053; 80061; 82962; 83735; 83874; 84443; 84484; 85025; 85610; 85730; 93005; 93017; 93041; G0378

== ENCOUNTER 2017-05-24 07:34 | Day surgery (SDC) | payer MEDICARE, MEDICAID ==
[~2017-05-24] VITALS: Ht 165.1 cm; Wt 89.4 kg
[~2017-05-24 07:34] MED LIST changes: +ASPI-983 PO; +GABA-488 PO; +HEParin (CATH LAB) 1,000 ML IV ONE; +METO-351 PO; +NS (IVPB) 50 ML ONE; +NS IV 1000 ML 1,000 ML ONE; +OMEG-160 PO; +PANT40TA2 PO; +ceFAZolin 1,000 MG (ANCEF) VIAL ONE
[2017-05-24] MEDS ORDERED: ceFAZolin 1,000 MG (ANCEF) VIAL IV ONE (07:45)
[2017-05-24] MEDS ORDERED: BACITRACIN INJECTION 50,000 UNIT, SODIUM CHLORIDE 0.9% IRRIGATIO 500 ML IR ONE ×2 (07:45)
[2017-05-24 08:00] VITALS: BP 148/97
[2017-05-24] MEDS: NS IV 1000 ML 1,000 ML IV SCH (08:04)
[2017-05-24 08:09] LABS: MEAN PLATELET VOLUME 11.9 FL (7.4-10.4); RED BLOOD COUNT 4.81 10^6/uL (4.35-5.85); RED CELL DISTRIBUTION WIDTH 13.5 % (10.0-14.5); WHITE BLOOD COUNT 14.5 10^3/uL (4.3-11.0)
[2017-05-24 08:18] LABS: INR 0.9 (0.8-1.4); PROTHROMBIN TIME PATIENT 12.2 SEC (12.2-14.7)
[2017-05-24 08:27] LABS: ALBUMIN 3.8 GM/DL (3.2-4.5); BILIRUBIN,TOTAL 0.6 MG/DL (0.1-1.0); CALCIUM 9.7 MG/DL (8.5-10.1); CREATININE SERUM 0.99 MG/DL (0.60-1.30); POTASSIUM 3.5 MMOL/L (3.6-5.0); TOTAL PROTEIN 7.8 GM/DL (6.4-8.2)
[2017-05-24] MEDS ORDERED: METF1000 PO (09:00)
[2017-05-24] MEDS ORDERED: DILT180C54 PO (09:00)
[2017-05-24] MEDS ORDERED: ASPI-983 PO ×3 (09:00→09:01)
[2017-05-24] MEDS ORDERED: diphenhydrAMINE 50 MG/ML INJ (BENADRYL) ONE (09:31)
[2017-05-24] MEDS ORDERED: fentaNYL INJECTION 100 MCG/2 ML AMP ONE (09:31)
[2017-05-24] MEDS ORDERED: MIDAZOLAM 5 MG/5 ML (VERSED) VIAL ONE (09:31)
[2017-05-24] MEDS ORDERED: NEO/POLY/BAC (NEOSPORIN) OINT 15 GM TUBE ONE (11:33)
[2017-05-24] MEDS ORDERED: NS IV 1000 ML 1,000 ML IV SCH (11:42)
[2017-05-24] MEDS ORDERED: ACETAMINOPHEN 325 MG TABLET/CAPLET (TYLENOL) PO PRN (11:45)
[2017-05-24] MEDS ORDERED: PATIENT MAY USE OWN MEDS, ALL PO SCH (11:45)
[2017-05-24 12:45] VITALS: BP 123/55
[2017-05-24 16:00] VITALS: BP 92/54
[2017-05-24] MEDS ORDERED: ASPIRIN 81 MG CHEW (CHILDREN'S ASA) PO NR (16:40)
[2017-05-24] MEDS ORDERED: KCL 20 MEQ TAB (K-DUR) PO NR (16:40)
[2017-05-24] MEDS: ceFAZolin INJECTION 1,000 MG in NS (IVPB) 50 ML IV SCH ×2 (16:51→22:07)
[2017-05-24] MEDS ORDERED: metFORMIN 500 MG (GLUCOPHAGE) TAB PO SCH (17:00)
[2017-05-24] MEDS: METFORMIN 1000MG TABLET PO SCH (18:00)
[2017-05-24 20:00] VITALS: BP 119/53
[2017-05-24] MEDS ORDERED: rOPINIRole 1 MG (REQUIP) TABLET PO SCH (21:00)
[2017-05-24] MEDS ORDERED: ATORVASTATIN 40 MG (LIPITOR) TABLET PO SCH (21:00)
[2017-05-24] MEDS ORDERED: GABAPENTIN 300 MG (NEURONTIN) CAP PO SCH (21:00)
[2017-05-24] MEDS: TICAGRELOR 90 MG TABLET (BRILINTA) PO SCH (21:29)
[2017-05-24] MEDS: OMEGA 3 (FISH OIL) 1000 MG CAP PO SCH (21:30)
[2017-05-24] MEDS: inSUlin DETERMIR 1 UNIT/0.01 ML (LEVEMIR) CHARGE PER UNIT SQ SCH (21:44)
[2017-05-24] MEDS ORDERED: ONDANSETRON 4 MG/2 ML (SDV) Z0FRAN IVP PRN (23:30)
[2017-05-25] VITALS: BP 140/65
[2017-05-25 04:00] VITALS: BP 135/76
[2017-05-25 06:07] LABS: MEAN PLATELET VOLUME 12.1 FL (7.4-10.4); RED BLOOD COUNT 4.38 10^6/uL (4.35-5.85); RED CELL DISTRIBUTION WIDTH 13.5 % (10.0-14.5)
[2017-05-25 06:26] LABS: ALANINE AMINOTRANSFERASE 12 U/L (0-55); ALBUMIN 3.1 GM/DL (3.2-4.5); ANION GAP 8 MMOL/L (5-14); ASPARTATE AMINO TRANSFERASE 14 U/L (5-34); BILIRUBIN,TOTAL 0.6 MG/DL (0.1-1.0); BLOOD UREA NITROGEN 20 MG/DL (7-18); BUN/CREATININE RATIO 27; CALCIUM 8.6 MG/DL (8.5-10.1); CARBON DIOXIDE 23 MMOL/L (21-32); CHLORIDE 103 MMOL/L (98-107); CREATININE SERUM 0.74 MG/DL (0.60-1.30); GFR ESTIMATED > 60; GLUCOSE 264 MG/DL (70-105); POTASSIUM 4.1 MMOL/L (3.6-5.0); SODIUM 134 MMOL/L (135-145); TOTAL PROTEIN 6.4 GM/DL (6.4-8.2)
[2017-05-25] MEDS: ceFAZolin INJECTION 1,000 MG in NS (IVPB) 50 ML IV SCH (06:26)
[2017-05-25] MEDS: METFORMIN 1000MG TABLET PO SCH (07:03)
[2017-05-25 08:00] VITALS: BP 135/83
[2017-05-25] MEDS: TICAGRELOR 90 MG TABLET (BRILINTA) PO SCH (08:45)
[2017-05-25] MEDS ORDERED: CEFU500T63 PO (08:46)
[2017-05-25] MEDS: OMEGA 3 (FISH OIL) 1000 MG CAP PO SCH (08:46)
[2017-05-25] MEDS: inSUlin DETERMIR 1 UNIT/0.01 ML (LEVEMIR) CHARGE PER UNIT SQ SCH (08:50)
[2017-05-25] MEDS: NS IV 1000 ML 1,000 ML IV SCH (08:54)
[2017-05-25] MEDS ORDERED: ASPIRIN E.C. 81 MG (ECOTRIN) TAB PO SCH (09:00)
[2017-05-25] MEDS ORDERED: DILTIAZEM 180 MG (CARDIZEM CD) CAP PO SCH (09:00)
== END 2017-05-25 11:49 | disposition home or self-care (01) ==
LOC: CATH 07:34 → ICU 12:40 → CATH 05-25 11:49
PROVIDERS: ATTEND Internal Medicine Cardiovascular Disease
DX: I49.5 Sick sinus syndrome (principal); R00.1 Bradycardia, unspecified; I25.10 Atherosclerotic heart disease of native coronary artery without angina pectoris; E11.9 Type 2 diabetes mellitus without complications; E78.5 Hyperlipidemia, unspecified; I10 Essential (primary) hypertension; Z79.01 Long term (current) use of anticoagulants; E66.9 Obesity, unspecified; Z68.32 Body mass index [BMI] 32.0-32.9, adult; Z95.5 Presence of coronary angioplasty implant and graft; Z79.84 Long term (current) use of oral hypoglycemic drugs; Z79.899 Other long term (current) drug therapy
CPT/HCPCS: 33208; 33284; 36415; 71020; 80053; 80061; 82962; 85027; 85610; 85730; 87081; 93005

== ENCOUNTER 2017-10-10 16:10 | Emergency (ER) | payer MEDICARE, MEDICAID ==
[~2017-10-10] VITALS: Ht 165.1 cm; Wt 91.6 kg
[~2017-10-10 16:10] MED LIST changes: +CEFU500T63 PO; +DILT180C54 PO; -HEParin (CATH LAB) 1,000 ML IV ONE; -NAPR500T3 PO; +NAPR500T4 PO; -NS (IVPB) 50 ML ONE; -NS IV 1000 ML 1,000 ML ONE; -ceFAZolin 1,000 MG (ANCEF) VIAL ONE
[2017-10-10] MEDS ORDERED: NS IV 1000 ML 1,000 ML IV ONE (18:18)
[2017-10-10] MEDS ORDERED: ONDANSETRON 4 MG/2 ML (SDV) Z0FRAN IVP ONE (18:30)
[2017-10-10] MEDS ORDERED: DIPHENOXYLATE/ATROPINE 2.5MG/0.025MG (LOMOTIL) TAB PO ONE (18:30)
--- NOTE | 2017-10-10 18:43 | Diagnostic Imaging Report ---
INDICATION: Cough, nausea and vomiting. Fever Two views show normal heart size and vascularity. The lungs are clear. There is no effusion or pneumothorax. A pacemaker is present. IMPRESSION: No acute abnormality is seen with no change from 05/24/2017. Dictated by: Dictated on workstation # [id number]
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
[2017-10-10 19:00] LABS: BASOPHILS % (AUTO) 0 % (0-10); EOSINOPHILS % (AUTO) 0 % (0-10); HEMATOCRIT 43 % (35-52); HEMOGLOBIN 14.6 G/DL (11.5-16.0); LYMPHOCYTES # (AUTO) 1.2 X 10^3 (1.0-4.0); LYMPHOCYTES % (AUTO) 12 % (12-44); MEAN CORPUSCULAR HEMOGLOBIN 29 PG (25-34); MEAN CORPUSCULAR HGB CONC 34 G/DL (32-36); MEAN CORPUSCULAR VOLUME 85 FL (80-99); MEAN PLATELET VOLUME 12.4 FL (7.4-10.4); MONOCYTES # (AUTO) 1.1 X 10^3 (0.0-1.0); MONOCYTES % (AUTO) 11 % (0-12); NEUTROPHILS # (AUTO) 7.6 X 10^3 (1.8-7.8); NEUTROPHILS % (AUTO) 76 % (42-75); PLATELET COUNT 166 10^3/uL (130-400); RED BLOOD COUNT 5.09 10^6/uL (4.35-5.85); RED CELL DISTRIBUTION WIDTH 13.5 % (10.0-14.5); WHITE BLOOD COUNT 9.9 10^3/uL (4.3-11.0)
[2017-10-10 19:30] LABS: ALBUMIN 3.5 GM/DL (3.2-4.5); BILIRUBIN,TOTAL 0.8 MG/DL (0.1-1.0); CALCIUM 9.1 MG/DL (8.5-10.1); CREATININE SERUM 1.32 MG/DL (0.60-1.30); MAGNESIUM 1.7 MG/DL (1.8-2.4); POTASSIUM 3.3 MMOL/L (3.6-5.0); TOTAL PROTEIN 7.7 GM/DL (6.4-8.2)
[2017-10-10] MEDS ORDERED: LACTATED RINGERS 1,000 ML IV ONE (19:53)
[2017-10-10] MEDS ORDERED: KCL 10 MEQ TAB (MICRO K) PO ONE (20:00)
[2017-10-10] MEDS ORDERED: inSUlin (REGULAR) HUMAN 1 UNIT/0.01 ML (CHARGE PER UNIT) IV ONE (20:00)
[2017-10-10] MEDS ORDERED: DIPH1TAB PO (21:13)
[2017-10-10] MEDS ORDERED: ONDA4TAB8 SL (21:13)
[2017-10-10] MEDS ORDERED: RX-ONDANSETRON 4 MG ODT (ZOFRAN) PPK #4 SL STA (21:14)
[2017-10-10 21:25] VITALS: BP 143/70
--- OUTSIDE RECORDS SUMMARY | 2017-10-13 12:49 | XMS REPORT | Continuity of Care Document ---
Author Author [facility] Organization [facility] Address Unknown Phone Unavailable Allergies Active Description Code Type Severity Reaction Onset Reported/Identified Relationship to Patient Clinical Status Yes pseudoephedrine [id number] Drug Allergy Unknown N/A 05/27/2007 Yes Sulfa (Sulfonamide Antibiotics) [id number] Drug Allergy Unknown N/A 2006 Yes triprolidine [id number] Drug Allergy Unknown N/A 05/27/2007 Medications There is no data. Problems Date Dx Coded Attending Type Code Diagnosis Diagnosed By 05/27/2011 Ot 250.00 DIAB LESLIE WO COMPL, TYPE II OR UNSPEC TY 05/27/2011 Ot 401.9 HYPERTENSION NOS 05/27/2011 Ot 552.20 OBSTR VENTRAL HERNIA NOS 05/27/2011 Ot 574.10 CHOLELITH W CHOLECYS NEC 05/27/2011 Ot V16.0 FAMILY HX-GI MALIGNANCY 05/27/2011 Ot V58.69 OTH MED,LT, CURRENT USE 05/27/2011 Ot V76.51 SCREEN MAL NEOP-COLON 07/10/2011 Ot 850.0 CONCUSSION W/ O COMA 07/10/2011 Ot 920 CONTUSION FACE/ SCALP/NCK 07/10/2011 Ot 959.01 HEAD INJURY , NOS 07/10/2011 Ot E000.8 OTHER EXTERNAL CAUSE STATUS 07/10/2011 Ot E849[address]/HIGHWAY 07/10/2011 Ot E884.9 FALL-1 LEVEL TO OTH NEC 12/14/2013 ANDREA RIVERA MD Ot 027.2 PASTEURELLOSIS 12/14/2013 ANDREA RIVERA MD Ot 250.00 DIAB LESLIE WO COMPL, TYPE II OR UNSPEC TY 12/14/2013 ANDREA RIVERA MD Ot 272.4 HYPERLIPIDEMIA NEC/NOS 12/14/2013 ANDREA RIVERA MD Ot 278.00 OBESITY, NOS 12/14/2013 ANDREA RIVERA MD Ot 401.9 HYPERTENSION NOS 12/14/2013 ANDREA RIVERA MD Ot 414.01 CORONARY ATHEROSCLEROSIS OF [place] CORON 12/14/2013 ANDREA RIVERA MD Ot 681.00 [...] DO Ot 789.01 07/18/2014 MARIAELENA POLANCO FACC, ALI FACP CCDS Ot 250.00 DIAB LESLIE WO COMPL, TYPE II OR UNSPEC TY 07/18/2014 MARIAELEAN POLANCO FACC, ALI FACP CCDS Ot 272.4 HYPERLIPIDEMIA NEC/NOS 07/18/2014 MARIAELENA POLANCO FACC, ALI FACP CCDS Ot 401.9 HYPERTENSION NOS 07/18/2014 MARIAELENA POLANCO FACC, ALI FACP CCDS Ot 414.01 CORONARY ATHEROSCLEROSIS OF [place] CORON 07/18/2014 MARIAELENA POLANCO FACC, ALI FACP CCDS Ot 780.4 DIZZINESS AND GIDDINESS 07/18/2014 MARIAELENA POLANCO FACC, ALI FACP CCDS Ot 784.0 HEADACHE 07/18/2014 MARIAELENA POLANCO FACC, ALI FACP CCDS Ot 786.50 CHEST PAIN NOS 07/18/2014 MARIAELENA POLANCO FACC, REX FACP CCDS Ot V04.81 ND FOR PROPHYLACTIC VACCIN AND INOCULATI 07/18/2014 MARIAELENA POLANCO FACC, ALI FACP CCDS Ot V45.82 PERCUTANEOUS TRANSLUM CORON ANGIOPLASTY 07/18/2014 MARIAELENA POLANCO FACC, ALI FACP CCDS Ot V58.67 LONG-TERM (CURRENT) USE OF INSULIN 07/18/2014 MARIAELENA POLANCO FACC, ALI FACP CCDS Ot 250.00 07/18/2014 MARIAELENA MD FACC, ALI FACP CCDS Ot 272.4 07/18/2014 MARIAELENA RAMOSC, ALI FACP CCDS Ot 401.9 07/18/2014 MARIAELENA POLANCO FACC, ALI FACP CCDS Ot 414.01 07/18/2014 MARIAELENA RAMOSC, ALI FACP CCDS Ot 780.4 07/18/2014 MARIAELENA RAMOSC, ALI FACP CCDS Ot 784.0 07/18/2014 MARIAELENA RAMOSC, ALI FACP CCDS Ot 786.50 07/18/2014 MARIAELENA RAMOSC, ALI FACP CCDS Ot V04.81 07/18/2014 MARIAELENA RAMOSC, ALI FACP CCDS Ot V45.82 07/18/2014 MARIAELENA RAMOSC, ALI FACP CCDS Ot V58.67 07/24/2014 MARIAELENA POLANCO FACC, ALI FACP CCDS Ot 250.00 DIAB LESLIE WO COMPL, TYPE II OR UNSPEC TY 07/24/2014 MARIAELENA RAMOSC, ALI FACP CCDS Ot 272.4 HYPERLIPIDEMIA NEC/NOS 07/24/2014 MARIAELENA POLANCO FACC, ALI FACP CCDS Ot 278.00 OBESITY, NOS 07/24/2014 MARIAELENA POLANCO FACC, ALI FACP CCDS Ot 401.9 HYPERTENSION NOS 07/24/2014 MARIAELENA POLANCO FACC, ALI FACP CCDS Ot 414.01 CORONARY ATHEROSCLEROSIS OF [place] CORON 07/24/2014 MARIAELENA POLANCO FACC, ALI FACP [...] DANIELSON DO Ot 789.01 07/28/2014 NO KIRK ARMATURE WINDER HELPER REPAIR Ot 998.12 HEMATOMA COMPLIC A PROC 08/06/2014 SULEMAN YAP COGNOS TM1 DEVELOPER Ot 272.4 08/06/2014 SULEMAN YAP COGNOS TM1 DEVELOPER Ot 414.00 08/19/2014 JOSH DANIELSON DO Ot 789.01 08/19/2014 MARIAELENA POLANCO FACC, ALI FACP CCDS Ot 250.00 08/19/2014 MARIAELENA RAMOSC, ALI FACP CCDS Ot 272.4 08/19/2014 MARIAELENA [...] I10 ESSENTIAL (PRIMARY) HYPERTENSION 06/11/2015 ANDREA RIVERA MD, Ot I25.10 ATHSCL HEART DISEASE OF [place] CORONARY 06/11/2015 ANDREA RIVERA MD Ot I48.0 PAROXYSMAL ATRIAL FIBRILLATION 06/11/2015 ANDREA RIVERA MD Ot N39.0 URINARY TRACT INFECTION, SITE NOT SPECIF 06/11/2015 ANDREA RIVERA MD Ot Z68.35 BODY MASS INDEX (BMI) 35.0-35.9, ADULT 06/11/2015 ANDREA RIVERA MD Ot Z79.4 GYPSUM ROOFER (CURRENT) USE OF INSULIN 06/11/2015 ANDREA RIVERA [...] CCDS Ot I25.118 ATHSCL HEART DISEASE OF [place] COR ART W 10/06/2016 MARIAELENA POLANCO FACC, ALI FACP CCDS Ot I25.84 CORONARY ATHEROSCLEROSIS DUE TO CALCIFIE 10/06/2016 MARIAELENA POLANCO FACC, ALI FACP CCDS Ot Z68.34 BODY MASS INDEX (BMI) 34.0-34.9, ADULT 10/06/2016 MARIAELENA POLANCO FACC, ALI FACP CCDS Ot Z79.899 OTHER NURSING HOME (CURRENT) DRUG THERAPY 10/06/2016 MARIAELENA POLANCO FACC, ALI FACP CCDS Ot Z91.19 PATIENT'S NONCOMPLIANCE W [facility] 10/06/2016 MARIAELENA POLANCO FACC, REX FACP CCDS Ot Z95.5 PRESENCE OF CORONARY ANGIOPLASTY IMPLANT 10/11/2016 MARIAELENA POLANCO FACC, REX FACP CCDS Ot E11.9 TYPE 2 DIABETES MELLITUS WITHOUT COMPLIC 10/11/2016 MARIAELENA POLANCO FACC, ALI FACP CCDS Ot E66.9 OBESITY, UNSPECIFIED 10/11/2016 MARIAELENA POLANCO FACC, ALI FACP CCDS Ot E78.5 HYPERLIPIDEMIA, UNSPECIFIED 10/11/2016 MARIAELENA POLANCO FACC, ALI FACP CCDS Ot I10 ESSENTIAL (PRIMARY) HYPERTENSION 10/11/2016 MARIAELENA POLANCO FACC, ALI FACP CCDS Ot I25.118 ATHSCL HEART DISEASE OF [place] COR ART W 10/11/2016 MARIAELENA POLANCO FACC, ALI FACP CCDS Ot I25.84 CORONARY ATHEROSCLEROSIS DUE TO CALCIFIE 10/11/2016 MARIAELENA POLANCO FACC, ALI FACP CCDS Ot Z68.34 BODY MASS INDEX (BMI) 34.0-34.9, ADULT 10/11/2016 MARIAELENA POLANCO FACC, ALI FACP CCDS Ot 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 10/11/2016 MARIAELENA POLANCO FACC, ALI FACP CCDS Ot Z91.19 PATIENT'S NONCOMPLIANCE W [facility] 10/11/2016 MARIAELENA POLANCO FACC, REX FACP CCDS Ot Z95.5 PRESENCE OF CORONARY ANGIOPLASTY IMPLANT 10/19/2016 NO KIRK APRN Ot E11.9 TYPE 2 DIABETES MELLITUS WITHOUT COMPLIC 10/19/2016 NO KIRK APRN Ot I97.630 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 10/19/2016 NO KIRK APRN Ot Z79.02 NURSING HOME (CURRENT) USE OF ANTITHROMBOTI 10/19/2016 NO KIRK APRN Ot Z79.82 GYPSUM ROOFER (CURRENT) USE OF ASPIRIN 10/19/2016 NO KIRK APRN Ot Z79.84 NURSING HOME (CURRENT) USE OF ORAL HYPOGLYC 10/19/2016 NO KIRK APRN Ot Z79.899 OTHER NURSING HOME (CURRENT) DRUG THERAPY 10/19/2016 NO KIRK APRN Ot Z95.5 PRESENCE OF CORONARY ANGIOPLASTY IMPLANT 10/19/2016 JOSH DANIELSON DO Ot 789.01 ABDOMINAL PAIN, RIGHT UPPER QUADRANT 10/19/2016 Ot 575.8 DIS OF GALLBLADDER NEC 10/19/2016 Ot V16.0 FAMILY HX-GI MALIGNANCY 10/19/2016 Ot V72.63 PRE- PROCEDURAL LABORATORY EXAMINATION 10/19/2016 Ot V74.8 SCREEN- BACTERIAL DIS NEC 10/19/2016 JOSH DANIELSON DO Ot [...] POLANCO FACC, REX FACP CCDS Ot V58.69 [facility] MED,LT,CURRENT USE 10/19/2016 BAIMA, SULEMAN L COGNOS TM1 DEVELOPER Ot 272.4 HYPERLIPIDEMIA NEC/NOS 10/19/2016 BAIMA, SULEMAN L COGNOS TM1 DEVELOPER Ot 414.00 CORON ATHEROSCLER NOS TYPE VESSEL, NATIV 10/19/2016 FABIAN DANIELSON DOROUJEAN Ot 789.01 ABDOMINAL PAIN, RIGHT UPPER QUADRANT 10/19/2016 Ot 575.8 DIS OF GALLBLADDER NEC 10/19/2016 Ot V16.0 FAMILY HX-GI MALIGNANCY 10/19/2016 Ot V72.63 PRE- PROCEDURAL LABORATORY EXAMINATION 10/19/2016 Ot V74.8 SCREEN- BACTERIAL DIS NEC 10/19/2016 JOSH DANIELSON DO Ot [...] CCDS Ot V58.69 OT MED,LT,CURRENT USE 10/19/2016 MIMIMA, SULEMAN L COGNOS TM1 DEVELOPER Ot 272.4 HYPERLIPIDEMIA NEC/NOS 10/19/2016 MIMIMA SULEMAN L COGNOS TM1 DEVELOPER Ot 414.00 CORON ATHEROSCLER NOS TYPE VESSEL, NATIV 10/19/2016 JOSH DANIELSON DO Ot 789.01 ABDOMINAL PAIN, RIGHT UPPER QUADRANT 10/19/2016 Ot 575.8 DIS OF GALLBLADDER NEC 10/19/2016 Ot V16.0 FAMILY HX-GI MALIGNANCY 10/19/2016 Ot V72.63 PRE- PROCEDURAL LABORATORY EXAMINATION 10/19/2016 Ot V74.8 SCREEN- BACTERIAL DIS NEC 10/19/2016 JOSH DANIELSON DO Ot [...] CCDS Ot V58.69 OTH MED,LT,CURRENT USE 10/19/2016 BAISULEMAN WONG COGNOS TM1 DEVELOPER Ot 272.4 HYPERLIPIDEMIA NEC/NOS 10/19/2016 BAISULEMAN WONG L COGNOS TM1 DEVELOPER Ot 414.00 CORON ATHEROSCLER NOS TYPE VESSEL, NATIV 10/21/2016 NO KIRK APRN Ot E11.9 TYPE 2 DIABETES MELLITUS WITHOUT COMPLIC 10/21/2016 NO KIRK APRN Ot I97.630 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 10/21/2016 NO KIRK ARMATURE WINDER HELPER REPAIR Ot Z79.02 GYPSUM ROOFER (CURRENT) USE OF ANTITHROMBOTI 10/21/2016 NO KIRK APRN Ot Z79.82 GYPSUM ROOFER (CURRENT) USE OF ASPIRIN 10/21/2016 NO KIRK APRN Ot Z79.84 NURSING HOME (CURRENT) USE OF ORAL HYPOGLYC 10/21/2016 NO KIRK ARMATURE WINDER HELPER REPAIR Ot 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 10/21/2016 NO KIRK ARMATURE WINDER HELPER REPAIR Ot Z95.5 PRESENCE OF CORONARY ANGIOPLASTY IMPLANT 11/19/2016 REX FERRELL MD, FACC FACP CCDS Ot I25.10 ATHSCL HEART DISEASE OF [place] CORONARY 11/19/2016 REX FERRELL MD, FACC FACP CCDS Ot I25.10 ATHSCL HEART DISEASE OF [place] CORONARY 11/19/2016 REX FERRELL MD, FACCP CCDS Ot E13.9 OTHER SPECIFIED DIABETES MELLITUS WITHOU 11/19/2016 REX FERRELL MD, FACC FACP CCDS Ot E78.4 OTHER HYPERLIPIDEMIA 11/19/2016 MARIAELENA POLANCO FAC, ALI RACHELP CCDS Ot I10 ESSENTIAL (PRIMARY) HYPERTENSION 11/19/2016 MARIAELENA POLANCO FAC, REX RAMOSP CCDS Ot I25.10 ATHSCL HEART DISEASE OF [place] CORONARY 11/19/2016 MARIAELENA POLANCO LOCATED WITHIN [facility], ALI RACHELP CCDS Ot R11.0 NAUSEA 11/19/2016 MARIAELENA POLANCO LOCATED WITHIN [facility], REX RAMOSP CCDS Ot R20.8 OTHER DISTURBANCES OF SKIN [...] MD, Ot I25.10 ATHSCL HEART DISEASE OF [place] CORONARY 12/04/2016 GOMEZ REBOLLEDO MD Ot I48.0 PAROXYSMAL ATRIAL FIBRILLATION 12/04/2016 GOMEZ REBOLLEDO MD, Ot K21.9 GASTRO-ESOPHAGEAL REFLUX DISEASE WITHOUT 12/04/2016 GOMEZ REBOLLEDO MD, Ot T82.867A THROMBOSIS DUE TO CARDIAC PROSTH DEV/GRF 12/04/2016 GOMEZ REBOLLEDO MD, Ot Z68.37 BODY MASS INDEX (BMI) 37.0-37.9, ADULT 12/04/2016 GOMEZ REBOLLEDO MD, Ot Z79.4 NURSING HOME (CURRENT) USE OF INSULIN 12/04/2016 GOMEZ REBOLLEDO MD, Ot Z91.14 PATIENT'S OTHER NONCOMPLIANCE WITH MEDIC 12/04/2016 GOMEZ REBOLLEDO MD, Ot Z95.5 PRESENCE OF CORONARY ANGIOPLASTY IMPLANT 12/09/2016 SULEMAN YAP Ot I97.610 POSTPROC HEMOR OF A CIRC SYS ORG FOLLOWI 12/09/2016 SULEMAN YAP Ot I97.610 POSTPROC HEMOR OF A CIRC SYS ORG FOLLOWI 12/10/2016 MARIAELENA POLANCO FACC, REX RAMOSP CCDS Ot E13.9 OTHER SPECIFIED DIABETES MELLITUS WITHOU 12/10/2016 MARIAELENA POLANCO FACC, REX FACP CCDS Ot E78.4 OTHER HYPERLIPIDEMIA 12/10/2016 MARIAELENA POLANCO FACC, ALI FACP CCDS Ot I10 ESSENTIAL (PRIMARY) HYPERTENSION 12/10/2016 MARIAELENA POLANCO FACC, ALI FACP CCDS Ot I25.10 ATHSCL HEART DISEASE OF [place] CORONARY 12/10/2016 MARIAELENA POLANCO FACC, REX FACP CCDS Ot R11.0 NAUSEA 12/10/2016 MARIAELENA POLANCO FACC, REX RAMOSP CCDS Ot R20.8 OTHER DISTURBANCES OF SKIN SENSATION 01/04/2017 MANUELA MUNOZ MD Ot E11.9 TYPE 2 DIABETES MELLITUS WITHOUT COMPLIC 01/04/2017 MANUELA MUNOZ MD, Ot E78.5 HYPERLIPIDEMIA, UNSPECIFIED 01/04/2017 MANUELA MUNOZ MD, Ot I10 ESSENTIAL (PRIMARY) HYPERTENSION 01/04/2017 MANUELA MUNOZ MD, Ot I25.10 ATHSCL HEART DISEASE OF [place] CORONARY 01/04/2017 MANUELA MUNOZ MD, Ot I25.2 OLD MYOCARDIAL INFARCTION 01/04/2017 MANUELA MUNOZ MD, Ot I48.0 PAROXYSMAL ATRIAL FIBRILLATION 01/04/2017 MANUELA MUNOZ MD, Ot I49.3 VENTRICULAR PREMATURE DEPOLARIZATION 01/04/2017 MANUELA MUNOZ MD, Ot K21.9 GASTRO-ESOPHAGEAL REFLUX DISEASE WITHOUT 01/04/2017 MANUELA MUNOZ MD Ot R07.89 OTHER CHEST PAIN 01/04/2017 MANUELA MUNOZ MD, Ot Z79.4 GYPSUM ROOFER (CURRENT) USE OF INSULIN 01/04/2017 MANUELA MUNOZ MD, Ot Z91.14 PATIENT'S OTHER NONCOMPLIANCE WITH MEDIC 01/04/2017 MANUELA MUNOZ MD, Ot Z95.5 PRESENCE OF CORONARY ANGIOPLASTY IMPLANT 01/05/2017 JOSH DANIELSON DO Ot 789.01 ABDOMINAL PAIN, RIGHT UPPER QUADRANT 01/05/2017 JOSH DANIELSON DO Ot 789.01 ABDOMINAL PAIN, RIGHT UPPER QUADRANT 01/05/2017 MARIAELENA POLANCO FACC, REX RAMOSP CCDS Ot 250.00 DIAB LESLIE WO COMPL, TYPE II OR UNSPEC TY 01/05/2017 MARIAELENA POLANCO FACC, ALI FACP CCDS Ot 272.4 HYPERLIPIDEMIA NEC/NOS 01/05/2017 MARIAELENA POLANCO FACC, ALI FACP CCDS Ot 401.9 HYPERTENSION NOS 01/05/2017 MARIAELENA POLANCO FACC, ALI FACP CCDS Ot 414.00 CORON ATHEROSCLER NOS TYPE VESSEL, NATIV 01/05/2017 MARIAELENA POLANCO FACC, REX FACP CCDS Ot 785.1 PALPITATIONS 01/05/2017 MARIAELENA POLANCO FACC, REX FACP CCDS Ot V58.67 LONG-TERM (CURRENT) USE OF INSULIN 01/05/2017 MARIAELENA POLANCO FACC ALI FACP CCDS Ot V58.69 OTH MED,LT,CURRENT USE 01/05/2017 SULEMAN YAP COGNOS TM1 DEVELOPER Ot 272.4 HYPERLIPIDEMIA NEC/NOS 01/05/2017 SULEMAN YAP COGNOS TM1 DEVELOPER Ot 414.00 CORON ATHEROSCLER NOS TYPE VESSEL, NATIV 01/05/2017 MARIAELENA POLANCO FACC, REX FACP CCDS Ot E13.9 OTHER SPECIFIED DIABETES MELLITUS WITHOU 01/05/2017 MARIAELENA POLANCO FACC, ALI FACP CCDS Ot E78.4 OTHER HYPERLIPIDEMIA 01/05/2017 MARIAELENA POLANCO FACC, ALI FACP CCDS Ot I10 ESSENTIAL (PRIMARY) HYPERTENSION 01/05/2017 MARIAELENA POLANCO FACC, ALI FACP CCDS Ot I25.10 ATHSCL HEART DISEASE OF [place] CORONARY 01/05/2017 REX FERRELL MD, FACC FACP CCDS Ot R11.0 NAUSEA 01/05/2017 REX FERRELL MD, FACC FACP CCDS Ot R20.8 OTHER DISTURBANCES OF SKIN SENSATION 01/05/2017 SULEMAN YAP COGNOS TM1 DEVELOPER Ot I97.610 POSTPROC HEMOR OF A CIRC SYS ORG FOLLOWI 01/05/2017 SULEMAN YAP COGNOS TM1 DEVELOPER Ot R10.30 LOWER ABDOMINAL PAIN, UNSPECIFIED 01/05/2017 MARIAELENA POLNACO FACC ALI FACP CCDS Ot I25.10 ATHSCL HEART DISEASE OF [place] CORONARY 01/05/2017 REX FERRELL MD, FACC FACP CCDS Ot Z95.5 PRESENCE OF CORONARY ANGIOPLASTY IMPLANT 01/05/2017 JOSH DANIELSON DO Ot 789.01 ABDOMINAL PAIN, RIGHT UPPER QUADRANT 01/05/2017 JOSH DANIELSON DO Ot 789.01 ABDOMINAL PAIN, RIGHT UPPER QUADRANT 01/05/2017 MARIAELENA POLANCO FACC, ALI FACP CCDS Ot 250.00 DIAB LESLIE WO COMPL, TYPE II OR UNSPEC TY 01/05/2017 MARIAELENA POLANCO FACC, ALI FACP CCDS Ot 272.4 HYPERLIPIDEMIA NEC/NOS 01/05/2017 MARIAELENA POLANCO FACC, ALI FACP CCDS Ot 401.9 HYPERTENSION NOS 01/05/2017 MARIAELENA POLANCO FACC, ALI FACP CCDS Ot 414.00 CORON ATHEROSCLER NOS TYPE VESSEL, NATIV 01/05/2017 MARIAELENA POLANCO FACC, ALI FACP CCDS Ot 785.1 PALPITATIONS 01/05/2017 MARIAELENA POLANCO FACC, ALI FACP CCDS Ot V58.67 LONG-TERM (CURRENT) USE OF INSULIN 01/05/2017 MARIAELENA POLANCO FACC ALI FACP CCDS Ot V58.69 OTH MED,LT,CURRENT USE 01/05/2017 SULEMAN YAP COGNOS TM1 DEVELOPER Ot 272.4 HYPERLIPIDEMIA NEC/NOS 01/05/2017 SULEMAN YAP COGNOS TM1 DEVELOPER Ot 414.00 CORON ATHEROSCLER NOS TYPE VESSEL, NATIV 01/05/2017 MARIAELENA POLANCO FACC, REX FACP CCDS Ot E13.9 OTHER SPECIFIED DIABETES MELLITUS WITHOU 01/05/2017 MARIAELENA POLANCO FACC, ALI FACP CCDS Ot E78.4 OTHER HYPERLIPIDEMIA 01/05/2017 MARIAELENA POLANCO FACC, ALI FACP CCDS Ot I10 ESSENTIAL (PRIMARY) HYPERTENSION 01/05/2017 MARIAELENA POLANCO FACC, ALI FACP CCDS Ot I25.10 ATHSCL HEART DISEASE OF [place] CORONARY 01/05/2017 REX FERRELL MD, FACC FACP CCDS Ot R11.0 NAUSEA 01/05/2017 REX FERRELL MD, FACC FACP CCDS Ot R20.8 OTHER DISTURBANCES OF SKIN SENSATION 01/05/2017 SULEMAN YAP COGNOS TM1 DEVELOPER Ot I97.610 POSTPROC HEMOR OF A CIRC SYS ORG FOLLOWI 01/05/2017 SULEMAN YAP COGNOS TM1 DEVELOPER Ot R10.30 LOWER ABDOMINAL PAIN, UNSPECIFIED 01/05/2017 MARIAELENA POLANCO FACC ALI FACP CCDS Ot I25.10 ATHSCL HEART DISEASE OF [place] CORONARY 01/05/2017 MARIAELENA POLANCO FACC, ALI FACP CCDS Ot Z95.5 PRESENCE OF CORONARY ANGIOPLASTY IMPLANT 01/05/2017 SULEMAN YAP COGNOS TM1 DEVELOPER Ot I97.610 POSTPROC HEMOR OF A CIRC SYS ORG FOLLOWI 01/05/2017 SULEMAN YAP COGNOS TM1 DEVELOPER Ot R10.30 LOWER ABDOMINAL PAIN, UNSPECIFIED 01/18/2017 MARIAELENA POLANCO FACC, REX FACP CCDS Ot I25.10 ATHSCL HEART DISEASE OF [place] CORONARY 01/18/2017 MARIAELENA POLANCO FACC, REX FACP CCDS Ot Z95.5 PRESENCE OF CORONARY ANGIOPLASTY IMPLANT 02/09/2017 JOSH DANIELSON DO Ot 789.01 ABDOMINAL PAIN, RIGHT UPPER QUADRANT 02/09/2017 JOSH DANIELSON DO Ot 789.01 ABDOMINAL PAIN, RIGHT UPPER QUADRANT 02/09/2017 MARIAELENA POLANCO FACC, REX FACP CCDS Ot 250.00 DIAB LESLIE WO COMPL, TYPE II OR UNSPEC TY 02/09/2017 MARIAELENA POLANCO FACC, ALI FACP CCDS Ot 272.4 HYPERLIPIDEMIA NEC/NOS 02/09/2017 MARIAELENA POLANCO FACC, ALI FACP CCDS Ot 401.9 HYPERTENSION NOS 02/09/2017 MARIAELENA POLANCO FACC, REX FACP CCDS Ot 414.00 CORON ATHEROSCLER NOS TYPE VESSEL, NATIV 02/09/2017 MARIAELENA POLANCO FACC, REX FACP CCDS Ot 785.1 PALPITATIONS 02/09/2017 MARIAELENA POLANCO FACC, REX FACP CCDS Ot V58.67 LONG-TERM (CURRENT) USE OF INSULIN 02/09/2017 MARIAELENA POLANCO FACC ALI FACP CCDS Ot V58.69 OT MED,LT,CURRENT USE 02/09/2017 SULEMAN YAP COGNOS TM1 DEVELOPER Ot 272.4 HYPERLIPIDEMIA NEC/NOS 02/09/2017 SULEMAN YAP COGNOS TM1 DEVELOPER Ot 414.00 CORON ATHEROSCLER NOS TYPE VESSEL, NATIV 02/09/2017 REX FERRELL MD, FACC FACP CCDS Ot E13.9 OTHER SPECIFIED DIABETES MELLITUS WITHOU 02/09/2017 REX FERRELL MD, FACC FACP CCDS Ot E78.4 OTHER HYPERLIPIDEMIA 02/09/2017 MARIAELENA POLANCO FACC, ALI FACP CCDS Ot I10 ESSENTIAL (PRIMARY) HYPERTENSION 02/09/2017 MARIAELENA POLANCO FACC, ALI FACP CCDS Ot I25.10 ATHSCL HEART DISEASE OF [place] CORONARY 02/09/2017 MARIAELENA POLANCO FACC, REX FACP CCDS Ot R11.0 NAUSEA 02/09/2017 MARIAELENA POLANCO FACC, ALI FACP CCDS Ot R20.8 OTHER DISTURBANCES OF SKIN SENSATION 02/09/2017 SULEMAN YAP COGNOS TM1 DEVELOPER Ot I97.610 POSTPROC HEMOR OF A CIRC SYS ORG FOLLOWI 02/09/2017 SULEMAN YPA COGNOS TM1 DEVELOPER Ot R10.30 LOWER ABDOMINAL PAIN, UNSPECIFIED 02/09/2017 MARIAELENA POLANCO FACC, ALI FACP CCDS Ot I25.10 ATHSCL HEART DISEASE OF [place] CORONARY 02/09/2017 MARIAELENA POLANCO FACC, ALI FACP CCDS Ot Z95.5 PRESENCE OF CORONARY ANGIOPLASTY IMPLANT 02/09/2017 MARIAELENA POLANCO FACC, REX FACP CCDS Ot I25.10 ATHSCL HEART DISEASE OF [place] CORONARY 02/09/2017 MARIAELENA POLANCO FACC, REX FACP CCDS Ot Z95.5 PRESENCE OF CORONARY ANGIOPLASTY IMPLANT 02/09/2017 SULEMAN YAP COGNOS TM1 DEVELOPER Ot I97.610 POSTPROC HEMOR OF A CIRC SYS ORG FOLLOWI 02/09/2017 SULEMAN YAP COGNOS TM1 DEVELOPER Ot R10.30 LOWER ABDOMINAL PAIN, UNSPECIFIED 02/23/2017 JOSH DANIELSON DO Ot 789.01 ABDOMINAL PAIN, RIGHT UPPER QUADRANT 02/23/2017 JOSH DANIELSON DO Ot 789.01 ABDOMINAL PAIN, RIGHT UPPER QUADRANT 02/23/2017 MARIAELENA POLANCO FACC, REX FACP CCDS Ot 250.00 DIAB LESLIE WO COMPL, TYPE II OR UNSPEC TY 02/23/2017 MARIAELENA POLANCO FACC, REX FACP CCDS Ot 272.4 HYPERLIPIDEMIA NEC/NOS 02/23/2017 MARIAELENA POLANCO FACC, ALI FACP CCDS Ot 401.9 HYPERTENSION NOS 02/23/2017 MARIAELENA POLANCO FACC, ALI FACP CCDS Ot 414.00 CORON ATHEROSCLER NOS TYPE VESSEL, NATIV 02/23/2017 MARIAELENA POLANCO FACC, ALI FACP CCDS Ot 785.1 PALPITATIONS 02/23/2017 MARIAELENA POLANCO FACC, REX FACP CCDS Ot V58.67 LONG-TERM (CURRENT) USE OF INSULIN 02/23/2017 REX FERRELL MD, FACC FACP CCDS Ot V58.69 OT MED,LT,CURRENT USE 02/23/2017 SULEMAN YAP COGNOS TM1 DEVELOPER Ot 272.4 HYPERLIPIDEMIA NEC/NOS 02/23/2017 SULEMAN YAP COGNOS TM1 DEVELOPER Ot 414.00 CORON ATHEROSCLER NOS TYPE VESSEL, NATIV 02/23/2017 MARIAELENA POLANCO FACC, REX FACP CCDS Ot E13.9 OTHER SPECIFIED DIABETES MELLITUS WITHOU 02/23/2017 MARIAELENA POLANCO FACC, ALI FACP CCDS Ot E78.4 OTHER HYPERLIPIDEMIA 02/23/2017 MARIAELENA POLANCO FACC, REX FACP CCDS Ot I10 ESSENTIAL (PRIMARY) HYPERTENSION 02/23/2017 MARIAELENA POLANCO FACC, ALI FACP CCDS Ot I25.10 ATHSCL HEART DISEASE OF [place] CORONARY 02/23/2017 MARIAELENA POLANCO FACC, REX FACP CCDS Ot R11.0 NAUSEA 02/23/2017 MARIAELENA POLANCO FACC, REX FACP CCDS Ot R20.8 OTHER DISTURBANCES OF SKIN SENSATION 02/23/2017 SULEMAN YAP COGNOS TM1 DEVELOPER Ot I97.610 POSTPROC HEMOR OF A CIRC SYS ORG FOLLOWI 02/23/2017 SULEMAN YAP COGNOS TM1 DEVELOPER Ot R10.30 LOWER ABDOMINAL PAIN, UNSPECIFIED 02/23/2017 MARIAELENA POLANCO FACC, REX FACP CCDS Ot I25.10 ATHSCL HEART DISEASE OF [place] CORONARY 02/23/2017 MARIAELENA POLANCO FACC, REX FACP CCDS Ot Z95.5 PRESENCE OF CORONARY ANGIOPLASTY IMPLANT 02/24/2017 SULEMAN YAP COGNOS TM1 DEVELOPER Ot I97.610 POSTPROC HEMOR OF A CIRC SYS ORG FOLLOWI 02/24/2017 SULEMAN YAP COGNOS TM1 DEVELOPER Ot R10.30 LOWER ABDOMINAL PAIN, UNSPECIFIED 02/24/2017 MARIAELENA POLANCO FACC, ALI FACP CCDS Ot I25.10 ATHSCL HEART DISEASE OF [place] CORONARY 02/24/2017 MARIAELENA POLANCO FACC, ALI FACP CCDS Ot Z95.5 PRESENCE OF CORONARY ANGIOPLASTY IMPLANT 04/25/2017 SULEMAN YAP L COGNOS TM1 DEVELOPER Ot I97.610 POSTPROC HEMOR OF A CIRC SYS ORG FOLLOWI 04/25/2017 SULEMAN YAP COGNOS TM1 DEVELOPER Ot R10.30 LOWER ABDOMINAL PAIN, UNSPECIFIED 05/24/2017 JOSH DANIELSON DO Ot 789.01 ABDOMINAL PAIN, RIGHT UPPER QUADRANT 05/24/2017 JOSH DANIELSON DO Ot 789.01 ABDOMINAL PAIN, RIGHT UPPER QUADRANT 05/24/2017 MARIAELENA POLANCO FACC, ALI FACP CCDS Ot 250.00 DIAB LESLIE WO COMPL, TYPE II OR UNSPEC TY 05/24/2017 MARIAELENA POLANCO FACC, ALI FACP CCDS Ot 272.4 HYPERLIPIDEMIA NEC/NOS 05/24/2017 MARIAELENA POLANCO FACC, ALI FACP CCDS Ot 401.9 HYPERTENSION NOS 05/24/2017 MARIAELENA POLANCO FACC, ALI FACP CCDS Ot 414.00 CORON ATHEROSCLER NOS TYPE VESSEL, NATIV 05/24/2017 MARIAELENA POLANCO FACC, ALI FACP CCDS Ot 785.1 PALPITATIONS 05/24/2017 MARIAELENA POLANCO FACC, ALI FACP CCDS Ot V58.67 LONG-TERM (CURRENT) USE OF INSULIN 05/24/2017 MARIAELENA POLANCO FACC ALI FACP CCDS Ot V58.69 OTH MED,LT,CURRENT USE 05/24/2017 SULEMAN YAP COGNOS TM1 DEVELOPER Ot 272.4 HYPERLIPIDEMIA NEC/NOS 05/24/2017 SULEMAN YAP COGNOS TM1 DEVELOPER Ot 414.00 CORON ATHEROSCLER NOS TYPE VESSEL, NATIV 05/24/2017 MARIAELENA POLANCO FACC, REX FACP CCDS Ot E13.9 OTHER SPECIFIED DIABETES MELLITUS WITHOU 05/24/2017 MARIAELENA POLANCO FACC, REX FACP CCDS Ot E78.4 OTHER HYPERLIPIDEMIA 05/24/2017 MARIAELENA POLANCO FACC, ALI FACP CCDS Ot I10 ESSENTIAL (PRIMARY) HYPERTENSION 05/24/2017 MARIAELENA POLANCO FACC, ALI FACP CCDS Ot I25.10 ATHSCL HEART DISEASE OF [place] CORONARY 05/24/2017 REX FERRELL MD, FACC FACP CCDS Ot R11.0 NAUSEA 05/24/2017 REX FERRELL MD, FACC FACP CCDS Ot R20.8 OTHER DISTURBANCES OF SKIN SENSATION 05/24/2017 SULEMAN YAP COGNOS TM1 DEVELOPER Ot I97.610 POSTPROC HEMOR OF A CIRC SYS ORG FOLLOWI 05/24/2017 SULEMAN YAP COGNOS TM1 DEVELOPER Ot R10.30 LOWER ABDOMINAL PAIN, UNSPECIFIED 05/24/2017 MARIAELENA POLANCO FACC ALI FACP CCDS Ot I25.10 ATHSCL HEART DISEASE OF [place] CORONARY 05/24/2017 MARIAELENA POLANCO FACC, ALI FACP CCDS Ot Z95.5 PRESENCE OF CORONARY ANGIOPLASTY IMPLANT 05/25/2017 MARIAELENA POLANCO FACC, REX FACP CCDS Ot E11.9 TYPE 2 DIABETES MELLITUS WITHOUT COMPLIC 05/25/2017 MARIAELENA POLANCO FACC, ALI FACP CCDS Ot E66.9 OBESITY, UNSPECIFIED 05/25/2017 MARIAELENA POLANCO FACC, ALI FACP CCDS Ot E78.5 HYPERLIPIDEMIA, UNSPECIFIED 05/25/2017 MARIAELENA POLANCO FACC, ALI FACP CCDS Ot I10 ESSENTIAL (PRIMARY) HYPERTENSION 05/25/2017 MARIAELENA POLANCO FACC, ALI FACP CCDS Ot I25.10 ATHSCL HEART DISEASE OF [place] CORONARY 05/25/2017 MARIAELENA POLANCO FACC, ALI FACP CCDS Ot I49.5 SICK SINUS SYNDROME 05/25/2017 MARIAELENA POLANCO FACC, REX FACP CCDS Ot R00.1 BRADYCARDIA, UNSPECIFIED 05/25/2017 MARIAELENA POLANCO FACC, ALI FACP CCDS Ot Z68.32 BODY MASS INDEX (BMI) 32.0-32.9, ADULT 05/25/2017 MARIAELENA POLANCO FACC, REX FACP CCDS Ot 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 (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 05/25/2017 MARIAELENA POLANCO FACC, REX FACP CCDS Ot Z79.84 GYPSUM ROOFER (CURRENT) USE OF ORAL HYPOGLYC 05/25/2017 MARIAELENA POLANCO FACC, REX FACP CCDS Ot 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 05/25/2017 MARIAELENA POLANCO FACC, REX FACP CCDS Ot Z95.5 PRESENCE OF CORONARY ANGIOPLASTY IMPLANT 07/07/2017 MARIAELENA POLANCO FACC, REX FACP CCDS Ot E11.9 TYPE 2 DIABETES MELLITUS WITHOUT COMPLIC 07/07/2017 MARIAELENA POLANCO FACC, REX FACP CCDS Ot E66.9 OBESITY, UNSPECIFIED 07/07/2017 MARIAELENA POLANCO FACC, ALI FACP CCDS Ot E78.5 HYPERLIPIDEMIA, UNSPECIFIED 07/07/2017 MARIAELENA POLANCO FACC, ALI FACP CCDS Ot I10 ESSENTIAL (PRIMARY) HYPERTENSION 07/07/2017 MARIAELENA POLANCO FACC, ALI FACP CCDS Ot I25.10 ATHSCL HEART DISEASE OF [place] CORONARY 07/07/2017 MARIAELENA POLANCO FACC, REX FACP CCDS Ot I49.5 SICK SINUS SYNDROME 07/07/2017 MARIAELENAREX REYNA MD, FACCP CCDS Ot R00.1 BRADYCARDIA, UNSPECIFIED 07/07/2017 REX FERRELL MD, FACC FACP CCDS Ot Z68.32 BODY MASS INDEX (BMI) 32.0-32.9, ADULT 07/07/2017 REX FERRELL MD, FACC FACP CCDS Ot Z79.01 NURSING HOME (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 07/07/2017 REX FERRELL MD, FACC FACP CCDS Ot Z79.84 NURSING HOME (CURRENT) USE OF ORAL HYPOGLYC 07/07/2017 REX FERRELL MD, FACC FACP CCDS Ot 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 07/07/2017 REX FERRELL MD, FACC FACP CCDS Ot Z95.5 PRESENCE OF CORONARY ANGIOPLASTY IMPLANT Procedures Code Description Performed By Performed On 45.23 COLONOSCOPY 05/24/2011 51.23 LAPAROSCOPIC CHOLECYSTECTOMY 05/24/2011 53.59 ABD WALL ANALI REPAIR NEC 05/24/2011 86.04 OTHER SKIN SUBQ I D 12/14/2013 [id number] DILATION OF 1 COR ART WITH DRUG-ELUT INT 12/02/2016 [id number] INSERT OF MONITOR DEV INTO CHEST SUBCU/F 12/02/2016 [id number] MEASURE OF CARDIAC SAMPL PRESSURE, L H 12/02/2016 [id number] FLUOROSCOPY OF MULT COR ART USING L OSM 12/02/2016 [id number] FLUOROSCOPY OF LEFT HEART USING LOW OSMO 12/02/2016 Results Test Result Range Automated blood complete blood count (hemogram) panel - 10/05/16 10:02 Blood leukocytes automated count (number/volume) 6.9 10*3/uL 4.3-11.0 Blood erythrocytes automated count (number/volume) 4.85 10*6/uL 4.35-5.85 Venous blood hemoglobin measurement (mass/volume) 13.9 [...] Automated blood platelet mean volume measurement 12.2 [foz_us] 7.4-10.4 PT panel in platelet poor plasma [...] Serum or plasma sodium measurement (moles/volume) 133 mmol/L 135-145 Serum or plasma potassium measurement (moles/volume) 3.8 mmol/L 3.6-5.0 Serum or plasma chloride measurement (moles/volume) 100 mmol/L 98-107 Carbon dioxide 24 mmol/L 21-32 Serum or plasma anion gap determination (moles/volume) 9 mmol/L 5-14 Serum or plasma urea nitrogen measurement (mass/volume) 17 mg/dL 7-18 Serum or plasma creatinine measurement (mass/volume) 0.87 mg/dL 0.60-1.30 Serum or plasma urea nitrogen/creatinine mass [...] Serum or plasma cholesterol measurement (mass/volume) 181 mg/dL < 200 Serum or plasma cholesterol in HDL measurement (mass/volume) 31 mg/ dL 40-60 Cholesterol in LDL [mass/volume] in serum or plasma by direct assay 107 mg/dL 1-129 Serum or plasma cholesterol in VLDL measurement (mass/volume) 67 mg/ dL 5-40 Methicillin resistant Staphylococcus aureus (MRSA) screening culture - 10:12 Methicillin resistant Staphylococcus aureus (MRSA) screening culture NEG NRG Capillary blood glucose measurement by glucometer (mass/volume) - 10/06/16 01: 21 Capillary blood glucose measurement by glucometer (mass/volume) 282 mg/dL 70-110 Automated blood complete blood count (hemogram) panel - 10/06/16 03:26 Blood leukocytes automated count (number/volume) 9.1 10*3/uL 4.3-11.0 Blood erythrocytes automated count (number/volume) 3.91 10*6/uL 4.35-5.85 Venous blood hemoglobin measurement (mass/volume) 11.2 [...] Automated blood platelet mean volume measurement 11.9 [foz_us] 7.4-10.4 Whole blood basic metabolic panel - 10/06/16 03:36 Serum or plasma sodium measurement (moles/volume) 134 mmol/L 135-145 Serum or plasma potassium measurement (moles/volume) 3.8 mmol/L 3.6-5.0 Serum or plasma chloride measurement (moles/volume) 100 mmol/L 98-107 Carbon dioxide 25 mmol/L 21-32 Serum or plasma anion gap determination (moles/volume) 9 mmol/L 5-14 Serum or plasma urea nitrogen measurement (mass/volume) 14 mg/dL 7-18 Serum or plasma creatinine measurement (mass/volume) 0.80 mg/dL 0.60-1.30 Serum or plasma urea nitrogen/creatinine mass [...] Serum or plasma sodium measurement (moles/volume) 136 mmol/L 135-145 Serum or plasma potassium measurement (moles/volume) 3.5 mmol/L 3.6-5.0 Serum or plasma chloride measurement (moles/volume) 103 mmol/L 98-107 Carbon dioxide 20 mmol/L 21-32 Serum or plasma anion gap determination (moles/volume) 13 mmol/L 5-14 Serum or plasma urea nitrogen measurement (mass/volume) 8 mg/dL 7-18 Serum or plasma creatinine measurement (mass/volume) 1.11 mg/dL 0.60-1.30 Serum or plasma urea nitrogen/creatinine mass [...] or plasma troponin i.cardiac measurement (mass/volume) < ng/ mL <0.30 Myoglobin, serum - 12/02/16 16:27 Myoglobin, serum 27.9 ng/mL 10.0-92.0 [id number] gene mutation analysis - 12/02/16 16:27 [id number] gene mutation analysis Normal NRG Capillary blood glucose measurement by glucometer (mass/volume) - 12/02/16 21: 07 Capillary blood glucose measurement by glucometer (mass/volume) 332 mg/dL 70-110 Automated blood complete blood count (hemogram) panel - 12/03/16 03:45 Blood leukocytes automated count (number/volume) 9.1 10*3/uL 4.3-11.0 Blood erythrocytes automated count (number/volume) 4.29 10*6/uL 4.35-5.85 Venous blood hemoglobin measurement (mass/volume) 12.0 [...] Automated blood platelet mean volume measurement 11.7 [foz_us] 7.4-10.4 Whole blood basic metabolic panel - 12/03/16 03:45 Serum or plasma sodium measurement (moles/volume) 137 mmol/L 135-145 Serum or plasma potassium measurement (moles/volume) 3.2 mmol/L 3.6-5.0 Serum or plasma chloride measurement (moles/volume) 103 mmol/L 98-107 Carbon dioxide 26 mmol/L 21-32 Serum or plasma anion gap determination (moles/volume) 8 mmol/L 5-14 Serum or plasma urea nitrogen measurement (mass/volume) 9 mg/dL 7-18 Serum or plasma creatinine measurement (mass/volume) 0.78 mg/dL 0.60-1.30 Serum or plasma urea nitrogen/creatinine mass [...] Serum or plasma cholesterol measurement (mass/volume) 172 mg/dL < 200 Serum or plasma cholesterol in HDL measurement (mass/volume) 32 mg/ dL 40-60 Cholesterol in LDL [mass/volume] in serum or plasma by direct assay 108 mg/dL 1-129 Serum or plasma cholesterol in VLDL measurement (mass/volume) 36 mg/ dL 5-40 Capillary blood glucose measurement by glucometer [...] 15:10 Blood leukocytes automated count (number/volume) 9.1 10*3/uL 4.3-11.0 Blood erythrocytes automated count (number/volume) 5.12 10*6/uL 4.35-5.85 Venous blood hemoglobin measurement (mass/volume) 14.0 [...] Automated blood platelet mean volume measurement 11.8 [foz_us] 7.4-10.4 Automated blood neutrophils/100 leukocytes 64 % [...] Serum or plasma sodium measurement (moles/volume) 139 mmol/L 135-145 Serum or plasma potassium measurement (moles/volume) 4.0 mmol/L 3.6-5.0 Serum or plasma chloride measurement (moles/volume) 103 mmol/L 98-107 Carbon dioxide 28 mmol/L 21-32 Serum or plasma anion gap determination (moles/volume) 8 mmol/L 5-14 Serum or plasma urea nitrogen measurement (mass/volume) 11 mg/dL 7-18 Serum or plasma creatinine measurement (mass/volume) 0.84 mg/dL 0.60-1.30 Serum or plasma urea nitrogen/creatinine mass [...] or plasma troponin i.cardiac measurement (mass/volume) < ng/ mL <0.30 Myoglobin, serum - 01/02/17 15:10 Myoglobin, [...] 03:45 Blood leukocytes automated count (number/volume) 8.9 10*3/uL 4.3-11.0 Blood erythrocytes automated count (number/volume) 4.71 10*6/uL 4.35-5.85 Venous blood hemoglobin measurement (mass/volume) 12.9 [...] Automated blood platelet mean volume measurement 11.9 [foz_us] 7.4-10.4 Automated blood neutrophils/100 leukocytes 52 % [...] Serum or plasma sodium measurement (moles/volume) 140 mmol/L 135-145 Serum or plasma potassium measurement (moles/volume) 3.6 mmol/L 3.6-5.0 Serum or plasma chloride measurement (moles/volume) 105 mmol/L 98-107 Carbon dioxide 26 mmol/L 21-32 Serum or plasma anion gap determination (moles/volume) 9 mmol/L 5-14 Serum or plasma urea nitrogen measurement (mass/volume) 9 mg/dL 7-18 Serum or plasma creatinine measurement (mass/volume) 0.78 mg/dL 0.60-1.30 Serum or plasma urea nitrogen/creatinine mass [...] Serum or plasma cholesterol measurement (mass/volume) 185 mg/dL < 200 Serum or plasma cholesterol in HDL measurement (mass/volume) 37 mg/ dL 40-60 Cholesterol in LDL [mass/volume] in serum or plasma by direct assay 117 mg/dL 1-129 Serum or plasma cholesterol in VLDL measurement (mass/volume) 35 mg/ dL 5-40 Serum or plasma troponin i.cardiac measurement (mass/volume) - 01/03/17 03:45 Serum or plasma troponin i.cardiac measurement (mass/volume) < ng/ mL <0.30 Capillary blood glucose measurement by glucometer [...] 05:10 Blood leukocytes automated count (number/volume) 8.8 10*3/uL 4.3-11.0 Blood erythrocytes automated count (number/volume) 4.66 10*6/uL 4.35-5.85 Venous blood hemoglobin measurement (mass/volume) 12.8 [...] Automated blood platelet mean volume measurement 12.0 [foz_us] 7.4-10.4 Automated blood neutrophils/100 leukocytes 57 % [...] Serum or plasma sodium measurement (moles/volume) 140 mmol/L 135-145 Serum or plasma potassium measurement (moles/volume) 3.2 mmol/L 3.6-5.0 Serum or plasma chloride measurement (moles/volume) 107 mmol/L 98-107 Carbon dioxide 23 mmol/L 21-32 Serum or plasma anion gap determination (moles/volume) 10 mmol/L 5-14 Serum or plasma urea nitrogen measurement (mass/volume) 11 mg/dL 7-18 Serum or plasma creatinine measurement (mass/volume) 0.77 mg/dL 0.60-1.30 Serum or plasma urea nitrogen/creatinine mass [...] measurement by glucometer (mass/volume) 266 mg/dL 70-110 Automated blood complete blood count (hemogram) panel - 05/24/17 08:02 Blood leukocytes automated count (number/volume) 14.5 10*3/uL 4.3-11.0 Blood erythrocytes automated count (number/volume) 4.81 10*6/uL 4.35-5.85 Venous blood hemoglobin measurement (mass/volume) 13.8 g/dL 11.5-16.0 Blood hematocrit (volume fraction) 42 % 35-52 Automated erythrocyte mean corpuscular volume 87 [foz_us] 80-99 Automated erythrocyte mean corpuscular hemoglobin (mass per erythrocyte) 29 pg 25-34 Automated erythrocyte mean corpuscular hemoglobin concentration measurement ( mass/volume) 33 g/dL 32-36 Automated erythrocyte distribution width ratio 13.5 % 10.0-14.5 Automated blood platelet count (count/volume) 235 10*3/uL 130-400 Automated blood platelet mean volume measurement 11.9 [foz_us] 7.4-10.4 PT panel in platelet poor plasma by coagulation assay - 05/24/17 08:02 Prothrombin time (PT) in platelet poor plasma by coagulation assay 12.2 s 12.2-14.7 INR in platelet poor plasma or blood by coagulation assay 0.9 0.8-1.4 Activated partial thromboplastin time (aPTT) in platelet poor plasma bycoagulation assay - 05/24/17 08:02 Activated partial thromboplastin time (aPTT) in platelet poor plasma bycoagulation assay 29 s 24-35 Comprehensive metabolic panel - 05/24/17 08:02 Serum or plasma sodium measurement (moles/volume) 136 mmol/L 135-145 Serum or plasma potassium measurement (moles/volume) 3.5 mmol/L 3.6-5.0 Serum or plasma chloride measurement (moles/volume) 99 mmol/L 98-107 Carbon dioxide 26 mmol/L 21-32 Serum or plasma anion gap determination (moles/volume) 11 mmol/L 5-14 Serum or plasma urea nitrogen measurement (mass/volume) 19 mg/dL 7-18 Serum or plasma creatinine measurement (mass/volume) 0.99 mg/dL 0.60-1.30 Serum or plasma urea nitrogen/creatinine mass ratio 19 NRG Serum or plasma creatinine measurement with calculation of estimated glomerular filtration rate 57 NRG Serum or plasma glucose measurement (mass/volume) 382 mg/dL 70-105 Serum or plasma calcium measurement (mass/volume) 9.7 mg/dL 8.5-10.1 Serum or plasma total bilirubin measurement (mass/volume) 0.6 mg/dL 0.1-1.0 Serum or plasma alkaline phosphatase measurement (enzymatic activity/volume) 101 U/L 40-136 Serum or plasma aspartate aminotransferase measurement (enzymatic activity/ volume) 12 U/L 5-34 Serum or plasma alanine aminotransferase measurement (enzymatic activity/volume ) 16 U/L 0-55 Serum or plasma protein measurement (mass/volume) 7.8 g/dL 6.4-8.2 Serum or plasma albumin measurement (mass/volume) 3.8 g/dL 3.2-4.5 Lipid 1996 panel - 05/24/17 08:02 Serum or plasma triglyceride measurement (mass/volume) 232 mg/dL <150 Serum or plasma cholesterol measurement (mass/volume) 186 mg/dL < 200 Serum or plasma cholesterol in HDL measurement (mass/volume) 44 mg/ dL 40-60 Cholesterol in LDL [mass/volume] in serum or plasma by direct assay 117 mg/dL 1-129 Serum or plasma cholesterol in VLDL measurement (mass/volume) 46 mg/ dL 5-40 Methicillin resistant Staphylococcus aureus (MRSA) screening culture - 08:02 Methicillin resistant Staphylococcus aureus (MRSA) screening culture NEG NRG Capillary blood glucose measurement by glucometer (mass/volume) - 05/24/17 21: 27 Capillary blood glucose measurement by glucometer (mass/volume) 264 mg/dL 70-110 Automated blood complete blood count (hemogram) panel - 05/25/17 05:18 Blood leukocytes automated count (number/volume) 12.0 10*3/uL 4.3-11.0 Blood erythrocytes automated count (number/volume) 4.38 10*6/uL 4.35-5.85 Venous blood hemoglobin measurement (mass/volume) 12.6 g/dL 11.5-16.0 Blood hematocrit (volume fraction) 38 % 35-52 Automated erythrocyte mean corpuscular volume 87 [foz_us] 80-99 Automated erythrocyte mean corpuscular hemoglobin (mass per erythrocyte) 29 pg 25-34 Automated erythrocyte mean corpuscular hemoglobin concentration measurement ( mass/volume) 33 g/dL 32-36 Automated erythrocyte distribution width ratio 13.5 % 10.0-14.5 Automated blood platelet count (count/volume) 172 10*3/uL 130-400 Automated blood platelet mean volume measurement 12.1 [foz_us] 7.4-10.4 Comprehensive metabolic panel - 05/25/17 05:18 Serum or plasma sodium measurement (moles/volume) 134 mmol/L 135-145 Serum or plasma potassium measurement (moles/volume) 4.1 mmol/L 3.6-5.0 Serum or plasma chloride measurement (moles/volume) 103 mmol/L 98-107 Carbon dioxide 23 mmol/L 21-32 Serum or plasma anion gap determination (moles/volume) 8 mmol/L 5-14 Serum or plasma urea nitrogen measurement (mass/volume) 20 mg/dL 7-18 Serum or plasma creatinine measurement (mass/volume) 0.74 mg/dL 0.60-1.30 Serum or plasma urea nitrogen/creatinine mass ratio 27 NRG Serum or plasma creatinine measurement with calculation of estimated glomerular filtration rate > NRG Serum or plasma glucose measurement (mass/volume) 264 mg/dL 70-105 Serum or plasma calcium measurement (mass/volume) 8.6 mg/dL 8.5-10.1 Serum or plasma total bilirubin measurement (mass/volume) 0.6 mg/dL 0.1-1.0 Serum or plasma alkaline phosphatase measurement (enzymatic activity/volume) 85 U/L 40-136 Serum or plasma aspartate aminotransferase measurement (enzymatic activity/ volume) 14 U/L 5-34 Serum or plasma alanine aminotransferase measurement (enzymatic activity/volume ) 12 U/L 0-55 Serum or plasma protein measurement (mass/volume) 6.4 g/dL 6.4-8.2 Serum or plasma albumin measurement (mass/volume) 3.1 g/dL 3.2-4.5 Encounters ACCT No. Visit Date/Time Discharge Status Pt. Type Provider Facility Loc./Unit Complaint [id number] 05/24/2017 07:34:00 05/25/2017 11:49:00 DIS Outpatient MARIAELENA POLANCO FACC, REX PERALES CCDS [facility] CATH SINUS PAUSE SINUS BRADYCARDIA,SSS [id number] 01/02/2017 16:55:00 01/04/2017 17:28:00 DIS Inpatient MANUELA MUNOZ MD [facility] 4TH ATYPICAL CONCERN FOR MYDOCANDIAL INFACTION [id number] 12/31/2016 12:51:00 12/31/2016 23:59:59 CLS Outpatient REX FERRELL MD, FACC, FACP CCDS [facility] CARD Z95.5,I25.10 [id number] 12/09/2016 11:27:00 12/09/2016 23:59:59 CLS Outpatient SULEMAN YAP [facility] RAD RT GROIN PAIN [id number] 12/02/2016 16:44:00 12/04/2016 12:00:00 DIS Inpatient GOMEZ REBOLLEDO MD [facility] ICU STEMI [id number] 11/19/2016 11:07:00 11/19/2016 23:59:59 CLS Outpatient REX FERRELL MD, FACC, FACP CCDS [facility] LAB CAD,DIABETES, HYPERLIDEMIA,HTN [id number] 10/19/2016 10:35:00 10/19/2016 13:22:00 DIS Emergency NO KIRK APRN [facility] ER POST OP BLEEDING [id number] 10/05/2016 09:14:00 10/06/2016 11:45:00 DIS Outpatient REX FERRELL MD, FACC, FACP CCDS [facility] CATH SOB,CAD [id number] 01/27/2016 13:59:00 02/02/2016 13:46:00 DIS Outpatient ALEA FAUSTIN [facility] REHAB NECK PAIN WITH L RADICULOPATHY [id number] 06/10/2015 21:09:00 06/11/2015 10:06:00 DIS Inpatient ANDREA RIVERA MD [facility] ICU NEW ONSET AFIB;UTI;H/O CAD [id number] 07/28/2014 15:06:00 07/28/2014 17:02:00 DIS Emergency NO KIRK APRN [facility] ER LUMP IN GROIN AREA POST HEART CATH [id number] 07/23/2014 08:11:00 07/24/2014 09:50:00 DIS Outpatient REX FERRELL MD, FACC, FACP CCDS [facility] CATH ABNORMAL STRESS, CHEST PAIN [id number] 07/17/2014 16:34:00 07/18/2014 17:23:00 DIS Inpatient REX FERRELL MD, FACC, FACP CCDS [facility] CSD CHEST PAIN ON EXERTION,COLLAZO,DIZZINESS [id number] 07/09/2014 08:29:00 07/09/2014 23:59:59 CLS Outpatient REX FERRELL MD, FACC, FACP CCDS [facility] CARD CAD,HLP,HTN [id number] 07/08/2014 12:05:00 07/08/2014 23:59:59 CLS Outpatient SULEMAN YAP [facility] LAB CAD,HYPERLIPIDEMIA [id number] 06/24/2014 12:36:00 06/24/2014 23:59:59 CLS Outpatient JOSH DANIELSON DO [facility] RAD RUQ PAIN [id number] 06/20/2014 12:31:00 06/20/2014 23:59:59 CLS Outpatient JOSH DANIELSON DO [facility] LAB RUQ PAIN [id number] 12/14/2013 15:41:00 12/14/2013 17:23:00 DIS Inpatient NICOLE POLANCO, ANDREA [place] [facility] 4TH CAT BITE CELLULITIS R HAND; DIABETES OUT OF CONTRO [id number] 07/10/2011 16:47:00 Document Registration [id number] 05/24/2011 18:15:00 Document Registration [id number] 05/18/2011 15:49:00 Document Registration
== END 2017-10-10 21:21 | disposition home or self-care (01) ==
LOC: EDUNIT# 16:10 → ER 16:12
DX: R11.2 Nausea with vomiting, unspecified (principal); R05 Cough; E11.65 Type 2 diabetes mellitus with hyperglycemia; E87.6 Hypokalemia; R19.7 Diarrhea, unspecified; K21.9 Gastro-esophageal reflux disease without esophagitis; Z87.59 Personal history of other complications of pregnancy, childbirth and the puerperium; Z95.5 Presence of coronary angioplasty implant and graft; Z95.0 Presence of cardiac pacemaker; Z79.82 Long term (current) use of aspirin; Z80.0 Family history of malignant neoplasm of digestive organs; Z91.14 Patient's other noncompliance with medication regimen; Z88.2 Allergy status to sulfonamides; Z88.8 Allergy status to other drugs, medicaments and biological substances
CPT/HCPCS: 36415; 71046; 80053; 82962; 83735; 85025; 96361; 96374; 96375; 99283

== ENCOUNTER → 2018-01-10 | Outpatient (CLI) | payer MEDICARE, MEDICAID ==
[~2018-01-10] VITALS: Ht 165.1 cm; Wt 95.3 kg
[~2018-01-10] MED LIST changes: +CATHETER FLUSH 10 ML SYR IV PRN; +CLIN300C11 PO; +DIPH1TAB PO; +HYDR-757 PO; +METF10002 PO; -METF500T4 PO; +METF500T5 PO; +NAPR-915 PO; -NAPR500T4 PO; +ONDA4TAB8 SL; +REGADENOSON 0.4 MG/5 ML SYR (LEXISCAN) IV ONE
[2018-01-10 09:05] VITALS: BP 179/95
[2018-01-10 09:11] VITALS: BP 178/93
--- NOTE | 2018-01-10 22:04 | STRESS TEST ---
DATE OF SERVICE: 01/10/2018 RESTING AND POST REGADENOSON TECHNETIUM-99M TETROFOSMIN SPECT CT IMAGING ORDERING PHYSICIAN: Mirna Gonzalez MD, MARVIN, FACMaisha, FACC. PRIMARY PHYSICIAN: Dr. Chavez. OTHER PHYSICIAN: Lucrecia Campos APRN. CLINICAL DIAGNOSIS: Shortness of breath. Baseline images were carried out after injection of 10.99 mCi of technetium-99m Tetrofosmin. This was followed by 0.4 mg regadenoson and 31 mCi of technetium-99m Tetrofosmin for stress imaging. The electrocardiogram showed sinus rhythm at baseline. It did not change significantly with the regadenoson infusion. The patient noted some nausea following regadenoson infusion, which resolved in a few minutes. Review of images at rest and following stress does not indicate any significant perfusion defects consistent with significant myocardial ischemia or infarction. Gated images show normal global left ventricular systolic function with normal regional wall motion. Left ventricular ejection fraction is calculated to be 64%. Left ventricular end diastolic volume is 63 mL. TID is absent (1.11). CONCLUSIONS: 1. No evidence of any significant myocardial ischemia or infarction on this study. 2. Normal regional wall motion. 3. Normal global left ventricular systolic function with a calculated ejection fraction of 64%. Job ID: [id number] DocumentID: [id number] Dictated Date: 01/10/2018 16:21:36 Publications Writer Date: 01/10/2018 22:03:46 Dictated By: MIRNA GONZALEZ MD, MARVIN, FACP, FACC,
== END ==
LOC: CARD 07:12
PROVIDERS: ATTEND Internal Medicine Cardiovascular Disease
DX: E78.4 Other hyperlipidemia (principal); R06.02 Shortness of breath; M79.89 Other specified soft tissue disorders; I10 Essential (primary) hypertension; I48.0 Paroxysmal atrial fibrillation; I25.10 Atherosclerotic heart disease of native coronary artery without angina pectoris; E13.9 Other specified diabetes mellitus without complications; I25.2 Old myocardial infarction; Z95.0 Presence of cardiac pacemaker
CPT/HCPCS: 78452; 93017

== ENCOUNTER → 2018-01-25 | Outpatient (CLI) | payer MEDICARE, MEDICAID ==
[~2018-01-25] MED LIST changes: -CATHETER FLUSH 10 ML SYR IV PRN; -REGADENOSON 0.4 MG/5 ML SYR (LEXISCAN) IV ONE
== END ==
LOC: CARD 09:12
PROVIDERS: ATTEND Internal Medicine Cardiovascular Disease
DX: R06.02 Shortness of breath (principal); I10 Essential (primary) hypertension; E78.5 Hyperlipidemia, unspecified; I48.0 Paroxysmal atrial fibrillation; I25.10 Atherosclerotic heart disease of native coronary artery without angina pectoris; I07.1 Rheumatic tricuspid insufficiency; E11.9 Type 2 diabetes mellitus without complications; M79.89 Other specified soft tissue disorders; I25.2 Old myocardial infarction; Z95.0 Presence of cardiac pacemaker
CPT/HCPCS: 93306

== ENCOUNTER 2018-01-27 22:33 | Emergency (ER) | payer MEDICARE, MEDICAID ==
[~2018-01-27] VITALS: Ht 165.1 cm; Wt 93.9 kg
[~2018-01-27 22:33] MED LIST changes: -CLIN300C11 PO; -HYDR-757 PO
--- OUTSIDE RECORDS SUMMARY | 2018-01-27 22:42 | XMS REPORT | Continuity of Care Document ---
Author Author [facility] Organization [facility] Address Unknown Phone Unavailable Allergies Active Description Code Type Severity Reaction Onset Reported/Identified Relationship to Patient Clinical Status Yes pseudoephedrine [id number] Drug Allergy Unknown N/A 05/27/2007 Yes Sulfa (Sulfonamide Antibiotics) [id number] Drug Allergy Unknown N/A 2006 Yes triprolidine [id number] Drug Allergy Unknown N/A 05/27/2007 Medications There [...] RIVERA MD Ot 414.01 CORONARY ATHEROSCLEROSIS OF [place] CORON 12/14/2013 ANDREA RIVERA MD Ot 681.00 [...] FACP CCDS Ot 414.01 CORONARY ATHEROSCLEROSIS OF [place] CORON 07/18/2014 MARIAELENA POLANCO FACC, ALI FACP [...] (CURRENT) USE OF INSULIN 07/18/2014 MARIAELENA POLANCO FACC ALI FACP CCDS Ot 250.00 07/18/2014 MARIAELENA POLANCO FACC, ALI FACP CCDS Ot 272.4 07/18/2014 MARIAELENA POLANCO FACC, ALI FACP CCDS Ot 401.9 07/18/2014 MARIAELENA POLANCO FACC, ALI FACP CCDS Ot 414.01 07/18/2014 MARIAELENA POLANCO FACC, ALI FACP CCDS Ot 780.4 07/18/2014 MARIAELENA RAMOSC, ALI FACP CCDS Ot 784.0 07/18/2014 MARIAELENA POLANCO FACC, ALI FACP CCDS Ot 786.50 07/18/2014 MARIAELENA [...] FACP CCDS Ot 414.01 CORONARY ATHEROSCLEROSIS OF [place] CORON 07/24/2014 MARIAELENA POLANCO FACC, ALI FACP [...] HEMATOMA COMPLIC A PROC 08/06/2014 SULEMAN YAP CPO Ot 272.4 08/06/2014 SULEMAN YAP L CPO Ot 414.00 08/19/2014 JOSH DANIELSON DO Ot [...] MD, Ot I25.10 ATHSCL HEART DISEASE OF [place] CORONARY 06/11/2015 ANDREA RIVERA MD Ot I48.0 PAROXYSMAL ATRIAL FIBRILLATION 06/11/2015 ANDREA RIVERA MD, Ot N39.0 URINARY TRACT INFECTION, SITE NOT SPECIF 06/11/2015 ANDREA RIVERA MD Ot Z68.35 BODY MASS INDEX (BMI) 35.0-35.9, ADULT 06/11/2015 ANDREA RIVERA MD Ot Z79.4 ASSISTED (CURRENT) USE OF INSULIN 06/11/2015 ANDREA RIVERA MD, Ot Z91.14 PATIENT'S OTHER NONCOMPLIANCE WITH [...] CCDS Ot I25.118 ATHSCL HEART DISEASE OF [place] COR ART W 10/06/2016 MARIAELENA POLANCO FACC, ALI FACP CCDS Ot I25.84 CORONARY ATHEROSCLEROSIS DUE TO [place] 10/06/2016 MARIAELENA POLANCO FACC, ALI FACP CCDS Ot Z68.34 BODY MASS INDEX (BMI) 34.0-34.9, ADULT 10/06/2016 MARIAELENA POLANCO FACC, ALI FACP CCDS Ot Z79.899 OTHER TUBER OPERATOR (CURRENT) DRUG THERAPY 10/06/2016 MARIAELENA POLANCO FACC, ALI FACP CCDS Ot Z91.19 PATIENT'S NONCOMPLIANCE W [facility] TR 10/06/2016 MARIAELENA POLANCO FACC, REX [...] CCDS Ot I25.118 ATHSCL HEART DISEASE OF [place] COR ART W 10/11/2016 MARIAELENA POLANCO FACC, ALI FACP CCDS Ot I25.84 CORONARY ATHEROSCLEROSIS DUE TO [place] 10/11/2016 MARIAELENA POLANCO FACC, ALI FACP CCDS Ot Z68.34 BODY MASS INDEX (BMI) 34.0-34.9, ADULT 10/11/2016 MARIAELENA POLANCO FACC, ALI FACP CCDS Ot Z79.899 OTHER ASSISTED (CURRENT) DRUG THERAPY 10/11/2016 MARIAELENA POLANCO FACC, [...] FOLL 10/19/2016 NO KIRK APRN Ot Z79.02 TUBER OPERATOR (CURRENT) USE OF ANTITHROMBOTI 10/19/2016 NO KIRK APRN Ot Z79.82 ASSISTED (CURRENT) USE OF ASPIRIN 10/19/2016 NO KIRK APRN Ot Z79.84 TUBER OPERATOR (CURRENT) USE OF ORAL HYPOGLYC 10/19/2016 NO KIRK APRN Ot Z79.899 OTHER ASSISTED (CURRENT) DRUG THERAPY 10/19/2016 NO KIRK APRN [...] POLANCO FACC, REX FACP CCDS Ot V58.[address] [facility] MED,LT,CURRENT USE 10/19/2016 BAIMA, SULEMAN L CPO Ot 272.4 HYPERLIPIDEMIA NEC/NOS 10/19/2016 BAIMA, SULEMAN L CPO Ot 414.00 CORON ATHEROSCLER NOS TYPE VESSEL, [...] CCDS Ot V58.69 OT MED,LT,CURRENT USE 10/19/2016 BAIMA, SULEMAN L CPO Ot 272.4 HYPERLIPIDEMIA NEC/NOS 10/19/2016 MIMIMA, SULEMAN L CPO Ot 414.00 CORON ATHEROSCLER NOS TYPE VESSEL, [...] V58.69 OTH MED,LT,CURRENT USE 10/19/2016 BAISULEMAN WONG CPO Ot 272.4 HYPERLIPIDEMIA NEC/NOS 10/19/2016 SULEMAN YAP CPO Ot 414.00 CORON ATHEROSCLER NOS TYPE VESSEL, NATIV 10/21/2016 NO KIRK APRN Ot E11.9 TYPE 2 DIABETES MELLITUS WITHOUT COMPLIC 10/21/2016 NO KIRK APRN Ot I97.630 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 10/21/2016 NO KIRK APRN Ot Z79.02 TUBER OPERATOR (CURRENT) USE OF ANTITHROMBOTI 10/21/2016 NO KIRK APRN Ot 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 10/21/2016 NO KIRK APRN Ot Z79.84 TUBER OPERATOR (CURRENT) USE OF ORAL HYPOGLYC 10/21/2016 NO KIRK APRN Ot Z79.899 OTHER ASSISTED (CURRENT) DRUG THERAPY 10/21/2016 NO KIRK APRN Ot Z95.5 PRESENCE OF CORONARY ANGIOPLASTY IMPLANT 11/19/2016 REX FERRELL MD, FACC FACP CCDS Ot I25.10 ATHSCL HEART DISEASE OF [place] CORONARY 11/19/2016 REX FERRELL MD, FACC FACP CCDS Ot I25.10 ATHSCL HEART DISEASE OF [place] CORONARY 11/19/2016 REX FERRELL MD, FACC FACP CCDS Ot E13.9 OTHER SPECIFIED DIABETES MELLITUS WITHOU 11/19/2016 REX FERRELL MD, FACC FACP CCDS Ot E78.4 OTHER HYPERLIPIDEMIA 11/19/[address] [facility], ALI RACHELP CCDS Ot I10 ESSENTIAL (PRIMARY) HYPERTENSION 11/19/[address] [facility], REX PERALES CCDS Ot I25.10 ATHSCL HEART DISEASE OF [place] CORONARY 11/19/[address] [facility], REX PERALES CCDS Ot R11.0 NAUSEA 11/19/[address] [facility], REX PERALES CCDS Ot R20.8 OTHER DISTURBANCES OF SKIN SENSATION 12/04/2016 GOMEZ REBOLLEDO MD Ot B02.9 ZOSTER WITHOUT COMPLICATIONS 12/04/2016 GOMEZ REBOLLEDO MD Ot E11.9 TYPE 2 DIABETES MELLITUS WITHOUT COMPLIC 12/04/2016 GOMEZ REBOLLEDO MD Ot E66.9 OBESITY, UNSPECIFIED 12/04/2016 GOMEZ REBOLLEDO MD Ot E78.5 HYPERLIPIDEMIA, UNSPECIFIED 12/04/2016 GOMEZ REBOLELDO MD Ot I10 ESSENTIAL (PRIMARY) HYPERTENSION 12/04/2016 GOMEZ REBOLLEDO MD Ot I21.19 STEMI INVOLVING OTH CORONARY ARTERY OF I 12/04/2016 GOMEZ REBOLLEDO MD Ot I25.10 ATHSCL HEART DISEASE OF [place] CORONARY 12/04/2016 GOMEZ REBOLLEDO MD Ot I48.0 PAROXYSMAL ATRIAL FIBRILLATION 12/04/2016 GOMEZ REBOLLEDO MD, Ot K21.9 GASTRO-ESOPHAGEAL REFLUX DISEASE WITHOUT 12/04/2016 GOMEZ REBOLLEDO MD Ot T82.867A THROMBOSIS DUE TO CARDIAC PROSTH DEV/GRF 12/04/2016 GOMEZ REBOLLEDO MD, Ot Z68.37 BODY MASS INDEX (BMI) 37.0-37.9, ADULT 12/04/2016 GOMEZ REBOLLEDO MD, Ot Z79.4 ASSISTED (CURRENT) USE OF INSULIN 12/04/2016 GOMEZ REBOLLEDO MD, Ot Z91.14 PATIENT'S OTHER NONCOMPLIANCE WITH MEDIC 12/04/2016 GOMEZ REBOLLEDO MD, Ot Z95.5 PRESENCE OF CORONARY ANGIOPLASTY IMPLANT 12/09/2016 SULEMAN YAP Ot I97.610 POSTPROC HEMOR OF A CIRC SYS ORG FOLLOWI 12/09/2016 SULEMAN YAP Ot I97.610 POSTPROC HEMOR OF A CIRC SYS ORG FOLLOWI 12/10/2016 MARIAELENA RAMOS, REX PERALES CCDS Ot E13.9 OTHER SPECIFIED DIABETES MELLITUS WITHOU 12/10/2016 REX FERRELL MD, FACCP CCDS Ot E78.4 OTHER HYPERLIPIDEMIA 12/10/2016 MARIAELENA POLANCO FACC, REX FACP CCDS Ot I10 ESSENTIAL (PRIMARY) HYPERTENSION 12/10/2016 MARIAELENA POLANCO FACC, ALI FACP CCDS Ot I25.10 ATHSCL HEART DISEASE OF [place] CORONARY 12/10/2016 MARIAELENA POLANCO FACC, REX RAMOSP CCDS Ot R11.0 NAUSEA 12/10/2016 MARIAELENA POLANCO FACC, REX RAMOSP CCDS Ot R20.8 OTHER DISTURBANCES OF SKIN SENSATION 01/04/2017 MANUELA MUNOZ MD Ot E11.9 TYPE 2 DIABETES MELLITUS WITHOUT COMPLIC 01/04/2017 MANUELA MUNOZ MD, Ot E78.5 HYPERLIPIDEMIA, UNSPECIFIED 01/04/2017 MANUELA MUNOZ MD, Ot I10 ESSENTIAL (PRIMARY) HYPERTENSION 01/04/2017 MANUELA MUNOZ MD, Ot I25.10 ATHSCL HEART DISEASE OF [place] CORONARY 01/04/2017 MANUELA MUNOZ MD, Ot I25.2 OLD MYOCARDIAL INFARCTION 01/04/2017 MANUELA MUNOZ MD, Ot I48.0 PAROXYSMAL ATRIAL FIBRILLATION 01/04/2017 MANUELA MUNOZ MD, Ot I49.3 VENTRICULAR PREMATURE DEPOLARIZATION 01/04/2017 MANUELA MUNOZ MD, Ot K21.9 GASTRO-ESOPHAGEAL REFLUX DISEASE WITHOUT 01/04/2017 AMNUELA MUNOZ MD Ot R07.89 OTHER CHEST PAIN 01/04/2017 MANUELA MUNOZ MD, Ot Z79.4 TUBER OPERATOR (CURRENT) USE OF INSULIN 01/04/2017 MANUELA MUNOZ [...] OR UNSPEC TY 01/05/2017 MARIAELENA POLANCO FACC, REX FACP CCDS Ot 272.4 HYPERLIPIDEMIA NEC/NOS 01/05/2017 [...] V58.69 OTH MED,LT,CURRENT USE 01/05/2017 SULEMAN YAP CPO Ot 272.4 HYPERLIPIDEMIA NEC/NOS 01/05/2017 SULEMAN YAP CPO Ot 414.00 CORON ATHEROSCLER NOS TYPE VESSEL, NATIV 01/05/2017 REX FERRELL MD, FACC FACP CCDS Ot E13.9 OTHER SPECIFIED DIABETES MELLITUS WITHOU 01/05/2017 MARIAELENA POLANCO FACC, ALI FACP CCDS Ot E78.4 OTHER HYPERLIPIDEMIA 01/05/2017 MARIAELENA POLANCO FACC, ALI FACP CCDS Ot I10 ESSENTIAL (PRIMARY) HYPERTENSION 01/05/2017 MARIAELENA POLANCO FACC, ALI FACP CCDS Ot I25.10 ATHSCL HEART DISEASE OF [place] CORONARY 01/05/2017 REX FERRELL MD, FACC FACP CCDS Ot R11.0 NAUSEA 01/05/2017 REX FERRELL MD, FACC FACP CCDS Ot R20.8 OTHER DISTURBANCES OF SKIN SENSATION 01/05/2017 SULEMAN YAP CPO Ot I97.610 POSTPROC HEMOR OF A CIRC SYS ORG FOLLOWI 01/05/2017 SULEMAN YAP CPO Ot R10.30 LOWER ABDOMINAL PAIN, UNSPECIFIED 01/05/2017 MARIAELENA POLANCO FACC ALI FACP CCDS Ot I25.10 ATHSCL HEART DISEASE OF [place] CORONARY 01/05/2017 MARIAELENA POLANCO FACC ALI FACP CCDS Ot Z95.5 PRESENCE OF [...] (CURRENT) USE OF INSULIN 01/05/2017 MARIAELENA POLANCO FACC, ALI FACP CCDS Ot V58.69 OTH MED,LT,CURRENT USE 01/05/2017 SULEMAN YAP CPO Ot 272.4 HYPERLIPIDEMIA NEC/NOS 01/05/2017 SULEMAN YAP CPO Ot 414.00 CORON ATHEROSCLER NOS TYPE VESSEL, NATIV 01/05/2017 MARIAELENA POLANCO FACC, REX FACP CCDS Ot E13.9 OTHER SPECIFIED DIABETES MELLITUS WITHOU 01/05/2017 MARIAELENA POLANCO FACC, ALI FACP CCDS Ot E78.4 OTHER HYPERLIPIDEMIA 01/05/2017 MARIAELENA POLANCO FACC, ALI FACP CCDS Ot I10 ESSENTIAL (PRIMARY) HYPERTENSION 01/05/2017 MARIAELENA POLANCO FACC, ALI FACP CCDS Ot I25.10 ATHSCL HEART DISEASE OF [place] CORONARY 01/05/2017 REX FERRLEL MD, FACC FACP CCDS Ot R11.0 NAUSEA 01/05/2017 MARIAELENA POLANCO FACC, ALI FACP CCDS Ot R20.8 OTHER DISTURBANCES OF SKIN SENSATION 01/05/2017 SULEMAN YAP CPO Ot I97.610 POSTPROC HEMOR OF A CIRC SYS ORG FOLLOWI 01/05/2017 SULEMAN YAP CPO Ot R10.30 LOWER ABDOMINAL PAIN, UNSPECIFIED 01/05/2017 MARIAELENA POLANCO FACC, ALI FACP CCDS Ot I25.10 ATHSCL HEART DISEASE OF [place] CORONARY 01/05/2017 MARIAELENA POLANCO FACC, ALI FACP CCDS Ot Z95.5 PRESENCE OF CORONARY ANGIOPLASTY IMPLANT 01/05/2017 SULEMAN YAP CPO Ot I97.610 POSTPROC HEMOR OF A CIRC SYS ORG FOLLOWI 01/05/2017 SULEMAN YAP CPO Ot R10.30 LOWER ABDOMINAL PAIN, UNSPECIFIED 01/18/2017 MARIAELENA POLANCO FACC, ALI FACP CCDS Ot I25.10 ATHSCL HEART DISEASE OF [place] CORONARY 01/18/2017 MARIAELENA POLANCO FACC, REX FACP CCDS Ot Z95.5 PRESENCE OF CORONARY ANGIOPLASTY IMPLANT 02/09/2017 JOSH DANIELSON DO Ot 789.01 ABDOMINAL PAIN, RIGHT UPPER QUADRANT 02/09/2017 JOSH DANIELSON DO Ot 789.01 ABDOMINAL PAIN, RIGHT UPPER QUADRANT 02/09/2017 MARIAELENA POLANCO FACC, REX FACP CCDS Ot 250.00 DIAB LESLIE WO COMPL, TYPE II OR UNSPEC TY 02/09/2017 MARIAELENA POLANCO FACC, REX FACP CCDS Ot 272.4 HYPERLIPIDEMIA NEC/NOS 02/09/2017 MARIAELENA POLANCO FACC, ALI FACP CCDS Ot 401.9 HYPERTENSION NOS 02/09/2017 MARIAELENA POLANCO FACC, REX FACP CCDS Ot 414.00 CORON ATHEROSCLER NOS TYPE VESSEL, NATIV 02/09/2017 MARIAELENA POLANCO FACC, ALI FACP CCDS Ot 785.1 PALPITATIONS 02/09/2017 MARIAELENA POLANCO FACC, REX FACP CCDS Ot V58.67 LONG-TERM (CURRENT) USE OF INSULIN 02/09/2017 REX FERRELL MD, FACC FACP CCDS Ot V58.69 OT MED,LT,CURRENT USE 02/09/2017 SULEMAN YAP CPO Ot 272.4 HYPERLIPIDEMIA NEC/NOS 02/09/2017 SULEMAN YAP CPO Ot 414.00 CORON ATHEROSCLER NOS TYPE VESSEL, NATIV 02/09/2017 MARIAELENA POLANCO FACC, ALI FACP CCDS Ot E13.9 OTHER SPECIFIED DIABETES MELLITUS WITHOU 02/09/2017 REX FERRELL MD, FACC FACP CCDS Ot E78.4 OTHER HYPERLIPIDEMIA 02/09/2017 MARIAELENA POLANCO FACC, ALI FACP CCDS Ot I10 ESSENTIAL (PRIMARY) HYPERTENSION 02/09/2017 MARIAELENA POLANCO FACC, ALI FACP CCDS Ot I25.10 ATHSCL HEART DISEASE OF [place] CORONARY 02/09/2017 MARIAELENA POLANCO FACC REX FACP CCDS Ot R11.0 NAUSEA 02/09/2017 MARIAELENA POLANCO FACC, REX FACP CCDS Ot R20.8 OTHER DISTURBANCES OF SKIN SENSATION 02/09/2017 SULEMAN YAP CPO Ot I97.610 POSTPROC HEMOR OF A CIRC SYS ORG FOLLOWI 02/09/2017 SULEMAN YAP CPO Ot R10.30 LOWER ABDOMINAL PAIN, UNSPECIFIED 02/09/2017 MARIAELENA POLANCO FACC, ALI FACP CCDS Ot I25.10 ATHSCL HEART DISEASE OF [place] CORONARY 02/09/2017 MARIAELENA POLANCO FACC, ALI FACP CCDS Ot Z95.5 PRESENCE OF CORONARY ANGIOPLASTY IMPLANT 02/09/2017 MARIAELENA POLANCO FACC, REX FACP CCDS Ot I25.10 ATHSCL HEART DISEASE OF [place] CORONARY 02/09/2017 MARIAELENA POLANCO FACC, REX FACP CCDS Ot Z95.5 PRESENCE OF CORONARY ANGIOPLASTY IMPLANT 02/09/2017 SULEMAN YAP CPO Ot I97.610 POSTPROC HEMOR OF A CIRC SYS ORG FOLLOWI 02/09/2017 SULEMAN YAP CPO Ot R10.30 LOWER ABDOMINAL PAIN, UNSPECIFIED 02/23/2017 JOSH DANIELSON DO Ot 789.01 ABDOMINAL PAIN, RIGHT UPPER QUADRANT 02/23/2017 JOSH DANIELSON DO Ot 789.01 ABDOMINAL PAIN, RIGHT UPPER QUADRANT 02/23/2017 MARIAELENA POLANCO FACC, REX FACP CCDS Ot 250.00 DIAB LESLIE WO COMPL, TYPE II OR UNSPEC TY 02/23/2017 REX FERRELL MD, FACC FACP CCDS Ot 272.4 HYPERLIPIDEMIA NEC/NOS 02/23/2017 MARIAELENA POLANCO FACC, ALI FACP CCDS Ot 401.9 HYPERTENSION NOS 02/23/2017 MARIAELENA POLANCO FACC, ERX FACP CCDS Ot 414.00 CORON ATHEROSCLER NOS TYPE VESSEL, NATIV 02/23/2017 MARIAELENA POLANCO FACC, REX FACP CCDS Ot 785.1 PALPITATIONS 02/23/2017 MARIAELENA POLANCO FACC, ALI FACP CCDS Ot V58.67 LONG-TERM (CURRENT) USE OF INSULIN 02/23/2017 REX FERRELL MD, FACC FACP CCDS Ot V58.69 OT MED,LT,CURRENT USE 02/23/2017 SULEMAN YAP CPO Ot 272.4 HYPERLIPIDEMIA NEC/NOS 02/23/2017 SULEMAN YAP CPO Ot 414.00 CORON ATHEROSCLER NOS TYPE VESSEL, NATIV 02/23/2017 MARIAELENA POLANCO FACC, REX FACP CCDS Ot E13.9 OTHER SPECIFIED DIABETES MELLITUS WITHOU 02/23/2017 MARIAELENA POLANCO FACC, ALI FACP CCDS Ot E78.4 OTHER HYPERLIPIDEMIA 02/23/2017 MARIAELENA POLANCO FACC, REX FACP CCDS Ot I10 ESSENTIAL (PRIMARY) HYPERTENSION 02/23/2017 MARIAELENA POLANCO FACC, ALI FACP CCDS Ot I25.10 ATHSCL HEART DISEASE OF [place] CORONARY 02/23/2017 MARIAELENA POLANCO FACC, REX FACP CCDS Ot R11.0 NAUSEA 02/23/2017 MARIAELENA POLANCO FACC, REX FACP CCDS Ot R20.8 OTHER DISTURBANCES OF SKIN SENSATION 02/23/2017 SULEMAN YAP CPO Ot I97.610 POSTPROC HEMOR OF A CIRC SYS ORG FOLLOWI 02/23/2017 SULEMAN YAP CPO Ot R10.30 LOWER ABDOMINAL PAIN, UNSPECIFIED 02/23/2017 MARIAELENA POLANCO FACC, REX FACP CCDS Ot I25.10 ATHSCL HEART DISEASE OF [place] CORONARY 02/23/2017 MARIAELENA POLANCO FACC, REX FACP CCDS Ot Z95.5 PRESENCE OF CORONARY ANGIOPLASTY IMPLANT 02/24/2017 SULEMAN YAP CPO Ot I97.610 POSTPROC HEMOR OF A CIRC SYS ORG FOLLOWI 02/24/2017 SULEMAN YAP CPO Ot R10.30 LOWER ABDOMINAL PAIN, UNSPECIFIED 02/24/2017 MARIAELENA POLANCO FACC, REX FACP CCDS Ot I25.10 ATHSCL HEART DISEASE OF [place] CORONARY 02/24/2017 MARIAELENA POLANCO FACC, ALI FACP CCDS Ot Z95.5 PRESENCE OF CORONARY ANGIOPLASTY IMPLANT 04/25/2017 SULEMAN YAP CPO Ot I97.610 POSTPROC HEMOR OF A CIRC SYS ORG FOLLOWI 04/25/2017 SULEMAN YAP CPO Ot R10.30 LOWER ABDOMINAL PAIN, UNSPECIFIED 05/24/2017 [...] V58.69 OTH MED,LT,CURRENT USE 05/24/2017 SULEMAN YAP CPO Ot 272.4 HYPERLIPIDEMIA NEC/NOS 05/24/2017 SULEMAN YAP CPO Ot 414.00 CORON ATHEROSCLER NOS TYPE VESSEL, NATIV 05/24/2017 MARIAELENA POLANCO FACC, REX FACP CCDS Ot E13.9 OTHER SPECIFIED DIABETES MELLITUS WITHOU 05/24/2017 MARIAELENA POLANCO FACC, ALI FACP CCDS Ot E78.4 OTHER HYPERLIPIDEMIA 05/24/2017 MARIAELENA POLANCO FACC, ALI FACP CCDS Ot I10 ESSENTIAL (PRIMARY) HYPERTENSION 05/24/2017 MARIAELENA POLANCO FACC, ALI FACP CCDS Ot I25.10 ATHSCL HEART DISEASE OF [place] CORONARY 05/24/2017 MARIAELENA POLANCO FACC, REX FACP CCDS Ot R11.0 NAUSEA 05/24/2017 MARIAELENA POLANCO FACC, ALI FACP CCDS Ot R20.8 OTHER DISTURBANCES OF SKIN SENSATION 05/24/2017 SULEMAN YAP CPO Ot I97.610 POSTPROC HEMOR OF A CIRC SYS ORG FOLLOWI 05/24/2017 SULEMAN YAP CPO Ot R10.30 LOWER ABDOMINAL PAIN, UNSPECIFIED 05/24/2017 MARIAELENA POLANCO FACC, ALI FACP CCDS Ot I25.10 ATHSCL HEART DISEASE OF [place] CORONARY 05/24/2017 MARIAELENA POLANCO FACC, ALI FACP [...] CCDS Ot I25.10 ATHSCL HEART DISEASE OF [place] CORONARY 05/25/2017 MARIAELENA POLANCO FACC, ALI FACP CCDS Ot I49.5 SICK SINUS SYNDROME 05/25/2017 MARIAELENA POLANCO FACC, REX FACP CCDS Ot R00.1 BRADYCARDIA, UNSPECIFIED 05/25/2017 MARIAELENA POLANCO FACC, ALI FACP CCDS Ot Z68.32 BODY MASS INDEX (BMI) 32.0-32.9, ADULT 05/25/2017 REX FERRELL MD, FACC FACP CCDS Ot Z79.01 TUBER OPERATOR (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 05/25/2017 MARIAELENA POLANCO FACC, REX FACP CCDS Ot Z79.84 ASSISTED (CURRENT) USE OF ORAL HYPOGLYC 05/25/2017 MARIAELENA POLANCO FACC, REX FACP CCDS Ot Z79.899 OTHER ASSISTED (CURRENT) DRUG THERAPY 05/25/2017 MARIAELENA POLANCO FACC, ALI FACP CCDS Ot Z95.5 PRESENCE OF CORONARY ANGIOPLASTY IMPLANT 07/07/2017 MARIAELENA POLANCO FACC, REX FACP CCDS Ot E11.9 TYPE 2 DIABETES MELLITUS WITHOUT COMPLIC 07/07/2017 MARIAELENA POLANCO FACC, ALI FACP CCDS Ot E66.9 OBESITY, UNSPECIFIED 07/07/2017 MARIAELENA POLANCO FACC, ALI FACP CCDS Ot E78.5 HYPERLIPIDEMIA, UNSPECIFIED 07/07/2017 MARIAELENA POLANCO FACC, ALI FACP CCDS Ot I10 ESSENTIAL (PRIMARY) HYPERTENSION 07/07/2017 MARIAELENA POLANCO FACC, ALI FACP CCDS Ot I25.10 ATHSCL HEART DISEASE OF [place] CORONARY 07/07/2017 MARIAELENA POLANCO FACC, REX FACP CCDS Ot I49.5 SICK SINUS SYNDROME 07/07/2017 MARIAELENA POLANCO FACC, ALI FACP CCDS Ot R00.1 BRADYCARDIA, UNSPECIFIED 07/07/2017 MARIAELENA POLANCO FACC, ALI FACP CCDS Ot Z68.32 BODY MASS INDEX (BMI) 32.0-32.9, ADULT 07/07/2017 MARIAELENA POLANCO FACC, REX FACP CCDS Ot Z79.01 TUBER OPERATOR (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 07/07/2017 MARIAELENA POLANCO FACC, REX FACP CCDS Ot Z79.84 TUBER OPERATOR (CURRENT) USE OF ORAL HYPOGLYC 07/07/2017 MARIAELENA POLANCO FACC, REX FACP CCDS Ot Z79.899 OTHER ASSISTED (CURRENT) DRUG THERAPY 07/07/2017 MARIAELENA POLANCO FACC, ALI FACP CCDS Ot Z95.5 PRESENCE OF CORONARY ANGIOPLASTY IMPLANT 10/10/2017 JOSH DANIELSON DO Ot 789.01 ABDOMINAL PAIN, RIGHT UPPER QUADRANT 10/10/2017 JOSH DANIELSON DO Ot 789.01 ABDOMINAL PAIN, RIGHT UPPER QUADRANT 10/10/2017 REX FERRELL MD, FACC FACP CCDS Ot 250.00 DIAB LESLIE WO COMPL, TYPE II OR UNSPEC TY 10/10/2017 MARIAELENA POLANCO FACC, REX FACP CCDS Ot 272.4 HYPERLIPIDEMIA NEC/NOS 10/10/2017 MARIAELENA POLANCO FACC, REX FACP CCDS Ot 401.9 HYPERTENSION NOS 10/10/2017 MARIAELENA POLANCO FACC, REX FACP CCDS Ot 414.00 CORON ATHEROSCLER NOS TYPE VESSEL, NATIV 10/10/2017 MARIAELENA POLANCO FACC, ALI FACP CCDS Ot 785.1 PALPITATIONS 10/10/2017 MARIAELENA POLANCO FACC, REX FACP CCDS Ot V58.67 LONG-TERM (CURRENT) USE OF INSULIN 10/10/2017 MARIAELENA POLANCO FACC, ALI FACP CCDS Ot V58.69 OTH MED,LT,CURRENT USE 10/10/2017 BAIMA SULEMAN L CPO Ot 272.4 HYPERLIPIDEMIA NEC/NOS 10/10/2017 BAIMA SULEMAN L CPO Ot 414.00 CORON ATHEROSCLER NOS TYPE VESSEL, NATIV 10/10/2017 MARIAELENA POLANCO FACC, REX FACP CCDS Ot E13.9 OTHER SPECIFIED DIABETES MELLITUS WITHOU 10/10/2017 MARIAELENA POLANCO FACC, REX FACP CCDS Ot E78.4 OTHER HYPERLIPIDEMIA 10/10/2017 MARIAELENA POLANCO FACC, ALI FACP CCDS Ot I10 ESSENTIAL (PRIMARY) HYPERTENSION 10/10/2017 MARIAELENA POLANCO FACC, ALI FACP CCDS Ot I25.10 ATHSCL HEART DISEASE OF [place] CORONARY 10/10/2017 MARIAELENA POLANCO FACC, ALI FACP CCDS Ot R11.0 NAUSEA 10/10/2017 MARIAELENA POLANCO FACC, ALI FACP CCDS Ot R20.8 OTHER DISTURBANCES OF SKIN SENSATION 10/10/2017 SULEMAN YAP CPO Ot I97.610 POSTPROC HEMOR OF A CIRC SYS ORG FOLLOWI 10/10/2017 SULEMAN YAP CPO Ot R10.30 LOWER ABDOMINAL PAIN, UNSPECIFIED 10/10/2017 MARIAELENA POLANCO FACC, REX FACP CCDS Ot I25.10 ATHSCL HEART DISEASE OF [place] CORONARY 10/10/2017 MARIAELENA POLANCO FACC, ALI FACP CCDS Ot Z95.5 PRESENCE OF CORONARY ANGIOPLASTY IMPLANT 10/10/2017 EMILEE DENNISON MD Ot E11.65 TYPE 2 DIABETES MELLITUS WITH HYPERGLYCE 10/10/2017 EMILEE DENNISON MD Ot E87.6 HYPOKALEMIA 10/10/2017 EMILEE DENNISON MD Ot K21.9 GASTRO-ESOPHAGEAL REFLUX DISEASE WITHOUT 10/10/2017 EMILEE DENNISON MD Ot R05 COUGH 10/10/2017 EMILEE DENNISON MD, Ot R11.2 NAUSEA WITH VOMITING, UNSPECIFIED 10/10/2017 EMILEE DENNISON MD, Ot R19.7 DIARRHEA, UNSPECIFIED 10/10/2017 EMILEE DENNISON MD, Ot 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 10/10/2017 EMILEE DENNISON MD, Ot Z80.0 FAMILY HISTORY OF MALIGNANT NEOPLASM OF 10/10/2017 EMILEE DENNISON MD, Ot Z87.59 PERSONAL HISTORY OF COMP OF PREG, CHLDBR 10/10/2017 EMILEE DENNISON MD, Ot Z88.2 ALLERGY STATUS TO SULFONAMIDES STATUS 10/10/2017 EMILEE DENNISON MD, Ot Z88.8 ALLERGY STATUS TO OTH DRUG/MEDS/BIOL SUB 10/10/2017 EMILEE DENNISON MD, Ot Z91.14 PATIENT'S OTHER NONCOMPLIANCE WITH MEDIC 10/10/2017 EMILEE DENNISON MD, Ot Z95.0 PRESENCE OF CARDIAC PACEMAKER 10/10/2017 EMILEE DENNISON MD, Ot Z95.5 PRESENCE OF CORONARY ANGIOPLASTY IMPLANT 10/12/2017 EMILEE DENNISON MD Ot E11.65 TYPE 2 DIABETES MELLITUS WITH HYPERGLYCE 10/12/2017 EMILEE DENNISON MD, Ot E87.6 HYPOKALEMIA 10/12/2017 EMILEE DENNISON MD, Ot K21.9 GASTRO-ESOPHAGEAL REFLUX DISEASE WITHOUT 10/12/2017 EMILEE DENNISON MD, Ot R05 COUGH 10/12/2017 EMILEE DENNISON MD, Ot R11.2 NAUSEA WITH VOMITING, UNSPECIFIED 10/12/2017 EMILEE DENNISON MD, Ot R19.7 DIARRHEA, UNSPECIFIED 10/12/2017 EMILEE DENNISON MD, Ot 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 10/12/2017 EMILEE DENNISON MD, Ot Z80.0 FAMILY HISTORY OF MALIGNANT NEOPLASM OF 10/12/2017 EMILEE DENNISON MD, Ot Z87.59 PERSONAL HISTORY OF COMP OF PREG, CHLDBR 10/12/2017 EMILEE DENNISON MD, Ot Z88.2 ALLERGY STATUS TO SULFONAMIDES STATUS 10/12/2017 EMILEE DENNISON MD, Ot Z88.8 ALLERGY STATUS TO OTH DRUG/MEDS/BIOL SUB 10/12/2017 EMILEE DENNISON MD, Ot Z91.14 PATIENT'S OTHER NONCOMPLIANCE WITH MEDIC 10/12/2017 EMILEE DENNISON MD, Ot Z95.0 PRESENCE OF CARDIAC PACEMAKER 10/12/2017 EMILEE DENNISON MD, Ot Z95.5 PRESENCE OF CORONARY ANGIOPLASTY IMPLANT 01/12/2018 MARIAELENA POLANCO FACC, REX PERALES CCDS Ot E13.9 OTHER SPECIFIED DIABETES MELLITUS WITHOU 01/12/2018 MARIAELENA POLANCO FACC, REX FACP CCDS Ot E78.4 OTHER HYPERLIPIDEMIA 01/12/2018 MARIAELENA POLANCO FACC, REX FACP CCDS Ot I10 ESSENTIAL (PRIMARY) HYPERTENSION 01/12/2018 MARIAELENA POLANCO FAC, ALI FACP CCDS Ot I25.10 ATHSCL HEART DISEASE OF [place] CORONARY 01/12/2018 MARIAELENA POLANCO FAC, ALI FACP CCDS Ot I25.2 OLD MYOCARDIAL INFARCTION 01/12/2018 MARIAELENA POLANCO FAC, ALI FACP CCDS Ot I48.0 PAROXYSMAL ATRIAL FIBRILLATION 01/12/2018 MARIAELENA POLANCO FACC, ALI FACP CCDS Ot M79.89 OTHER SPECIFIED SOFT TISSUE DISORDERS 01/12/2018 MARIAELENA POLANCO FAC, ALI FACP CCDS Ot R06.02 SHORTNESS OF BREATH 01/12/2018 MARIAELENA POLANCO FACC, ALI FACP CCDS Ot Z95.0 PRESENCE OF CARDIAC PACEMAKER 01/16/2018 MARIAELENA POLANCO FAC, ALI FACP CCDS Ot E13.9 OTHER SPECIFIED DIABETES MELLITUS WITHOU 01/16/2018 MARIAELENA POLANCO FAC, ALI FACP CCDS Ot E78.4 OTHER HYPERLIPIDEMIA 01/16/2018 MARIAELENA POLANCO [facility], ALI FACP CCDS Ot I10 ESSENTIAL (PRIMARY) HYPERTENSION 01/16/[address] [facility], ALI FACP CCDS Ot I25.10 ATHSCL HEART DISEASE OF [place] CORONARY 01/16/2018 MARIAELENA POLANCO FAC, ALI FACP CCDS Ot I25.2 OLD MYOCARDIAL INFARCTION 01/16/[address] [facility], ALI FACP CCDS Ot I48.0 PAROXYSMAL ATRIAL FIBRILLATION 01/16/[address] [facility], ALI FACP CCDS Ot M79.89 OTHER SPECIFIED SOFT TISSUE DISORDERS 01/16/[address] [facility], ALI FACP CCDS Ot R06.02 SHORTNESS OF BREATH 01/16/[address] [facility], ALI FACP CCDS Ot Z95.0 PRESENCE OF CARDIAC PACEMAKER Procedures Code Description Performed By Performed On 45.23 COLONOSCOPY 05/24/2011 51.23 LAPAROSCOPIC CHOLECYSTECTOMY 05/24/2011 53.59 ABD WALL ANALI REPAIR NEC 05/24/2011 86.04 OTHER SKIN SUBQ I D 12/14/2013 [id number] DILATION OF 1 COR ART WITH DRUG-ELUT INT 12/02/2016 [id number] INSERT OF MONITOR DEV INTO CHEST SUBCU/F 12/02/2016 [id number] MEASURE OF CARDIAC SAMPL PRESSURE, L H 12/02/2016 [id number] FLUOROSCOPY OF MULT COR ART USING L OSM 12/02/2016 [id number] FLUOROSCOPY OF LEFT HEART USING LOW OSMO [...] 12/02/16 16:27 Myoglobin, serum 27.9 ng/mL 10.0-92.0 [id number] gene mutation analysis - 12/02/16 16:27 [id number] gene mutation analysis Normal NRG Capillary blood [...] plasma albumin measurement (mass/volume) 3.1 g/dL 3.2-4.5 Complete blood count (CBC) with automated white blood cell (WBC) differential - 10/10/17 18:55 Blood leukocytes automated count (number/volume) 9.9 10*3/uL 4.3-11.0 Blood erythrocytes automated count (number/volume) 5.09 10*6/uL 4.35-5.85 Venous blood hemoglobin measurement (mass/volume) 14.6 g/dL 11.5-16.0 Blood hematocrit (volume fraction) 43 % 35-52 Automated erythrocyte mean corpuscular volume 85 [foz_us] 80-99 Automated erythrocyte mean corpuscular hemoglobin (mass per erythrocyte) 29 pg 25-34 Automated erythrocyte mean corpuscular hemoglobin concentration measurement ( mass/volume) 34 g/dL 32-36

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
[2018-01-27] MEDS ORDERED: HYDR-757 PO (22:56)
[2018-01-27] MEDS ORDERED: CLIN300C11 PO (22:56)
[2018-01-27] MEDS ORDERED: RX-HYDROCODONE/APAP 5/325 MG #4 TAB PK PO PRN (23:00)
[2018-01-27] MEDS ORDERED: CLINDAMYCIN 150 MG (CLEOCIN) CAP PO ONE (23:00)
[2018-01-27] MEDS ORDERED: LIDOCAINE 2% VISCOUS 15 ML UDC PO ONE (23:00)
[2018-01-27 23:01] VITALS: BP 0/0
== END 2018-01-27 23:01 | disposition home or self-care (01) ==
LOC: EDUNIT# 22:33 → ER 22:35
DX: N90.89 Other specified noninflammatory disorders of vulva and perineum (principal); I48.91 Unspecified atrial fibrillation; I25.10 Atherosclerotic heart disease of native coronary artery without angina pectoris; E11.9 Type 2 diabetes mellitus without complications; I25.2 Old myocardial infarction; K21.9 Gastro-esophageal reflux disease without esophagitis; Z87.440 Personal history of urinary (tract) infections; Z88.2 Allergy status to sulfonamides; Z88.8 Allergy status to other drugs, medicaments and biological substances; Z79.82 Long term (current) use of aspirin; Z80.0 Family history of malignant neoplasm of digestive organs; Z82.49 Family history of ischemic heart disease and other diseases of the circulatory system; Z95.5 Presence of coronary angioplasty implant and graft; Z87.19 Personal history of other diseases of the digestive system; Z87.59 Personal history of other complications of pregnancy, childbirth and the puerperium; Z95.0 Presence of cardiac pacemaker; Z90.6 Acquired absence of other parts of urinary tract
CPT/HCPCS: 99283

== ENCOUNTER 2019-06-09 17:01 | Observation (INO) | payer MEDICARE, MEDICAID ==
[2019-06-09] VITALS (9 sets, daily range): BP systolic 149–170; BP diastolic 73–111
[~2019-06-09] VITALS: Ht 165 cm; Wt 96.3 kg
--- NOTE | 2019-06-09 09:01 | NUR ---
THIS NURSE NOTIFIED DR GARZA THAT PT HAD NOT HAD DINNER YET AND NURSE WAS GOING TO GET HER A TRAY. DR GARZA ORDERED PT HOME DOSE OF HUMALOG- 30 UNITS WITH MEALS.
[~2019-06-09 17:01] MED LIST changes: +CLIN300C11 PO; +HYDR-4226 PO; +METF-397 PO; +METF-399 PO; -METF10002 PO; -METF500T5 PO; -RIVA20TA PO; +RIVA20TA2 PO
[2019-06-09] MEDS ORDERED: NITROGLYCERIN 0.4 MG SL TABS BTL 25'S SL PRN ×2 (17:15→21:15)
[2019-06-09] MEDS ORDERED: ASPIRIN 81 MG CHEW (CHILDREN'S ASA) PO ONE (17:15)
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
[2019-06-09 17:25] LABS: BASOPHILS % (AUTO) 0 % (0-10); EOSINOPHILS # (AUTO) 0.2 10^3/uL (0.0-0.3); EOSINOPHILS % (AUTO) 2 % (0-10); HEMATOCRIT 37 % (35-52); HEMOGLOBIN 12.5 G/DL (11.5-16.0); LYMPHOCYTES # (AUTO) 2.6 X 10^3 (1.0-4.0); LYMPHOCYTES % (AUTO) 26 % (12-44); MEAN CORPUSCULAR HEMOGLOBIN 29 PG (25-34); MEAN CORPUSCULAR HGB CONC 34 G/DL (32-36); MEAN CORPUSCULAR VOLUME 86 FL (80-99); MEAN PLATELET VOLUME 11.5 FL (7.4-10.4); MONOCYTES # (AUTO) 0.7 X 10^3 (0.0-1.0); MONOCYTES % (AUTO) 7 % (0-12); NEUTROPHILS # (AUTO) 6.4 X 10^3 (1.8-7.8); NEUTROPHILS % (AUTO) 65 % (42-75); PLATELET COUNT 204 10^3/uL (130-400); RED CELL DISTRIBUTION WIDTH 13.3 % (10.0-14.5)
[2019-06-09 17:34] LABS: PROTHROMBIN TIME PATIENT 13.4 SEC (12.2-14.7)
--- NOTE | 2019-06-09 17:34 | Diagnostic Imaging Report ---
INDICATION: Chest pain. TIME OF EXAM: 5:23 PM Correlation is made with prior chest 10/10/2017. Dual-lead left-sided cardiac pacemaker is in place. The lungs are clear. Pulmonary vascularity is normal. No infiltrate, effusion or pneumothorax is seen. IMPRESSION: No acute cardiopulmonary process is detected. Dictated by: Dictated on workstation # [id number]
[2019-06-09 17:41] LABS: ALANINE AMINOTRANSFERASE 8 U/L (0-55); ALBUMIN 3.4 GM/DL (3.2-4.5); ALKALINE PHOSPHATASE 85 U/L (40-136); BILIRUBIN,TOTAL 0.4 MG/DL (0.1-1.0); BUN/CREATININE RATIO 11; CALCIUM 9.1 MG/DL (8.5-10.1); CARBON DIOXIDE 27 MMOL/L (21-32); CHLORIDE 101 MMOL/L (98-107); CREATININE SERUM 0.91 MG/DL (0.60-1.30); GFR ESTIMATED > 60; GLUCOSE 153 MG/DL (70-105); MAGNESIUM 1.6 MG/DL (1.6-2.4); SODIUM 139 MMOL/L (135-145); TOTAL PROTEIN 6.7 GM/DL (6.4-8.2)
[2019-06-09 17:47] LABS: POTASSIUM 2.5 MMOL/L (3.6-5.0)
[2019-06-09] MEDS ORDERED: morphine INJ 10 MG/ML 1ML (SYR OR VIAL) IVP STA (17:52)
--- NOTE | 2019-06-09 19:26 | NUR ---
THIS NURSE NOTIFIED DR GARZA THAT PT POTASSIUM WAS 2.5. DR GARZA ORDERED ICU POTASSIUM PROTOCOL REPLACEMENT.
[2019-06-09] MEDS ORDERED: LOPERAMIDE 2 MG (IMODIUM) TABLET PO PRN (20:00)
[2019-06-09] MEDS ORDERED: ACETAMINOPHEN 500 MG TAB (TYLENOL) PO PRN ×2 (20:00→20:45)
[2019-06-09] MEDS ORDERED: ONDANSETRON 4 MG/2 ML (SDV) Z0FRAN IVP PRN (20:00)
[2019-06-09] MEDS ORDERED: CALCIUM CARBONATE 500 MG (TUMS) TAB.CHEW PO PRN (20:00)
[2019-06-09] MEDS ORDERED: diphenhydrAMINE 25 MG TAB (BENADRYL) PO PRN (20:00)
[2019-06-09] MEDS ORDERED: HYDROcodone/APAP 5 MG/325 MG (LORTAB) TAB PO PRN (20:00)
[2019-06-09] MEDS ORDERED: ONDANSETRON 4 MG (ZOFRAN) ORAL DISSOLVE TAB PO PRN (20:00)
[2019-06-09] MEDS ORDERED: DOCUSATE SODIUM 100 MG (COLACE) CAP PO PRN (20:00)
[2019-06-09] MEDS ORDERED: ALPRAZolam 0.25 MG (XANAX) TAB PO PRN (20:00)
[2019-06-09] MEDS ORDERED: MELATONIN 3 MG TABLET PO PRN (20:00)
[2019-06-09] MEDS ORDERED: LORazepam INJ 2 MG/ML (ATIVAN) VIAL IV PRN (20:45)
[2019-06-09] MEDS ORDERED: ANTACID SUSP 30 ML UDC (MYLANTA) PO PRN (20:45)
[2019-06-09] MEDS ORDERED: morphine INJ 4 MG/ML 1 ML (VIAL/SYRINGE) IV PRN (21:15)
[2019-06-09] MEDS: SENNA W/DOCUSATE (SENOKOT S) TABLET PO SCH (21:24)
[2019-06-09] MEDS: NS W/KCL 40 MEQ/L 1,000 ML IV SCH (21:24)
[2019-06-09] MEDS: inSUlin ASPART (NovoLOG) 1 UNIT/0.01 ML (CHARGE PER UNIT) SC SCH (21:24)
[2019-06-09] MEDS: POTASSIUM CL 10MEQ/50ML IVPB 50 ML IV SCH ×2 (21:25→22:32)
[2019-06-09] MEDS: meTOprolol TARTRATE 25 MG (LOPRESSOR) TABLET PO SCH (21:33)
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
[2019-06-09] MEDS ORDERED: inSUlin ASPART (NovoLOG) 1 UNIT/0.01 ML (CHARGE PER UNIT) SC ONE (22:30)
[2019-06-10] VITALS (16 sets, daily range): BP systolic 98–163; BP diastolic 47–102
[2019-06-10] MEDS: POTASSIUM CL 10MEQ/50ML IVPB 50 ML IV SCH ×4 (00:08→05:22)
[2019-06-10 00:46] LABS: BASOPHILS % (AUTO) 0 % (0-10); EOSINOPHILS # (AUTO) 0.2 10^3/uL (0.0-0.3); EOSINOPHILS % (AUTO) 2 % (0-10); HEMATOCRIT 36 % (35-52); HEMOGLOBIN 11.9 G/DL (11.5-16.0); LYMPHOCYTES # (AUTO) 3.1 X 10^3 (1.0-4.0); LYMPHOCYTES % (AUTO) 28 % (12-44); MEAN CORPUSCULAR HEMOGLOBIN 29 PG (25-34); MEAN CORPUSCULAR HGB CONC 33 G/DL (32-36); MEAN CORPUSCULAR VOLUME 87 FL (80-99); MEAN PLATELET VOLUME 11.8 FL (7.4-10.4); MONOCYTES # (AUTO) 0.7 X 10^3 (0.0-1.0); MONOCYTES % (AUTO) 6 % (0-12); NEUTROPHILS # (AUTO) 6.8 X 10^3 (1.8-7.8); NEUTROPHILS % (AUTO) 63 % (42-75); PLATELET COUNT 213 10^3/uL (130-400); RED CELL DISTRIBUTION WIDTH 13.4 % (10.0-14.5); WHITE BLOOD COUNT 10.8 10^3/uL (4.3-11.0)
[2019-06-10 03:36] LABS: ALANINE AMINOTRANSFERASE 13 U/L (0-55); ALKALINE PHOSPHATASE 81 U/L (40-136); BILIRUBIN,TOTAL 0.3 MG/DL (0.1-1.0); BUN/CREATININE RATIO 15; CARBON DIOXIDE 29 MMOL/L (21-32); CHLORIDE 104 MMOL/L (98-107); GFR ESTIMATED > 60; GLUCOSE 80 MG/DL (70-105); POTASSIUM 3.1 MMOL/L (3.6-5.0); SODIUM 139 MMOL/L (135-145); TOTAL PROTEIN 5.9 GM/DL (6.4-8.2); TRIGLYCERIDES 143 MG/DL (<150); VLDL CHOLESTEROL 29 MG/DL (5-40)
[2019-06-10 03:37] LABS: CHOLESTEROL 182 MG/DL (< 200); HDL CHOLESTEROL 42 MG/DL (40-60)
[2019-06-10] MEDS: inSUlin ASPART (NovoLOG) 1 UNIT/0.01 ML (CHARGE PER UNIT) SC SCH ×5 (05:57→12:02)
[2019-06-10] MEDS ORDERED: KCL 20 MEQ TAB (K-DUR) PO SCH (06:00)
[2019-06-10] MEDS ORDERED: MAGNESIUM 1 GM/100 ML IVPB 100 ML IV SCH (06:00)
[2019-06-10] MEDS ORDERED: POTASSIUM CL 10MEQ/50ML IVPB 50 ML IV SCH (06:00)
[2019-06-10] MEDS: NS W/KCL 40 MEQ/L 1,000 ML IV SCH (06:44)
[2019-06-10] MEDS ORDERED: ASPIRIN E.C. 81 MG (ECOTRIN) TAB PO SCH (09:00)
[2019-06-10] MEDS ORDERED: lisINopril 5 MG (PRINIVIL) TABLET PO SCH (09:00)
[2019-06-10] MEDS: meTOprolol TARTRATE 25 MG (LOPRESSOR) TABLET PO SCH (09:38)
[2019-06-10] MEDS: SENNA W/DOCUSATE (SENOKOT S) TABLET PO SCH (09:39)
[2019-06-10 10:30] LABS: BUN/CREATININE RATIO 16; CALCIUM 8.7 MG/DL (8.5-10.1); CARBON DIOXIDE 28 MMOL/L (21-32); CHLORIDE 106 MMOL/L (98-107); CREATININE SERUM 0.74 MG/DL (0.60-1.30); GFR ESTIMATED > 60; MAGNESIUM 1.8 MG/DL (1.6-2.4); PHOSPHORUS 2.7 MG/DL (2.3-4.7); POTASSIUM 3.7 MMOL/L (3.6-5.0); SODIUM 140 MMOL/L (135-145)
[2019-06-10 10:44] LABS: GLUCOSE 46 MG/DL (70-105)
--- NOTE | 2019-06-10 12:52 | Short Stay Summary-Hospitalist ---
History of Present Illness HPI/Chief Complaint Chief complaint: Chest pain History present illness: This is a 64-year-old white female clinic patient of [facility] and Dr. Gonzalez who has a prior history of multiple stents placed who presented to the ER with vague chest pain patient was found to be in need of observation for acute coronary syndrome and was discharged by Dr. Gonzalez today since all her troponins were negative and she had no other chest pain r eported. Source: patient, RN/MD, old records Exam Limitations: no limitations Date Seen 06/10/19 Time Seen by a Provider: 11:45 Attending Physician Alisha Garza DO PCP Ml Chavez DO Referring Physician Date of Admission Jun 09, 2019 at 18:00 Home Medications & Allergies Home Medications Reviewed patient Home Medication Reconciliation performed by pharmacy medication reconciliations oil burner technician and/or nursing. Patients Allergies have been reviewed. Allergies Allergies Coded Allergies Sulfa (Sulfonamide Antibiotics) (Verified Allergy, Unknown, 05/27/07) pseudoephedrine (Verified Allergy, Unknown, 05/27/07) triprolidine (Verified Allergy, Unknown, 05/27/07) Past Zegitdx-Uyweug-Kdbaqi Hx Past Med/Social Hx: Reviewed Nursing Past Med/Soc Hx, Reviewed and Corrections made Patient Social History Alcohol Use: Denies Use Recreational Drug Use: No Smoking Status: Never a Smoker Recent Foreign Travel: No Contact w/other who traveled: No Recent Hopitalizations: No Recent Infectious Disease Expo: No Immunizations Up To Date Tetanus Booster (TDap): Unknown Pediatric: No Seasonal Allergies Seasonal Allergies: No Past Medical History Surgeries: Section, Coronary Stent, Cystectomy, Gallbladder, Ortho pedic, Pacemaker Currently Using CPAP: No Currently Using BIPAP: No Cardiac: Atrial Fibrillation, Coronary Artery Disease, Heart Attack 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: No Sexually Transmitted Disease: No HIV/AIDS: No Female 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 Disorders: Denies Menopausal Genitourinary: UTI-Chronic Gastrointestinal: Gastroesophageal Reflux, Hiatal Hernia, Gall Bladder Disease Musculoskeletal: Arthritis Endocrine: Diabetes, Insulin dep Loss of Vision: Denies Hearing Impairment: Denies History of Blood Disorders: No Adverse Reaction to Blood Gama: No Family History Alcoholism 09 BROTHER 09 BROTHER Cancer 09 SISTER Cancer of colon 03 MOTHER Cataract Congestive heart failure 03 MOTHER Dementia 03 MOTHER Family history: Allergy Family history: Arthritis Family history: Cardiovascular disease Family history: Diabetes mellitus 03 MOTHER Family history: Glaucoma Family history: Hypertension 03 MOTHER History of - anemia History of - respiratory disease 03 MOTHER Myocardial infarction 03 MOTHER Stroke 03 MOTHER No Family History of: Abdominal aortic aneurysm [place]'s disease Aphasia Chest pain Cystic fibrosis Dysphagia Family history: Alzheimer's disease Family history: Asthma Family history: Breast disease Family history: Coronary thrombosis Family history: Gastrointestinal disease Family history: Osteoporosis Family history: Thyroid disorder Headache Hearing loss Heart disease Hereditary disease History of - disorder History of drug abuse Human immunodeficiency virus (HIV) seropositivity Hypercholesterolemia Infertile Kidney disease Malignant neoplasm of lung Parkinson's disease Prostate cancer Psychotic disorder Seizure disorder Tuberculosis Visual impairment No Pertinent Family Hx Review of Systems Constitutional: see HPI Cardiovascular: chest pain Physical Exam Physical Exam Vital Signs Vital Signs - First Documented 06/09/19 06/09/19 06/09/19 17:23 18:22 19:00 Temp 36.5 Pulse 76 Resp 18 B/P (MAP) 165/78 (107) Pulse Ox 96 O2 Delivery Room Air Capillary Refill : Less Than 3 Seconds Height, Weight, BMI Height: 5'5.00" Weight: 207lbs. 0.0oz. 93.123575oz; 30.00 BMI Method:Stated General Appearance: No Apparent Distress, WD/WN, Chronically ill, Mild Distress, Obese HEENT: PERRL/EOMI, Pharynx Normal, Moist Mucous Membranes Neck: Full Range of Motion, Normal Inspection Respiratory: Chest Non Tender, Lungs Clear, Normal Breath Sounds, No Accessory Muscle Use, No Respiratory Distress Cardiovascular: Regular Rate, Rhythm, No Edema, Normal Peripheral Pulses Gastrointestinal: Normal Bowel Sounds, Non Tender, Soft Extremity: Normal Capillary Refill, Non Tender, Pedal Edema (chronic bipedal lymphedema) Neurologic/Psychiatric: Alert, Oriented x3 Skin: Normal Color, Warm/Dry Results Results/Procedures Labs Laboratory Tests 06/09/19 17:10 06/10/19 00:11 06/10/19 02:47 06/10/19 10:00 Patient resulted labs reviewed. Short Stay Diagnosis Discharge Diagnosis-Short Stay Admission Diagnosis Chest pain CAD Final Discharge Diagnosis Chest pain on no ACS source CAD Conclusion Plan Plan: ACS ruled out DC home Diagnosis/Problems Diagnosis/Problems (1) Chest pain on exertion Status: Acute (2) Dyspnea on exertion Status: Acute (3) Dizziness Status: Acute (4) Dyspnea on exertion Status: Acute (5) Atrial fibrillation, new onset Status: Acute (6) CAD (coronary artery disease) Status: Acute (7) Pacemaker Clinical Quality Measures DVT/VTE Risk/Contraindication: Risk Factor Score Per Nursin RFS Level Per Nursing on Admit: 4+=Very High ALISHA GARZA DO Jun 10, 2019 12:52
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
[2019-06-10] MEDS ORDERED: KCL 20 MEQ TAB (K-DUR) PO NR (13:00)
[2019-06-10] MEDS ORDERED: INSU100V5 SQ (13:27)
[2019-06-10] MEDS ORDERED: INSU100V16 SC (13:27)
== END 2019-06-10 13:24 | disposition home or self-care (01) ==
LOC: EDUNIT# 17:01 → ER 17:03 → ICU 18:00 → UNDOADMOB 18:00 → ICU 18:50 → UNDODISOB 06-10 14:25
PROVIDERS: ADMIT Internal Medicine; ATTEND Internal Medicine
DX: I25.10 Atherosclerotic heart disease of native coronary artery without angina pectoris (principal); I48.91 Unspecified atrial fibrillation; I10 Essential (primary) hypertension; K21.9 Gastro-esophageal reflux disease without esophagitis; K44.9 Diaphragmatic hernia without obstruction or gangrene; N39.0 Urinary tract infection, site not specified; M19.90 Unspecified osteoarthritis, unspecified site; E87.6 Hypokalemia; E11.9 Type 2 diabetes mellitus without complications; Z79.4 Long term (current) use of insulin; Z88.2 Allergy status to sulfonamides; Z88.8 Allergy status to other drugs, medicaments and biological substances; Z79.899 Other long term (current) drug therapy; Z95.1 Presence of aortocoronary bypass graft; Z95.0 Presence of cardiac pacemaker; Z79.82 Long term (current) use of aspirin; Z79.891 Long term (current) use of opiate analgesic; Z80.0 Family history of malignant neoplasm of digestive organs; Z82.49 Family history of ischemic heart disease and other diseases of the circulatory system; Z82.61 Family history of arthritis; Z83.3 Family history of diabetes mellitus; Z82.3 Family history of stroke
CPT/HCPCS: 36415; 71045; 80048; 80053; 80061; 82962; 83735; 83874; 83880; 84100; 84484; 85025; 85610; 85730; 87081; 93005

== ENCOUNTER → 2019-06-12 | Outpatient (CLI) | payer MEDICARE, MEDICAID ==
[~2019-06-12] MED LIST changes: +INSU100V16 SC
[2019-06-12 12:54] LABS: BUN/CREATININE RATIO 10; CALCIUM 8.7 MG/DL (8.5-10.1); CARBON DIOXIDE 29 MMOL/L (21-32); CHLORIDE 103 MMOL/L (98-107); CREATININE SERUM 0.81 MG/DL (0.60-1.30); GFR ESTIMATED > 60; GLUCOSE 200 MG/DL (70-105); MAGNESIUM 1.7 MG/DL (1.6-2.4); POTASSIUM 3.6 MMOL/L (3.6-5.0); SODIUM 136 MMOL/L (135-145)
== END ==
LOC: LAB 12:18
PROVIDERS: ATTEND Nurse Practitioner Family
DX: I10 Essential (primary) hypertension (principal)
CPT/HCPCS: 36415; 80048; 83735

== ENCOUNTER → 2019-07-24 | Outpatient (CLI) | payer MEDICARE, MEDICAID ==
--- NOTE | 2019-07-24 15:35 | Diagnostic Imaging Report ---
INDICATION: Screening for osteoporosis. COMPARISON: None. FINDINGS: The bone mineral density of the hips and spine was measured. The T-score for the spine is 0.7. The total T-score for the left hip is -0.9 and for the right hip -0.8. The total T-score for the left femoral neck is -0.9 as well. All these values fall within the range of normal. However, the T-score for the right femoral neck is -1.6. This does indicate osteopenia. AP Spine L1-L4: [BMD (g/cm2): 1.289] [T-Score: 0.7] [Z-Score: 1.5] [BMD Previous: na] [BMD % Change: na] LT Hip Neck: [BMD (g/cm2): 0.920] [T-Score: -0.9] [Z-Score: 0.0] LT Hip Total: [BMD (g/cm2):0.899] [T-Score:-0.9] [Z-Score: -0.3] [BMD Previous: na] [BMD % Change: na] RT Hip Neck: [BMD (g/cm2):0.819] [T-Score:-1.6] [Z-Score:-0.7] RT Hip Total: [BMD (g/cm2):0.903] [T-score:-0.8] [Z-Score:-0.3] [BMD Previous:na] [BMD % Change:na] *Indicates significant change from prior examination based on 95% confidence level. World Health Organization criteria for BMD interpretation classify patients as Normal (T-score at or above -1.0), Osteopenic (T-score between -1.0 and -2.5) or Osteoporotic (T-score at or below -2.5). LIMITATIONS AND MODIFICATION: None. FRACTURE RISK (FRAX SCORE): The ten year probability of (%): Major Osteoporotic Fracture: [14.2] Hip Fracture: [1.5] IMPRESSION: 1. The T-score for the spine, the left hip, the left femoral neck, and the total right hip is within normal limits; however, there is osteopenia of the right femoral neck. 2. See below National Osteoporosis Foundation guidelines on when to potentially initiate pharmacologic therapy. Based on the National Osteoporosis Foundation Guidelines, pharmacologic treatment should be initiated in any of the following, unless clinical conditions suggest otherwise: * Any patient with prior fragility fracture of the hip or vertebrae. A spine fracture indicates 5X risk for subsequent spine fracture and 2X risk for subsequent hip fracture. * Osteoporosis (T-score <-2.5). * Postmenopausal women and men age 50 and older with low bone mass/osteopenia (T-score between -1.0 and -2.5) by DXA and 10-year major osteoporotic fracture greater than 20% or a 10-year probability of hip fracture greater than 3%. These fracture risks are supplied above in the FRAX score, if applicable. * Clinician judgment and/or patient preferences may indicate treatment for people with 10-year fracture probabilities above or below these levels. Dictated by: Dictated on workstation # [id number]
--- NOTE | 2019-07-25 11:59 | Diagnostic Imaging Report ---
EXAMINATION: Bilateral screening mammogram with CAD. COMPARISON: This study was compared to the prior exam of 05/16/2008. PERSONAL HISTORY: At this time, there are no current complaints. FINDINGS: The breasts are predominantly fatty. When compared to the previous study, there has been no significant change. A few benign-appearing calcifications have developed in both breasts. Extensive vascular calcifications are now evident in both breasts as well. There is no primary or secondary sign of malignancy noted. IMPRESSION: 1. There is no evidence for malignancy. 2. The patient should have her annual bilateral bilateral screening mammogram on schedule in June 2020. ACR BI-RADS Category 1: Negative. Result letter will be mailed to the patient. Note: At least 10% of breast cancer is not imaged by mammography. Dictated by: Dictated on workstation # [id number]
== END ==
LOC: RAD 13:26
PROVIDERS: ATTEND Nurse Practitioner Community Health
DX: Z12.31 Encounter for screening mammogram for malignant neoplasm of breast (principal); Z13.820 Encounter for screening for osteoporosis; M85.851 Other specified disorders of bone density and structure, right thigh; Z78.0 Asymptomatic menopausal state
CPT/HCPCS: 77067; 77080

== ENCOUNTER 2019-08-24 10:00 | Outpatient (CLI) | payer MEDICARE, MEDICAID ==
[~2019-08-24] VITALS: Ht 165.1 cm; Wt 89.5 kg
[~2019-08-24 10:00] MED LIST changes: +ALEN70TA2 PO; +COLE1TAB PO; +DULA0.75 SQ; +RIVA20TA PO
== END 2019-08-24 10:31 | disposition home or self-care (01) ==
LOC: PREOP 10:00
PROVIDERS: ATTEND Surgery
DX: Z01.818 Encounter for other preprocedural examination (principal)

== ENCOUNTER → 2020-01-08 | Outpatient (CLI) | payer MEDICARE, MEDICAID ==
[~2020-01-08] MED LIST changes: +ALEN70TA5 PO; +INSU100I23 SQ; +LIDOCAINE 1% INJ 20 ML 20 ML VIAL ONE; +MIDAZOLAM 5 MG/5 ML (VERSED) VIAL ONE; +NS IV 1000 ML 1,000 ML ONE; +OMEP20CA18 PO; -ROPI1TAB2 PO; +SIMV40TA25 PO; +fentaNYL INJECTION 100 MCG/2 ML AMP ONE
== END ==
LOC: CARD 09:04
PROVIDERS: ATTEND Internal Medicine Cardiovascular Disease
DX: I25.10 Atherosclerotic heart disease of native coronary artery without angina pectoris (principal); I77.89 Other specified disorders of arteries and arterioles; E78.5 Hyperlipidemia, unspecified; I10 Essential (primary) hypertension; Z95.0 Presence of cardiac pacemaker; Z95.5 Presence of coronary angioplasty implant and graft
CPT/HCPCS: 93306

== ENCOUNTER 2020-01-09 17:56 | Inpatient (IN) | payer MEDICARE, MEDICAID ==
[~2020-01-09] VITALS: Ht 165 cm; Wt 89.3 kg
[2020-01-09] VITALS (7 sets, daily range): BP systolic 145–174; BP diastolic 88–102
[~2020-01-09 17:56] MED LIST changes: -ALEN70TA5 PO; +AMIODARONE (OMNICELL DRIP KIT) 150 MG/3 ML IV ONE; +EPINEPHrine 0.1 MG/ML 10 ML (HOSPIRA) SYR IJ ONE; -INSU100I23 SQ; -LIDOCAINE 1% INJ 20 ML 20 ML VIAL ONE; +LIDOCAINE BOLUS 100 MG/5 ML (IMS) SYR INJ ONE; +MAGNESIUM 1 GM/100 ML IVPB 100 ML IV ONE; -MIDAZOLAM 5 MG/5 ML (VERSED) VIAL ONE; -NS IV 1000 ML 1,000 ML ONE; -OMEP20CA18 PO; -fentaNYL INJECTION 100 MCG/2 ML AMP ONE
--- NOTE | 2020-01-09 18:05 | NUR ---
1805 Patient states "I am dizzy and then cardiac rhythm shows V-tach rate of 225. Patient remains awake and alert but complains of dizziness and nausea during episode. Patient converted on her own back to atrial fibrillation. 1806 Fast patches placed on patient's chest. Patient has multiple short episodes of V-tach. Patient vomiting repeatedly. 1806 Patient placed on Oxygen at 2 LPM via NC. 1809 Lidocaine 100 mg given Slow IV push in left AC. 1809 Amiodarone 150 mg given slow IV push. 1810 16 Fr Sanderson catheter placed and Urine Specimen collected. 1812 Zofran 8 mg given IV. 1812 Protonix 40 mg given IV. 1814 EKG shows Acute Inferior DE. 1815 Blood Glucose 337 1815 Aspirin 324 mg given PO. 1823 Heparin 5000 mg bolus given IV. 1826 Heparin Drip infusing at 20 ML/HR. 1826 Zofran 8 mg given IV due to patient continuing to vomit repeatedly. 1832 Scopalamine Patch placed behind patient's right ear. 1835 Verbal consent obtained from patient to take her to [facility] laboratory assistant. 1838 Phenergan 25 mg diluted with NS 10 ML and administered IV. 1838 NS 1000 ML started to left EJ. 1845 Patient taken to [facility] laboratory assistant with defib monitor, pulse oximetry, and BP monitoring by seed laboratory assistant team. 1838 Morphine 4 mg given slow IV.
[2020-01-09] MEDS ORDERED: NS IV 1000 ML 1,000 ML IV SCH ×2 (18:08→18:33)
[2020-01-09 18:15] LABS: BASOPHILS # (AUTO) 0.1 10^3/uL (0.0-0.1); BASOPHILS % (AUTO) 0 % (0-10); EOSINOPHILS % (AUTO) 0 % (0-10); HEMATOCRIT 47 % (35-52); HEMOGLOBIN 15.9 G/DL (11.5-16.0); LYMPHOCYTES # (AUTO) 3.2 X 10^3 (1.0-4.0); LYMPHOCYTES % (AUTO) 18 % (12-44); MEAN CORPUSCULAR HEMOGLOBIN 28 PG (25-34); MEAN CORPUSCULAR HGB CONC 34 G/DL (32-36); MEAN CORPUSCULAR VOLUME 83 FL (80-99); MEAN PLATELET VOLUME 11.7 FL (7.4-10.4); MONOCYTES # (AUTO) 1.2 X 10^3 (0.0-1.0); MONOCYTES % (AUTO) 7 % (0-12); NEUTROPHILS # (AUTO) 13.1 X 10^3 (1.8-7.8); NEUTROPHILS % (AUTO) 75 % (42-75); PLATELET COUNT 312 10^3/uL (130-400); RED CELL DISTRIBUTION WIDTH 14.2 % (10.0-14.5); WHITE BLOOD COUNT 17.5 10^3/uL (4.3-11.0)
[2020-01-09] MEDS ORDERED: ASPIRIN 81 MG CHEW (CHILDREN'S ASA) PO ONE (18:15)
[2020-01-09] MEDS ORDERED: NITROGLYCERIN 0.4 MG SL TABS BTL 25'S SL PRN (18:15)
[2020-01-09] MEDS ORDERED: PANTOPRAZOLE 40 MG (PROTONIX) VIAL IV ONE (18:15)
[2020-01-09] MEDS ORDERED: HEParin DRIP 25000 UNIT/500ML 500 ML IV ONE ×2 (18:15→18:22)
[2020-01-09] MEDS ORDERED: ONDANSETRON 4 MG/2 ML (SDV) Z0FRAN IVP ONE ×2 (18:15→18:30)
[2020-01-09] MEDS ORDERED: morphine INJ 10 MG/ML 1ML (SYR OR VIAL) ONE (18:21)
[2020-01-09] MEDS ORDERED: HEParin 1000 UNIT/ML (10ML VIAL) FOR BOLUS IV ONE (18:22)
[2020-01-09 18:26] LABS: ALBUMIN 3.8 GM/DL (3.2-4.5); POTASSIUM 3.3 MMOL/L (3.6-5.0)
[2020-01-09] MEDS ORDERED: PROMETHAZINE INJ 25 MG/ML (PHENERGAN) AMP ONE (18:26)
[2020-01-09 18:27] LABS: CALCIUM 9.4 MG/DL (8.5-10.1); PROTHROMBIN TIME PATIENT 13.5 SEC (12.2-14.7)
[2020-01-09] MEDS ORDERED: SCOPOLAMINE 1.5 MG (TRANSDERM-SCOP) PATCH ONE (18:27)
[2020-01-09] MEDS ORDERED: morphine INJ 10 MG/ML 1ML (SYR OR VIAL) IVP STA (18:28)
[2020-01-09 18:31] LABS: BILIRUBIN,TOTAL 0.8 MG/DL (0.1-1.0)
[2020-01-09 18:32] LABS: CREATININE SERUM 1.09 MG/DL (0.60-1.30)
[2020-01-09 18:35] LABS: MAGNESIUM 1.7 MG/DL (1.6-2.4)
[2020-01-09] MEDS ORDERED: PROMETHAZINE INJ 25 MG/ML (PHENERGAN) AMP IVP ONE (18:45)
[2020-01-09] MEDS ORDERED: SCOPOLAMINE 1.5 MG (TRANSDERM-SCOP) PATCH TD ONE (18:45)
[2020-01-09] MEDS ORDERED: NOREPINEPHRINE 4 MG/4 ML (LEVOPHED) AMP IV ONE (18:52)
[2020-01-09] MEDS ORDERED: NS (IVPB) 250 ML ONE (18:52)
[2020-01-09] MEDS ORDERED: HEParin 1000 UNIT/ML (10ML VIAL) FOR BOLUS ONE (18:53)
[2020-01-09] MEDS ORDERED: EPTIFIBATIDE BOLUS 20 ML IV ONE (18:53)
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
[2020-01-09 18:55] LABS: LYMPHOCYTES % (MANUAL) 19 %; MONOCYTES % (MANUAL) 4 %; NEUTROPHILS % (MANUAL) 77 %; RBC MORPH NORMAL
[2020-01-09] MEDS: NS IV 1000 ML 1,000 ML IV SCH ×2 (19:00→20:00)
[2020-01-09] MEDS ORDERED: NS IV 1000 ML 1,000 ML ONE (19:02)
[2020-01-09] MEDS ORDERED: EPTIFIBATIDE DRIP 100 ML IV ONE (19:04)
[2020-01-09] MEDS ORDERED: NITRO DRIP 25000 MCG/D5W 250 ML IV ONE (19:15)
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
--- OUTSIDE RECORDS SUMMARY | 2020-01-09 19:31 | XMS REPORT ---
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 Name Role Phone HERNANDEZTRICIA ANDREA Unavailable PROBLEMS Type Condition ICD9-CM Code [id number] Code Onset Dates Condition S tatus SNOMED Code Problem Type 2 diabetes mellitus without complications E11 .9 Active 338927448 Problem Tension headache G44.209 Active 398 936393 Problem Type 2 diabetes mellitus with hyperglycemia E11.65 Active 32213321 Problem Current use of anticoagulant therapy Z79.01 Active 103354495 Problem 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 Active 25 642989 Problem Type 2 diabetes mellitus with diabetic chronic kidney disease E11.22 Active 08755457 Problem Chronic kidney disease, stage III (moderate) N18.3 Active 745599244 Problem senior living current use of insulin Z79.4 Active 454327105 Problem Osteopenia after menopause M81.0 Act mc 397478274 Problem Long-term insulin use Z79.4 Active 977339628 Problem Carpal tunnel syndrome, left upper limb G56.02 Active [id number] Problem Poor vision H54.7 Active 50120758 3 Problem Type 2 diabetes mellitus with hypoglycemia without coma E11.649 Active 95992313 Problem senior living (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 Z79.4 Active 028790452 Problem Irritable bowel syndrome with diarrhea K58.0 Active 178417484 Problem Post menopausal syndrome N95.1 Activ e [id number] ALLERGIES No Information ENCOUNTERS Encounter Location Date Diagnosis [facility] [address] [facility] [id number] [address] [place] [address] Oct, [facility] [address] [facility] [id number] [address] [place] [address] Oct, Type 2 diabetes mellitus wit h diabetic chronic kidney disease E11.22 [facility] [place] [address] [facility] [id number] [address] [place] [address] Sep, Dizziness R42 [facility] [place] [address] [facility] [id number] [address] [place] [address] Aug, Carpal tunnel syndrome, left upper limb G56.02 [facility] [place] [address] [facility] [id number] [address] [place] [address] Jul, Left arm weakness R29.898 [facility] [place] [address] [facility] [id number] [address] [place] [address] Jul, [facility] [address] [facility] [id number] [address] [place] [address] Jul, [facility] [address] [facility] [id number] [address] [place] [address] Jul, [facility] [place] [address] [facility] [id number] [address] [place] [address] Jul, Osteopenia after menopause M 81.0 and Type 2 diabetes mellitus with hyperglycemia E11.65 [facility] [place] [address] [facility] [id number] [address] [place] [address] Jun, [facility] [place] [address] [facility] [id number] [address] [place] [address] Jun, [facility] [place] [address] [facility] [id number] [address] [place] [address] Jun, Encounter for Medicare annua l wellness exam Z00.00 ; Chronic kidney disease, stage III (moderate) N18.3 ; Type 2 diabetes mellitus with diabetic chronic kidney disease E11.22 ; Current use of anticoagulant therapy Z79.01 ; Irritable bowel syndrome with diarrhea K58.0 ; 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 care administrator (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0 [facility] [place] [address] [place] [id number] [address] [place] [address] May, Type 2 diabetes mellitus wit h diabetic chronic kidney disease E11.22 ; Hyperglycemia R73.9 and Muscle cramps R25.2 [place] [address] [facility] [id number] [address] [place] [address] Feb, [place] [address] [facility] [id number] [address] [place] [address] Jan, [place] [address] [facility] [id number] [place] [address] December, Type 2 diabetes mellitus wit hout complications E11.9 [place] [address] [place] [id number] [place] [phone] December, [facility] [address] [facility] [id number] [address] [place] [address] Nov, Bronchitis J40 [place] [address] [address] Nov, [facility] [place] [address] [facility] [id number] [address] [place] [address] Nov, [place] [address] [facility] [id number] [address] [place] [address] Nov, Type 2 diabetes mellitus wit h hyperglycemia E11.65 [facility] [place] [address] [facility] [id number] [address] [place] [address] Oct, Type 2 diabetes mellitus wit h hyperglycemia E11.65 [place] [address] [facility] [id number] [address] [place] [address] Oct, [facility] [address] [facility] [id number] [address] [place] [address] Sep, Acute vaginitis N76.0 and Ye ast infection of the vagina B37.3 [facility] [place] [address] [facility] [id number] [address] [place] [address] Sep, Vulvar lesion N90.89 [facility] [place] [address] [facility] [id number] [address] [place] [address] Aug, [facility] [place] [address] [facility] [id number] [address] [place] [address] Aug, [facility] [place] [address] [facility] [id number] [address] [place] [address] Jul, [place] [address] [place] [id number] [address] [place] [address] Jul, Dizziness R42 ; Type 2 diabe delvin mellitus with diabetic chronic kidney disease E11.22 ; Chronic kidney disease, stage III (moderate) N18.3 and senior living current use of insulin Z79.4 [place] [address] [place] [id number] [address] [place] [address] Jul, [place] [address] [place] [id number] [address] [place] [address] Jun, Type 2 diabetes mellitus wit h hyperglycemia E11.65 [facility] [address] [place] [id number] [address] [place] [address] Jun, Acute left otitis media H66. 92 and Acute upper respiratory infection J06.9 [place] [address] [facility] [id number] [address] [place] [address] Jun, Type 2 diabetes mellitus wit h hyperglycemia E11.65 [facility] [place] [address] [facility] [id number] [address] [place] [address] Apr, Poor vision H54.7 ; Type 2 d iabetes mellitus with hyperglycemia E11.65 ; Long-term insulin use Z79.4 and Encounter for immunization Z23 [facility] [place] [address] [facility] [id number] [address] [place] [address] Apr, [facility] [place] [address] [address] Mar, [place] [address] [address] Mar, 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 [place] [address] [address] Jan, Vulvar lesion N90.89 and Acu te vaginitis N76.0 [place] [address] [address] December, Labial cyst N90.7 [place] [address] [address] December, [place] [address] [address] Oct, [place] [address] [address] Oct, Sprain of left hip, initial encounter S73.102A and Tension headache G44.209 [place] [address] [address] Sep, Dental examination Z01.20 [place] [address] [address] Sep, [place] [address] [address] Sep, [place] [address] [address] Sep, Type 2 diabetes mellitus wit h hyperglycemia E11.65 [place] [address] [address] 14 Sep, 2017 Type 2 diabetes mellitus wit h hyperglycemia E11.65 ; long term care administrator current use of insulin Z79.4 and Hyperglycemia R73.9 [place] [address] [address] Aug, [facility] [place] [address] [id number] [address] [place] [address] Aug, Weakness R53.1 ; Muscle cram ps R25.2 and Type 2 diabetes mellitus without complications E11.9 [facility] [place] [address] [facility] [id number] [address] [place] [address] Aug, Weakness R53.1 ; Muscle cram ps R25.2 and Type 2 diabetes mellitus without complications E11.9 [facility] [place] [address] [facility] [id number] [address] [place] [phone] Jul, [place] [address] [facility] [id number] [address] [place] [address] Mar, Type 2 diabetes mellitus wit hout complications E11.9 [place] [address] [facility] [id number] [address] [place] [address] Mar, Type 2 diabetes mellitus wit hout complications E11.9 [place] [address] [facility] [id number] [address] [place] [address] December, [facility] [place] [address] [facility] [id number] [address] [place] [address] Oct, Type 2 diabetes mellitus wit hout complications E11.9 and Brown recluse spider bite, accidental or unintentional, initial encounter T63.331A [place] [address] [facility] [id number] [address] [place] [address] 05 Jul, 2016 Diabetes E11.9 [place] [address] [facility] [id number] [address] [place] [address] 15 Jan, 2016 Dental caries K02.9 [place] [address] [facility] [id number] [address] [place] [address] Jan, [place] [address] [facility] [id number] [address] [place] [address] 07 Jan, 2016 Type 2 diabetes mellitus wit hout complications E11.9 and Paroxysmal atrial fibrillation I48.0 [place] [address] [facility] [id number] [address] [place] [address] Jan, Dental examination Z01.20 [place] [address] [place] [id number] [address] [place] [address] 17 Dec, 2015 Cervicalgia M54.2 ; Radiculo stella affecting upper extremity M54.10 and Abscessed tooth K04.7 [place] [address] [address] 03 Dec, 2015 Shoulder pain, left M25.512 and Tooth pain K08.8 [place] [address] [place] [id number] [place] [address] 15 Oct, 2015 Gastroenteritis K52.9 ; Vert igo R42 and Diabetes E11.9 [place] [address] [address] 08 Sep, 2015 Type 2 diabetes mellitus wit hout complications E11.9 ; Cough R05 ; Pain in left knee M25.562 and Other chronic pain G89.29 [place] [address] [address] Aug, Shortness of breath R06.02 ; Type 2 diabetes mellitus without complications E11.9 and Encounter for immunization Z23 [place] [address] [place] [id number] [address] [place] [address] Jul, [place] [address] [place] [id number] [address] [place] [phone] May, [place] [address] [place] [id number] [address] [place] [address] May, [place] [address] [place] [id number] [address] [place] [address] Apr, [place] [address] [address] Feb, [place] [address] [place] [id number] [address] [place] [address] Jan, Knee pain, left 719.46 [facility] [address] [id number] [address] [place] [address], [place] [address] December, [facility] [address] [id number] [address] [place] [address], [place] [address] 14 Nov, 2014 [facility] [address] [id number] [address] [place] [address], [place] [address] Nov, [facility] [address] [id number] [address] [place] [address], [place] [address] Aug, [facility] [address] [id number] [address] [place] [address], [place] [address] Aug, [facility] [address] [id number] [address] [place] [address], [place] [address] Jul, [facility] [address] [id number] [address] [place] [address], [place] [address] Jul, [facility] [address] [id number] [address] [place] [address], [place] [address] Jul, [facility] [address] [id number] [address] [place] [address], [place] [address] Jul, [facility] [address] [id number] [address] [place] [address], [place] [address] Jun, [facility] [address] [id number] [address] [place] [address], [place] [address] Jun, [facility] [address] [id number] [address] [place] [address], [place] [address] Jun, [facility] [address] [id number] [address] [place] [address], [place] [address] Jun, [facility] [address] [id number] [address] [place] [address], [place] [address] May, [facility] [address] [id number] [address] [place] [address], [place] [address] May, [facility] [address] [id number] [address] [place] [address], [place] [address] May, [facility] [address] [id number] [address] [place] [address], [place] [address] May, [facility] [address] [id number] [address] [place] [address], [place] [address] May, [facility] [address] [id number] [address] [place] [address], [place] [address] May, [facility] [address] [id number] [address] [place] [address], [place] [address] December, [facility] [address] [id number] [address] [place] [address], [place] [address] December, [facility] [address] [id number] [address] [place] [address], [place] [address] Jun, [facility] [address] [id number] [address] [place] [address], [place] [address] Jun, [facility] [address] [id number] [address] [place] [address], [place] [address] Jan, [facility] [address] [id number] [address] [place] [address], [place] [address] December, [facility] [address] [id number] [address] [place] [address], [place] [address] Sep, [facility] [address] [id number] [address] [place] [address], [place] [address] Jul, [facility] [address] [id number] [address] [place] [address], [place] [address] Jul, [facility] [address] [id number] [address] [place] [address], [place] [address] Jul, [facility] [address] [id number] [address] [place] [address], [place] [address] Jul, [facility] [address] [id number] [address] [place] [address], [place] [address] May, [facility] [address] [id number] [address] [place] [address], [place] [address] May, [facility] [address] [id number] [address] [place] [address], [place] [address] May, [facility] [address] [id number] [address] [place] [address], [place] [address] May, [facility] [address] [id number] [address] [place] [address], [place] [address] May, [facility] [address] [id number] [address] [place] [address], [place] [address] May, [facility] [address] [id number] [address] [place] [address], [place] [address] May, [facility] [address] [id number] [address] [place] [address], [place] [address] May, [facility] [address] [id number] [address] [place] [address], [place] [address] Apr, [facility] [address] [id number] [address] [place] [address], [place] [address] Mar, [facility] [address] [id number] [address] [place] [address], [place] [address] Mar, [facility] [address] [id number] [address] [place] [address], [place] [address] Mar, [facility] [address] [id number] [address] [place] [address], [place] [address] Feb, [facility] [address] [id number] [address] [place] [address], [place] [address] 24 Feb, 2012 [facility] [address] [id number] [address] [place] [address], [place] [address] 16 Feb, 2012 [facility] [address] [id number] [address] [place] [address], [place] [address] 14 Feb, 2012 [facility] [address] [id number] [address] [place] [address], [place] [address] Feb, [facility] [address] [id number] [address] [place] [address], [place] [address] Feb, [facility] [address] [id number] [address] [place] [address], [place] [address] Feb, [facility] [address] [id number] [address] [place] [address], [place] [address] Jan, [facility] [address] [id number] [address] [place] [address], [place] [address] Jan, [facility] [address] [id number] [address] [place] [address], [place] [address] December, [facility] [address] [id number] [address] [place] [address], [place] [address] Nov, [facility] [address] [id number] [address] [place] [address], [place] [address] Oct, [facility] [address] [id number] [address] [place] [address], [place] [address] Oct, [facility] [address] [id number] [address] [place] [address], [place] [address] Oct, [facility] [address] [id number] [address] [place] [address], [place] [address] Oct, [facility] [address] [id number] [address] [place] [address], [place] [address] Oct, [facility] [address] [id number] [address] [place] [address], [place] [address] Jun, [facility] [address] [id number] [address] [place] [address], [place] [address] Jun, [facility] [address] [id number] [address] [place] [address], [place] [address] Jun, [facility] [address] [id number] [address] [place] [address], [place] [id number] Jun, [facility] [address] [id number] [address] [place] [id number] December, [facility] [place] [address] [facility] [id number] [address] [place] [id number] Jun, [facility] [place] [address] [facility] [id number] [address] [place] [id number] Jun, [facility] [place] [address] [facility] [id number] [address] [place] [id number] Sep, [facility] [place] [address] [facility] [id number] [address] [place] [id number] Jun, IMMUNIZATIONS No Known Immunizations SOCIAL HISTORY Never Assessed REASON FOR VISIT PLAN OF CARE VITAL SIGNS MEDICATIONS Unknown Medications RESULTS No Results PROCEDURES No Known procedures INSTRUCTIONS MEDICATIONS ADMINISTERED No Known Medications MEDICAL (GENERAL) HISTORY Type Description Date Medical History hypertension Medical History A-Fib Medical History Restless leg syndrome Medical History diabetic type two Medical History CA 11/2016. Heart cath Medical mgmt Medical History Coronary artery disease of n ative artery of [place] heart with stable angina pectoris Medical History Cervicalgia Medical History Radiculopathy affecting upper extremity Medical History Paroxysmal atrial fibrillation Medical History Coronary artery disease of n ative artery of [place] heart with stable angina pectoris Surgical History [...]
--- OUTSIDE RECORDS SUMMARY | 2020-01-09 19:31 | XMS REPORT ---
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 Active 25 545105 Problem Type 2 diabetes mellitus with diabetic chronic kidney disease E11.22 Active 43473157 Problem Chronic kidney disease, stage III (moderate) N18.3 Active 781415188 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 937694127 Problem Osteopenia after menopause M81.0 Act mc 878611558 Problem Long-term insulin use Z79.4 Active 162655689 Problem Carpal tunnel syndrome, left upper limb G56.02 Active 823857063877428 Problem Poor vision H54.7 Active 72212483 3 Problem Type 2 diabetes mellitus with hypoglycemia without coma E11.649 Active 69086584 Problem longterm (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 Z79.4 Active 521496873 Problem Irritable bowel syndrome with diarrhea K58.0 Active 121542815 Problem Post menopausal syndrome N95.1 Activ e [id number] ALLERGIES No Information ENCOUNTERS Encounter Location Date Diagnosis [facility] [address] [facility] [id number] [address] [place] [address] Oct, [facility] [address] [facility] [id number] [address] [place] [address] Oct, Type 2 diabetes mellitus wit h diabetic chronic kidney disease E11.22 [facility] [address] [facility] [id number] [address] [place] [address] Sep, Dizziness R42 [facility] [address] [facility] [id number] [address] [place] [address] Aug, Carpal tunnel syndrome, left upper limb G56.02 [facility] [address] [facility] [id number] [address] [place] [address] Jul, Left arm weakness R29.898 [facility] [address] [facility] [id number] [address] [place] [address] Jul, [facility] [address] [facility] [id number] [address] [place] [address] Jul, [facility] [address] [facility] [id number] [address] [place] [address] Jul, [facility] [address] [facility] [id number] [address] [place] [address] Jul, Osteopenia after menopause M 81.0 and Type 2 diabetes mellitus with hyperglycemia E11.65 [facility] [address] [facility] [id number] [address] [place] [address] Jun, [facility] [address] [facility] [id number] [address] [place] [address] Jun, [facility] [address] [facility] [id number] [address] [place] [address] Jun, Encounter for Medicare annua l wellness exam Z00.00 ; Chronic kidney disease, stage III (moderate) N18.3 ; Type 2 diabetes mellitus with diabetic chronic kidney disease E11.22 ; Current use of anticoagulant therapy Z79.01 ; Irritable bowel syndrome with diarrhea K58.0 ; longterm (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 Z79.4 ; Post menopausal syndrome N95.1 ; Breast cancer screening by mammogram Z12.31 ; Screening mammogram, encounter for Z12.31 ; Encounter for immunization Z23 and Asymptomatic menopausal state Z78.0 [facility] [address] [facility] [id number] [address] [place] [address] Jun, Type 2 diabetes mellitus wit h hypoglycemia without coma E11.649 ; 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 ; Irritable bowel syndrome with diarrhea K58.0 ; Pain of left shoulder joint on movement M25.512 and Family history of colon cancer Z80.0 [facility] [address] [facility] [id number] [address] [place] [address] May, Type 2 diabetes mellitus wit h diabetic chronic kidney disease E11.22 ; Hyperglycemia R73.9 and Muscle cramps R25.2 [facility] [address] [facility] [id number] [address] [place] [address] Feb, [facility] [address] [facility] [id number] [address] [place] [address] Jan, [place] [address] [address] December, Type 2 diabetes mellitus wit hout complications E11.9 [place] [address] [place] [id number] [address] [place] [address] December, [facility] [address] [facility] [id number] [address] [place] [address] Nov, Bronchitis J40 [facility] [address] [address] Nov, [facility] [address] [place] [id number] [address] [place] [address] Nov, [facility] [address] [place] [id number] [address] [place] [address] Nov, Type 2 diabetes mellitus wit h hyperglycemia E11.65 [facility] [address] [facility] [id number] [address] [place] [address] Oct, Type 2 diabetes mellitus wit h hyperglycemia E11.65 [facility] [address] [facility] [id number] [address] [place] [address] Oct, [facility] [address] [facility] [id number] [address] [place] [address] Sep, Acute vaginitis N76.0 and Ye ast infection of the vagina B37.3 [facility] [address] [facility] [id number] [address] [place] [address] Sep, Vulvar lesion N90.89 [place] [address] [facility] [id number] [address] [place] [address] Aug, [facility] [address] [facility] [id number] [address] [place] [address] Aug, [place] [address] [facility] [id number] [address] [place] [address] Jul, [place] [address] [place] [id number] [place] [address] Jul, Dizziness R42 ; Type 2 diabe delvin mellitus with diabetic chronic kidney disease E11.22 ; Chronic kidney disease, stage III (moderate) N18.3 and 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 92 and Acute upper respiratory infection J06.9 [place] [address] [facility] [id number] [address] [place] [address] Jun, Type 2 diabetes mellitus wit h hyperglycemia E11.65 [place] [address] [facility] [id number] [address] [place] [address] Apr, Poor vision H54.7 ; Type 2 d iabetes mellitus with hyperglycemia E11.65 ; Long-term insulin use Z79.4 and Encounter for immunization Z23 [facility] [address] [place] [id number] [address] [place] [address] Apr, [facility] [address] [address] Mar, [place] [address] [address] Mar, 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 [place] [address] [address] Jan, Vulvar lesion N90.89 and Acu te vaginitis N76.0 [place] [address] [address] December, Labial cyst N90.7 [place] [address] [address] December, [place] [address] [address] Oct, [place] [address] [address] Oct, Sprain of left hip, initial encounter S73.102A and Tension headache G44.209 [place] [address] [address] Sep, Dental examination Z01.20 [place] [address] [address] Sep, [place] [address] [address] Sep, [place] [address] [address] Sep, Type 2 diabetes mellitus wit h hyperglycemia E11.65 [place] [address] [address] 14 Sep, 2017 Type 2 diabetes mellitus wit h hyperglycemia E11.65 ; longterm current use of insulin Z79.4 and Hyperglycemia R73.9 [place] [address] [address] Aug, [facility] [address] [facility] [id number] [address] [place] [address] Aug, Weakness R53.1 ; Muscle cram ps R25.2 and Type 2 diabetes mellitus without complications E11.9 [facility] [address] [facility] [id number] [address] [place] [address] Aug, Weakness R53.1 ; Muscle cram ps R25.2 and Type 2 diabetes mellitus without complications E11.9 [facility] [address] [facility] [id number] [address] [place] [address] Jul, [facility] [address] [facility] [id number] [address] [place] [address] Mar, Type 2 diabetes mellitus wit hout complications E11.9 [facility] [address] [facility] [id number] [address] [place] [address] Mar, Type 2 diabetes mellitus wit hout complications E11.9 [facility] [address] [facility] [id number] [address] [place] [address] December, [facility] [address] [facility] [id number] [address] [place] [address] Oct, Type 2 diabetes mellitus wit hout complications E11.9 and Brown recluse spider bite, accidental or unintentional, initial encounter T63.331A [place] [address] [facility] [id number] [address] [place] [address] 05 Jul, 2016 Diabetes E11.9 [facility] [address] [facility] [id number] [address] [place] [address] 15 Jan, 2016 Dental caries K02.9 [facility] [address] [facility] [id number] [address] [place] [address] 07 Jan, 2016 [facility] [address] [facility] [id number] [address] [place] [address] 07 Jan, 2016 Type 2 diabetes mellitus wit hout complications E11.9 and Paroxysmal atrial fibrillation I48.0 [place] [address] [address] Jan, Dental examination Z01.20 [place] [address] [address] 17 Dec, 2015 Cervicalgia M54.2 ; Radiculo stella affecting upper extremity M54.10 and Abscessed tooth K04.7 [place] [address] [address] December, Shoulder pain, left M25.512 and Tooth pain K08.8 [place] [address] [address] 15 Oct, 2015 Gastroenteritis K52.9 ; Vert igo R42 and Diabetes E11.9 [place] [address] [address] 08 Sep, 2015 Type 2 diabetes mellitus wit hout complications E11.9 ; Cough R05 ; Pain in left knee M25.562 and Other chronic pain G89.29 [place] [address] [address] Aug, Shortness of breath R06.02 ; Type 2 diabetes mellitus without complications E11.9 and Encounter for immunization Z23 [place] [address] [address] Jul, [place] [address] [address] May, [place] [address] [address] May, [place] [address] [address] Apr, [place] [address] [address] Feb, [place] [address] [place] [id number] [place] [address] Jan, Knee pain, left 719.46 [facility] [address] [id number] [address] [place] [address], [place] [address] December, [facility] [address] [id number] [address] [place] [address], [place] [address] 14 Nov, 2014 [facility] [address] [id number] [address] [place] [address], [place] [address] Nov, [facility] [address] [id number] [address] [place] [address], [place] [address] Aug, [facility] [address] [id number] [address] [place] [address], [place] [address] Aug, [facility] [address] [id number] [address] [place] [address], [place] [address] Jul, [facility] [address] [id number] [address] [place] [address], [place] [address] Jul, [facility] [address] [id number] [address] [place] [address], [place] [address] Jul, [facility] [address] [id number] [address] [place] [address], [place] [address] Jul, [facility] [address] [id number] [address] [place] [address] Jun, [facility] [address] [id number] [address] [place] [address] Jun, [facility] [address] [id number] [address] [place] [address] Jun, [facility] [address] [id number] [address] [place] [address], [place] [address] Jun, [facility] [address] [id number] [address] [place] [address] May, [facility] [address] [id number] [address] [place] [address] May, [facility] [address] [id number] [address] [place] [address] May, [facility] [address] [id number] [address] [place] [address], [place] [address] May, [facility] [address] [id number] [address] [place] [address] May, [facility] [address] [id number] [address] [place] [address], [place] [address] May, [facility] [address] [id number] [address] [place] [address], [place] [address] December, [facility] [address] [id number] [address] [place] [address], [place] [address] December, [facility] [address] [id number] [address] [place] [address], [place] [address] Jun, [facility] [address] [id number] [address] [place] [address] Jun, [facility] [address] [id number] [address] [place] [address], [place] [address] Jan, [facility] [address] [id number] [address] [place] [address], [place] [address] December, [facility] [address] [id number] [address] [place] [address], [place] [address] Sep, [facility] [address] [id number] [address] [place] [address], [place] [address] Jul, [facility] [address] [id number] [address] [place] [address], [place] [address] Jul, [facility] [address] [id number] [address] [place] [address], [place] [address] Jul, [facility] [address] [id number] [address] [place] [address], [place] [address] Jul, [facility] [address] [id number] [address] [place] [address], [place] [address] May, [facility] [address] [id number] [address] [place] [address], [place] [address] May, [facility] [address] [id number] [address] [place] [address], [place] [address] May, [facility] [address] [id number] [address] [place] [address], [place] [address] May, [facility] [address] [id number] [address] [place] [address], [place] [address] May, [facility] [address] [id number] [address] [place] [address], [place] [address] May, [facility] [address] [id number] [address] [place] [address], [place] [address] May, [facility] [address] [id number] [address] [place] [address], [place] [address] May, [facility] [address] [id number] [address] [place] [address], [place] [address] Apr, [facility] [address] [id number] [address] [place] [address], [place] [address] Mar, [facility] [address] [id number] [address] [place] [address], [place] [address] Mar, [facility] [address] [id number] [address] [place] [address], [place] [address] Mar, [facility] [address] [id number] [address] [place] [address], [place] [address] Feb, [facility] [address] [id number] [address] [place] [address], [place] [address] 24 Feb, 2012 [facility] [address] [id number] [address] [place] [address], [place] [address] 16 Feb, 2012 [facility] [address] [id number] [address] [place] [address], [place] [address] 14 Feb, 2012 [facility] [address] [id number] [address] [place] [address], [place] [address] Feb, [facility] [address] [id number] [facility] [place] [address] Feb, [facility] [address] [id number] [address] [place] [address], [place] [address] Feb, [facility] [address] [id number] [address] [place] [address], [place] [address] Jan, [facility] [address] [id number] [address] [place] [address], [place] [address] Jan, [facility] [address] [id number] [address] [place] [address], [place] [address] December, [facility] [address] [id number] [address] [place] [address], [place] [address] Nov, [facility] [address] [id number] [address] [place] [address], [place] [address] Oct, [facility] [address] [id number] [address] [place] [address], [place] [address] Oct, [facility] [address] [id number] [address] [place] [address], [place] [address] Oct, [facility] [address] [id number] [address] [place] [address], [place] [address] Oct, [facility] [address] [id number] [address] [place] [address], [place] [address] Oct, [facility] [address] [id number] [address] [place] [address], [place] [address] Jun, [facility] [address] [id number] [address] [place] [address], [place] [address] Jun, [facility] [address] [id number] [address] [place] [address], [place] [address] Jun, [facility] [address] [id number] [address] [place] [address], [place] [address] Jun, [facility] [address] [id number] [address] [place] [address] 16 Dec, 2010 [facility] [address] [facility] [id number] [address] [place] [address] Jun, [facility] [address] [facility] [id number] [address] [place] [address] Jun, [facility] [address] [facility] [id number] [address] [place] [address] Sep, [facility] [address] [facility] [id number] [address] [place] [address] Jun, IMMUNIZATIONS No Known Immunizations SOCIAL HISTORY Never Assessed REASON FOR VISIT PLAN OF CARE VITAL SIGNS Height 65 in 2014-06-20 Weight 222.7 lbs 2014-06-20 Temperature 97.9 degrees Fahrenheit 2014-06-20 Heart Rate 60 bpm 2014-06-20 Respiratory Rate 18 2014-06-20 Blood pressure systolic 138 mmHg 2014-06-20 Blood pressure diastolic 66 mmHg 2014-06-20 MEDICATIONS Unknown Medications RESULTS No Results PROCEDURES No Known procedures INSTRUCTIONS MEDICATIONS ADMINISTERED No Known Medications MEDICAL (GENERAL) HISTORY Type Description Date Medical History hypertension Medical History A-Fib Medical History Restless leg syndrome Medical History diabetic type two Medical History DC 11/2016. Heart cath Medical mgmt Medical History Coronary artery disease of n ative artery of [place] heart with stable angina pectoris Medical History Cervicalgia Medical History Radiculopathy affecting upper extremity Medical History Paroxysmal atrial fibrillation Medical History Coronary artery disease of n ative artery of [place] heart with stable angina pectoris Surgical History [...]
--- OUTSIDE RECORDS SUMMARY | 2020-01-09 19:31 | XMS REPORT ---
Author Author Anisha Gibson Doctor Organization [facility] Address Unknown Phone Unavailable Care Team Providers Care Business Improvement Manager Name Role Phone Migration, Doctor Unavailable Unavailable PROBLEMS Type Condition ICD9-CM Code XIE50-TU Code Onset Dates Condition S tatus SNOMED Code Problem Type 2 diabetes mellitus without complications E11 .9 Active 340586871 Problem Tension headache G44.209 Active 398 378853 Problem Type 2 diabetes mellitus with hyperglycemia E11.65 Active 20448031 Problem Current use of anticoagulant therapy Z79.01 Active 893549007 Problem 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 Active 25 264873 Problem Type 2 diabetes mellitus with diabetic chronic kidney disease E11.22 Active 88166829 Problem Chronic kidney disease, stage III (moderate) N18.3 Active 725472353 Problem FPC current use of insulin Z79.4 Active 246955872 Problem Osteopenia after menopause M81.0 Act mc 258589118 Problem Long-term insulin use Z79.4 Active 692393877 Problem Carpal tunnel syndrome, left upper limb G56.02 Active [id number] Problem Poor vision H54.7 Active 20107497 3 Problem Type 2 diabetes mellitus with hypoglycemia without coma E11.649 Active 41274744 Problem FPC (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 Z79.4 Active 196916858 Problem Irritable bowel syndrome with diarrhea K58.0 Active 830906516 Problem Post menopausal syndrome N95.1 Activ e [id number] ALLERGIES No Information ENCOUNTERS Encounter Location Date Diagnosis [facility] [address] [facility] [id number] [address] [place] [address] Oct, [facility] [address] [facility] [id number] [address] [place] [address] Oct, Type 2 diabetes mellitus wit h diabetic chronic kidney disease E11.22 [facility] [address] [facility] [id number] [address] [place] [address] Sep, Dizziness R42 [place] [address] [facility] [id number] [address] [place] [address] Aug, Carpal tunnel syndrome, left upper limb G56.02 [facility] [address] [facility] [id number] [address] [place] [address] Jul, Left arm weakness R29.898 [facility] [address] [facility] [id number] [address] [place] [address] Jul, [facility] [address] [facility] [id number] [address] [place] [address] Jul, [facility] [address] [facility] [id number] [address] [place] [address] Jul, [facility] [address] [facility] [id number] [address] [place] [address] Jul, Osteopenia after menopause M 81.0 and Type 2 diabetes mellitus with hyperglycemia E11.65 [place] [address] [facility] [id number] [address] [place] [address] Jun, [facility] [address] [facility] [id number] [address] [place] [address] Jun, [facility] [address] [facility] [id number] [address] [place] [address] Jun, Encounter for Medicare annua l wellness exam Z00.00 ; Chronic kidney disease, stage III (moderate) N18.3 ; Type 2 diabetes mellitus with diabetic chronic kidney disease E11.22 ; Current use of anticoagulant therapy Z79.01 ; Irritable bowel syndrome with diarrhea K58.0 ; FPC (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 Z79.4 ; Post menopausal syndrome N95.1 ; Breast cancer screening by mammogram Z12.31 ; Screening mammogram, encounter for Z12.31 ; Encounter for immunization Z23 and Asymptomatic menopausal state Z78.0 [facility] [address] [facility] [id number] [address] [place] [address] Jun, Type 2 diabetes mellitus wit h hypoglycemia without coma E11.649 ; 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 ; Irritable bowel syndrome with diarrhea K58.0 ; Pain of left shoulder joint on movement M25.512 and Family history of colon cancer Z80.0 [facility] [address] [facility] [id number] [address] [place] [address] May, Type 2 diabetes mellitus wit h diabetic chronic kidney disease E11.22 ; Hyperglycemia R73.9 and Muscle cramps R25.2 [facility] [address] [facility] [id number] [address] [place] [address] Feb, [facility] [address] [id number] [address] [place] [address] Jan, [facility] [address] [facility] [id number] [address] [place] [address] December, Type 2 diabetes mellitus wit hout complications E11.9 [place] [address] [facility] [id number] [address] [place] [address] December, [facility] [address] [facility] [id number] [address] [place] [address] Nov, Bronchitis J40 [facility] [address] [facility] [id number] [address] [place] [address] Nov, [facility] [address] [facility] [id number] [address] [place] [address] Nov, [facility] [address] [facility] [id number] [address] [place] [address] Nov, Type 2 diabetes mellitus wit h hyperglycemia E11.65 [facility] [address] [facility] [id number] [address] [place] [address] Oct, Type 2 diabetes mellitus wit h hyperglycemia E11.65 [facility] [address] [facility] [id number] [address] [place] [address] Oct, [facility] [address] [facility] [id number] [address] [place] [address] Sep, Acute vaginitis N76.0 and Ye ast infection of the vagina B37.3 [facility] [address] [facility] [id number] [address] [place] [address] Sep, Vulvar lesion N90.89 [facility] [address] [place] [id number] [address] [place] [address] Aug, [facility] [address] [place] [id number] [address] [place] [address] Aug, [facility] [address] [place] [id number] [address] [place] [address] Jul, [facility] [address] [place] [id number] [address] [place] [address] Jul, Dizziness R42 ; Type 2 diabe delvin mellitus with diabetic chronic kidney disease E11.22 ; Chronic kidney disease, stage III (moderate) N18.3 and 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 92 and Acute upper respiratory infection J06.9 [place] [address] [place] [id number] [address] [place] [address] Jun, Type 2 diabetes mellitus wit h hyperglycemia E11.65 [facility] [address] [place] [id number] [address] [place] [address] Apr, Poor vision H54.7 ; Type 2 d iabetes mellitus with hyperglycemia E11.65 ; Long-term insulin use Z79.4 and Encounter for immunization Z23 [facility] [address] [place] [id number] [address] [place] [address] Apr, [facility] [address] [place] [id number] [address] [place] [address] Mar, [facility] [address] [address] Mar, 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 [place] [address] [address] Jan, Vulvar lesion N90.89 and Acu te vaginitis N76.0 [place] [address] [address] December, Labial cyst N90.7 [place] [address] [address] December, [place] [address] [address] Oct, [place] [address] [address] Oct, Sprain of left hip, initial encounter S73.102A and Tension headache G44.209 [place] [address] [address] Sep, Dental examination Z01.20 [place] [address] [address] Sep, [place] [address] [address] Sep, [place] [address] [address] Sep, Type 2 diabetes mellitus wit h hyperglycemia E11.65 [place] [address] [address] 14 Sep, 2017 Type 2 diabetes mellitus wit h hyperglycemia E11.65 ; FPC current use of insulin Z79.4 and Hyperglycemia R73.9 [place] [address] [place] [id number] [address] [place] [address] Aug, [place] [address] [address] Aug, Weakness R53.1 ; Muscle cram ps R25.2 and Type 2 diabetes mellitus without complications E11.9 [place] [address] [facility] [id number] [address] [place] [address] Aug, Weakness R53.1 ; Muscle cram ps R25.2 and Type 2 diabetes mellitus without complications E11.9 [place] [address] [facility] [id number] [address] [place] [address] Jul, [place] [address] [facility] [id number] [address] [place] [address] Mar, Type 2 diabetes mellitus wit hout complications E11.9 [place] [address] [facility] [id number] [address] [place] [address] Mar, Type 2 diabetes mellitus wit hout complications E11.9 [place] [address] [place] [id number] [address] [place] [address] December, [place] [address] [place] [id number] [address] [place] [address] Oct, Type 2 diabetes mellitus wit hout complications E11.9 and Brown recluse spider bite, accidental or unintentional, initial encounter T63.331A [place] [address] [place] [id number] [address] [place] [address] 05 Jul, 2016 Diabetes E11.9 [place] [address] [facility] [id number] [address] [place] [address] 15 Jan, 2016 Dental caries K02.9 [place] [address] [facility] [id number] [address] [place] [address] Jan, [place] [address] [place] [id number] [address] [place] [address] 07 Jan, 2016 Type 2 diabetes mellitus wit hout complications E11.9 and Paroxysmal atrial fibrillation I48.0 [place] [address] [place] [id number] [address] [place] [address] Jan, Dental examination Z01.20 [place] [address] [address] 17 Dec, 2015 Cervicalgia M54.2 ; Radiculo stella affecting upper extremity M54.10 and Abscessed tooth K04.7 [place] [address] [place] [id number] [place] [address] 03 Dec, 2015 Shoulder pain, left M25.512 and Tooth pain K08.8 [place] [address] [address] 15 Oct, 2015 Gastroenteritis K52.9 ; Vert igo R42 and Diabetes E11.9 [place] [address] [address] 08 Sep, 2015 Type 2 diabetes mellitus wit hout complications E11.9 ; Cough R05 ; Pain in left knee M25.562 and Other chronic pain G89.29 [place] [address] [address] Aug, Shortness of breath R06.02 ; Type 2 diabetes mellitus without complications E11.9 and Encounter for immunization Z23 [place] [address] [address] Jul, [place] [address] [address] May, [place] [address] [address] May, [place] [address] [address] Apr, [place] [address] [address] Feb, [place] [address] [address] Jan, Knee pain, left 719.46 [place] [address] [address] December, [facility] [address] [id number] [address] [place] [address], [place] [address] Nov, [facility] [address] [id number] [address] [place] [address], [place] [address] Nov, [facility] [address] [id number] [address] [place] [address], [place] [address] Aug, [facility] [address] [id number] [address] [place] [address], [place] [address] Aug, [facility] [address] [id number] [address] [place] [address], [place] [address] Jul, [facility] [address] [id number] [address] [place] [address], [place] [address] Jul, [facility] [address] [id number] [address] [place] [address], [place] [address] Jul, [facility] [address] [id number] [address] [place] [address], [place] [address] Jul, [facility] [address] [id number] [address] [place] [address], [place] [address] Jun, [facility] [address] [id number] [address] [place] [address] Jun, [facility] [address] [id number] [address] [place] [address] Jun, [facility] [address] [id number] [address] [place] [address] Jun, [facility] [address] [id number] [address] [place] [address], [place] [address] May, [facility] [address] [id number] [address] [place] [address], [place] [address] May, [facility] [address] [id number] [address] [place] [address] 16 May, 2014 [facility] [address] [id number] [address] [place] [address] May, [facility] [address] [id number] [address] [place] [address], [place] [address] May, [facility] [address] [id number] [address] [place] [address], [place] [address] May, [facility] [address] [id number] [address] [place] [address], [place] [address] December, [facility] [address] [id number] [address] [place] [address], [place] [address] December, [facility] [address] [id number] [address] [place] [address], [place] [address] Jun, [facility] [address] [id number] [address] [place] [address], [place] [address] Jun, [facility] [address] [id number] [address] [place] [address], [place] [address] Jan, [facility] [address] [id number] [address] [place] [address], [place] [address] December, [facility] [address] [id number] [address] [place] [address], [place] [address] Sep, [facility] [address] [id number] [address] [place] [address], [place] [address] Jul, [facility] [address] [id number] [address] [place] [address], [place] [address] Jul, [facility] [address] [id number] [address] [place] [address], [place] [address] Jul, [facility] [address] [id number] [address] [place] [address], [place] [address] Jul, [facility] [address] [id number] [address] [place] [address], [place] [address] May, [facility] [address] [id number] [address] [place] [address], [place] [address] May, [facility] [address] [id number] [address] [place] [address], [place] [address] May, [facility] [address] [id number] [address] [place] [address], [place] [address] May, [facility] [address] [id number] [address] [place] [address], [place] [address] May, [facility] [address] [id number] [address] [place] [address], [place] [address] May, [facility] [address] [id number] [address] [place] [address], [place] [address] May, [facility] [address] [id number] [address] [place] [address], [place] [address] May, [facility] [address] [id number] [address] [place] [address], [place] [address] Apr, [facility] [address] [id number] [address] [place] [address], [place] [address] Mar, [facility] [address] [id number] [address] [place] [address], [place] [address] Mar, [facility] [address] [id number] [address] [place] [address], [place] [address] Mar, [facility] [address] [id number] [address] [place] [address], [place] [address] Feb, [facility] [address] [id number] [address] [place] [address], [place] [address] 24 Feb, 2012 [facility] [address] [id number] [address] [place] [address], [place] [address] 16 Feb, 2012 [facility] [address] [id number] [address] [place] [address], [place] [address] 14 Feb, 2012 [facility] [address] [id number] [address] [place] [address], [place] [address] 03 Feb, 2012 [facility] [address] [id number] [address] [place] [address], [place] [address] Feb, [facility] [address] [id number] [address] [place] [address], [place] [address] Feb, [facility] [address] [id number] [address] [place] [address], [place] [address] Jan, [facility] [address] [id number] [address] [place] [address], [place] [address] Jan, [facility] [address] [id number] [address] [place] [address], [place] [address] December, [facility] [address] [id number] [address] [place] [address], [place] [address] Nov, [facility] [address] [id number] [address] [place] [address], [place] [address] Oct, [facility] [address] [id number] [address] [place] [address], [place] [address] Oct, [facility] [address] [id number] [address] [place] [address], [place] [address] Oct, [facility] [address] [id number] [address] [place] [address], [place] [address] Oct, [facility] [address] [id number] [address] [place] [address], [place] [address] Oct, [facility] [address] [id number] [address] [place] [address], [place] [address] Jun, [facility] [address] [id number] [address] [place] [address], [place] [address] Jun, [facility] [address] [id number] [address] [place] [address], [place] [address] Jun, [facility] [address] [id number] [address] [place] [address], [place] [address] Jun, [facility] [address] [id number] [address] [place] [address], [place] [address] December, [facility] [address] [id number] [address] [place] [address] Jun, [facility] [address] [facility] [id number] [address] [place] [address] Jun, [facility] [address] [facility] [id number] [address] [place] [address] Sep, [facility] [address] [facility] [id number] [address] [place] [address] Jun, IMMUNIZATIONS No Known Immunizations SOCIAL HISTORY Never Assessed REASON FOR VISIT PLAN OF CARE VITAL SIGNS MEDICATIONS Unknown Medications RESULTS No Results PROCEDURES No Known procedures INSTRUCTIONS MEDICATIONS ADMINISTERED No Known Medications MEDICAL (GENERAL) HISTORY Type Description Date Medical History hypertension Medical History A-Fib Medical History Restless leg syndrome Medical History diabetic type two Medical History AR 11/2016. Heart cath Medical mgmt Medical History Coronary artery disease of n ative artery of [place] heart with stable angina pectoris Medical History Cervicalgia Medical History Radiculopathy affecting upper extremity Medical History Paroxysmal atrial fibrillation Medical History Coronary artery disease of n ative artery of [place] heart with stable angina pectoris Surgical History [...]
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
--- OUTSIDE RECORDS SUMMARY | 2020-01-09 19:35 | XMS REPORT | Continuity of Care Document ---
Author Organization Unknown Address Unknown Phone Unavailable Allergies Active Description Code Type Severity Reaction Onset Reported/Identified Relationship to Patient Clinical Status Yes pseudoephedrine [id number] D rug Allergy Unknown N/A 05/27/2007 Yes Sulfa (Sulfonamide Antibiotics) [id number] Drug Allergy Unknown N/A 007 Yes triprolidine [id number] Drug Allergy Unknown N/A 05/27/2007 Medications There is no data. Problems Date Dx Coded Attending Type Code Diagnosis Diagnosed By 05/27/2011 Ot 250.00 DARIUSZ B LESLIE WO COMPL, TYPE II OR UNSPEC TY 05/27/2011 Ot 401.9 HYPE RTENSION NOS 05/27/2011 Ot 552.20 OBS TR VENTRAL HERNIA NOS 05/27/2011 Ot 574.10 CHO LELITH W CHOLECYS NEC 05/27/2011 Ot V16.0 FAMI LY HX-GI MALIGNANCY 05/27/2011 Ot V58.69 OTH MED,LT,CURRENT USE 05/27/2011 Ot V76.51 SCR EEN MAL NEOP- COLON 07/10/2011 Ot 850.0 CONC USSION W/O COMA 07/10/2011 Ot 920 CONTUS ION FACE/SCALP/NCK 07/10/2011 Ot 959.01 HEA D INJURY, NOS 07/10/2011 Ot E000.8 OTH ER EXTERNAL CAUSE STATUS 07/10/2011 Ot E849.[address]RE[address]/HIGHWAY 07/10/2011 Ot E884.9 FAL L-1 LEVEL TO OTH NEC 12/14/2013 ANDREA RIVERA MD Ot 027 .2 PASTEURELLOSIS 12/14/2013 ANDREA RIVERA MD Ot 250.00 DIAB LESLIE WO COMPL, TYPE II OR UNSPEC TY 12/14/2013 ANDREA RIVERA MD Ot 272 .4 HYPERLIPIDEMIA NEC/NOS 12/14/2013 ANDREA RIVERA MD Ot 278.00 OBESITY, NOS 12/14/2013 ANDREA RIVERA MD Ot 401 .9 HYPERTENSION NOS 12/14/2013 ANDREA RIVERA MD Ot 414.01 CORONARY ATHEROSCLEROSIS OF [place] CORON 12/14/2013 ANDREA RIVERA MD Ot 681.00 CELLULITIS, FINGER NOS 12/14/2013 ANDREA RIVERA MD Ot 716.90 ARTHROPATHY NOS-UNSPEC 12/14/2013 ANDREA RIVERA MD Ot 883 .0 OPEN WOUND OF FINGER 12/14/2013 ANDREA RIVERA [...] FACP CCDS Ot 414.01 CORONARY ATHEROSCLEROSIS OF [place] CORON 07/18/2014 MARIAELENA POLANCO FACC, ALI FACP [...] FACP CCDS Ot 780.4 07/18/2014 MARIAELENA POLANCO FACC, ALI FACP CCDS Ot 784.0 07/18/2014 MARIAELENA POLANCO FACC, ALI FACP CCDS Ot 786.50 07/18/2014 MARIAELENA POLANCO FACC, ALI FACP CCDS Ot V04.81 07/18/2014 MARIAELENA RAMOSC, ALI FACP CCDS Ot V45.82 07/18/2014 MARIAELENA POLANCO FACC, ALI FACP CCDS Ot V58.67 07/24/2014 MARIAELENA POLANCO FACC, ALI FACP CCDS Ot 250.00 DIAB LESLIE WO COMPL, TYPE II OR UNSPEC TY 07/24/2014 MARIAELENA POLANCO FACC, ALI FACP CCDS Ot 272.4 HYPERLIPIDEMIA NEC/NOS 07/24/2014 MARIAELENA POLANCO FACC, ALI FACP CCDS Ot 278.00 OBESITY, NOS 07/24/2014 MARIAELENA POLANCO FACC, ALI FACP CCDS Ot 401.9 HYPERTENSION NOS 07/24/2014 MARIAELENA POLANCO FACC, ALI FACP CCDS Ot 414.01 CORONARY ATHEROSCLEROSIS OF [place] CORON 07/24/2014 MARIAELENA POLANCO FACC, ALI FACP [...] DANIELSON DO Ot 789.01 07/28/2014 NO KIRK 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 Ot 998.12 HEMATOMA COMPLIC A PROC 08/06/2014 SULEMAN YAP SENIOR SUPPORT ENGINEER Ot 272.4 08/06/2014 SULEMAN YAP SENIOR SUPPORT ENGINEER Ot 414.00 08/19/2014 JOSH DANIELSON DO Ot 789.01 08/19/2014 MARIAELENA POLANCO FAC, ALI FACP CCDS Ot 250.00 08/19/2014 MARIAELENA [...] Ot V58.69 06/11/2015 ANDREA RIVERA MD Ot E11 .9 TYPE 2 DIABETES MELLITUS WITHOUT COMPLIC 06/11/2015 ANDREA RIVERA MD Ot E66 .9 OBESITY, UNSPECIFIED 06/11/2015 ANDREA RIVERA MD, Ot E78 .5 HYPERLIPIDEMIA, UNSPECIFIED 06/11/2015 ANDREA RIVERA MD Ot I10 ESSENTIAL (PRIMARY) HYPERTENSION 06/11/2015 ANDREA RIVERA MD, Ot I25.10 ATHSCL HEART DISEASE OF [place] CORONARY 06/11/2015 ANDREA RIVERA MD, Ot I48 .0 PAROXYSMAL ATRIAL FIBRILLATION 06/11/2015 ANDREA RIVERA MD, Ot N39 .0 URINARY TRACT INFECTION, SITE NOT SPECIF 06/11/2015 ANDREA RIVERA MD, Ot Z68.35 BODY MASS INDEX (BMI) 35.0-35.9, ADULT 06/11/2015 ANDREA RIVERA MD, Ot Z79 .4 [facility] (CURRENT) USE OF INSULIN 06/11/2015 ANDREA RIVERA [...] CCDS Ot I25.118 ATHSCL HEART DISEASE OF [place] COR ART W 10/06/2016 MARIAELENA POLANCO FACC, ALI FACP CCDS Ot I25.84 CORONARY ATHEROSCLEROSIS DUE TO [place] 10/06/2016 MARIAELENA POLANCO FACC, ALI FACP CCDS Ot Z68.34 BODY MASS INDEX (BMI) 34.0-34.9, ADULT 10/06/2016 MARIAELENA POLANCO FACC, ALI FACP CCDS Ot Z79.899 OTHER MED ASST (CURRENT) DRUG THERAPY 10/06/2016 MARIAELENA POLANCO FACC, ALI FACP CCDS Ot Z91.19 PATIENT'S NONCOMPLIANCE W [facility] TR 10/06/2016 MARIAELENA POLANCO FACC, ALI [...] CCDS Ot I25.118 ATHSCL HEART DISEASE OF [place] COR ART W 10/11/2016 MARIAELENA POLANCO FACC, ALI FACP CCDS Ot I25.84 CORONARY ATHEROSCLEROSIS DUE TO [place] 10/11/2016 MARIAELENA POLANCO FACC, ALI FACP CCDS Ot Z68.34 BODY MASS INDEX (BMI) 34.0-34.9, ADULT 10/11/2016 MARIAELENA POLANCO FACC, ALI FACP CCDS Ot Z79.899 OTHER MED ASST (CURRENT) DRUG THERAPY 10/11/2016 MARIAELENA POLANCO FACC, ALI FACP CCDS Ot Z91.19 PATIENT'S NONCOMPLIANCE W [facility] TR 10/11/2016 MARIAELENA POLANCO FACC, REX FACP CCDS Ot Z95.5 PRESENCE OF CORONARY ANGIOPLASTY IMPLANT 10/19/2016 NO KIRK APRN Ot E11 .9 TYPE 2 DIABETES MELLITUS WITHOUT COMPLIC 10/19/2016 NO KIRK APRN Ot I97.630 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 10/19/2016 NO KIRK APRN Ot Z79.02 MED ASST (CURRENT) USE OF ANTITHROMBOTI 10/19/2016 NO KIRK APRN Ot Z79.82 MED ASST (CURRENT) USE OF ASPIRIN 10/19/2016 NO KIRK APRN Ot Z79.84 [facility] (CURRENT) USE OF ORAL HYPOGLYC 10/19/2016 NO KIRK APRN Ot Z79.899 OTHER MED ASST (CURRENT) DRUG THERAPY 10/19/2016 NO KIRK APRN Ot Z95 .5 PRESENCE OF CORONARY ANGIOPLASTY IMPLANT 10/19/2016 JOSH DANIELSON DO Ot 789.01 ABDOMINAL PAIN, RIGHT UPPER QUADRANT 10/19/2016 Ot 575.8 DIS OF GALLBLADDER NEC 10/19/2016 Ot V16.0 FAMI LY HX-GI MALIGNANCY 10/19/2016 Ot V72.63 PRE -PROCEDURAL LABORATORY EXAMINATION 10/19/2016 Ot V74.8 SCRE EN-BACTERIAL DIS NEC 10/19/2016 JOSH DANIELSON DO Ot [...] OT MED,LT,CURRENT USE 10/19/2016 BAIMA, SULEMAN L SENIOR SUPPORT ENGINEER Ot 272.4 HYPERLIPIDEMIA NEC/NOS 10/19/2016 BAIMA, SULEMAN L SENIOR SUPPORT ENGINEER Ot 414.00 CORON ATHEROSCLER NOS TYPE VESSEL, NATIV 10/19/2016 JOSH DANIELSON DO Ot 789.01 ABDOMINAL PAIN, RIGHT UPPER QUADRANT 10/19/2016 Ot 575.8 DIS OF GALLBLADDER NEC 10/19/2016 Ot V16.0 FAMI LY HX-GI MALIGNANCY 10/19/2016 Ot V72.63 PRE -PROCEDURAL LABORATORY EXAMINATION 10/19/2016 Ot V74.8 SCRE EN-BACTERIAL DIS NEC 10/19/2016 JOSH DANIELSON DO Ot [...] OT MED,LT,CURRENT USE 10/19/2016 BAIMA, SULEMAN L SENIOR SUPPORT ENGINEER Ot 272.4 HYPERLIPIDEMIA NEC/NOS 10/19/2016 BAIMA, SULEMAN L SENIOR SUPPORT ENGINEER Ot 414.00 CORON ATHEROSCLER NOS TYPE VESSEL, NATIV 10/19/2016 JOSH DANIELSON DO Ot 789.01 ABDOMINAL PAIN, RIGHT UPPER QUADRANT 10/19/2016 Ot 575.8 DIS OF GALLBLADDER NEC 10/19/2016 Ot V16.0 FAMI LY HX-GI MALIGNANCY 10/19/2016 Ot V72.63 PRE -PROCEDURAL LABORATORY EXAMINATION 10/19/2016 Ot V74.8 SCRE EN-BACTERIAL DIS NEC 10/19/2016 JOSH DANIELSON DO Ot [...] CCDS Ot V58.69 OT MED,LT,CURRENT USE 10/19/2016 BAISULEMAN WONG SENIOR SUPPORT ENGINEER Ot 272.4 HYPERLIPIDEMIA NEC/NOS 10/19/2016 SULEMAN YAP SENIOR SUPPORT ENGINEER Ot 414.00 CORON ATHEROSCLER NOS TYPE VESSEL, NATIV 10/21/2016 NO KIRK APRN Ot E11 .9 TYPE 2 DIABETES MELLITUS WITHOUT COMPLIC 10/21/2016 NO KIRK APRN Ot I97.630 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 10/21/2016 NO KIRK 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 Ot Z79.02 MED ASST (CURRENT) USE OF ANTITHROMBOTI 10/21/2016 NO KIRK APRN Ot Z79.82 MED ASST (CURRENT) USE OF ASPIRIN 10/21/2016 NO KIRK APRN Ot Z79.84 MED ASST (CURRENT) USE OF ORAL HYPOGLYC 10/21/2016 NO KIRK APRN Ot Z79.899 OTHER MED ASST (CURRENT) DRUG THERAPY 10/21/2016 NO KIRK APRN Ot Z95 .5 PRESENCE OF CORONARY ANGIOPLASTY IMPLANT 11/19/2016 REX FERRELL MD, FACC FACP CCDS Ot I25.10 ATHSCL HEART DISEASE OF [place] CORONARY 11/19/2016 REX FERRELL MD, FACC FACP CCDS Ot I25.10 ATHSCL HEART DISEASE OF [place] CORONARY 11/19/2016 REX FERRELL MD, FACC FACP CCDS Ot E13.9 OTHER SPECIFIED DIABETES MELLITUS WITHOU 11/19/2016 MARIAELENA POLANCO [facility], ALI RACHELP CCDS Ot E78.4 OTHER HYPERLIPIDEMIA 11/19/2016 MARIAELENA POLANCO [facility], ALI [place]HELP CCDS Ot I10 ESSENTIAL (PRIMARY) HYPERTENSION 11/19/2016 MARIAELENA POLANCO FAC, ALI FACP CCDS Ot I25.10 ATHSCL HEART DISEASE OF [place] CORONARY 11/19/2016 MARIAELENA POLANCO [facility], ALI [place] CCDS Ot R11.0 NAUSEA 11/19/2016 MARIAELENA POLANCO [facility], REX RAMOSP CCDS Ot R20.8 OTHER DISTURBANCES OF SKIN SENSATION 12/04/2016 GOMEZ REBOLLEDO MD Ot B02. 9 ZOSTER WITHOUT COMPLICATIONS 12/04/2016 GOMEZ REBOLLEDO MD Ot E11. 9 TYPE 2 DIABETES MELLITUS WITHOUT COMPLIC 12/04/2016 GOMEZ REBOLLEDO MD, Ot E66. 9 OBESITY, UNSPECIFIED 12/04/2016 GOMEZ REBOLLEDO MD Ot E78. 5 HYPERLIPIDEMIA, UNSPECIFIED 12/04/2016 GOMEZ REBOLLEDO MD Ot I10 ESSENTIAL (PRIMARY) HYPERTENSION 12/04/2016 GOMEZ REBOLLEDO MD, Ot I21. 19 STEMI INVOLVING OTH CORONARY ARTERY OF I 12/04/2016 GOMEZ REBOLLEDO MD, Ot I25. 10 ATHSCL HEART DISEASE OF [place] CORONARY 12/04/2016 GOMEZ REBOLLEDO MD, Ot I48. 0 PAROXYSMAL ATRIAL FIBRILLATION 12/04/2016 GOMEZ REBOLLEDO MD, Ot K21. 9 GASTRO-ESOPHAGEAL REFLUX DISEASE WITHOUT 12/04/2016 GOMEZ REBOLLEDO MD, Ot T82.867A THROMBOSIS DUE TO CARDIAC PROSTH DEV/GRF 12/04/2016 GOMEZ REBOLLEDO MD, Ot Z68. 37 BODY MASS INDEX (BMI) 37.0-37.9, ADULT 12/04/2016 GOMEZ REBOLLEDO MD, Ot Z79. 4 MED ASST (CURRENT) USE OF INSULIN 12/04/2016 GOMEZ REBOLLEDO MD, Ot Z91. 14 PATIENT'S OTHER NONCOMPLIANCE WITH MEDIC 12/04/2016 GOMEZ REBOLLEDO MD, Ot Z95. 5 PRESENCE OF CORONARY ANGIOPLASTY IMPLANT 12/09/2016 SULEMAN YAP Ot I97.610 POSTPROC HEMOR OF A CIRC SYS ORG FOLLOWI 12/09/2016 SULEMAN YAP Ot I97.610 POSTPROC HEMOR OF A CIRC SYS ORG FOLLOWI 12/10/2016 MARIAELENA POLANCO FACC, REX PERALES CCDS Ot E13.9 OTHER SPECIFIED DIABETES MELLITUS WITHOU 12/10/2016 REX FERRELL MD, FACCP CCDS Ot E78.4 OTHER HYPERLIPIDEMIA 12/10/2016 MARIAELENA POLANCO FACC, REX RAMOSP CCDS Ot I10 ESSENTIAL (PRIMARY) HYPERTENSION 12/10/2016 MARIAELENA POLANCO FACC, REX RAMOSP CCDS Ot I25.10 ATHSCL HEART DISEASE OF [place] CORONARY 12/10/2016 MARIAELENA POLANCO FACC, REX RAMOSP CCDS Ot R11.0 NAUSEA 12/10/2016 REX FERRELL MD, FACC, FACP CCDS Ot R20.8 OTHER DISTURBANCES OF SKIN SENSATION 01/04/2017 MANUELA MUNOZ MD Ot E11. 9 TYPE 2 DIABETES MELLITUS WITHOUT COMPLIC 01/04/2017 MANUELA MUNOZ MD, Ot E78. 5 HYPERLIPIDEMIA, UNSPECIFIED 01/04/2017 MANUELA MUNOZ MD, Ot I10 ESSENTIAL (PRIMARY) HYPERTENSION 01/04/2017 MANUELA MUNOZ MD, Ot I25. 10 ATHSCL HEART DISEASE OF [place] CORONARY 01/04/2017 MANUELA MUNOZ MD, Ot I25. 2 OLD MYOCARDIAL INFARCTION 01/04/2017 MANUELA MUNOZ MD, Ot I48. 0 PAROXYSMAL ATRIAL FIBRILLATION 01/04/2017 MANUELA MUNOZ MD, Ot I49. 3 VENTRICULAR PREMATURE DEPOLARIZATION 01/04/2017 MANUELA MUNOZ MD, Ot K21. 9 GASTRO-ESOPHAGEAL REFLUX DISEASE WITHOUT 01/04/2017 MANUELA MUNOZ MD Ot R07. 89 OTHER CHEST PAIN 01/04/2017 MANUELA MUNOZ MD, Ot Z79. 4 MED ASST (CURRENT) USE OF INSULIN 01/04/2017 MANUELA MUNOZ MD, Ot Z91. 14 PATIENT'S OTHER NONCOMPLIANCE WITH MEDIC 01/04/2017 MANUELA MUNOZ MD, Ot Z95. 5 PRESENCE OF CORONARY ANGIOPLASTY IMPLANT 01/05/2017 OJSH DANIELSON DO Ot 789.01 ABDOMINAL PAIN, RIGHT [...] V58.67 LONG-TERM (CURRENT) USE OF INSULIN 01/05/2017 REX FERRELL MD, FACC FACP CCDS Ot V58.69 OTH MED,LT,CURRENT USE 01/05/2017 SULEMAN YAP SENIOR SUPPORT ENGINEER Ot 272.4 HYPERLIPIDEMIA NEC/NOS 01/05/2017 LANEY YAPHER Alonzo SENIOR SUPPORT ENGINEER Ot 414.00 CORON ATHEROSCLER NOS TYPE VESSEL, NATIV 01/05/2017 MARIAELENA POLANCO FACC, REX FACP CCDS Ot E13.9 OTHER SPECIFIED DIABETES MELLITUS WITHOU 01/05/2017 MARIAELENA POLANCO FACC, ALI FACP CCDS Ot E78.4 OTHER HYPERLIPIDEMIA 01/05/2017 MARIAELENA POLANCO FACC, ALI FACP CCDS Ot I10 ESSENTIAL (PRIMARY) HYPERTENSION 01/05/2017 MARIAELENA POLANCO FACC, ALI FACP CCDS Ot I25.10 ATHSCL HEART DISEASE OF [place] CORONARY 01/05/2017 REX FERRELL MD, FACC FACP CCDS Ot R11.0 NAUSEA 01/05/2017 REX FERRELL MD, FACC FACP CCDS Ot R20.8 OTHER DISTURBANCES OF SKIN SENSATION 01/05/2017 SULEMAN YAP SENIOR SUPPORT ENGINEER Ot I97.610 POSTPROC HEMOR OF A CIRC SYS ORG FOLLOWI 01/05/2017 SULEMAN YAP SENIOR SUPPORT ENGINEER Ot R10.30 LOWER ABDOMINAL PAIN, UNSPECIFIED 01/05/2017 MARIAELENA POLANCO FACC ALI FACP CCDS Ot I25.10 ATHSCL HEART DISEASE OF [place] CORONARY 01/05/2017 MARIAELENA POLANCO FACC, ALI FACP CCDS Ot Z95.5 PRESENCE OF CORONARY ANGIOPLASTY IMPLANT 01/05/2017 JAGJIT DO, CHANDROUTIE Ot 789.01 ABDOMINAL PAIN, RIGHT UPPER QUADRANT [...] V58.67 LONG-TERM (CURRENT) USE OF INSULIN 01/05/2017 REX FERRELL MD, FACC FACP CCDS Ot V58.69 OT MED,LT,CURRENT USE 01/05/2017 SULEMAN YAP SENIOR SUPPORT ENGINEER Ot 272.4 HYPERLIPIDEMIA NEC/NOS 01/05/2017 SULEMAN YAP SENIOR SUPPORT ENGINEER Ot 414.00 CORON ATHEROSCLER NOS TYPE VESSEL, NATIV 01/05/2017 MARIAELENA POLANCO FACC, REX FACP CCDS Ot E13.9 OTHER SPECIFIED DIABETES MELLITUS WITHOU 01/05/2017 MARIAELENA POLANCO FACC, ALI FACP CCDS Ot E78.4 OTHER HYPERLIPIDEMIA 01/05/2017 MARIAELENA POLANCO FACC, ALI FACP CCDS Ot I10 ESSENTIAL (PRIMARY) HYPERTENSION 01/05/2017 MARIAELENA POLANCO FACC, REX FACP CCDS Ot I25.10 ATHSCL HEART DISEASE OF [place] CORONARY 01/05/2017 REX FERRELL MD, FACC FACP CCDS Ot R11.0 NAUSEA 01/05/2017 MARIAELENA POLANCO FACC, ALI FACP CCDS Ot R20.8 OTHER DISTURBANCES OF SKIN SENSATION 01/05/2017 SULEMAN YAP SENIOR SUPPORT ENGINEER Ot I97.610 POSTPROC HEMOR OF A CIRC SYS ORG FOLLOWI 01/05/2017 SULEMAN YAP SENIOR SUPPORT ENGINEER Ot R10.30 LOWER ABDOMINAL PAIN, UNSPECIFIED 01/05/2017 MARIAELENA POLANCO FACC ALI FACP CCDS Ot I25.10 ATHSCL HEART DISEASE OF [place] CORONARY 01/05/2017 MARIAELENA POLANCO FACC, REX FACP CCDS Ot Z95.5 PRESENCE OF CORONARY ANGIOPLASTY IMPLANT 01/05/2017 SULEMAN YAP SENIOR SUPPORT ENGINEER Ot I97.610 POSTPROC HEMOR OF A CIRC SYS ORG FOLLOWI 01/05/2017 SULEMAN YAP SENIOR SUPPORT ENGINEER Ot R10.30 LOWER ABDOMINAL PAIN, UNSPECIFIED 01/18/2017 MARIAELENA POLANCO FACC, ALI FACP CCDS Ot I25.10 ATHSCL HEART DISEASE OF [place] CORONARY 01/18/2017 MARIAELENA POLANCO FACC, ALI FACP CCDS Ot Z95.5 PRESENCE OF CORONARY ANGIOPLASTY IMPLANT 02/09/2017 JOSH DANIELSON DO Ot 789.01 ABDOMINAL PAIN, RIGHT UPPER QUADRANT 02/09/2017 JOSH DANIELSON DO Ot 789.01 ABDOMINAL PAIN, RIGHT UPPER QUADRANT 02/09/2017 MARIAELENA POLANCO FACC, REX FACP CCDS Ot 250.00 DIAB LESLIE WO COMPL, TYPE II OR UNSPEC TY 02/09/2017 REX FERRELL MD, FACC FACP CCDS Ot 272.4 HYPERLIPIDEMIA NEC/NOS 02/09/2017 [...] V58.69 OT MED,LT,CURRENT USE 02/09/2017 SULEMAN YAP SENIOR SUPPORT ENGINEER Ot 272.4 HYPERLIPIDEMIA NEC/NOS 02/09/2017 SULEMAN YAP SENIOR SUPPORT ENGINEER Ot 414.00 CORON ATHEROSCLER NOS TYPE VESSEL, NATIV 02/09/2017 MARIAELENA POLANCO FACC, ALI FACP CCDS Ot E13.9 OTHER SPECIFIED DIABETES MELLITUS WITHOU 02/09/2017 MARIAELENA POLANCO FACC ALI FACP CCDS Ot E78.4 OTHER HYPERLIPIDEMIA 02/09/2017 MARIAELENA POLANCO FACC, REX FACP CCDS Ot I10 ESSENTIAL (PRIMARY) HYPERTENSION 02/09/2017 MARIAELENA POLANCO FACC, ALI FACP CCDS Ot I25.10 ATHSCL HEART DISEASE OF [place] CORONARY 02/09/2017 MARIAELENA POLANCO FACC, REX FACP CCDS Ot R11.0 NAUSEA 02/09/2017 MARIAELENA POLANCO FACC, REX FACP CCDS Ot R20.8 OTHER DISTURBANCES OF SKIN SENSATION 02/09/2017 SULEMAN YAP SENIOR SUPPORT ENGINEER Ot I97.610 POSTPROC HEMOR OF A CIRC SYS ORG FOLLOWI 02/09/2017 SULEMAN YAP SENIOR SUPPORT ENGINEER Ot R10.30 LOWER ABDOMINAL PAIN, UNSPECIFIED 02/09/2017 MARIAELENA POLANCO FACC, ALI FACP CCDS Ot I25.10 ATHSCL HEART DISEASE OF [place] CORONARY 02/09/2017 MARIAELENA POLANCO FACC, REX FACP CCDS Ot Z95.5 PRESENCE OF CORONARY ANGIOPLASTY IMPLANT 02/09/2017 MARIAELENA POLANCO FACC, REX FACP CCDS Ot I25.10 ATHSCL HEART DISEASE OF [place] CORONARY 02/09/2017 MARIAELENA POLANCO FACC, REX FACP CCDS Ot Z95.5 PRESENCE OF CORONARY ANGIOPLASTY IMPLANT 02/09/2017 SULEMAN YAP SENIOR SUPPORT ENGINEER Ot I97.610 POSTPROC HEMOR OF A CIRC SYS ORG FOLLOWI 02/09/2017 SULEMAN YAP SENIOR SUPPORT ENGINEER Ot R10.30 LOWER ABDOMINAL PAIN, UNSPECIFIED 02/23/2017 JOSH DANIELSON DO Ot 789.01 ABDOMINAL PAIN, RIGHT UPPER QUADRANT 02/23/2017 JOSH DANIELSON DO Ot 789.01 ABDOMINAL PAIN, RIGHT UPPER QUADRANT 02/23/2017 REX FERRELL MD, FACC FACP CCDS Ot 250.00 DIAB LESLIE WO COMPL, TYPE II OR UNSPEC TY 02/23/2017 MARIAELENA POLANCO FACC ALI FACP CCDS Ot 272.4 HYPERLIPIDEMIA NEC/NOS 02/23/2017 MARIAELENA POLANCO FACC, ALI FACP CCDS Ot 401.9 HYPERTENSION NOS 02/23/2017 REX FERRELL MD, FACC FACP CCDS Ot 414.00 CORON ATHEROSCLER NOS TYPE VESSEL, NATIV 02/23/2017 MARIAELENA POLANCO FACC ALI FACP CCDS Ot 785.1 PALPITATIONS 02/23/2017 REX FERRELL MD, FACC FACP CCDS Ot V58.67 LONG-TERM (CURRENT) USE OF INSULIN 02/23/2017 REX FERRELL MD, FACC FACP CCDS Ot V58.69 [facility] MED,LT,CURRENT USE 02/23/2017 FRACISCO SULEMAN Alonzo SENIOR SUPPORT ENGINEER Ot 272.4 HYPERLIPIDEMIA NEC/NOS 02/23/2017 SULEMAN YAP SENIOR SUPPORT ENGINEER Ot 414.00 CORON ATHEROSCLER NOS TYPE VESSEL, NATIV 02/23/2017 MARIAELENA POLANCO FACC, ALI FACP CCDS Ot E13.9 OTHER SPECIFIED DIABETES MELLITUS WITHOU 02/23/2017 MARIAELENA POLANCO FACC, ALI FACP CCDS Ot E78.4 OTHER HYPERLIPIDEMIA 02/23/2017 MARIAELENA POLANCO FACC, ALI FACP CCDS Ot I10 ESSENTIAL (PRIMARY) HYPERTENSION 02/23/2017 MARIAELENA POLANCO FACC, ALI FACP CCDS Ot I25.10 ATHSCL HEART DISEASE OF [place] CORONARY 02/23/2017 MARIAELENA POLANCO FACC, ALI FACP CCDS Ot R11.0 NAUSEA 02/23/2017 MARIAELENA POLANCO FACC, ALI FACP CCDS Ot R20.8 OTHER DISTURBANCES OF SKIN SENSATION 02/23/2017 SULEMAN YAP SENIOR SUPPORT ENGINEER Ot I97.610 POSTPROC HEMOR OF A CIRC SYS ORG FOLLOWI 02/23/2017 SULEMAN YAP SENIOR SUPPORT ENGINEER Ot R10.30 LOWER ABDOMINAL PAIN, UNSPECIFIED 02/23/2017 MARIAELENA POLANCO FACC, ALI FACP CCDS Ot I25.10 ATHSCL HEART DISEASE OF [place] CORONARY 02/23/2017 MARIAELENA POLANCO FACC, ALI FACP CCDS Ot Z95.5 PRESENCE OF CORONARY ANGIOPLASTY IMPLANT 02/24/2017 SULEMAN YAP SENIOR SUPPORT ENGINEER Ot I97.610 POSTPROC HEMOR OF A CIRC SYS ORG FOLLOWI 02/24/2017 SULEMAN YAP SENIOR SUPPORT ENGINEER Ot R10.30 LOWER ABDOMINAL PAIN, UNSPECIFIED 02/24/2017 MARIAELENA POLANCO FACC, ALI FACP CCDS Ot I25.10 ATHSCL HEART DISEASE OF [place] CORONARY 02/24/2017 MARIAELENA POLANCO FACC, ALI FACP CCDS Ot Z95.5 PRESENCE OF CORONARY ANGIOPLASTY IMPLANT 04/25/2017 SULEMAN YAP L SENIOR SUPPORT ENGINEER Ot I97.610 POSTPROC HEMOR OF A CIRC SYS ORG FOLLOWI 04/25/2017 SULEMAN YAP L SENIOR SUPPORT ENGINEER Ot R10.30 LOWER ABDOMINAL PAIN, UNSPECIFIED 05/24/2017 [...] Ot 785.1 PALPITATIONS 05/24/2017 MARIAELENA POLANCO FACC, REX FACP CCDS Ot V58.67 LONG-TERM (CURRENT) USE OF INSULIN 05/24/2017 REX FERRELL MD, FACC FACP CCDS Ot V58.69 OT MED,LT,CURRENT USE 05/24/2017 SULEMAN YAP SENIOR SUPPORT ENGINEER Ot 272.4 HYPERLIPIDEMIA NEC/NOS 05/24/2017 SULEMAN YAP SENIOR SUPPORT ENGINEER Ot 414.00 CORON ATHEROSCLER NOS TYPE VESSEL, NATIV 05/24/2017 MARIAELENA POLANCO FACC, REX FACP CCDS Ot E13.9 OTHER SPECIFIED DIABETES MELLITUS WITHOU 05/24/2017 MARIAELENA POLANCO FACC, REX FACP CCDS Ot E78.4 OTHER HYPERLIPIDEMIA 05/24/2017 MARIAELENA POLANCO FACC, ALI FACP CCDS Ot I10 ESSENTIAL (PRIMARY) HYPERTENSION 05/24/2017 MARIAELENA POLANCO FACC, REX FACP CCDS Ot I25.10 ATHSCL HEART DISEASE OF [place] CORONARY 05/24/2017 REX FERRELL MD, FACC FACP CCDS Ot R11.0 NAUSEA 05/24/2017 MARIAELENA POLANCO FACC, ALI FACP CCDS Ot R20.8 OTHER DISTURBANCES OF SKIN SENSATION 05/24/2017 SULEMAN YAP SENIOR SUPPORT ENGINEER Ot I97.610 POSTPROC HEMOR OF A CIRC SYS ORG FOLLOWI 05/24/2017 SULEMAN YAP SENIOR SUPPORT ENGINEER Ot R10.30 LOWER ABDOMINAL PAIN, UNSPECIFIED 05/24/2017 MARIAELENA POLANCO FACC ALI FACP CCDS Ot I25.10 ATHSCL HEART DISEASE OF [place] CORONARY 05/24/2017 MARIAELENA POLANCO FACC, REX FACP CCDS Ot Z95.5 PRESENCE OF CORONARY ANGIOPLASTY IMPLANT 05/25/2017 MARIAELENA POLANCO FACC, ALI FACP CCDS Ot E11.9 TYPE 2 DIABETES MELLITUS WITHOUT COMPLIC 05/25/2017 MARIAELENA POLANCO FACC, ALI FACP CCDS Ot E66.9 OBESITY, UNSPECIFIED 05/25/2017 MARIAELENA POLANCO FACC, ALI FACP CCDS Ot E78.5 HYPERLIPIDEMIA, UNSPECIFIED 05/25/2017 MARIAELENA POLANCO FACC, ALI FACP CCDS Ot I10 ESSENTIAL (PRIMARY) HYPERTENSION 05/25/2017 MARIAELENA POLANCO FACC, ALI FACP CCDS Ot I25.10 ATHSCL HEART DISEASE OF [place] CORONARY 05/25/2017 MARIAELENA POLANCO FACC, REX FACP CCDS Ot I49.5 SICK SINUS SYNDROME 05/25/2017 MARIAELENA POLANCO FACC, REX FACP CCDS Ot R00.1 BRADYCARDIA, UNSPECIFIED 05/25/2017 MARIAELENA POLANCO FACC, ALI FACP CCDS Ot Z68.32 BODY MASS INDEX (BMI) 32.0-32.9, ADULT 05/25/2017 MARIAELENA POLANCO FACC ALI FACP CCDS Ot Z79.01 [facility] (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 05/25/2017 MARIAELENA POLANCO FACC, REX FACP CCDS Ot Z79.84 [facility] (CURRENT) USE OF ORAL HYPOGLYC 05/25/2017 MARIAELENA POLANCO FACC, ALI FACP CCDS Ot Z79.899 OTHER [facility] (CURRENT) DRUG THERAPY 05/25/2017 REX FERRELL MD, FACC FACP CCDS [...] CCDS Ot I25.10 ATHSCL HEART DISEASE OF [place] CORONARY 07/07/2017 MARIAELENA POLANCO FACC, ALI FACP CCDS Ot I49.5 SICK SINUS SYNDROME 07/07/2017 MARIAELENA POLANCO FACC, REX FACP CCDS Ot R00.1 BRADYCARDIA, UNSPECIFIED 07/07/2017 MARIAELENA POLANCO FACC, ALI FACP CCDS Ot Z68.32 BODY MASS INDEX (BMI) 32.0-32.9, ADULT 07/07/2017 MARIAELENA POLANCO FACC, REX FACP CCDS Ot Z79.01 [facility] (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 07/07/2017 REX FERRELL MD, FACC FACP CCDS Ot Z79.84 [facility] (CURRENT) USE OF ORAL HYPOGLYC 07/07/2017 REX FERRELL MD, FACC FACP CCDS Ot Z79.899 OTHER [facility] (CURRENT) DRUG THERAPY 07/07/2017 REX FERRELL MD, FACC FACP CCDS Ot Z95.5 PRESENCE OF CORONARY ANGIOPLASTY IMPLANT 10/10/2017 JOSH DANIELSON DO Ot 789.01 ABDOMINAL PAIN, RIGHT UPPER QUADRANT 10/10/2017 JOSH DANIELSON DO Ot 789.01 ABDOMINAL PAIN, RIGHT UPPER QUADRANT 10/10/2017 MARIAELENA POLANCO FACC, REX FACP CCDS Ot 250.00 DIAB LESLIE WO COMPL, TYPE II OR UNSPEC TY 10/10/2017 REX FERRELL MD, FACC FACP CCDS Ot 272.4 HYPERLIPIDEMIA NEC/NOS 10/10/2017 MARIAELENA POLANCO FACC, REX FACP CCDS Ot 401.9 HYPERTENSION NOS 10/10/2017 MARIAELENA POLANCO FACC, REX FACP CCDS Ot 414.00 CORON ATHEROSCLER NOS TYPE VESSEL, NATIV 10/10/2017 REX FERRELL MD, FACC FACP CCDS Ot 785.1 PALPITATIONS 10/10/2017 MARIAELENA POLANCO FACC, ALI FACP CCDS Ot V58.67 LONG-TERM (CURRENT) USE OF INSULIN 10/10/2017 MARIAELENA POLANCO FACC ALI FACP CCDS Ot V58.69 OTH MED,LT,CURRENT USE 10/10/2017 BAIMA, SULEMAN L SENIOR SUPPORT ENGINEER Ot 272.4 HYPERLIPIDEMIA NEC/NOS 10/10/2017 BAIMA, SULEMAN L SENIOR SUPPORT ENGINEER Ot 414.00 CORON ATHEROSCLER NOS TYPE VESSEL, NATIV 10/10/2017 REX FERRELL MD, FACC FACP CCDS Ot E13.9 OTHER SPECIFIED DIABETES MELLITUS WITHOU 10/10/2017 MARIAELENA POLANCO FACC, ALI FACP CCDS Ot E78.4 OTHER HYPERLIPIDEMIA 10/10/2017 MARIAELENA POLANOC FACC, ALI FACP CCDS Ot I10 ESSENTIAL (PRIMARY) HYPERTENSION 10/10/2017 MARIAELENA POLANCO FACC, ALI FACP CCDS Ot I25.10 ATHSCL HEART DISEASE OF [place] CORONARY 10/10/2017 MARIAELENA POLANCO FACC, ALI FACP CCDS Ot R11.0 NAUSEA 10/10/2017 MARIAELENA POLANCO FACC, ALI FACP CCDS Ot R20.8 OTHER DISTURBANCES OF SKIN SENSATION 10/10/2017 SULEMAN YAP SENIOR SUPPORT ENGINEER Ot I97.610 POSTPROC HEMOR OF A CIRC SYS ORG FOLLOWI 10/10/2017 SULEMAN YAP SENIOR SUPPORT ENGINEER Ot R10.30 LOWER ABDOMINAL PAIN, UNSPECIFIED 10/10/2017 MARIAELENA POLANCO FACC, REX FACP CCDS Ot I25.10 ATHSCL HEART DISEASE OF [place] CORONARY 10/10/2017 MARIAELENA POLANCO FACC, ALI FACP CCDS Ot Z95.5 PRESENCE OF CORONARY ANGIOPLASTY IMPLANT 10/10/2017 EMILEE DENNISON MD Ot E11.65 TYPE 2 DIABETES MELLITUS WITH HYPERGLYCE 10/10/2017 EMILEE DENNISON MD Ot E87.6 HYPOKALEMIA 10/10/2017 EMILEE DENNISON MD, Ot K21.9 GASTRO-ESOPHAGEAL REFLUX DISEASE WITHOUT 10/10/2017 EMILEE DENNISON MD Ot R05 COUGH 10/10/2017 EMILEE DENNISON MD Ot R11.2 NAUSEA WITH VOMITING, UNSPECIFIED 10/10/2017 EMILEE DENNISON MD Ot R19.7 DIARRHEA, UNSPECIFIED 10/10/2017 EMILEE DENNISON MD, Ot Z79.82 [facility] (CURRENT) USE OF ASPIRIN 10/10/2017 EMILEE DENNISON MD, Ot Z80.0 FAMILY HISTORY OF MALIGNANT NEOPLASM OF 10/10/2017 EMILEE DENNISON MD, Ot Z87.59 PERSONAL HISTORY OF COMP OF PREG, CHLDBR 10/10/2017 EMILEE DENNISON MD, Ot Z88.2 ALLERGY STATUS TO SULFONAMIDES STATUS 10/10/2017 EMILEE DENNISON MD, Ot Z88.8 ALLERGY STATUS TO OTH DRUG/MEDS/BIOL SUB 10/10/2017 EMILEE DENNISON MD Ot Z91.14 PATIENT'S OTHER NONCOMPLIANCE WITH [...] UNSPECIFIED 10/12/2017 EMILEE DENNISON MD, Ot Z79.82 [facility] (CURRENT) USE OF ASPIRIN 10/12/2017 EMILEE DENNISON [...] PRESENCE OF CARDIAC PACEMAKER 10/12/2017 EMILEE DENNISON MD Ot Z95.5 PRESENCE OF CORONARY ANGIOPLASTY IMPLANT 01/12/2018 MARIAELENA POLANCO FACC, REX PERALES CCDS Ot E13.9 OTHER SPECIFIED DIABETES MELLITUS WITHOU 01/12/2018 MARIAELENA POLANCO FACC, REX PERALES CCDS Ot E78.4 OTHER HYPERLIPIDEMIA 01/12/2018 MARIAELENA POLANCO FACC, ALI FACP CCDS Ot I10 ESSENTIAL (PRIMARY) HYPERTENSION 01/12/2018 MARIAELENA POLANCO FACC, ALI FACP CCDS Ot I25.10 ATHSCL HEART DISEASE OF [place] CORONARY 01/12/2018 MARIAELNEA POLANCO FACC, ALI FACP CCDS Ot I25.2 OLD MYOCARDIAL INFARCTION 01/12/2018 MARIAELENA POLANCO FACC, ALI FACP CCDS Ot I48.0 PAROXYSMAL ATRIAL FIBRILLATION 01/12/2018 MARIAELENA POLANCO FACC, ALI FACP CCDS Ot M79.89 OTHER SPECIFIED SOFT TISSUE DISORDERS 01/12/2018 MARIAELENA POLANCO FACC, ALI FACP CCDS Ot R06.02 SHORTNESS OF BREATH 01/12/2018 MARIAELENA POLANCO FACC, ALI FACP CCDS Ot Z95.0 PRESENCE OF CARDIAC PACEMAKER 01/16/2018 MARIAELENA POLANCO FACC, ALI FACP CCDS Ot E13.9 OTHER SPECIFIED DIABETES MELLITUS WITHOU 01/16/2018 MARIAELENA POLANCO FACC, ALI FACP CCDS Ot E78.4 OTHER HYPERLIPIDEMIA 01/16/2018 MARIAELENA POLANCO FACC, ALI FACP CCDS Ot I10 ESSENTIAL (PRIMARY) HYPERTENSION 01/16/2018 MAR[facility] POLANCO [facility], [facility] FACP CCDS Ot I25.10 ATHSCL HEART DISEASE OF [place] CORONARY 01/16/2018 MARIAELENA POLANCO FACC, ALI FACP CCDS Ot I25.2 OLD MYOCARDIAL INFARCTION 01/16/2018 MARIAELENA POLANCO FACC, ALI FACP CCDS Ot I48.0 PAROXYSMAL ATRIAL FIBRILLATION 01/16/2018 MARIAELENA POLANCO FACC, ALI FACP CCDS Ot M79.89 OTHER SPECIFIED SOFT TISSUE DISORDERS 01/16/2018 MARIAELENA POLANCO FACRonaldo, ALI FACP CCDS Ot R06.02 SHORTNESS OF BREATH 01/16/2018 MARIAELENA POLANCO FACC, ALI FACP CCDS Ot Z95.0 PRESENCE OF CARDIAC PACEMAKER 01/26/2018 MARIAELENA POLANCO FACC, ALI FACP CCDS Ot E11.9 TYPE 2 DIABETES MELLITUS WITHOUT COMPLIC 01/26/2018 MARIAELENA POLANCO FACC, ALI FACP CCDS Ot E78.5 HYPERLIPIDEMIA, UNSPECIFIED 01/26/2018 MARIAELENA POLANCO FACC, ALI FACP CCDS Ot 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 TRICUSPID INSUFFICIENCY 01/26/2018 MARIAELENA POLANCO FACC, ALI FACP CCDS Ot I10 ESSENTIAL (PRIMARY) HYPERTENSION 01/26/2018 MARIAELENA POLANCO FACC, ALI FACP CCDS Ot I25.10 ATHSCL HEART DISEASE OF [place] CORONARY 01/26/2018 MARIAELENA POLANCO FACC, ALI FACP CCDS Ot I25.2 OLD MYOCARDIAL INFARCTION 01/26/2018 MARIAELENA POLANCO FACC, ALI FACP CCDS Ot I48.0 PAROXYSMAL ATRIAL FIBRILLATION 01/26/2018 MARIAELENA POLANCO FACC, ALI FACP CCDS Ot M79.89 OTHER SPECIFIED SOFT TISSUE DISORDERS 01/26/2018 MARIAELENA POLANCO FACC, ALI FACP CCDS Ot R06.02 SHORTNESS OF BREATH 01/26/2018 MARIAELENA POLANCO FACC, ALI FACP CCDS Ot Z95.0 PRESENCE OF CARDIAC PACEMAKER 01/27/2018 NO KIRK APRN Ot E11 .9 TYPE 2 DIABETES MELLITUS WITHOUT COMPLIC 01/27/2018 NO KIRK APRN Ot I25.10 ATHSCL HEART DISEASE OF [place] CORONARY 01/27/2018 NO KIRK APRN Ot I25 .2 OLD MYOCARDIAL INFARCTION 01/27/2018 NO KIRK APRN Ot I48.91 UNSPECIFIED ATRIAL FIBRILLATION 01/27/2018 NO KIRK APRN Ot K21 .9 GASTRO-ESOPHAGEAL REFLUX DISEASE WITHOUT 01/27/2018 NO KIRK APRN Ot N90.89 OTH NONINFLAMMATORY DISORDERS OF VULVA A 01/27/2018 NO KIRK APRN Ot R10 .2 PELVIC AND PERINEAL PAIN 01/27/2018 NO KIRK APRN Ot Z79.82 [facility] (CURRENT) USE OF ASPIRIN 01/27/2018 NO KIRK APRN Ot Z80 .0 FAMILY HISTORY OF MALIGNANT NEOPLASM OF 01/27/2018 NO KIRK APRN Ot Z82.49 FAMILY HX OF ISCHEM HEART DIS AND OTH DI 01/27/2018 NO KIRK APRN Ot Z87.19 PERSONAL HISTORY OF OTHER DISEASES OF TH 01/27/2018 NO KIRK APRN Ot Z87.440 PERSONAL HISTORY OF URINARY (TRACT) INFE 01/27/2018 NO KIRK APRN Ot Z87.59 PERSONAL HISTORY OF COMP OF PREG, CHLDBR 01/27/2018 NO KIRK APRN Ot Z88 .2 ALLERGY STATUS TO SULFONAMIDES STATUS 01/27/2018 NO KIRK APRN Ot Z88 .8 ALLERGY STATUS TO OTH DRUG/MEDS/BIOL SUB 01/27/2018 NO KIRK APRN Ot Z90 .6 ACQUIRED ABSENCE OF OTHER PARTS OF URINA 01/27/2018 NO KIRK APRN Ot Z95 .0 PRESENCE OF CARDIAC PACEMAKER 01/27/2018 NO KIRK APRN Ot Z95 .5 PRESENCE OF CORONARY ANGIOPLASTY IMPLANT 01/30/2018 NO KIRK APRN Ot E11 .9 TYPE 2 DIABETES MELLITUS WITHOUT COMPLIC 01/30/2018 NO KIRK APRN Ot I25.10 ATHSCL HEART DISEASE OF [place] CORONARY 01/30/2018 NO KIRK APRN Ot I25 .2 OLD MYOCARDIAL INFARCTION 01/30/2018 NO KIRK APRN Ot I48.91 UNSPECIFIED ATRIAL FIBRILLATION 01/30/2018 NO KIRK APRN Ot K21 .9 GASTRO-ESOPHAGEAL REFLUX DISEASE WITHOUT 01/30/2018 NO KIRK APRN Ot N90.89 OTH NONINFLAMMATORY DISORDERS OF VULVA A 01/30/2018 NO KIRK APRN Ot R10 .2 PELVIC AND PERINEAL PAIN 01/30/2018 NO KIRK APRN Ot Z79.82 [facility] (CURRENT) USE OF ASPIRIN 01/30/2018 NO KIRK APRN Ot Z80 .0 FAMILY HISTORY OF MALIGNANT NEOPLASM OF 01/30/2018 NO KIRK APRN Ot Z82.49 FAMILY HX OF ISCHEM HEART DIS AND OTH DI 01/30/2018 NO KIRK APRN Ot Z87.19 PERSONAL HISTORY OF OTHER DISEASES OF TH 01/30/2018 NO KIRK APRN Ot Z87.440 PERSONAL HISTORY OF URINARY (TRACT) INFE 01/30/2018 NO KIRK APRN Ot Z87.59 PERSONAL HISTORY OF COMP OF PREG, CHLDBR 01/30/2018 NO KIRK APRN Ot Z88 .2 ALLERGY STATUS TO SULFONAMIDES STATUS 01/30/2018 NO KIRK APRN Ot Z88 .8 ALLERGY STATUS TO OTH DRUG/MEDS/BIOL SUB 01/30/2018 NO KIRK APRN Ot Z90 .6 ACQUIRED ABSENCE OF OTHER PARTS OF URINA 01/30/2018 KIRK, PETER J 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 Ot Z95 .0 PRESENCE OF CARDIAC PACEMAKER 01/30/2018 KIRKNO ANN Cruzito 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 Ot Z95 .5 PRESENCE OF CORONARY ANGIOPLASTY IMPLANT 02/01/2018 MARIAELENA POLANCO FACC, ALI FACP CCDS Ot E13.9 OTHER SPECIFIED DIABETES MELLITUS WITHOU 02/01/2018 MARIAELENA RAMOSC, ALI FACP CCDS Ot E78.4 OTHER HYPERLIPIDEMIA 02/01/2018 MARIAELENA POLANCO FACC, ALI FACP CCDS Ot I10 ESSENTIAL (PRIMARY) HYPERTENSION 02/01/2018 MARIAELENA POLANCO FACC, ALI FACP CCDS Ot I25.10 ATHSCL HEART DISEASE OF [place] CORONARY 02/01/2018 MARIAELENA POLANCO FACC, ALI FACP CCDS Ot I25.2 OLD MYOCARDIAL INFARCTION 02/01/2018 MARIAELENA POLANCO FACC, ALI FACP CCDS Ot I48.0 PAROXYSMAL ATRIAL FIBRILLATION 02/01/2018 MARIAELENA RAMOSC, ALI FACP CCDS Ot M79.89 OTHER SPECIFIED SOFT TISSUE DISORDERS 02/01/2018 MARIAELENA POLANCO FACC, ALI FACP CCDS Ot R06.02 SHORTNESS OF BREATH 02/01/2018 MARIAELENA POLANCO FACC, ALI FACP CCDS Ot Z95.0 PRESENCE OF CARDIAC PACEMAKER 02/16/2018 MARIAELENA POLANCO FACC, ALI FACP CCDS Ot E11.9 TYPE 2 DIABETES MELLITUS WITHOUT COMPLIC 02/16/2018 MARIAELENA POLANCO FACC, ALI FACP CCDS Ot E78.5 HYPERLIPIDEMIA, UNSPECIFIED 02/16/2018 MARIAELENA POLANCO FACC, ALI FACP CCDS Ot 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 TRICUSPID INSUFFICIENCY 02/16/2018 MARIAELENA POLANCO FACC, ALI FACP CCDS Ot I10 ESSENTIAL (PRIMARY) HYPERTENSION 02/16/2018 MARIAELENA POLANCO FACC, ALI FACP CCDS Ot I25.10 ATHSCL HEART DISEASE OF [place] CORONARY 02/16/2018 MARIAELENA POLANCO FACC, ALI FACP CCDS Ot I25.2 OLD MYOCARDIAL INFARCTION 02/16/2018 MARIAELENA POLANCO FACC, ALI FACP CCDS Ot I48.0 PAROXYSMAL ATRIAL FIBRILLATION 02/16/2018 MARIAELENA RAMOSC, ALI FACP CCDS Ot M79.89 OTHER SPECIFIED SOFT TISSUE DISORDERS 02/16/2018 MARIAELENA RAMOSC, ALI FACP CCDS Ot R06.02 SHORTNESS OF BREATH 02/16/2018 MARIAELENA RAMOSC, ALI FACP CCDS Ot Z95.0 PRESENCE OF CARDIAC PACEMAKER 03/09/2018 JOSH DANIELSON DO Ot 789.01 ABDOMINAL PAIN, RIGHT UPPER QUADRANT 03/09/2018 JOSH DANIELSON DO Ot 789.01 ABDOMINAL PAIN, RIGHT UPPER QUADRANT 03/09/2018 MARIAELENA POLANCO FACC, ALI FACP CCDS Ot 250.00 DIAB LESLIE WO COMPL, TYPE II OR UNSPEC TY 03/09/2018 MARIAELENA POLANCO FACC, REX FACP CCDS Ot 272.4 HYPERLIPIDEMIA NEC/NOS 03/09/2018 MARIAELENA POLANCO FACC, ALI FACP CCDS Ot 401.9 HYPERTENSION NOS 03/09/2018 MARIAELENA POLANCO FACC, ALI FACP CCDS Ot 414.00 CORON ATHEROSCLER NOS TYPE VESSEL, NATIV 03/09/2018 MARIAELENA POLANCO FACC, REX FACP CCDS Ot 785.1 PALPITATIONS 03/09/2018 MARIAELENA POLANCO FACC, REX FACP CCDS Ot V58.67 LONG-TERM (CURRENT) USE OF INSULIN 03/09/2018 REX FERRELL MD, FACC FACP CCDS Ot V58.69 OT MED,LT,CURRENT USE 03/09/2018 SULEMAN YAP SENIOR SUPPORT ENGINEER Ot 272.4 HYPERLIPIDEMIA NEC/NOS 03/09/2018 SULEMAN YAP SENIOR SUPPORT ENGINEER Ot 414.00 CORON ATHEROSCLER NOS TYPE VESSEL, NATIV 03/09/2018 MARIAELENA POLANCO FACC, REX FACP CCDS Ot E13.9 OTHER SPECIFIED DIABETES MELLITUS WITHOU 03/09/2018 MARIAELENA POLANCO FACC, REX FACP CCDS Ot E78.4 OTHER HYPERLIPIDEMIA 03/09/2018 MARIAELENA POLANCO FACC, REX FACP CCDS Ot I10 ESSENTIAL (PRIMARY) HYPERTENSION 03/09/2018 MARIAELENA POLANCO FACC, ALI FACP CCDS Ot I25.10 ATHSCL HEART DISEASE OF [place] CORONARY 03/09/2018 MARIAELENA POLANCO FACC, REX FACP CCDS Ot R11.0 NAUSEA 03/09/2018 MARIAELENA POLANCO FACC, REX FACP CCDS Ot R20.8 OTHER DISTURBANCES OF SKIN SENSATION 03/09/2018 SULEMAN YAP SENIOR SUPPORT ENGINEER Ot I97.610 POSTPROC HEMOR OF A CIRC SYS ORG FOLLOWI 03/09/2018 SULEMNA YAP SENIOR SUPPORT ENGINEER Ot R10.30 LOWER ABDOMINAL PAIN, UNSPECIFIED 03/09/2018 MARIAELENA MD FACC, ALI FACP CCDS Ot I25.10 ATHSCL HEART DISEASE OF [place] CORONARY 03/09/2018 MARIAELENA POLANCO FACC, ALI FACP CCDS Ot Z95.5 PRESENCE OF CORONARY ANGIOPLASTY IMPLANT 03/09/2018 MARIAELENA POLANCO FACC, ALI FACP CCDS Ot E13.9 OTHER SPECIFIED DIABETES MELLITUS WITHOU 03/09/2018 MARIAELENA POLANCO FACC, ALI FACP CCDS Ot E78.4 OTHER HYPERLIPIDEMIA 03/09/2018 MARIAELENA POLANCO FACC, ALI FACP CCDS Ot I10 ESSENTIAL (PRIMARY) HYPERTENSION 03/09/2018 MARIAELENA POLANCO FACC, ALI FACP CCDS Ot I25.10 ATHSCL HEART DISEASE OF [place] CORONARY 03/09/2018 MARIAELENA POLANCO FACC, ALI FACP CCDS Ot I25.2 OLD MYOCARDIAL INFARCTION 03/09/2018 MARIAELENA POLANCO FACC, ALI FACP CCDS Ot I48.0 PAROXYSMAL ATRIAL FIBRILLATION 03/09/2018 MARIAELENA POLANCO FACC, ALI FACP CCDS Ot M79.89 OTHER SPECIFIED SOFT TISSUE DISORDERS 03/09/2018 MARIAELENA POLANCO FACC, ALI FACP CCDS Ot R06.02 SHORTNESS OF BREATH 03/09/2018 MARIAELENA POLANCO FACC, ALI FACP CCDS Ot Z95.0 PRESENCE OF CARDIAC PACEMAKER 03/09/2018 MARIAELENA POLANCO FACC, ALI FACP CCDS Ot E11.9 TYPE 2 DIABETES MELLITUS WITHOUT COMPLIC 03/09/2018 MARIAELENA POLANCO FACC, ALI FACP CCDS Ot E78.5 HYPERLIPIDEMIA, UNSPECIFIED 03/09/2018 MARIAELENA POLANCO FACC, ALI FACP CCDS Ot 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 TRICUSPID INSUFFICIENCY 03/09/2018 MARIAELENA POLANCO FACC, ALI FACP CCDS Ot I10 ESSENTIAL (PRIMARY) HYPERTENSION 03/09/2018 MARIAELENA POLANCO FACC, ALI FACP CCDS Ot I25.10 ATHSCL HEART DISEASE OF [place] CORONARY 03/09/2018 MARIAELENA POLANCO FACC, ALI FACP CCDS Ot I25.2 OLD MYOCARDIAL INFARCTION 03/09/2018 MARIAELENA POLANCO FACC, ALI FACP CCDS Ot I48.0 PAROXYSMAL ATRIAL FIBRILLATION 03/09/2018 MARIAELENA POLANCO FACC, ALI FACP CCDS Ot M79.89 OTHER SPECIFIED SOFT TISSUE DISORDERS 03/09/2018 MARIAELENA POLANCO FACC, ALI FACP CCDS Ot R06.02 SHORTNESS OF BREATH 03/09/2018 MARIAELENA RAMOSC, ALI FACP CCDS Ot Z95.0 PRESENCE OF CARDIAC PACEMAKER 03/09/2018 MARIAELENA POLANCO FACC, ALI FACP CCDS Ot E11.9 TYPE 2 DIABETES MELLITUS WITHOUT COMPLIC 03/09/2018 MARIAELENA POLANCO FACC, ALI FACP CCDS Ot E78.5 HYPERLIPIDEMIA, UNSPECIFIED 03/09/2018 MARIAELENA POLANCO FACC, ALI FACP CCDS Ot 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 TRICUSPID INSUFFICIENCY 03/09/2018 MARIAELENA POLANCO FACC, ALI FACP CCDS Ot I10 ESSENTIAL (PRIMARY) HYPERTENSION 03/09/2018 MARIAELENA POLANCO [facility], ALI FACP CCDS Ot I25.10 ATHSCL HEART DISEASE OF [place] CORONARY 03/09/2018 MARIAELENA POLANCO FACC, ALI FACP CCDS Ot I25.2 OLD MYOCARDIAL INFARCTION 03/09/2018 MARIAELENA POLANCO FACC, ALI FACP CCDS Ot I48.0 PAROXYSMAL ATRIAL FIBRILLATION 03/09/2018 MARIAELENA POLANCO FACC, ALI FACP CCDS Ot M79.89 OTHER SPECIFIED SOFT TISSUE DISORDERS 03/09/2018 MARIAELENA POLANCO [facility], ALI FACP CCDS Ot R06.02 SHORTNESS OF BREATH 03/09/2018 MARIAELENA POLANCO [facility], ALI FACP CCDS Ot Z95.0 PRESENCE OF CARDIAC PACEMAKER 03/09/2018 MARIAELENA POLANCO [facility], ALI FACP CCDS Ot E11.9 TYPE 2 DIABETES MELLITUS WITHOUT COMPLIC 03/09/2018 MARIAELENA POLANCO [facility], ALI FACP CCDS Ot E78.5 HYPERLIPIDEMIA, UNSPECIFIED 03/09/2018 MARIAELENA POLANCO [facility], ALI FACP CCDS Ot 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 TRICUSPID INSUFFICIENCY 03/09/2018 MARIAELENA POLANCO [facility], ALI FACP CCDS Ot I10 ESSENTIAL (PRIMARY) HYPERTENSION 03/09/2018 MARIAELENA POLANCO [facility], ALI FACP CCDS Ot I25.10 ATHSCL HEART DISEASE OF [place] CORONARY 03/09/2018 MARIAELENA POLANCO FACC, ALI FACP CCDS Ot I25.2 OLD MYOCARDIAL INFARCTION 03/09/2018 MARIAELENA POLANCO FACC, ALI FACP CCDS Ot I48.0 PAROXYSMAL ATRIAL FIBRILLATION 03/09/2018 MARIAELENA POLANCO FACC, ALI FACP CCDS Ot M79.89 OTHER SPECIFIED SOFT TISSUE DISORDERS 03/09/2018 MARIAELENA POLANCO FACC, ALI FACP CCDS Ot R06.02 SHORTNESS OF BREATH 03/09/2018 MARIAELENA POLANCO FACC, ALI FACP CCDS Ot Z95.0 PRESENCE OF CARDIAC PACEMAKER 03/09/2018 MARIAELENA POLANCO FACC, ALI FACP CCDS Ot E11.9 TYPE 2 DIABETES MELLITUS WITHOUT COMPLIC 03/09/2018 MARIAELENA POLANCO FACC, ALI FACP CCDS Ot E78.5 HYPERLIPIDEMIA, UNSPECIFIED 03/09/2018 MARIAELENA POLANCO FACC, ALI FACP CCDS Ot 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 TRICUSPID INSUFFICIENCY 03/09/2018 MARIAELENA POLANCO FACC, ALI FACP CCDS Ot I10 ESSENTIAL (PRIMARY) HYPERTENSION 03/09/2018 MARIAELENA POLANCO FACC, ALI FACP CCDS Ot I25.10 ATHSCL HEART DISEASE OF [place] CORONARY 03/09/2018 MARIAELENA POLANCO FACC, ALI FACP CCDS Ot I25.2 OLD MYOCARDIAL INFARCTION 03/09/2018 MARIAELENA RAMOSC, ALI FACP CCDS Ot I48.0 PAROXYSMAL ATRIAL FIBRILLATION 03/09/2018 MARIAELENA RAMOSC, ALI FACP CCDS Ot M79.89 OTHER SPECIFIED SOFT TISSUE DISORDERS 03/09/2018 MARIAELENA RAMOSC, ALI FACP CCDS Ot R06.02 SHORTNESS OF BREATH 03/09/2018 MARIAELENA POLANCO FACC, ALI FACP CCDS Ot Z95.0 PRESENCE OF CARDIAC PACEMAKER 03/15/2018 MARIAELENA POLANCO FACC, ALI FACP CCDS Ot E13.9 OTHER SPECIFIED DIABETES MELLITUS WITHOU 03/15/2018 MARIAELENA RAMOSC, ALI FACP CCDS Ot E78.4 OTHER HYPERLIPIDEMIA 03/15/2018 MARIAELENA RAMOSC, ALI FACP CCDS Ot I10 ESSENTIAL (PRIMARY) HYPERTENSION 03/15/2018 MARIAELENA RAMOSC, ALI FACP CCDS Ot I25.10 ATHSCL HEART DISEASE OF [place] CORONARY 03/15/2018 MARIAELENA POLANCO FACC, ALI FACP CCDS Ot I25.2 OLD MYOCARDIAL INFARCTION 03/15/2018 MARIAELENA POLANCO FACC, ALI FACP CCDS Ot I48.0 PAROXYSMAL ATRIAL FIBRILLATION 03/15/2018 MARIAELENA POLANCO FACC, ALI FACP CCDS Ot M79.89 OTHER SPECIFIED SOFT TISSUE DISORDERS 03/15/2018 MARIAELENA POLANCO FACC, ALI FACP CCDS Ot R06.02 SHORTNESS OF BREATH 03/15/2018 MARIAELENA POLANCO FACC, ALI FACP CCDS Ot Z95.0 PRESENCE OF CARDIAC PACEMAKER 10/16/2018 MARIAELENA POLANCO FAC, ALI FACP CCDS Ot E13.9 OTHER SPECIFIED DIABETES MELLITUS WITHOU 10/16/2018 MARIAELENA POLANCO FACC, ALI FACP CCDS Ot E78.4 OTHER HYPERLIPIDEMIA 10/16/2018 MARIAELENA POLANCO FACC, ALI FACP CCDS Ot I10 ESSENTIAL (PRIMARY) HYPERTENSION 10/16/2018 MARIAELENA POLANCO FACC, ALI FACP CCDS Ot I25.10 ATHSCL HEART DISEASE OF [place] CORONARY 10/16/2018 MARIAELENA POLANCO FAC, ALI FACP CCDS Ot I25.2 OLD MYOCARDIAL INFARCTION 10/16/2018 MARIAELENA POLANCO FAC, ALI FACP CCDS Ot I48.0 PAROXYSMAL ATRIAL FIBRILLATION 10/16/2018 MARIAELENA POLANCO FAC, ALI FACP CCDS Ot M79.89 OTHER SPECIFIED SOFT TISSUE DISORDERS 10/16/2018 MARIAELENA POLANCO FACC, ALI FACP CCDS Ot R06.02 SHORTNESS OF BREATH 10/16/2018 MARIAELENA POLANCO [facility], ALI FACP CCDS Ot Z95.0 PRESENCE OF CARDIAC PACEMAKER 10/16/2018 MARIAELENA POLANCO [facility], ALI FACP CCDS Ot E13.9 OTHER SPECIFIED DIABETES MELLITUS WITHOU 10/16/2018 MARIAELENA POLANCO [facility], ALI FACP CCDS Ot E78.4 OTHER HYPERLIPIDEMIA 10/16/2018 MARIAELENA POLANCO [facility], ALI FACP CCDS Ot I10 ESSENTIAL (PRIMARY) HYPERTENSION 10/16/2018 MARIAELENA POLANCO [facility], ALI FACP CCDS Ot I25.10 ATHSCL HEART DISEASE OF [place] CORONARY 10/16/2018 MARIAELENA POLANCO [facility], ALI FACP CCDS Ot I25.2 OLD MYOCARDIAL INFARCTION 10/16/2018 MARIAELENA POLANCO [facility], ALI FACP CCDS Ot I48.0 PAROXYSMAL ATRIAL FIBRILLATION 10/16/2018 MARIAELENA POLANCO [facility], ALI FACP CCDS Ot M79.89 OTHER SPECIFIED SOFT TISSUE DISORDERS 10/16/2018 MARIAELENA POLANCO FAC, ALI FACP CCDS Ot R06.02 SHORTNESS OF BREATH 10/16/2018 MARIAELENA POLANCO FACC, ALI FACP CCDS Ot Z95.0 PRESENCE OF CARDIAC PACEMAKER 06/10/2019 GREG DO ZAFAR Ot E11.9 TYPE 2 DIABETES MELLITUS WITHOUT COMPLIC 06/10/2019 GREG DO ZAFAR Ot E87.6 HYPOKALEMIA 06/10/2019 ZAFAR GARZA DO Ot I10 ESSENTIAL (PRIMARY) HYPERTENSION 06/10/2019 ZAFAR GARZA DO Ot I25.10 ATHSCL HEART DISEASE OF [place] CORONARY 06/10/2019 ZAFAR GARZA DO Ot I48.91 UNSPECIFIED ATRIAL FIBRILLATION 06/10/2019 ZAFAR GARZA DO Ot K21.9 GASTRO-ESOPHAGEAL REFLUX DISEASE WITHOUT 06/10/2019 ZAFAR GARZA DO Ot K44.9 DIAPHRAGMATIC HERNIA WITHOUT OBSTRUCTION 06/10/2019 ZAFAR GARZA DO Ot M19.90 UNSPECIFIED OSTEOARTHRITIS, UNSPECIFIED 06/10/2019 ZAFAR GARZA DO Ot N39.0 URINARY TRACT INFECTION, SITE NOT SPECIF 06/10/2019 ZAFAR GARZA DO Ot Z79.4 [facility] (CURRENT) USE OF INSULIN 06/10/2019 ZAFAR GARZA DO Ot Z79.82 MED [facility] (CURRENT) USE OF ASPIRIN 06/10/2019 ZAFAR GARZA DO Ot Z79.89 1 [facility] (CURRENT) USE OF OPIATE ANALGE 06/10/2019 ZAFAR GARZA DO Ot Z79.89 9 OTHER MED [facility] (CURRENT) DRUG THERAPY 06/10/2019 ZAFAR GARZA DO Ot Z80.0 FAMILY HISTORY OF MALIGNANT NEOPLASM OF 06/10/2019 ZAFAR GARZA DO Ot Z82.3 FAMILY HISTORY OF STROKE 06/10/2019 ZAFAR GARZA DO Ot Z82.49 FAMILY HX OF ISCHEM HEART DIS AND OTH DI 06/10/2019 ZAFAR GARZA DO Ot Z82.61 FAMILY HISTORY OF ARTHRITIS 06/10/2019 ZAFAR GARZA DO Ot Z83.3 FAMILY HISTORY OF DIABETES MELLITUS 06/10/2019 ZAFAR GARZA DO Ot Z88.2 ALLERGY STATUS TO SULFONAMIDES STATUS 06/10/2019 ZAFAR GARZA DO Ot Z88.8 ALLERGY STATUS TO OTH DRUG/MEDS/BIOL SUB 06/10/2019 ZAFAR GARZA DO Ot Z95.0 PRESENCE OF CARDIAC PACEMAKER 06/10/2019 ZAFAR GARZA DO Ot Z95.1 PRESENCE OF AORTOCORONARY BYPASS GRAFT 06/10/2019 ZAFAR GARZA DO Ot E11.9 TYPE 2 DIABETES MELLITUS WITHOUT COMPLIC 06/10/2019 ZAFAR GARZA DO Ot E87.6 HYPOKALEMIA 06/10/2019 ZAFAR GARZA DO Ot I10 ESSENTIAL (PRIMARY) HYPERTENSION 06/10/2019 ZAFAR GARZA DO Ot I25.10 ATHSCL HEART DISEASE OF [place] CORONARY 06/10/2019 ZAFAR GARZA DO Ot I48.91 UNSPECIFIED ATRIAL FIBRILLATION 06/10/2019 ZAFAR GARZA DO Ot K21.9 GASTRO-ESOPHAGEAL REFLUX DISEASE WITHOUT 06/10/2019 ZAFAR GARZA DO Ot K44.9 DIAPHRAGMATIC HERNIA WITHOUT OBSTRUCTION 06/10/2019 ZAFAR GARZA DO Ot M19.90 UNSPECIFIED OSTEOARTHRITIS, UNSPECIFIED 06/10/2019 ZAFAR GARZA DO Ot N39.0 URINARY TRACT INFECTION, SITE NOT SPECIF 06/10/2019 ZAFAR GARZA DO Ot Z79.4 [facility] (CURRENT) USE OF INSULIN 06/10/2019 ZAFAR GARZA DO Ot Z79.82 [facility] (CURRENT) USE OF ASPIRIN 06/10/2019 ZAFAR GARZA DO Ot Z79.89 1 [facility] (CURRENT) USE OF OPIATE ANALGE 06/10/2019 ZAFAR GARZA DO Ot Z79.89 9 OTHER MED [facility] (CURRENT) DRUG THERAPY 06/10/2019 ZAFAR GARZA DO Ot Z80.0 FAMILY HISTORY OF MALIGNANT NEOPLASM OF 06/10/2019 ZAFAR GARZA DO Ot Z82.3 FAMILY HISTORY OF STROKE 06/10/2019 ZAFAR GARZA DO Ot Z82.49 FAMILY HX OF ISCHEM HEART DIS AND OTH DI 06/10/2019 ZAFAR GARZA DO Ot Z82.61 FAMILY HISTORY OF ARTHRITIS 06/10/2019 ZAFAR GARZA DO Ot Z83.3 FAMILY HISTORY OF DIABETES MELLITUS 06/10/2019 ZAFAR GARZA DO Ot Z88.2 ALLERGY STATUS TO SULFONAMIDES STATUS 06/10/2019 ZAFAR GARZA DO Ot Z88.8 ALLERGY STATUS TO OTH DRUG/MEDS/BIOL SUB 06/10/2019 ZAFAR GARZA DO Ot Z95.0 PRESENCE OF CARDIAC PACEMAKER 06/10/2019 ZAFAR GARZA DO Ot Z95.1 PRESENCE OF AORTOCORONARY BYPASS GRAFT 06/14/2019 SULEMAN YAP SENIOR SUPPORT ENGINEER Ot I 10 ESSENTIAL (PRIMARY) HYPERTENSION 06/18/2019 SULEMAN YAP SENIOR SUPPORT ENGINEER Ot I 10 ESSENTIAL (PRIMARY) HYPERTENSION 07/10/2019 ALEA FAUSTIN SENIOR SUPPORT ENGINEER Ot N95.1 MENOPAUSAL AND FEMALE CLIMACTERIC STATES 07/10/2019 ALEA FAUSTIN SENIOR SUPPORT ENGINEER Ot Z12.31 ENCNTR SCREEN MAMMOGRAM FOR MALIGNANT NE 07/23/2019 ALEA FAUSTIN SENIOR SUPPORT ENGINEER Ot N95.1 MENOPAUSAL AND FEMALE CLIMACTERIC STATES 07/23/2019 ALEA FAUSTIN SENIOR SUPPORT ENGINEER Ot Z12.31 ENCNTR SCREEN MAMMOGRAM FOR MALIGNANT NE 07/25/2019 ALEA FAUSTIN SENIOR SUPPORT ENGINEER Ot M85.851 OTH DISRD OF BONE DENSITY AND STRUCTURE, 07/25/2019 ALEA FAUSTIN SENIOR SUPPORT ENGINEER Ot Z12.31 ENCNTR SCREEN MAMMOGRAM FOR MALIGNANT NE 07/25/2019 ALEA FAUSTIN SENIOR SUPPORT ENGINEER Ot Z13.820 ENCOUNTER FOR SCREENING FOR OSTEOPOROSIS 07/25/2019 ALEA FAUSTINP Ot Z78.0 ASYMPTOMATIC MENOPAUSAL STATE 07/30/2019 ALEA FAUSTINP Ot M85.851 OTH DISRD OF BONE DENSITY AND STRUCTURE, 07/30/2019 ALEA FAUSTIN SENIOR SUPPORT ENGINEER Ot Z12.31 ENCNTR SCREEN MAMMOGRAM FOR MALIGNANT NE 07/30/2019 ALEA FAUSTIN SENIOR SUPPORT ENGINEER Ot Z13.820 ENCOUNTER FOR SCREENING FOR OSTEOPOROSIS 07/30/2019 ALEA FAUSTIN SENIOR SUPPORT ENGINEER Ot Z78.0 ASYMPTOMATIC MENOPAUSAL STATE 07/30/2019 ALEA FAUSTIN SENIOR SUPPORT ENGINEER Ot M85.851 OTH DISRD OF BONE DENSITY AND STRUCTURE, 07/30/2019 ALEA FAUSTINP Ot Z12.31 ENCNTR SCREEN MAMMOGRAM FOR MALIGNANT NE 07/30/2019 ALEA FAUSTIN SENIOR SUPPORT ENGINEER Ot Z13.820 ENCOUNTER FOR SCREENING FOR OSTEOPOROSIS 07/30/2019 ALEA FAUSTINP Ot Z78.0 ASYMPTOMATIC MENOPAUSAL STATE 08/23/2019 MYCHAL LAND DO Ot Z01.818 ENCOUNTER FOR OTHER PREPROCEDURAL EXAMIN 08/24/2019 MYCHAL LAND DO Ot Z01.818 ENCOUNTER FOR OTHER PREPROCEDURAL EXAMIN 08/24/2019 MYCHAL LAND DO Ot Z01.818 ENCOUNTER FOR OTHER PREPROCEDURAL EXAMIN 01/09/2020 MARIAELENA POLANCO FACC, REX RAMOSP CCDS Ot E78.5 HYPERLIPIDEMIA, UNSPECIFIED 01/09/2020 MARIAELENA POLANCO FACC, REX FACP CCDS Ot I10 ESSENTIAL (PRIMARY) HYPERTENSION 01/09/2020 MARIAELENA POLANCO FACC, REX FACP CCDS Ot I25.10 ATHSCL HEART DISEASE OF [place] CORONARY 01/09/2020 MARIAELENA POLANCO FACC, [facility] I77.89 OTHER SPECIFIED DISORDERS OF ARTERIES AN 01/09/2020 MARIAELENA POLANCO FACC, [facility] Z95.0 PRESENCE OF CARDIAC PACEMAKER 01/09/2020 MARIAELENA POLANCO FACC, REX FACP CCDS Ot Z95.5 PRESENCE OF CORONARY ANGIOPLASTY IMPLANT Procedures Code Description Performed By Christopher valdez On 45.23 COLO NOSCOPY 05/24/2011 51.23 LAPA ROSCOPIC CHOLECYSTECTOMY 05/24/2011 53.59 ABD WALL ANALI REPAIR NEC 05/24/2011 86.04 OTHE R SKIN SUBQ I D 12/14/2013 [id number] DI LATION OF 1 COR ART WITH DRUG-ELUT INT 12/02/2016 [id number] IN SERT OF MONITOR DEV INTO CHEST SUBCU/F 12/02/2016 [id number] ME ASURE OF CARDIAC SAMPL PRESSURE, L H 12/02/2016 [id number] FL UOROSCOPY OF MULT COR ART USING L OSM 12/02/2016 [id number] FL UOROSCOPY OF LEFT HEART USING LOW OSMO 12/02/2016 Results Test Result Range Automated blood complete blood count ( mogram) panel - 10/05/16 10:02 Blood leukocytes automated count (number/volume) 6.9 10*3/uL 4.3-11.0 Blood erythrocytes automated count (number/volume) 4.85 10*6/uL 4.35-5.85 Venous blood hemoglobin measurement (mass/volume) 13.9 g/dL 11.5-16.0 Blood hematocrit (volume fraction) 41 % 35-52 Automated erythrocyte mean corpuscular volume 84 [ foz_us] 80-99 Automated erythrocyte mean corpuscular h emoglobin (mass per erythrocyte) 29 pg 25-34 Automated erythrocyte mean corpuscular h emoglobin concentration measurement (mass/volume) 34 g/dL 32-36 Automated erythrocyte distribution width ratio 13. 7 % 10.0- 14.5 Automated blood platelet count (count/volume) 192 10*3/uL 130-400 Automated blood platelet mean volume measurement 12.2 [foz_us] 7.4-10.4 PT panel in platelet poor plasma by coag ulation assay - 10/05/16 10:12 Prothrombin time (PT) in platelet poor plasma by coagu lation assay 12.7 s 12.2-14.7 INR in platelet poor plasma or blood by coagulation as say 1.0 0.8-1.4 Activated partial thromboplastin time (a PTT) in platelet poor plasma bycoagulation assay - 10/05/16 10:12 Activated partial thromboplastin time (a PTT) in platelet poor plasma bycoagulation assay 30 s 24-35 Comprehensive metabolic panel - 10/05/16 10:12 Serum or plasma sodium measurement (moles/volume) 133 mmol/L 135-145 Serum or plasma potassium measurement (moles/volume) 3.8 mmol/L 3.6-5.0 Serum or plasma chloride measurement (moles/volume) 100 mmol/L 98-107 Carbon dioxide 24 mmol/L 21-32 Serum or plasma anion gap determination (moles/volume) 9 mmol/L 5-14 Serum or plasma urea nitrogen measurement (mass/volume ) 17 mg/dL 7-18 Serum or plasma creatinine measurement (mass/volume) 0.87 mg/dL 0.60-1.30 Serum or plasma urea nitrogen/creatinine mass ratio 20 NRG Serum or plasma creatinine measurement w ith calculation of estimated glomerular filtration rate > NRG Serum or plasma glucose measurement (mass/volume) 398 mg/dL 70-105 Serum or plasma calcium measurement (mass/volume) 9.6 mg/dL 8.5-10.1 Serum or plasma total bilirubin measurement (mass/volu me) 0.7 mg/dL 0.1-1.0 Serum or plasma alkaline phosphatase tommie surement (enzymatic activity/volume) 85 U/L 40-136 Serum or plasma aspartate aminotransfera se measurement (enzymatic activity/volume) 14 U/L 5-34 Serum or plasma alanine aminotransferase measurement (enzymatic activity/volume) 19 U/L 0-55 Serum or plasma protein measurement (mass/volume) 6.9 g/dL 6.4-8.2 Serum or plasma albumin measurement (mass/volume) 3.5 g/dL 3.2-4.5 Lipid 1996 panel - 10/05/16 10:12 Serum or plasma triglyceride measurement (mass/volume) 336 mg/dL <150 Serum or plasma cholesterol measurement (mass/volume) 181 mg/dL < 200 Serum or plasma cholesterol in HDL measurement (mass/v olume) 31 mg/dL 40-60 Cholesterol in LDL [mass/volume] in serum or plasma by direct assay 107 mg/dL 1-129 Serum or plasma cholesterol in VLDL measurement (mass/ volume) 67 mg/dL 5-40 Methicillin resistant Staphylococcus aur eus (MRSA) screening culture - 10/05/16 10:12 Methicillin resistant Staphylococcus aureus (MRSA) scr eening culture NEG NRG Capillary blood glucose measurement by g lucometer (mass/volume) - 10/06/16 01:21 Capillary blood glucose measurement by glucometer (mas s/volume) 282 mg/dL 70-110 Automated blood complete blood count (he mogram) panel - 10/06/16 03:26 Blood leukocytes automated count (number/volume) 9.1 10*3/uL 4.3-11.0 Blood erythrocytes automated count (number/volume) 3.91 10*6/uL 4.35-5.85 Venous blood hemoglobin measurement (mass/volume) 11.2 g/dL 11.5-16.0 Blood hematocrit (volume fraction) 33 % 35-52 Automated erythrocyte mean corpuscular volume 85 [ foz_us] 80-99 Automated erythrocyte mean corpuscular h emoglobin (mass per erythrocyte) 29 pg 25-34 Automated erythrocyte mean corpuscular h emoglobin concentration measurement (mass/volume) 34 g/dL 32-36 Automated erythrocyte distribution width ratio 13. 7 % 10.0- 14.5 Automated blood platelet count (count/volume) 171 10*3/uL 130-400 Automated blood platelet mean volume measurement 11.9 [foz_us] 7.4-10.4 Whole blood basic metabolic panel - 04/14 03:36 Serum or plasma sodium measurement (moles/volume) 134 mmol/L 135-145 Serum or plasma potassium measurement (moles/volume) 3.8 mmol/L 3.6-5.0 Serum or plasma chloride measurement (moles/volume) 100 mmol/L 98-107 Carbon dioxide 25 mmol/L 21-32 Serum or plasma anion gap determination (moles/volume) 9 mmol/L 5-14 Serum or plasma urea nitrogen measurement (mass/volume ) 14 mg/dL 7-18 Serum or plasma creatinine measurement (mass/volume) 0.80 mg/dL 0.60-1.30 Serum or plasma urea nitrogen/creatinine mass ratio 18 NRG Serum or plasma creatinine measurement w ith calculation of estimated glomerular filtration rate > NRG Serum or plasma glucose measurement (mass/volume) 264 mg/dL 70-105 Serum or plasma calcium measurement (mass/volume) 8.4 mg/dL 8.5-10.1 PT panel in platelet poor plasma by coag ulation assay - 12/02/16 16:27 Prothrombin time (PT) in platelet poor plasma by coagu lation assay 20.6 s 12.2-14.7 INR in platelet poor plasma or blood by coagulation as say 1.8 0.8-1.4 Activated partial thromboplastin time (a PTT) in platelet poor plasma bycoagulation assay - 12/02/16 16:27 Activated partial thromboplastin time (a PTT) in platelet poor plasma bycoagulation assay 39 s 24-35 Comprehensive metabolic panel - 12/02/16 16:27 Serum or plasma sodium measurement (moles/volume) 136 mmol/L 135-145 Serum or plasma potassium measurement (moles/volume) 3.5 mmol/L 3.6-5.0 Serum or plasma chloride measurement (moles/volume) 103 mmol/L 98-107 Carbon dioxide 20 mmol/L 21-32 Serum or plasma anion gap determination (moles/volume) 13 mmol/L 5-14 Serum or plasma urea nitrogen measurement (mass/volume ) 8 mg/dL 7-18 Serum or plasma creatinine measurement (mass/volume) 1.11 mg/dL 0.60-1.30 Serum or plasma urea nitrogen/creatinine mass ratio 7 NRG Serum or plasma creatinine measurement w ith calculation of estimated glomerular filtration rate 50 NRG Serum or plasma glucose measurement (mass/volume) 443 mg/dL 70-105 Serum or plasma calcium measurement (mass/volume) 8.9 mg/dL 8.5-10.1 Serum or plasma total bilirubin measurement (mass/volu me) 0.6 mg/dL 0.1-1.0 Serum or plasma alkaline phosphatase tommie surement (enzymatic activity/volume) 92 U/L 40-136 Serum or plasma aspartate aminotransfera se measurement (enzymatic activity/volume) 13 U/L 5-34 Serum or plasma alanine aminotransferase measurement (enzymatic activity/volume) 12 U/L 0-55 Serum or plasma protein measurement (mass/volume) 7.2 g/dL 6.4-8.2 Serum or plasma albumin measurement (mass/volume) 3.5 g/dL 3.2-4.5 Magnesium - 12/02/16 16:27 Magnesium 1.8 mg/dL 1.8-2.4 Serum or plasma troponin i.cardiac measu rement (mass/volume) - 12/02/16 16:27 Serum or plasma troponin i.cardiac measurement (mass/v olume) < ng/mL <0.30 Myoglobin, serum - 12/02/16 16:27 Myoglobin, serum 27.9 ng/mL 10.0-92.0 [id number] gene mutation analysis - 16:27 [id number] gene mutation analysis Normal NRG Capillary blood glucose measurement by g lucometer (mass/volume) - 12/02/16 21:07 Capillary blood glucose measurement by glucometer (mas s/volume) 332 mg/dL 70-110 Automated blood complete blood count (he mogram) panel - 12/03/16 03:45 Blood leukocytes automated count (number/volume) 9.1 10*3/uL 4.3-11.0 Blood erythrocytes automated count (number/volume) 4.29 10*6/uL 4.35-5.85 Venous blood hemoglobin measurement (mass/volume) 12.0 g/dL 11.5-16.0 Blood hematocrit (volume fraction) 36 % 35-52 Automated erythrocyte mean corpuscular volume 84 [ foz_us] 80-99 Automated erythrocyte mean corpuscular h emoglobin (mass per erythrocyte) 28 pg 25-34 Automated erythrocyte mean corpuscular h emoglobin concentration measurement (mass/volume) 33 g/dL 32-36 Automated erythrocyte distribution width ratio 13. 6 % 10.0- 14.5 Automated blood platelet count (count/volume) 179 10*3/uL 130-400 Automated blood platelet mean volume measurement 11.7 [foz_us] 7.4-10.4 Whole blood basic metabolic panel - 03/14 03:45 Serum or plasma sodium measurement (moles/volume) 137 mmol/L 135-145 Serum or plasma potassium measurement (moles/volume) 3.2 mmol/L 3.6-5.0 Serum or plasma chloride measurement (moles/volume) 103 mmol/L 98-107 Carbon dioxide 26 mmol/L 21-32 Serum or plasma anion gap determination (moles/volume) 8 mmol/L 5-14 Serum or plasma urea nitrogen measurement (mass/volume ) 9 mg/dL 7-18 Serum or plasma creatinine measurement (mass/volume) 0.78 mg/dL 0.60-1.30 Serum or plasma urea nitrogen/creatinine mass ratio 12 NRG Serum or plasma creatinine measurement w ith calculation of estimated glomerular filtration rate > NRG Serum or plasma glucose measurement (mass/volume) 223 mg/dL 70-105 Serum or plasma calcium measurement (mass/volume) 8.4 mg/dL 8.5-10.1 Serum or plasma troponin i.cardiac measu rement (mass/volume) - 12/03/16 03:45 Serum or plasma troponin i.cardiac measurement (mass/v olume) 11.41 ng/mL <0.30 Lipid 1996 panel - 12/03/16 03:45 Serum or plasma triglyceride measurement (mass/volume) 182 mg/dL <150 Serum or plasma cholesterol measurement (mass/volume) 172 mg/dL < 200 Serum or plasma cholesterol in HDL measurement (mass/v olume) 32 mg/dL 40-60 Cholesterol in LDL [mass/volume] in serum or plasma by direct assay 108 mg/dL 1-129 Serum or plasma cholesterol in VLDL measurement (mass/ volume) 36 mg/dL 5-40 Capillary blood glucose measurement by g lucometer (mass/volume) - 12/03/16 11:51 Capillary blood glucose measurement by glucometer (mas s/volume) 235 mg/dL 70-110 Capillary blood glucose measurement by g lucometer (mass/volume) - 12/03/16 16:06 Capillary blood glucose measurement by glucometer (mas s/volume) 319 mg/dL 70-110 Capillary blood glucose measurement by g lucometer (mass/volume) - 12/03/16 21:29 Capillary blood glucose measurement by glucometer (mas s/volume) 223 mg/dL 70-110 Capillary blood glucose measurement by g lucometer (mass/volume) - 12/04/16 06:53 Capillary blood glucose measurement by glucometer (mas s/volume) 175 mg/dL 70-110 Complete blood count (CBC) with automate d white blood cell (WBC) differential - 01/02/17 15:10 Blood leukocytes automated count (number/volume) 9.1 10*3/uL 4.3-11.0 Blood erythrocytes automated count (number/volume) 5.12 10*6/uL 4.35-5.85 Venous blood hemoglobin measurement (mass/volume) 14.0 g/dL 11.5-16.0 Blood hematocrit (volume fraction) 43 % 35-52 Automated erythrocyte mean corpuscular volume 84 [ foz_us] 80-99 Automated erythrocyte mean corpuscular h emoglobin (mass per erythrocyte) 27 pg 25-34 Automated erythrocyte mean corpuscular h emoglobin concentration measurement (mass/volume) 33 g/dL 32-36 Automated erythrocyte distribution width ratio 14. 4 % 10.0- 14.5 Automated blood platelet count (count/volume) 198 10*3/uL [...] 10*3 1.0-4.0 Blood monocytes automated count (number/volume) 0. 6 10*3 0.0-1.0 Automated eosinophil count 0.3 10*3/uL 0 .0-0.3 Automated blood basophil count (count/volume) 0.0 10*3/uL 0.0-0.1 PT panel in platelet poor plasma by coag ulation assay - 01/02/17 15:10 Prothrombin time (PT) in platelet poor plasma by coagu lation assay 12.7 s 12.2-14.7 INR in platelet poor plasma or blood by coagulation as say 1.0 0.8-1.4 Activated partial thromboplastin time (a PTT) in platelet poor plasma bycoagulation assay - 01/02/17 15:10 Activated partial thromboplastin time (a PTT) in platelet poor plasma bycoagulation assay 30 s 24-35 Comprehensive metabolic panel - 01/02/17 15:10 Serum or plasma sodium measurement (moles/volume) 139 mmol/L 135-145 Serum or plasma potassium measurement (moles/volume) 4.0 mmol/L 3.6-5.0 Serum or plasma chloride measurement (moles/volume) 103 mmol/L 98-107 Carbon dioxide 28 mmol/L 21-32 Serum or plasma anion gap determination (moles/volume) 8 mmol/L 5-14 Serum or plasma urea nitrogen measurement (mass/volume ) 11 mg/dL 7-18 Serum or plasma creatinine measurement (mass/volume) 0.84 mg/dL 0.60-1.30 Serum or plasma urea nitrogen/creatinine mass ratio 13 NRG Serum or plasma creatinine measurement w ith calculation of estimated glomerular filtration rate > NRG Serum or plasma glucose measurement (mass/volume) 260 mg/dL 70-105 Serum or plasma calcium measurement (mass/volume) 9.3 mg/dL 8.5-10.1 Serum or plasma total bilirubin measurement (mass/volu me) 0.6 mg/dL 0.1-1.0 Serum or plasma alkaline phosphatase tommie surement (enzymatic activity/volume) 87 U/L 40-136 Serum or plasma aspartate aminotransfera se measurement (enzymatic activity/volume) 16 U/L 5-34 Serum or plasma alanine aminotransferase measurement (enzymatic activity/volume) 19 U/L 0-55 Serum or plasma protein measurement (mass/volume) 7.4 g/dL 6.4-8.2 Serum or plasma albumin measurement (mass/volume) 3.7 g/dL 3.2-4.5 Magnesium - 01/02/17 15:10 Magnesium 2.0 mg/dL 1.8-2.4 Serum or plasma troponin i.cardiac measu rement (mass/volume) - 01/02/17 15:10 Serum or plasma troponin i.cardiac measurement (mass/v olume) < ng/mL <0.30 Myoglobin, serum - 01/02/17 15:10 Myoglobin, serum 32.6 ng/mL 10.0-92.0 Capillary blood glucose measurement by g lucometer (mass/volume) - 01/02/17 17:40 Capillary blood glucose measurement by glucometer (mas s/volume) 249 mg/dL 70-110 Capillary blood glucose measurement by g lucometer (mass/volume) - 01/02/17 20:52 Capillary blood glucose measurement by glucometer (mas s/volume) 197 mg/dL 70-110 Complete blood count (CBC) with automate d white blood cell (WBC) differential - 01/03/17 03:45 Blood leukocytes automated count (number/volume) 8.9 10*3/uL 4.3-11.0 Blood erythrocytes automated count (number/volume) 4.71 10*6/uL 4.35-5.85 Venous blood hemoglobin measurement (mass/volume) 12.9 g/dL 11.5-16.0 Blood hematocrit (volume fraction) 40 % 35-52 Automated erythrocyte mean corpuscular volume 84 [ foz_us] 80-99 Automated erythrocyte mean corpuscular h emoglobin (mass per erythrocyte) 27 pg 25-34 Automated erythrocyte mean corpuscular h emoglobin concentration measurement (mass/volume) 33 g/dL 32-36 Automated erythrocyte distribution width ratio 14. 3 % 10.0- 14.5 Automated blood platelet count (count/volume) 175 10*3/uL [...] 10*3 1.0-4.0 Blood monocytes automated count (number/volume) 0. 8 10*3 0.0-1.0 Automated eosinophil count 0.6 10*3/uL 0 .0-0.3 Automated blood basophil count (count/volume) 0.1 10*3/uL 0.0-0.1 Comprehensive metabolic panel - 01/03/17 03:45 Serum or plasma sodium measurement (moles/volume) 140 mmol/L 135-145 Serum or plasma potassium measurement (moles/volume) 3.6 mmol/L 3.6-5.0 Serum or plasma chloride measurement (moles/volume) 105 mmol/L 98-107 Carbon dioxide 26 mmol/L 21-32 Serum or plasma anion gap determination (moles/volume) 9 mmol/L 5-14 Serum or plasma urea nitrogen measurement (mass/volume ) 9 mg/dL 7-18 Serum or plasma creatinine measurement (mass/volume) 0.78 mg/dL 0.60-1.30 Serum or plasma urea nitrogen/creatinine mass ratio 12 NRG Serum or plasma creatinine measurement w ith calculation of estimated glomerular filtration rate > NRG Serum or plasma glucose measurement (mass/volume) 215 mg/dL 70-105 Serum or plasma calcium measurement (mass/volume) 9.1 mg/dL 8.5-10.1 Serum or plasma total bilirubin measurement (mass/volu me) 0.4 mg/dL 0.1-1.0 Serum or plasma alkaline phosphatase tommie surement (enzymatic activity/volume) 76 U/L 40-136 Serum or plasma aspartate aminotransfera se measurement (enzymatic activity/volume) 13 U/L 5-34 Serum or plasma alanine aminotransferase measurement (enzymatic activity/volume) 16 U/L 0-55 Serum or plasma protein measurement (mass/volume) 6.3 g/dL 6.4-8.2 Serum or plasma albumin measurement (mass/volume) 3.2 g/dL 3.2-4.5 Lipid 1996 panel - 01/03/17 03:45 Serum or plasma triglyceride measurement (mass/volume) 175 mg/dL <150 Serum or plasma cholesterol measurement (mass/volume) 185 mg/dL < 200 Serum or plasma cholesterol in HDL measurement (mass/v olume) 37 mg/dL 40-60 Cholesterol in LDL [mass/volume] in serum or plasma by direct assay 117 mg/dL 1-129 Serum or plasma cholesterol in VLDL measurement (mass/ volume) 35 mg/dL 5-40 Serum or plasma troponin i.cardiac measu rement (mass/volume) - 01/03/17 03:45 Serum or plasma troponin i.cardiac measurement (mass/v olume) < ng/mL <0.30 Capillary blood glucose measurement by g lucometer (mass/volume) - 01/03/17 11:24 Capillary blood glucose measurement by glucometer (mas s/volume) 304 mg/dL 70-110 Capillary blood glucose measurement by g lucometer (mass/volume) - 01/03/17 16:53 Capillary blood glucose measurement by glucometer (mas s/volume) 205 mg/dL 70-110 Capillary blood glucose measurement by g lucometer (mass/volume) - 01/03/17 22:02 Capillary blood glucose measurement by glucometer (mas s/volume) 247 mg/dL 70-110 Complete blood count (CBC) with automate d white blood cell (WBC) differential - 01/04/17 05:10 Blood leukocytes automated count (number/volume) 8.8 10*3/uL 4.3-11.0 Blood erythrocytes automated count (number/volume) 4.66 10*6/uL 4.35-5.85 Venous blood hemoglobin measurement (mass/volume) 12.8 g/dL 11.5-16.0 Blood hematocrit (volume fraction) 39 % 35-52 Automated erythrocyte mean corpuscular volume 84 [ foz_us] 80-99 Automated erythrocyte mean corpuscular h emoglobin (mass per erythrocyte) 28 pg 25-34 Automated erythrocyte mean corpuscular h emoglobin concentration measurement (mass/volume) 33 g/dL 32-36 Automated erythrocyte distribution width ratio 14. 3 % 10.0- 14.5 Automated blood platelet count (count/volume) 190 10*3/uL [...] 10*3 1.0-4.0 Blood monocytes automated count (number/volume) 0. 7 10*3 0.0-1.0 Automated eosinophil count 0.4 10*3/uL 0 .0-0.3 Automated blood basophil count (count/volume) 0.0 10*3/uL 0.0-0.1 Comprehensive metabolic panel - 01/04/17 05:10 Serum or plasma sodium measurement (moles/volume) 140 mmol/L 135-145 Serum or plasma potassium measurement (moles/volume) 3.2 mmol/L 3.6-5.0 Serum or plasma chloride measurement (moles/volume) 107 mmol/L 98-107 Carbon dioxide 23 mmol/L 21-32 Serum or plasma anion gap determination (moles/volume) 10 mmol/L 5-14 Serum or plasma urea nitrogen measurement (mass/volume ) 11 mg/dL 7-18 Serum or plasma creatinine measurement (mass/volume) 0.77 mg/dL 0.60-1.30 Serum or plasma urea nitrogen/creatinine mass ratio 14 NRG Serum or plasma creatinine measurement w ith calculation of estimated glomerular filtration rate > NRG Serum or plasma glucose measurement (mass/volume) 200 mg/dL 70-105 Serum or plasma calcium measurement (mass/volume) 8.9 mg/dL 8.5-10.1 Serum or plasma total bilirubin measurement (mass/volu me) 0.5 mg/dL 0.1-1.0 Serum or plasma alkaline phosphatase tommie surement (enzymatic activity/volume) 83 U/L 40-136 Serum or plasma aspartate aminotransfera se measurement (enzymatic activity/volume) 12 U/L 5-34 Serum or plasma alanine aminotransferase measurement (enzymatic activity/volume) 14 U/L 0-55 Serum or plasma protein measurement (mass/volume) 6.0 g/dL 6.4-8.2 Serum or plasma albumin measurement (mass/volume) 3.1 g/dL 3.2-4.5 Magnesium - 01/04/17 05:10 Magnesium 1.8 mg/dL 1.8-2.4 THYROID STIMULATING HORMONE - 01/04/17 0 5:10 THYROID STIMULATING HORMONE 4.42 u[iU]/mL 0.35-4.94 Capillary blood glucose measurement by g lucometer (mass/volume) - 01/04/17 11:15 Capillary blood glucose measurement by glucometer (mas s/volume) 146 mg/dL 70-110 Capillary blood glucose measurement by g lucometer (mass/volume) - 01/04/17 15:43 Capillary blood glucose measurement by glucometer (mas s/volume) 266 mg/dL 70-110 Automated blood complete blood count (he mogram) panel - 05/24/17 08:02 Blood leukocytes automated count (number/volume) 14.5 10*3/uL 4.3-11.0 Blood erythrocytes automated count (number/volume) 4.81 10*6/uL 4.35-5.85 Venous blood hemoglobin measurement (mass/volume) 13.8 g/dL 11.5-16.0 Blood hematocrit (volume fraction) 42 % 35-52 Automated erythrocyte mean corpuscular volume 87 [ foz_us] 80-99 Automated erythrocyte mean corpuscular h emoglobin (mass per erythrocyte) 29 pg 25-34 Automated erythrocyte mean corpuscular h emoglobin concentration measurement (mass/volume) 33 g/dL 32-36 Automated erythrocyte distribution width ratio 13. 5 % 10.0- 14.5 Automated blood platelet count (count/volume) 235 10*3/uL 130-400 Automated blood platelet mean volume measurement 11.9 [foz_us] 7.4-10.4 PT panel in platelet poor plasma by coag ulation assay - 05/24/17 08:02 Prothrombin time (PT) in platelet poor plasma by coagu lation assay 12.2 s 12.2-14.7 INR in platelet poor plasma or blood by coagulation as say 0.9 0.8-1.4 Activated partial thromboplastin time (a PTT) in platelet poor plasma bycoagulation assay - 05/24/17 08:02 Activated partial thromboplastin time (a PTT) in platelet poor plasma bycoagulation assay 29 s 24-35 Comprehensive metabolic panel - 05/24/17 08:02 Serum or plasma sodium measurement (moles/volume) 136 mmol/L 135-145 Serum or plasma potassium measurement (moles/volume) 3.5 mmol/L 3.6-5.0 Serum or plasma chloride measurement (moles/volume) 99 mmol/L 98-107 Carbon dioxide 26 mmol/L 21-32 Serum or plasma anion gap determination (moles/volume) 11 mmol/L 5-14 Serum or plasma urea nitrogen measurement (mass/volume ) 19 mg/dL 7-18 Serum or plasma creatinine measurement (mass/volume) 0.99 mg/dL 0.60-1.30 Serum or plasma urea nitrogen/creatinine mass ratio 19 NRG Serum or plasma creatinine measurement w ith calculation of estimated glomerular filtration rate 57 NRG Serum or plasma glucose measurement (mass/volume) 382 mg/dL 70-105 Serum or plasma calcium measurement (mass/volume) 9.7 mg/dL 8.5-10.1 Serum or plasma total bilirubin measurement (mass/volu me) 0.6 mg/dL 0.1-1.0 Serum or plasma alkaline phosphatase tommie surement (enzymatic activity/volume) 101 U/L 40-136 Serum or plasma aspartate aminotransfera se measurement (enzymatic activity/volume) 12 U/L 5-34 Serum or plasma alanine aminotransferase measurement (enzymatic activity/volume) 16 U/L 0-55 Serum or plasma protein measurement (mass/volume) 7.8 g/dL 6.4-8.2 Serum or plasma albumin measurement (mass/volume) 3.8 g/dL 3.2-4.5 Lipid 1996 panel - 05/24/17 08:02 Serum or plasma triglyceride measurement (mass/volume) 232 mg/dL <150 Serum or plasma cholesterol measurement (mass/volume) 186 mg/dL < 200 Serum or plasma cholesterol in HDL measurement (mass/v olume) 44 mg/dL 40-60 Cholesterol in LDL [mass/volume] in serum or plasma by direct assay 117 mg/dL 1-129 Serum or plasma cholesterol in VLDL measurement (mass/ volume) 46 mg/dL 5-40 Methicillin resistant Staphylococcus aur eus (MRSA) screening culture - 05/24/17 08:02 Methicillin resistant Staphylococcus aureus (MRSA) scr eening culture NEG NRG Capillary blood glucose measurement by g lucometer (mass/volume) - 05/24/17 21:27 Capillary blood glucose measurement by glucometer (mas s/volume) 264 mg/dL 70-110 Automated blood complete blood count (he mogram) panel - 05/25/17 05:18 Blood leukocytes automated count (number/volume) 12.0 10*3/uL 4.3-11.0 Blood erythrocytes automated count (number/volume) 4.38 10*6/uL 4.35-5.85 Venous blood hemoglobin measurement (mass/volume) 12.6 g/dL 11.5-16.0 Blood hematocrit (volume fraction) 38 % 35-52 Automated erythrocyte mean corpuscular volume 87 [ foz_us] 80-99 Automated erythrocyte mean corpuscular h emoglobin (mass per erythrocyte) 29 pg 25-34 Automated erythrocyte mean corpuscular h emoglobin concentration measurement (mass/volume) 33 g/dL 32-36 Automated erythrocyte distribution width ratio 13. 5 % 10.0- 14.5 Automated blood platelet count (count/volume) 172 10*3/uL [...] 5-14 Serum or plasma urea nitrogen measurement (mass/volume ) 20 mg/dL 7-18 Serum or plasma creatinine measurement (mass/volume) 0.74 mg/dL 0.60-1.30 Serum or plasma urea nitrogen/creatinine mass ratio 27 NRG Serum or plasma creatinine measurement w ith calculation of estimated glomerular filtration rate > NRG Serum or plasma glucose measurement (mass/volume) 264 mg/dL 70-105 Serum or plasma calcium measurement (mass/volume) 8.6 mg/dL 8.5-10.1 Serum or plasma total bilirubin measurement (mass/volu me) 0.6 mg/dL 0.1-1.0 Serum or plasma alkaline phosphatase tommie surement (enzymatic activity/volume) 85 U/L 40-136 Serum or plasma aspartate aminotransfera se measurement (enzymatic activity/volume) 14 U/L 5-34 Serum or plasma alanine aminotransferase measurement (enzymatic activity/volume) 12 U/L 0-55 Serum or plasma protein measurement (mass/volume) 6.4 g/dL 6.4-8.2 Serum or plasma albumin measurement (mass/volume) 3.1 g/dL 3.2-4.5 CBC - 09/14/17 17:47 WHITE BLOOD CELL COUNT 11.0 Thousand/uL 3.8-10.8 RED BLOOD CELL COUNT 4.82 Million/uL 3.8 0-5.10 HEMOGLOBIN 13.7 g/dL 11.7-15.5 HEMATOCRIT 43.1 % 35.0-45.0 MCV 89.4 fL 80.0-100.0 MCH 28.4 pg 27.0-33.0 MCHC 31.8 g/dL 32.0-36.0 RDW 12.5 % 11.0-15.0 PLATELET COUNT 198 Thousand/uL 140-400 MPV 11.5 fL 7.5-12.5 ABSOLUTE NEUTROPHILS 7590 cells/uL 1500- 7800 ABSOLUTE LYMPHOCYTES 2376 cells/uL 850-3 900 ABSOLUTE MONOCYTES 781 cells/uL 200-950 ABSOLUTE EOSINOPHILS 176 cells/uL 15-500 ABSOLUTE BASOPHILS 77 cells/uL 0-200 NEUTROPHILS 69 % NRG LYMPHOCYTES 21.6 % NRG MONOCYTES 7.1 % NRG EOSINOPHILS 1.6 % NRG BASOPHILS 0.7 % NRG Complete blood count (CBC) with automate d white blood cell (WBC) differential - 10/10/17 18:55 Blood leukocytes automated count (number/volume) 9.9 10*3/uL 4.3-11.0 Blood erythrocytes automated count (number/volume) 5.09 10*6/uL 4.35-5.85 Venous blood hemoglobin measurement (mass/volume) 14.6 g/dL 11.5-16.0 Blood hematocrit (volume fraction) 43 % 35-52 Automated erythrocyte mean corpuscular volume 85 [ foz_us] 80-99 Automated erythrocyte mean corpuscular h emoglobin (mass per erythrocyte) 29 pg 25-34 Automated erythrocyte mean corpuscular h emoglobin concentration measurement (mass/volume) 34 g/dL 32-36 Automated erythrocyte distribution width ratio 13. 5 % 10.0- 14.5 Automated blood platelet count (count/volume) 166 10*3/uL [...] 10*3 1.0-4.0 Blood monocytes automated count (number/volume) 1. 1 10*3 0.0-1.0 Automated eosinophil count 0.0 10*3/uL 0 .0-0.3 Automated blood basophil count (count/volume) 0.0 10*3/uL 0.0-0.1 Comprehensive metabolic panel - 10/10/17 18:55 Serum or plasma sodium measurement (moles/volume) 127 mmol/L 135-145 Serum or plasma potassium measurement (moles/volume) 3.3 mmol/L 3.6-5.0 Serum or plasma chloride measurement (moles/volume) 91 mmol/L 98-107 Carbon dioxide 23 mmol/L 21-32 Serum or plasma anion gap determination (moles/volume) 13 mmol/L 5-14 Serum or plasma urea nitrogen measurement (mass/volume ) 21 mg/dL 7-18 Serum or plasma creatinine measurement (mass/volume) 1.32 mg/dL 0.60-1.30 Serum or plasma urea nitrogen/creatinine mass ratio 16 NRG Serum or plasma creatinine measurement w ith calculation of estimated glomerular filtration rate 41 NRG Serum or plasma glucose measurement (mass/volume) 503 mg/dL 70-105 Serum or plasma calcium measurement (mass/volume) 9.1 mg/dL 8.5-10.1 Serum or plasma total bilirubin measurement (mass/volu me) 0.8 mg/dL 0.1-1.0 Serum or plasma alkaline phosphatase tommie surement (enzymatic activity/volume) 87 U/L 40-136 Serum or plasma aspartate aminotransfera se measurement (enzymatic activity/volume) 34 U/L 5-34 Serum or plasma alanine aminotransferase measurement (enzymatic activity/volume) 26 U/L 0-55 Serum or plasma protein measurement (mass/volume) 7.7 g/dL 6.4-8.2 Serum or plasma albumin measurement (mass/volume) 3.5 g/dL 3.2-4.5 Magnesium - 10/10/17 18:55 Magnesium 1.7 mg/dL 1.8-2.4 Capillary blood glucose measurement by g lucometer (mass/volume) - 10/10/17 20:49 Capillary blood glucose measurement by glucometer (mas s/volume) 318 mg/dL 70-110 CULTURE, GENITAL - 01/31/18 13:39 CULTURE, GENITAL SEE NOTE [facility] PATHOLOGY REPORT (TISSUE PAHOLOGY) - 01/13 13:39 CLINICAL INFORMATION [facility] PATHOLOGIST [facility] CMP - 05/24/18 09:33 GLUCOSE 345 mg/dL 65-99 UREA NITROGEN (BUN) 15 mg/dL 7-25 CREATININE 0.69 mg/dL 0.50-0.99 eGFR NON-AFR. [place] 93 mL/min/1.73m2 > OR = 60 eGFR 107 mL/min/1.73m2 > OR = 60 BUN/CREATININE RATIO NOT APPLICABLE (calc) 6-22 SODIUM 136 mmol/L 135-146 POTASSIUM 4.0 mmol/L 3.5-5.3 CHLORIDE 98 mmol/L 98-110 CARBON DIOXIDE 28 mmol/L 20-32 CALCIUM 9.3 mg/dL 8.6-10.4 PROTEIN, TOTAL 7.0 g/dL 6.1-8.1 ALBUMIN 3.7 g/dL 3.6-5.1 GLOBULIN 3.3 g/dL (calc) 1.9-3.7 ALBUMIN/GLOBULIN RATIO 1.1 (calc) 1.0-2. 5 BILIRUBIN, TOTAL 0.6 mg/dL 0.2-1.2 ALKALINE PHOSPHATASE 94 U/L 33-130 AST 11 U/L 10-35 ALT 9 U/L 6-29 CULTURE, URINE - 08/14/18 17:48 CULTURE, URINE, ROUTINE SEE NOTE NRG CULTURE, VAGINAL YEAST - 10/18/18 17:59 CULTURE, YEAST, W/DIRECT FLUORESCENT AMARJIT SEE NOTE NRG Complete blood count (CBC) with automate d white blood cell (WBC) differential - 06/09/19 17:10 Blood leukocytes automated count (number/volume) 10.0 10*3/uL 4.3-11.0 Blood erythrocytes automated count (number/volume) 4.31 10*6/uL 4.35-5.85 Venous blood hemoglobin measurement (mass/volume) 12.5 g/dL 11.5-16.0 Blood hematocrit (volume fraction) 37 % 35-52 Automated erythrocyte mean corpuscular volume 86 [ foz_us] 80-99 Automated erythrocyte mean corpuscular h emoglobin (mass per erythrocyte) 29 pg 25-34 Automated erythrocyte mean corpuscular h emoglobin concentration measurement (mass/volume) 34 g/dL 32-36 Automated erythrocyte distribution width ratio 13. 3 % 10.0- 14.5 Automated blood platelet count (count/volume) 204 10*3/uL 130-400 Automated blood platelet mean volume measurement 11.5 [foz_us] 7.4-10.4 Automated blood neutrophils/100 leukocytes 65 % 42-75 Automated blood lymphocytes/100 leukocytes 26 % 12-44 Blood monocytes/100 leukocytes 7 % 0-12 Automated blood eosinophils/100 leukocytes 2 % 0-10 Automated blood basophils/100 leukocytes 0 % 0-10 Blood neutrophils automated count (number/volume) 6.4 10*3 1.8-7.8 Blood lymphocytes automated count (number/volume) 2.6 10*3 1.0-4.0 Blood monocytes automated count (number/volume) 0. 7 10*3 0.0-1.0 Automated eosinophil count 0.2 10*3/uL 0 .0-0.3 Automated blood basophil count (count/volume) 0.0 10*3/uL 0.0-0.1 PT panel in platelet poor plasma by coag ulation assay - 06/09/19 17:10 Prothrombin time (PT) in platelet poor plasma by coagu lation assay 13.4 s 12.2-14.7 INR in platelet poor plasma or blood by coagulation as say 1.0 0.8-1.4 Activated partial thromboplastin time (a PTT) in platelet poor plasma bycoagulation assay - 06/09/19 17:10 Activated partial thromboplastin time (a PTT) in platelet poor plasma bycoagulation assay 31 s 24-35 Comprehensive metabolic panel - 06/09/19 17:10 Serum or plasma sodium measurement (moles/volume) 139 mmol/L 135-145 Serum or plasma potassium measurement (moles/volume) 2.5 mmol/L 3.6-5.0 Serum or plasma chloride measurement (moles/volume) 101 mmol/L 98-107 Carbon dioxide 27 mmol/L 21-32 Serum or plasma anion gap determination (moles/volume) 11 mmol/L 5-14 Serum or plasma urea nitrogen measurement (mass/volume ) 10 mg/dL 7-18 Serum or plasma creatinine measurement (mass/volume) 0.91 mg/dL 0.60-1.30 Serum or plasma urea nitrogen/creatinine mass ratio 11 NRG Serum or plasma creatinine measurement w ith calculation of estimated glomerular filtration rate > NRG Serum or plasma glucose measurement (mass/volume) 153 mg/dL 70-105 Serum or plasma calcium measurement (mass/volume) 9.1 mg/dL 8.5-10.1 Serum or plasma total bilirubin measurement (mass/volu me) 0.4 mg/dL 0.1-1.0 Serum or plasma alkaline phosphatase tommie surement (enzymatic activity/volume) 85 U/L 40-136 Serum or plasma aspartate aminotransfera se measurement (enzymatic activity/volume) 10 U/L 5-34 Serum or plasma alanine aminotransferase measurement (enzymatic activity/volume) 8 U/L 0-55 Serum or plasma protein measurement (mass/volume) 6.7 g/dL 6.4-8.2 Serum or plasma albumin measurement (mass/volume) 3.4 g/dL 3.2-4.5 CALCIUM CORRECTED 9.6 mg/dL 8.5-10.1 Magnesium - 06/09/19 17:10 Magnesium 1.6 mg/dL 1.6-2.4 Serum or plasma troponin i.cardiac measu rement (mass/volume) - 06/09/19 17:10 Serum or plasma troponin i.cardiac measurement (mass/v olume) < ng/mL <0.028 Myoglobin, serum - 06/09/19 17:10 Myoglobin, serum 58.9 ng/mL 10.0-92.0 Serum or plasma lithium measurement (mol es/volume) - 06/09/19 17:10 BNP PT 48.4 pg/mL <100.0 Methicillin resistant Staphylococcus aur eus (MRSA) screening culture - 06/09/19 20:37 Methicillin resistant Staphylococcus aureus (MRSA) scr eening culture NEG NRG Capillary blood glucose measurement by g lucometer (mass/volume) - 06/09/19 21:20 Capillary blood glucose measurement by glucometer (mas s/volume) 119 mg/dL 70-110 Complete blood count (CBC) with automate d white blood cell (WBC) differential - 06/10/19 00:11 Blood leukocytes automated count (number/volume) 10.8 10*3/uL 4.3-11.0 Blood erythrocytes automated count (number/volume) 4.14 10*6/uL 4.35-5.85 Venous blood hemoglobin measurement (mass/volume) 11.9 g/dL 11.5-16.0 Blood hematocrit (volume fraction) 36 % 35-52 Automated erythrocyte mean corpuscular volume 87 [ foz_us] 80-99 Automated erythrocyte mean corpuscular h emoglobin (mass per erythrocyte) 29 pg 25-34 Automated erythrocyte mean corpuscular h emoglobin concentration measurement (mass/volume) 33 g/dL 32-36 Automated erythrocyte distribution width ratio 13. 4 % 10.0- 14.5 Automated blood platelet count (count/volume) 213 10*3/uL 130-400 Automated blood platelet mean volume measurement 11.8 [foz_us] 7.4-10.4 Automated blood neutrophils/100 leukocytes 63 % 42-75 Automated blood lymphocytes/100 leukocytes 28 % 12-44 Blood monocytes/100 leukocytes 6 % 0-12 Automated blood eosinophils/100 leukocytes 2 % 0-10 Automated blood basophils/100 leukocytes 0 % 0-10 Blood neutrophils automated count (number/volume) 6.8 10*3 1.8-7.8 Blood lymphocytes automated count (number/volume) 3.1 10*3 1.0-4.0 Blood monocytes automated count (number/volume) 0. 7 10*3 0.0-1.0 Automated eosinophil count 0.2 10*3/uL 0 .0-0.3 Automated blood basophil count (count/volume) 0.0 10*3/uL 0.0-0.1 Serum or plasma troponin i.cardiac measu rement (mass/volume) - 06/10/19 00:11 Serum or plasma troponin i.cardiac measurement (mass/v olume) < ng/mL <0.028 Comprehensive metabolic panel - 06/10/19 02:47 Serum or plasma sodium measurement (moles/volume) 139 mmol/L 135-145 Serum or plasma potassium measurement (moles/volume) 3.1 mmol/L 3.6-5.0 Serum or plasma chloride measurement (moles/volume) 104 mmol/L 98-107 Carbon dioxide 29 mmol/L 21-32 Serum or plasma anion gap determination (moles/volume) 6 mmol/L 5-14 Serum or plasma urea nitrogen measurement (mass/volume ) 12 mg/dL 7-18 Serum or plasma creatinine measurement (mass/volume) 0.80 mg/dL 0.60-1.30 Serum or plasma urea nitrogen/creatinine mass ratio 15 NRG Serum or plasma creatinine measurement w ith calculation of estimated glomerular filtration rate > NRG Serum or plasma glucose measurement (mass/volume) 80 mg/dL 70-105 Serum or plasma calcium measurement (mass/volume) 9.0 mg/dL 8.5-10.1 Serum or plasma total bilirubin measurement (mass/volu me) 0.3 mg/dL 0.1-1.0 Serum or plasma alkaline phosphatase tommie surement (enzymatic activity/volume) 81 U/L 40-136 Serum or plasma aspartate aminotransfera se measurement (enzymatic activity/volume) 13 U/L 5-34 Serum or plasma alanine aminotransferase measurement (enzymatic activity/volume) 13 U/L 0-55 Serum or plasma protein measurement (mass/volume) 5.9 g/dL 6.4-8.2 Serum or plasma albumin measurement (mass/volume) 3.0 g/dL 3.2-4.5 CALCIUM CORRECTED 9.8 mg/dL 8.5-10.1 Serum or plasma troponin i.cardiac measu rement (mass/volume) - 06/10/19 02:47 Serum or plasma troponin i.cardiac measurement (mass/v olume) 0.028 ng/mL <0.028 Lipid 1996 panel - 06/10/19 02:47 Serum or plasma triglyceride measurement (mass/volume) 143 mg/dL <150 Serum or plasma cholesterol measurement (mass/volume) 182 mg/dL < 200 Serum or plasma cholesterol in HDL measurement (mass/v olume) 42 mg/dL 40-60 Cholesterol in LDL [mass/volume] in serum or plasma by direct assay 132 mg/dL 1-129 Serum or plasma cholesterol in VLDL measurement (mass/ volume) 29 mg/dL 5-40 Capillary blood glucose measurement by g lucometer (mass/volume) - 06/10/19 05:53 Capillary blood glucose measurement by glucometer (mas s/volume) 115 mg/dL 70-110 Whole blood basic metabolic panel - 05/29 11/14 10:00 Serum or plasma sodium measurement (moles/volume) 140 mmol/L 135-145 Serum or plasma potassium measurement (moles/volume) 3.7 mmol/L 3.6-5.0 Serum or plasma chloride measurement (moles/volume) 106 mmol/L 98-107 Carbon dioxide 28 mmol/L 21-32 Serum or plasma anion gap determination (moles/volume) 6 mmol/L 5-14 Serum or plasma urea nitrogen measurement (mass/volume ) 12 mg/dL 7-18 Serum or plasma creatinine measurement (mass/volume) 0.74 mg/dL 0.60-1.30 Serum or plasma urea nitrogen/creatinine mass ratio 16 NRG Serum or plasma creatinine measurement w ith calculation of estimated glomerular filtration rate > NRG Serum or plasma glucose measurement (mass/volume) 46 mg/dL 70-105 Serum or plasma calcium measurement (mass/volume) 8.7 mg/dL 8.5-10.1 Serum or plasma phosphate measurement (m ass/volume) - 06/10/19 10:00 Serum or plasma phosphate measurement (mass/volume) 2.7 mg/dL 2.3-4.7 Magnesium - 06/10/19 10:00 Magnesium 1.8 mg/dL 1.6-2.4 Capillary blood glucose measurement by g lucometer (mass/volume) - 06/10/19 11:24 Capillary blood glucose measurement by glucometer (mas s/volume) 60 mg/dL 70-110 Capillary blood glucose measurement by g lucometer (mass/volume) - 06/10/19 12:15 Capillary blood glucose measurement by glucometer (mas s/volume) 104 mg/dL 70-110 CMP - 10/04/19 15:30 GLUCOSE 352 mg/dL 65-99 UREA NITROGEN (BUN) 14 mg/dL 7-25 CREATININE 0.80 mg/dL 0.50-0.99 eGFR NON-AFR. [place] 78 mL/min/1.73m2 > OR = 60 eGFR 90 mL/min/1.73m2 > OR = 60 BUN/CREATININE RATIO NOT APPLICABLE (calc) 6-22 SODIUM 137 mmol/L 135-146 POTASSIUM 4.0 mmol/L 3.5-5.3 CHLORIDE 98 mmol/L 98-110 CARBON DIOXIDE 34 mmol/L 20-32 CALCIUM 9.8 mg/dL 8.6-10.4 PROTEIN, TOTAL 6.5 g/dL 6.1-8.1 ALBUMIN 3.6 g/dL 3.6-5.1 GLOBULIN 2.9 g/dL (calc) 1.9-3.7 ALBUMIN/GLOBULIN RATIO 1.2 (calc) 1.0-2. 5 BILIRUBIN, TOTAL 0.5 mg/dL 0.2-1.2 ALKALINE PHOSPHATASE 95 U/L 37-153 AST 14 U/L 10-35 ALT 13 U/L 6-29 CBC - 10/04/19 15:30 WHITE BLOOD CELL COUNT 11.4 Thousand/uL 3.8-10.8 RED BLOOD CELL COUNT 4.99 Million/uL 3.8 0-5.10 HEMOGLOBIN 14.2 g/dL 11.7-15.5 HEMATOCRIT 44.5 % 35.0-45.0 MCV 89.2 fL 80.0-100.0 MCH 28.5 pg 27.0-33.0 MCHC 31.9 g/dL 32.0-36.0 RDW 13.2 % 11.0-15.0 PLATELET COUNT 241 Thousand/uL 140-400 MPV 12.0 fL 7.5-12.5 ABSOLUTE NEUTROPHILS 8071 cells/uL 1500- 7800 ABSOLUTE LYMPHOCYTES 2371 cells/uL 850-3 900 ABSOLUTE MONOCYTES 730 cells/uL 200-950 ABSOLUTE EOSINOPHILS 137 cells/uL 15-500 ABSOLUTE BASOPHILS 91 cells/uL 0-200 NEUTROPHILS 70.8 % NRG LYMPHOCYTES 20.8 % NRG MONOCYTES 6.4 % NRG EOSINOPHILS 1.2 % NRG BASOPHILS 0.8 % NRG Complete blood count (CBC) with automate d white blood cell (WBC) differential - 01/09/20 18:05 Blood leukocytes automated count (number/volume) 17.5 10*3/uL 4.3-11.0 Blood erythrocytes automated count (number/volume) 5.64 10*6/uL 4.35-5.85 Venous blood hemoglobin measurement (mass/volume) 15.9 g/dL 11.5-16.0 Blood hematocrit (volume fraction) 47 % 35-52 Automated erythrocyte mean corpuscular volume 83 [ foz_us] 80-99 Automated erythrocyte mean corpuscular h emoglobin (mass per erythrocyte) 28 pg 25-34 Automated erythrocyte mean corpuscular h emoglobin concentration measurement (mass/volume) 34 g/dL 32-36 Automated erythrocyte distribution width ratio 14. 2 % 10.0- 14.5 Automated blood platelet count (count/volume) 312 10*3/uL 130-400 Automated blood platelet mean volume measurement 11.7 [foz_us] 7.4-10.4 Automated blood neutrophils/100 leukocytes 75 % 42-75 Automated blood lymphocytes/100 leukocytes 18 % 12-44 Blood monocytes/100 leukocytes 7 % 0-12 Automated blood eosinophils/100 leukocytes 0 % 0-10 Automated blood basophils/100 leukocytes 0 % 0-10 Blood neutrophils automated count (number/volume) 13.1 10*3 1.8-7.8 Blood lymphocytes automated count (number/volume) 3.2 10*3 1.0-4.0 Blood monocytes automated count (number/volume) 1. 2 10*3 0.0-1.0 Automated eosinophil count 0.0 10*3/uL 0 .0-0.3 Automated blood basophil count (count/volume) 0.1 10*3/uL 0.0-0.1 Comprehensive metabolic panel - 01/09/20 18:05 Serum or plasma sodium measurement (moles/volume) 136 mmol/L 135-145 Serum or plasma potassium measurement (moles/volume) 3.3 mmol/L 3.6-5.0 Serum or plasma chloride measurement (moles/volume) 98 mmol/L 98-107 Carbon dioxide 25 mmol/L 21-32 Serum or plasma anion gap determination (moles/volume) 13 mmol/L 5-14 Serum or plasma urea nitrogen measurement (mass/volume ) 13 mg/dL 7-18 Serum or plasma creatinine measurement (mass/volume) 1.09 mg/dL 0.60-1.30 Serum or plasma urea nitrogen/creatinine mass ratio 12 NRG Serum or plasma creatinine measurement w ith calculation of estimated glomerular filtration rate 51 NRG Serum or plasma glucose measurement (mass/volume) 395 mg/dL 70-105 Serum or plasma calcium measurement (mass/volume) 9.4 mg/dL 8.5-10.1 Serum or plasma total bilirubin measurement (mass/volu me) 0.8 mg/dL 0.1-1.0 Serum or plasma alkaline phosphatase tommie surement (enzymatic activity/volume) 94 U/L 40-136 Serum or plasma aspartate aminotransfera se measurement (enzymatic activity/volume) 18 U/L 5-34 Serum or plasma alanine aminotransferase measurement (enzymatic activity/volume) 14 U/L 0-55 Serum or plasma protein measurement (mass/volume) 8.0 g/dL 6.4-8.2 Serum or plasma albumin measurement (mass/volume) 3.8 g/dL 3.2-4.5 CALCIUM CORRECTED 9.6 mg/dL 8.5-10.1 Magnesium - 01/09/20 18:05 Magnesium 1.7 mg/dL 1.6-2.4 Serum or plasma creatine kinase measurem ent (enzymatic activity/volume) - 01/09/20 18:05 Serum or plasma creatine kinase measurem ent (enzymatic activity/volume) 22 U/L 29-168 Serum or plasma creatine kinase MB measu rement (enzymatic activity/volume) - 01/09/20 18:05 Serum or plasma creatine kinase MB measu rement (enzymatic activity/volume) 1.0 ng/mL <6.6 Myoglobin, serum - 01/09/20 18:05 Myoglobin, serum 46.6 ng/mL 10.0-92.0 Serum or plasma troponin i.cardiac measu rement (mass/volume) - 01/09/20 18:05 Serum or plasma troponin i.cardiac measurement (mass/v olume) 0.038 ng/mL <0.028 Serum or plasma amylase measurement (enz ymatic activity/volume) - 01/09/20 18:05 Serum or plasma amylase measurement (enzymatic activit y/volume) 16 U/L 25-125 Myoglobin, serum - 01/09/20 18:05 Myoglobin, serum 46.6 ng/mL 10.0-92.0 Lipase - 01/09/20 18:05 Lipase 12 U/L 8-78 Serum or plasma amylase measurement (enz ymatic activity/volume) - 01/09/20 18:05 Serum or plasma amylase measurement (enzymatic activit y/volume) 16 U/L 25-125 Lipase - 01/09/20 18:05 Lipase 12 U/L 8-78 Serum or plasma lithium measurement (mol es/volume) - 01/09/20 18:05 BNP PT 200.1 pg/mL <100.0 PT panel in platelet poor plasma by coag ulation assay - 01/09/20 18:05 Prothrombin time (PT) in platelet poor plasma by coagu lation assay 13.5 s 12.2-14.7 INR in platelet poor plasma or blood by coagulation as say 1.0 0.8-1.4 Activated partial thromboplastin time (a PTT) in platelet poor plasma bycoagulation assay - 01/09/20 18:05 Activated partial thromboplastin time (a PTT) in platelet poor plasma bycoagulation assay 28 s 24-35 Manual absolute plasma cell count - 12/27 11/15 18:05 Blood monocytes/100 leukocytes 4 % NRG Manual blood segmented neutrophils/100 leukocytes 77 % NRG Manual blood lymphocytes/100 leukocytes 19 % NRG Blood erythrocyte morphology finding identification NORMAL NRG Capillary blood glucose measurement by g lucometer (mass/volume) - 01/09/20 18:15 Capillary blood glucose measurement by glucometer (mas s/volume) 337 mg/dL 70-110 Encounters ACCT No. Visit Date/Time Discharge Status Pt. Type Provider Facility Loc./Unit Complaint [id number] 10/04/2019 15:20:00 10/04/2019 23:59:5 9 CLS Outpatient ALEA FAUSTIN APRN [facility] [id number] 10/04/2019 15:20:00 Document Registration [id number] 10/18/2018 15:15:00 Document Registration [id number] 08/14/2018 16:00:00 Document Registration [id number] 05/24/2018 08:40:00 Document Registration [id number] 01/31/2018 10:40:00 Document Registration [id number] 09/14/2017 16:40:00 Document Registration [id number] 11/05/2019 14:07:00 23:59:59 CLS Preadmit MARIAELENA POLANCO FACC, REX PERALES CCDS [facility] RAD CAD,CAROTID ART DISEASE,HYPERLIPIDEMIA,HYPERTENSIO [id number] 08/28/2019 09:01:00 11:55:00 DIS Outpatient MYCHAL LAND DO [facility] ENDO SCREENING/GERD/N V [id number] 08/24/2019 10:00:00 10:31:00 DIS Outpatient MYCHAL LAND DO [facility] PREOP COLONOSCOPY/EGD [id number] 07/24/2019 13:26:00 23:59:59 CLS Outpatient ALEA FAUSTIN [facility] RAD ASYMPTOMATIC MENOPA[place] L STATE [id number] 07/05/2019 08:30:00 23:59:59 CLS Preadmit ALEA FAUSTIN [facility] RAD SCREENING [id number] 06/12/2019 12:18:00 23:59:59 CLS Outpatient SULEMAN YAP SENIOR SUPPORT ENGINEER [facility] LAB I10 [id number] 06/09/2019 18:00:00 14:25:00 DIS Inpatient GREG CISNEROS ZAFAR Kaleigh ia [facility] ICU CP R/O ACS,HYPOKALEMIA [id number] 01/27/2018 22:35:00 018 23:01:00 DIS Emergency NO KIRK APRN [facility] ER VAGINAL PAIN;CYCST [id number] 01/25/2018 09:12:00 018 23:59:59 CLS Outpatient MARIAELENA POLANCO FACC, ALI FACP CC DS [facility] CARD R06.02 SOB [id number] 01/10/2018 07:12:00 018 23:59:59 CLS Outpatient MARIAELENA POLANCO FACC, ALI FACP CC DS [facility] CARD R06.02 SOB [id number] 10/10/2017 16:12:00 018 21:21:00 DIS Emergency EMILEE DENNISON MD [facility] ER WEAKNESS/DIARRH EA [id number] 05/24/2017 07:34:00 017 11:49:00 DIS Outpatient MARIAELENA POLANCO FACC, ALI FACP CC DS [facility] CATH SINUS PAUSE SINUS BRADYCARDIA,SSS [id number] 01/02/2017 16:55:00 017 17:28:00 DIS Inpatient MANUELA MUNOZ MD [facility] 4TH ATYPICAL CONCERN FOR MY DOCANDIAL INFACTION [id number] 12/31/2016 12:51:00 017 23:59:59 CLS Outpatient MARIAELENA POLANCO FACC, ALI FACP CC DS [facility] CARD Z95.5,I25.1 0 [id number] 12/09/2016 11:27:00 017 23:59:59 CLS Outpatient SULEMAN YAP [facility] RAD RT GROIN PAIN [id number] 12/02/2016 16:44:00 017 12:00:00 DIS Inpatient GOMEZ REBOLLEDO MD [facility] ICU STEMI [id number] 11/19/2016 11:07:00 23:59:59 CLS Outpatient MARIAELENA POLANCO FACC, REX PERALES CC DS [facility] LAB CAD,DIABETES,HYPERLIDEMIA,HTN [id number] 10/19/2016 10:35:00 017 13:22:00 DIS Emergency NO KIRK APRN [facility] ER POST OP BLEEDING [id number] 10/05/2016 09:14:00 017 11:45:00 DIS Outpatient MARIAELENA POLANCO FACC, REX PERALES CC DS [facility] CATH SOB,CAD [id number] 01/27/2016 13:59:00 016 13:46:00 DIS Outpatient ALEA FAUSTIN [facility] REHAB NECK PAIN WITH L RADIC ULOPATHY [id number] 06/10/2015 21:09:00 015 10:06:00 DIS Inpatient ANDREA RIVERA MD [facility] ICU NEW ONSET AFIB;UTI;H/O CAD [id number] 07/28/2014 15:06:00 014 17:02:00 DIS Emergency NO KIRK APRN [facility] ER LUMP IN GROIN AREA POST HEART CATH [id number] 07/23/2014 08:11:00 014 09:50:00 DIS Outpatient MARIAELENA POLANCO FACC, REX PERALES CC DS [facility] CATH ABNORMAL ST RESS, CHEST PAIN [id number] 07/17/2014 16:34:00 014 17:23:00 DIS Inpatient REX FERRELL MD, FACC, FACP CCD S [facility] CSD CHEST PAIN ON EXERTION,COLLAZO,DIZZINESS [id number] 07/09/2014 08:29:00 23:59:59 CLS Outpatient MARIAELENA POLANCO FACC, REX PERALES CC DS [facility] CARD CAD,HLP,HTN [id number] 07/08/2014 12:05:00 23:59:59 CLS Outpatient SULEMAN YAP [facility] LAB CAD,HYPERLIPIDE IZZY [id number] 06/24/2014 12:36:00 23:59:59 CLS Outpatient JOSH DANIELSON DO [facility] RAD RUQ PAIN [id number] 06/20/2014 12:31:00 23:59:59 CLS Outpatient JOSH DANIELSON DO [facility] LAB RUQ PAIN [id number] 12/14/2013 15:41:00 17:23:00 DIS Inpatient NICOLE POLANCO, ANDREA [place] [facility] 4TH CAT BITE CELLULITIS R H AND; DIABETES OUT OF CONTRO [id number] 01/15/2020 08:45:00 P EN Preadmit MARIAELENA POLANCO FACC, ALI FACP CCDS [facility] CARD CAD [id number] 01/09/2020 18:41:[address] Outpatient MARIAELENA POLANCO FACC, ALI FACP CCDS [facility] CATH CHEST PAIN,DIZZINESS [id number] 01/08/2020 09:04:[address] Outpatient MARIAELENA POLANCO FACC, ALI FACP CCDS [facility] CARD CAD [id number] 07/10/2011 16:47:00 Document Registration [id number] 05/24/2011 18:15:00 Document Registration [id number] 05/18/2011 15:49:00 Document Registration
[2020-01-09] MEDS ORDERED: TICAGRELOR 90 MG TABLET (BRILINTA) PO ONE (19:43)
--- NOTE | 2020-01-09 20:39 | Cardiac Procedure Note-CS/ASA ---
Pre-Procedure Note Pre-Op Procedure Note H&P Reviewed The H&P was reviewed, patient examined and no changes noted. Date H&P Reviewed: January 09, 2020 Time H&P Reviewed: 19:00 Conscious Sedation Pre-Proced Time 19:00 ASA Score 4 For ASA 3 and 4: Consider anesthesia and medical clearance. Also, for patients with a history of failed moderate sedation consider anesthesia. Airway Lungs Heart ASA score ASA 1: a normal healthy patient ASA 2: a patient with a mild systemic disease (mid diabetes, controlled hypertension, obesity ASA 3: a patient with a severe systemic disease that limits activity (angina, COPD, prior Myocardial infarction) ASA 4: a patient with an incapacitating disease that is a constant threat to life (CHF, renal failure) ASA 5: a moribund patient not expected to survive 24 hrs. (ruptured aneurysm) ASA 6: a declared brain- patient whose organs are being harvested. For emergent operations, add the letter E after the classification Mallampati Classification Grade 2 Sedation Plan Analgesia, Amnesia, Plan communicated to team members, Discussed options with patient/fam, Discussed risks with patient/fam The patient is an appropriate candidate to undergo the planned procedure, sedation, and anesthesia. The patient immediately re-assessed prior to indication. REX FERRELL MD FACP FAC CCDS January 09, 2020 20:39
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
[2020-01-09] MEDS ORDERED: meTOprolol SUCCINATE 100 MG (TOPROL XL) TAB PO ONE ×2 (21:00→23:19)
[2020-01-09] MEDS ORDERED: KCL 20 MEQ TAB (K-DUR) PO ONE (21:15)
[2020-01-09] MEDS ORDERED: ACETAMINOPHEN 325 MG TABLET PO PRN (21:15)
[2020-01-09] MEDS ORDERED: MAGNESIUM 1 GM/100 ML IVPB 100 ML IV ONE (21:15)
--- OUTSIDE RECORDS SUMMARY | 2020-01-09 21:23 | XMS REPORT | Continuity of Care Document ---
Author Organization Unknown Address Unknown Phone Unavailable Allergies Active Description Code Type Severity Reaction Onset Reported/Identified Relationship to Patient Clinical Status Yes pseudoephedrine [id number] D rug Allergy Unknown N/A 05/27/2007 Yes Sulfa (Sulfonamide Antibiotics) [id number] Drug Allergy Unknown N/A 007 Yes triprolidine [id number] Drug Allergy Unknown N/A 05/27/2007 Medications There [...] FAL L-1 LEVEL TO OTH NEC 12/14/2013 ADNREA RIVERA MD Ot 027 .2 PASTEURELLOSIS 12/14/2013 ANDREA RIVERA MD Ot 250.00 DIAB LESLIE WO COMPL, TYPE II OR UNSPEC TY 12/14/2013 ANDREA RIVERA MD Ot 272 .4 HYPERLIPIDEMIA NEC/NOS 12/14/2013 ANDREA RIVERA MD Ot 278.00 OBESITY, NOS 12/14/2013 ANDREA RIVERA MD Ot 401 .9 HYPERTENSION NOS 12/14/2013 ANDREA RIVERA MD Ot 414.01 CORONARY ATHEROSCLEROSIS OF [place] CORON 12/14/2013 ANDREA RIVERA MD Ot 681.00 [...] FACP CCDS Ot 414.01 CORONARY ATHEROSCLEROSIS OF [place] CORON 07/18/2014 MARIAELENA POLANCO FACC, ALI FACP [...] FACP CCDS Ot 278.00 OBESITY, NOS 07/24/2014 MARIAEELNA POLANCO FACC, ALI FACP CCDS Ot 401.9 HYPERTENSION NOS 07/24/2014 MARIAELENA POLANCO FACC, ALI FACP CCDS Ot 414.01 CORONARY ATHEROSCLEROSIS OF [place] CORON 07/24/2014 MARIAELENA POLANCO FACC, ALI FACP [...] DANIELSON DO Ot 789.01 07/28/2014 NO KIRK YARD OPERATOR Ot 998.12 HEMATOMA COMPLIC A PROC 08/06/2014 SULEMAN YAP MEDICAL OBSERVER Ot 272.4 08/06/2014 SULEMAN YAP MEDICAL OBSERVER Ot 414.00 08/19/2014 JOSH DANIELSON DO Ot [...] MD, Ot I25.10 ATHSCL HEART DISEASE OF [place] CORONARY 06/11/2015 ANDREA RIVERA MD, Ot I48 .0 PAROXYSMAL ATRIAL FIBRILLATION 06/11/2015 ANDREA RIVERA MD, Ot N39 .0 URINARY TRACT INFECTION, SITE NOT SPECIF 06/11/2015 ANDREA RIVERA MD, Ot Z68.35 BODY MASS INDEX (BMI) 35.0-35.9, ADULT 06/11/2015 ANDREA RIVERA MD, Ot Z79 .4 RETIREMENT (CURRENT) USE OF INSULIN 06/11/2015 ANDREA RIVERA [...] CCDS Ot I25.118 ATHSCL HEART DISEASE OF [place] COR ART W 10/06/2016 MARIAELENA POLANCO FACC, ALI FACP CCDS Ot I25.84 CORONARY ATHEROSCLEROSIS DUE TO [place] 10/06/2016 MARIAELENA POLANCO FACC, ALI FACP CCDS Ot Z68.34 BODY MASS INDEX (BMI) 34.0-34.9, ADULT 10/06/2016 MARIAELENA POLANCO FACC, ALI FACP CCDS Ot Z79.899 OTHER FISH ICER (CURRENT) DRUG THERAPY 10/06/2016 MARIAELENA POLANCO FACC, ALI FACP CCDS Ot Z91.19 PATIENT'S NONCOMPLIANCE W [facility] TR 10/06/2016 MARIAELENA POLANCO FACC, [...] CCDS Ot I25.118 ATHSCL HEART DISEASE OF [place] COR ART W 10/11/2016 MARIAELENA POLANCO FACC, ALI FACP CCDS Ot I25.84 CORONARY ATHEROSCLEROSIS DUE TO [place] 10/11/2016 MARIAELENA POLANCO FACC, ALI FACP CCDS Ot Z68.34 BODY MASS INDEX (BMI) 34.0-34.9, ADULT 10/11/2016 MARIAELENA POLANCO FACC, ALI FACP CCDS Ot Z79.899 OTHER FISH ICER (CURRENT) DRUG THERAPY 10/11/2016 MARIAELENA POLANCO FACC, ALI FACP CCDS Ot Z91.19 PATIENT'S NONCOMPLIANCE W [facility] TR 10/11/2016 MARIAELENA POLANCO FACC, REX FACP CCDS Ot Z95.5 PRESENCE OF CORONARY ANGIOPLASTY IMPLANT 10/19/2016 NO KIRK APRN Ot E11 .9 TYPE 2 DIABETES MELLITUS WITHOUT COMPLIC 10/19/2016 NO KIRK APRN Ot I97.630 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 10/19/2016 ON KIRK APRN Ot Z79.02 FISH ICER (CURRENT) USE OF ANTITHROMBOTI 10/19/2016 NO KIRK APRN Ot Z79.82 FISH ICER (CURRENT) USE OF ASPIRIN 10/19/2016 NO KIRK APRN Ot Z79.84 RETIREMENT (CURRENT) USE OF ORAL HYPOGLYC 10/19/2016 NO KIRK APRN Ot Z79.899 OTHER FISH ICER (CURRENT) DRUG THERAPY 10/19/2016 NO KIRK APRN [...] OT MED,LT,CURRENT USE 10/19/2016 BAIMA, SULEMAN L MEDICAL OBSERVER Ot 272.4 HYPERLIPIDEMIA NEC/NOS 10/19/2016 BAIMA, SULEMAN L MEDICAL OBSERVER Ot 414.00 CORON ATHEROSCLER NOS TYPE VESSEL, [...] OT MED,LT,CURRENT USE 10/19/2016 BAIMA, SULEMAN L MEDICAL OBSERVER Ot 272.4 HYPERLIPIDEMIA NEC/NOS 10/19/2016 BAIMA, SULEMAN L MEDICAL OBSERVER Ot 414.00 CORON ATHEROSCLER NOS TYPE VESSEL, [...] V58.69 OT MED,LT,CURRENT USE 10/19/2016 BAISULEMAN WONG MEDICAL OBSERVER Ot 272.4 HYPERLIPIDEMIA NEC/NOS 10/19/2016 SULEMAN YAP MEDICAL OBSERVER Ot 414.00 CORON ATHEROSCLER NOS TYPE VESSEL, NATIV 10/21/2016 NO KIRK APRN Ot E11 .9 TYPE 2 DIABETES MELLITUS WITHOUT COMPLIC 10/21/2016 NO KIRK APRN Ot I97.630 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 10/21/2016 NO KIRK YARD OPERATOR Ot Z79.02 FISH ICER (CURRENT) USE OF ANTITHROMBOTI 10/21/2016 NO KIRK APRN Ot Z79.82 FISH ICER (CURRENT) USE OF ASPIRIN 10/21/2016 NO KIRK APRN Ot Z79.84 FISH ICER (CURRENT) USE OF ORAL HYPOGLYC 10/21/2016 NO KIRK APRN Ot Z79.899 OTHER FISH ICER (CURRENT) DRUG THERAPY 10/21/2016 NO KIRK APRN Ot Z95 .5 PRESENCE OF CORONARY ANGIOPLASTY IMPLANT 11/19/2016 REX FERRELL MD, FACC FACP CCDS Ot I25.10 ATHSCL HEART DISEASE OF [place] CORONARY 11/19/2016 REX FERRELL MD, FACC FACP CCDS Ot I25.10 ATHSCL HEART DISEASE OF [place] CORONARY 11/19/2016 REX FERRLEL MD, FACC FACP CCDS Ot E13.9 OTHER SPECIFIED DIABETES MELLITUS WITHOU 11/19/2016 MARIAELENA POLANCO [facility], ALI RACHELP CCDS Ot E78.4 OTHER HYPERLIPIDEMIA 11/19/2016 MARIAELENA POLANCO [facility], ALI RACHELP CCDS Ot I10 ESSENTIAL (PRIMARY) HYPERTENSION 11/19/2016 MARIAELENA POLANCO FAC, ALI FACP CCDS Ot I25.10 ATHSCL HEART DISEASE OF [place] CORONARY 11/19/2016 MARIAELENA POLANCO [facility], ALI RACHELP CCDS Ot R11.0 NAUSEA 11/19/2016 MARIAELENA POLANCO [facility], REX RAMOSP CCDS Ot R20.8 OTHER DISTURBANCES [...] Ot I25. 10 ATHSCL HEART DISEASE OF [place] CORONARY 12/04/2016 GOMEZ REBOLLEDO MD, Ot I48. 0 PAROXYSMAL ATRIAL FIBRILLATION 12/04/2016 GOMEZ REBOLLEDO MD, Ot K21. 9 GASTRO-ESOPHAGEAL REFLUX DISEASE WITHOUT 12/04/2016 GOMEZ REBOLLEDO MD, Ot T82.867A THROMBOSIS DUE TO CARDIAC PROSTH DEV/GRF 12/04/2016 GOMEZ REBOLLEDO MD, Ot Z68. 37 BODY MASS INDEX (BMI) 37.0-37.9, ADULT 12/04/2016 GOMEZ REBOLLEDO MD, Ot Z79. 4 FISH ICER (CURRENT) USE OF INSULIN 12/04/2016 GOMEZ REBOLLEDO [...] CCDS Ot I25.10 ATHSCL HEART DISEASE OF [place] CORONARY 12/10/2016 MARIAELENA POLANCO FACC, REX RAMOSP [...] Ot I25. 10 ATHSCL HEART DISEASE OF [place] CORONARY 01/04/2017 MANUELA MUNOZ MD, Ot I25. 2 OLD MYOCARDIAL INFARCTION 01/04/2017 MANUELA MUNOZ MD, Ot I48. 0 PAROXYSMAL ATRIAL FIBRILLATION 01/04/2017 MANUELA MUNOZ MD, Ot I49. 3 VENTRICULAR PREMATURE DEPOLARIZATION 01/04/2017 MANUELA MUNOZ MD, Ot K21. 9 GASTRO-ESOPHAGEAL REFLUX DISEASE WITHOUT 01/04/2017 MANUELA MUNOZ MD Ot R07. 89 OTHER CHEST PAIN 01/04/2017 MANUELA MUNOZ MD, Ot Z79. 4 FISH ICER (CURRENT) USE OF INSULIN 01/04/2017 MANUELA MUNOZ MD, Ot Z91. 14 PATIENT'S OTHER NONCOMPLIANCE WITH MEDIC 01/04/2017 MANUELA MUNOZ MD, Ot Z95. 5 PRESENCE OF CORONARY ANGIOPLASTY IMPLANT 01/05/2017 JOSH [...] V58.69 OTH MED,LT,CURRENT USE 01/05/2017 SULEMAN YAP MEDICAL OBSERVER Ot 272.4 HYPERLIPIDEMIA NEC/NOS 01/05/2017 LANEY YAPHER Alonzo MEDICAL OBSERVER Ot 414.00 CORON ATHEROSCLER NOS TYPE VESSEL, NATIV 01/05/2017 MARIAELENA POLANCO FACC, REX FACP CCDS Ot E13.9 OTHER SPECIFIED DIABETES MELLITUS WITHOU 01/05/2017 MARIAELENA POLANCO FACC, ALI FACP CCDS Ot E78.4 OTHER HYPERLIPIDEMIA 01/05/2017 MARIAELENA POLANCO FACC, ALI FACP CCDS Ot I10 ESSENTIAL (PRIMARY) HYPERTENSION 01/05/2017 MARIAELENA POLANCO FACC, ALI FACP CCDS Ot I25.10 ATHSCL HEART DISEASE OF [place] CORONARY 01/05/2017 REX FERRELL MD, FACC FACP CCDS Ot R11.0 NAUSEA 01/05/2017 REX FERRELL MD, FACC FACP CCDS Ot R20.8 OTHER DISTURBANCES OF SKIN SENSATION 01/05/2017 SULEMAN YAP MEDICAL OBSERVER Ot I97.610 POSTPROC HEMOR OF A CIRC SYS ORG FOLLOWI 01/05/2017 SULEMAN YAP MEDICAL OBSERVER Ot R10.30 LOWER ABDOMINAL PAIN, UNSPECIFIED 01/05/2017 MARIAELENA POLANCO FACC ALI FACP CCDS Ot I25.10 ATHSCL HEART DISEASE OF [place] CORONARY 01/05/2017 MARIAELENA POLANCO FACC, ALI FACP [...] V58.69 OT MED,LT,CURRENT USE 01/05/2017 SULEMAN YAP MEDICAL OBSERVER Ot 272.4 HYPERLIPIDEMIA NEC/NOS 01/05/2017 SULEMAN YAP MEDICAL OBSERVER Ot 414.00 CORON ATHEROSCLER NOS TYPE VESSEL, NATIV 01/05/2017 MARIAELENA POLANCO FACC, REX FACP CCDS Ot E13.9 OTHER SPECIFIED DIABETES MELLITUS WITHOU 01/05/2017 MARIAELENA POLANCO FACC, ALI FACP CCDS Ot E78.4 OTHER HYPERLIPIDEMIA 01/05/2017 MARIAELENA POLANCO FACC, ALI FACP CCDS Ot I10 ESSENTIAL (PRIMARY) HYPERTENSION 01/05/2017 MARIAELENA POLANCO FACC, REX FACP CCDS Ot I25.10 ATHSCL HEART DISEASE OF [place] CORONARY 01/05/2017 REX FERRELL MD, FACC FACP CCDS Ot R11.0 NAUSEA 01/05/2017 MARIAELENA POLANCO FACC, ALI FACP CCDS Ot R20.8 OTHER DISTURBANCES OF SKIN SENSATION 01/05/2017 SULEMAN YAP MEDICAL OBSERVER Ot I97.610 POSTPROC HEMOR OF A CIRC SYS ORG FOLLOWI 01/05/2017 SULEMAN YAP MEDICAL OBSERVER Ot R10.30 LOWER ABDOMINAL PAIN, UNSPECIFIED 01/05/2017 MARIAELENA POLANCO FACC ALI FACP CCDS Ot I25.10 ATHSCL HEART DISEASE OF [place] CORONARY 01/05/2017 MARIAELENA POLANCO FACC, REX FACP CCDS Ot Z95.5 PRESENCE OF CORONARY ANGIOPLASTY IMPLANT 01/05/2017 SULEMAN YAP MEDICAL OBSERVER Ot I97.610 POSTPROC HEMOR OF A CIRC SYS ORG FOLLOWI 01/05/2017 SULEMAN YAP MEDICAL OBSERVER Ot R10.30 LOWER ABDOMINAL PAIN, UNSPECIFIED 01/18/2017 MARIAELENA POLANCO FACC, ALI FACP CCDS Ot I25.10 ATHSCL HEART DISEASE OF [place] CORONARY 01/18/2017 MARIAELENA POLANCO FACC, ALI FACP [...] FACP CCDS Ot 272.4 HYPERLIPIDEMIA NEC/NOS 02/09/2017 MARAIELENA POLANCO FACC, ALI FACP CCDS Ot 401.9 HYPERTENSION NOS 02/09/2017 MARIAELENA POLANCO FACC, REX FACP CCDS Ot 414.00 CORON ATHEROSCLER NOS TYPE VESSEL, NATIV 02/09/2017 MARIAELENA POLANCO FACC, REX FACP CCDS Ot 785.1 PALPITATIONS 02/09/2017 MARIAELENA POLANCO FACC, REX FACP CCDS Ot V58.67 LONG-TERM (CURRENT) USE OF INSULIN 02/09/2017 REX FERRELL MD, FACC FACP CCDS Ot V58.69 OT MED,LT,CURRENT USE 02/09/2017 SULEMAN YAP MEDICAL OBSERVER Ot 272.4 HYPERLIPIDEMIA NEC/NOS 02/09/2017 SULEMAN YAP MEDICAL OBSERVER Ot 414.00 CORON ATHEROSCLER NOS TYPE VESSEL, NATIV 02/09/2017 MARIAELENA POLANCO FACC, ALI FACP CCDS Ot E13.9 OTHER SPECIFIED DIABETES MELLITUS WITHOU 02/09/2017 MARIAELENA POLANCO FACC ALI FACP CCDS Ot E78.4 OTHER HYPERLIPIDEMIA 02/09/2017 MARIAELENA POLANCO FACC, REX FACP CCDS Ot I10 ESSENTIAL (PRIMARY) HYPERTENSION 02/09/2017 MARIAELENA POLANCO FACC, ALI FACP CCDS Ot I25.10 ATHSCL HEART DISEASE OF [place] CORONARY 02/09/2017 MARIAELENA POLANCO FACC, REX FACP CCDS Ot R11.0 NAUSEA 02/09/2017 MARIAELENA POLANCO FACC, REX FACP CCDS Ot R20.8 OTHER DISTURBANCES OF SKIN SENSATION 02/09/2017 SULEMAN YAP MEDICAL OBSERVER Ot I97.610 POSTPROC HEMOR OF A CIRC SYS ORG FOLLOWI 02/09/2017 SULEMAN YAP MEDICAL OBSERVER Ot R10.30 LOWER ABDOMINAL PAIN, UNSPECIFIED 02/09/2017 MARIAELENA POLANCO FACC, ALI FACP CCDS Ot I25.10 ATHSCL HEART DISEASE OF [place] CORONARY 02/09/2017 MARIAELENA POLANCO FACC, REX FACP CCDS Ot Z95.5 PRESENCE OF CORONARY ANGIOPLASTY IMPLANT 02/09/2017 MARIAELENA POLANCO FACC, REX FACP CCDS Ot I25.10 ATHSCL HEART DISEASE OF [place] CORONARY 02/09/2017 MARIAELENA POLANCO FACC, REX FACP CCDS Ot Z95.5 PRESENCE OF CORONARY ANGIOPLASTY IMPLANT 02/09/2017 SULEMAN YAP MEDICAL OBSERVER Ot I97.610 POSTPROC HEMOR OF A CIRC SYS ORG FOLLOWI 02/09/2017 SULEMAN YAP MEDICAL OBSERVER Ot R10.30 LOWER ABDOMINAL PAIN, UNSPECIFIED 02/23/2017 [...] FERRELL MD, FACC FACP CCDS Ot V58.69 [facility] MED,LT,CURRENT USE 02/23/2017 FRACISCO SULEMAN Alonzo MEDICAL OBSERVER Ot 272.4 HYPERLIPIDEMIA NEC/NOS 02/23/2017 SULEMAN YAP MEDICAL OBSERVER Ot 414.00 CORON ATHEROSCLER NOS TYPE VESSEL, NATIV 02/23/2017 MARIAELENA POLANCO FACC, ALI FACP CCDS Ot E13.9 OTHER SPECIFIED DIABETES MELLITUS WITHOU 02/23/2017 MARIAELENA POLANCO FACC, ALI FACP CCDS Ot E78.4 OTHER HYPERLIPIDEMIA 02/23/2017 MARAIELENA POLANCO FACC, ALI FACP CCDS Ot I10 ESSENTIAL (PRIMARY) HYPERTENSION 02/23/2017 MARIAELENA POLANCO FACC, ALI FACP CCDS Ot I25.10 ATHSCL HEART DISEASE OF [place] CORONARY 02/23/2017 MARIAELENA POLANCO FACC, ALI FACP CCDS Ot R11.0 NAUSEA 02/23/2017 MARIAELENA POLANCO FACC, ALI FACP CCDS Ot R20.8 OTHER DISTURBANCES OF SKIN SENSATION 02/23/2017 SULEMAN YAP MEDICAL OBSERVER Ot I97.610 POSTPROC HEMOR OF A CIRC SYS ORG FOLLOWI 02/23/2017 SULEMAN YAP MEDICAL OBSERVER Ot R10.30 LOWER ABDOMINAL PAIN, UNSPECIFIED 02/23/2017 MARIAELENA POLANCO FACC, ALI FACP CCDS Ot I25.10 ATHSCL HEART DISEASE OF [place] CORONARY 02/23/2017 MARIAELENA POLANCO FACC, ALI FACP CCDS Ot Z95.5 PRESENCE OF CORONARY ANGIOPLASTY IMPLANT 02/24/2017 SULEMAN YAP MEDICAL OBSERVER Ot I97.610 POSTPROC HEMOR OF A CIRC SYS ORG FOLLOWI 02/24/2017 SULEMAN YAP MEDICAL OBSERVER Ot R10.30 LOWER ABDOMINAL PAIN, UNSPECIFIED 02/24/2017 MARIAELENA POLANCO FACC, ALI FACP CCDS Ot I25.10 ATHSCL HEART DISEASE OF [place] CORONARY 02/24/2017 MARIAELENA POLANCO FACC, ALI FACP CCDS Ot Z95.5 PRESENCE OF CORONARY ANGIOPLASTY IMPLANT 04/25/2017 SULEMAN YAP L MEDICAL OBSERVER Ot I97.610 POSTPROC HEMOR OF A CIRC SYS ORG FOLLOWI 04/25/2017 SULEMAN YAP L MEDICAL OBSERVER Ot R10.30 LOWER ABDOMINAL PAIN, UNSPECIFIED 05/24/2017 [...] V58.69 OT MED,LT,CURRENT USE 05/24/2017 SULEMAN YAP MEDICAL OBSERVER Ot 272.4 HYPERLIPIDEMIA NEC/NOS 05/24/2017 SULEMAN YAP MEDICAL OBSERVER Ot 414.00 CORON ATHEROSCLER NOS TYPE VESSEL, NATIV 05/24/2017 MARIAELENA POLANCO FACC, REX FACP CCDS Ot E13.9 OTHER SPECIFIED DIABETES MELLITUS WITHOU 05/24/2017 MARIAELENA POLANCO FACC, REX FACP CCDS Ot E78.4 OTHER HYPERLIPIDEMIA 05/24/2017 MARIAELENA POLANCO FACC, ALI FACP CCDS Ot I10 ESSENTIAL (PRIMARY) HYPERTENSION 05/24/2017 MARIAELENA POLANCO FACC, REX FACP CCDS Ot I25.10 ATHSCL HEART DISEASE OF [place] CORONARY 05/24/2017 REX FERRELL MD, FACC FACP CCDS Ot R11.0 NAUSEA 05/24/2017 MARIAELENA POLANCO FACC, ALI FACP CCDS Ot R20.8 OTHER DISTURBANCES OF SKIN SENSATION 05/24/2017 SULEMAN YAP MEDICAL OBSERVER Ot I97.610 POSTPROC HEMOR OF A CIRC SYS ORG FOLLOWI 05/24/2017 SULEMAN YAP MEDICAL OBSERVER Ot R10.30 LOWER ABDOMINAL PAIN, UNSPECIFIED 05/24/2017 MARIAELENA POLANCO FACC ALI FACP CCDS Ot I25.10 ATHSCL HEART DISEASE OF [place] CORONARY 05/24/2017 MARIAELENA POLANCO FACC, REX FACP [...] Ot I10 ESSENTIAL (PRIMARY) HYPERTENSION 05/25/2017 MARIAELENA OPLANCO FACC, ALI FACP CCDS Ot I25.10 ATHSCL HEART DISEASE OF [place] CORONARY 05/25/2017 MARIAELENA POLANCO FACC, REX FACP CCDS Ot I49.5 SICK SINUS SYNDROME 05/25/2017 MARIAELENA POLANCO FACC, REX FACP CCDS Ot R00.1 BRADYCARDIA, UNSPECIFIED 05/25/2017 MARIAELENA POLANCO FACC, ALI FACP CCDS Ot Z68.32 BODY MASS INDEX (BMI) 32.0-32.9, ADULT 05/25/2017 MARIAELENA POLANCO FACC ALI FACP CCDS Ot Z79.01 RETIREMENT (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 05/25/2017 MARIAELENA POLANCO FACC, REX FACP CCDS Ot Z79.84 RETIREMENT (CURRENT) USE OF ORAL HYPOGLYC 05/25/2017 MARIAELENA POLANCO FACC, ALI FACP CCDS Ot Z79.899 OTHER RETIREMENT (CURRENT) DRUG THERAPY 05/25/2017 REX FERRELL MD, [...] CCDS Ot I25.10 ATHSCL HEART DISEASE OF [place] CORONARY 07/07/2017 MARIAELENA POLANCO FACC, ALI FACP CCDS Ot I49.5 SICK SINUS SYNDROME 07/07/2017 MARIAELENA POLANCO FACC, REX FACP CCDS Ot R00.1 BRADYCARDIA, UNSPECIFIED 07/07/2017 MARIAELENA POLANCO FACC, ALI FACP CCDS Ot Z68.32 BODY MASS INDEX (BMI) 32.0-32.9, ADULT 07/07/2017 MARIAELENA POLANCO FACC, REX FACP CCDS Ot Z79.01 RETIREMENT (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 07/07/2017 REX FERRELL MD, FACC FACP CCDS Ot Z79.84 FISH ICER (CURRENT) USE OF ORAL HYPOGLYC 07/07/2017 REX FERRELL MD, FACC FACP CCDS Ot Z79.899 OTHER FISH ICER (CURRENT) DRUG THERAPY 07/07/2017 REX FERRELL MD, [...] OTH MED,LT,CURRENT USE 10/10/2017 BAIMA, SULEMAN L MEDICAL OBSERVER Ot 272.4 HYPERLIPIDEMIA NEC/NOS 10/10/2017 BAIMA, SULEMAN L MEDICAL OBSERVER Ot 414.00 CORON ATHEROSCLER NOS TYPE VESSEL, NATIV 10/10/2017 REX FERRELL MD, FACC FACP CCDS Ot E13.9 OTHER SPECIFIED DIABETES MELLITUS WITHOU 10/10/2017 MARIAELENA POLANCO FACC, ALI FACP CCDS Ot E78.4 OTHER HYPERLIPIDEMIA 10/10/2017 MARIAELENA POLANCO FACC, ALI FACP CCDS Ot I10 ESSENTIAL (PRIMARY) HYPERTENSION 10/10/2017 MARIAELENA POLANCO FACC, ALI FACP CCDS Ot I25.10 ATHSCL HEART DISEASE OF [place] CORONARY 10/10/2017 MARIAELENA POLANCO FACC, ALI FACP CCDS Ot R11.0 NAUSEA 10/10/2017 MARIAELENA POLANCO FACC, ALI FACP CCDS Ot R20.8 OTHER DISTURBANCES OF SKIN SENSATION 10/10/2017 SULEMAN YAP MEDICAL OBSERVER Ot I97.610 POSTPROC HEMOR OF A CIRC SYS ORG FOLLOWI 10/10/2017 SULEMAN YAP MEDICAL OBSERVER Ot R10.30 LOWER ABDOMINAL PAIN, UNSPECIFIED 10/10/2017 MARAIELENA POLANCO FACC, REX FACP CCDS Ot I25.10 ATHSCL HEART DISEASE OF [place] CORONARY 10/10/2017 MARIAELENA POLANCO FACC, ALI FACP [...] UNSPECIFIED 10/10/2017 EMILEE DENNISON MD, Ot Z79.82 RETIREMENT (CURRENT) USE OF ASPIRIN 10/10/2017 EMILEE DENNISON [...] UNSPECIFIED 10/12/2017 EMILEE DENNISON MD, Ot Z79.82 RETIREMENT (CURRENT) USE OF ASPIRIN 10/12/2017 EMILEE DENNISON [...] CCDS Ot I25.10 ATHSCL HEART DISEASE OF [place] CORONARY 01/12/2018 MARIAELENA POLANCO FACC, ALI FACP CCDS [...] I10 ESSENTIAL (PRIMARY) HYPERTENSION 01/16/2018 [facility] POLANCO [facility] FACP CCDS Ot I25.10 ATHSCL HEART DISEASE OF [place] CORONARY 01/16/2018 MARIAELENA POLANCO FACC, ALI FACP [...] CCDS Ot I25.10 ATHSCL HEART DISEASE OF [place] CORONARY 01/26/2018 MARIAELENA POLANCO FACC, ALI FACP [...] APRN Ot I25.10 ATHSCL HEART DISEASE OF [place] CORONARY 01/27/2018 NO KIRK APRN Ot I25 .2 OLD MYOCARDIAL INFARCTION 01/27/2018 NO KIRK APRN Ot I48.91 UNSPECIFIED ATRIAL FIBRILLATION 01/27/2018 NO KIRK APRN Ot K21 .9 GASTRO-ESOPHAGEAL REFLUX DISEASE WITHOUT 01/27/2018 NO KIRK APRN Ot N90.89 OTH NONINFLAMMATORY DISORDERS OF VULVA A 01/27/2018 NO KIRK APRN Ot R10 .2 PELVIC AND PERINEAL PAIN 01/27/2018 NO KIRK APRN Ot Z79.82 FISH ICER (CURRENT) USE OF ASPIRIN 01/27/2018 NO KIRK [...] APRN Ot I25.10 ATHSCL HEART DISEASE OF [place] CORONARY 01/30/2018 NO KIRK APRN Ot I25 .2 OLD MYOCARDIAL INFARCTION 01/30/2018 NO KIRK APRN Ot I48.91 UNSPECIFIED ATRIAL FIBRILLATION 01/30/2018 NO KIRK APRN Ot K21 .9 GASTRO-ESOPHAGEAL REFLUX DISEASE WITHOUT 01/30/2018 NO KIRK APRN Ot N90.89 OTH NONINFLAMMATORY DISORDERS OF VULVA A 01/30/2018 NO KIRK APRN Ot R10 .2 PELVIC AND PERINEAL PAIN 01/30/2018 NO KIRK APRN Ot Z79.82 FISH ICER (CURRENT) USE OF ASPIRIN 01/30/2018 NO KIRK [...] PARTS OF URINA 01/30/2018 KIRK, PETER J YARD OPERATOR Ot Z95 .0 PRESENCE OF CARDIAC PACEMAKER 01/30/2018 KIRKNO ANN Cruzito YARD OPERATOR Ot Z95 .5 PRESENCE OF CORONARY ANGIOPLASTY IMPLANT 02/01/2018 MARIAELENA POLANCO FACC, ALI FACP CCDS Ot E13.9 OTHER SPECIFIED DIABETES MELLITUS WITHOU 02/01/2018 MARIAELENA RAMOSC, ALI FACP CCDS Ot E78.4 OTHER HYPERLIPIDEMIA 02/01/2018 MARIAELENA POLANCO FACC, ALI FACP CCDS Ot I10 ESSENTIAL (PRIMARY) HYPERTENSION 02/01/2018 MARIAELENA POLANCO FACC, ALI FACP CCDS Ot I25.10 ATHSCL HEART DISEASE OF [place] CORONARY 02/01/2018 MARIAELENA POLANCO FACC, ALI FACP [...] CCDS Ot I25.10 ATHSCL HEART DISEASE OF [place] CORONARY 02/16/2018 MARIAELENA POLANCO FACC, ALI FACP [...] V58.69 OT MED,LT,CURRENT USE 03/09/2018 SULEMAN YAP MEDICAL OBSERVER Ot 272.4 HYPERLIPIDEMIA NEC/NOS 03/09/2018 SULEMAN YAP MEDICAL OBSERVER Ot 414.00 CORON ATHEROSCLER NOS TYPE VESSEL, NATIV 03/09/2018 MARIAELENA POLANCO FACC, REX FACP CCDS Ot E13.9 OTHER SPECIFIED DIABETES MELLITUS WITHOU 03/09/2018 MARIAELENA POLANCO FACC, REX FACP CCDS Ot E78.4 OTHER HYPERLIPIDEMIA 03/09/2018 MARIAELENA POLANCO FACC, REX FACP CCDS Ot I10 ESSENTIAL (PRIMARY) HYPERTENSION 03/09/2018 MARIAELENA POLANCO FACC, ALI FACP CCDS Ot I25.10 ATHSCL HEART DISEASE OF [place] CORONARY 03/09/2018 MARIAELENA POLANCO FACC, REX FACP CCDS Ot R11.0 NAUSEA 03/09/2018 MARIAELENA POLANCO FACC, REX FACP CCDS Ot R20.8 OTHER DISTURBANCES OF SKIN SENSATION 03/09/2018 SULEMAN YAP MEDICAL OBSERVER Ot I97.610 POSTPROC HEMOR OF A CIRC SYS ORG FOLLOWI 03/09/2018 SULEMAN YAP MEDICAL OBSERVER Ot R10.30 LOWER ABDOMINAL PAIN, UNSPECIFIED 03/09/2018 MARIAELENA MD FACC, ALI FACP CCDS Ot I25.10 ATHSCL HEART DISEASE OF [place] CORONARY 03/09/2018 MARIAELENA POLANCO FACC, ALI FACP [...] CCDS Ot I25.10 ATHSCL HEART DISEASE OF [place] CORONARY 03/09/2018 MARIAELENA POLANCO FACC, ALI FACP [...] CCDS Ot I25.10 ATHSCL HEART DISEASE OF [place] CORONARY 03/09/2018 MARIAELENA POLANCO FACC, ALI FACP [...] I10 ESSENTIAL (PRIMARY) HYPERTENSION 03/09/2018 MAR[facility]ELE[facility] POLANCO [facility], ALI FACP CCDS Ot I25.10 ATHSCL HEART DISEASE OF [place] CORONARY 03/09/2018 MARIAELENA POLANCO FACC, ALI FACP CCDS Ot I25.2 OLD MYOCARDIAL INFARCTION 03/09/2018 MARIAELENA POLANCO FACC, ALI FACP CCDS Ot I48.0 PAROXYSMAL ATRIAL FIBRILLATION 03/09/2018 MARIAELENA POLANCO FACC, ALI FACP CCDS Ot M79.89 OTHER SPECIFIED SOFT TISSUE DISORDERS 03/09/2018 MARIAELENA POLANCO [facility], ALI FACP CCDS Ot R06.02 SHORTNESS OF BREATH 03/09/2018 MARIAELENA POLANCO [facility], ALI FACP CCDS Ot Z95.0 PRESENCE OF CARDIAC PACEMAKER 03/09/2018 MARIAELENA POLANCO [facility], ALI FACP CCDS Ot E11.9 TYPE 2 DIABETES MELLITUS WITHOUT COMPLIC 03/09/2018 MARIAELENA POLANCO [facility], ALI FACP CCDS Ot E78.5 HYPERLIPIDEMIA, UNSPECIFIED 03/09/2018 MARIAELENA POLANCO [facility], ALI FACP CCDS Ot 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 TRICUSPID INSUFFICIENCY 03/09/2018 MARIAELENA POLANCO [facility], ALI FACP CCDS Ot I10 ESSENTIAL (PRIMARY) HYPERTENSION 03/09/2018 MARIAELENA POLANCO [facility], ALI FACP CCDS Ot I25.10 ATHSCL HEART DISEASE [place] CORONARY 03/09/2018 MARIAELENA POLANCO FACC, ALI FACP [...] CCDS Ot I25.10 ATHSCL HEART DISEASE [place] CORONARY 03/09/2018 MARIAELENA POLANCO FACC, ALI FACP [...] CCDS Ot I25.10 ATHSCL HEART DISEASE [place] CORONARY 03/15/2018 MARIAELENA POLANCO FACC, ALI FACP [...] CCDS Ot I25.10 ATHSCL HEART DISEASE [place] CORONARY 10/16/2018 MARIAELENA POLANCO FAC, ALI FACP CCDS Ot I25.2 OLD MYOCARDIAL INFARCTION 10/16/2018 MARIAELENA POLANCO FAC, ALI FACP CCDS Ot I48.0 PAROXYSMAL ATRIAL FIBRILLATION 10/16/2018 MARIAELENA POLANCO FAC, ALI FACP CCDS Ot M79.89 OTHER SPECIFIED SOFT TISSUE DISORDERS 10/16/2018 MARIAELENA POLANCO FACC, ALI FACP CCDS Ot R06.02 SHORTNESS OF BREATH 10/16/2018 MARIAELENA POLANCO [facility], ALI FACP CCDS Ot Z95.0 PRESENCE OF CARDIAC PACEMAKER 10/16/2018 MARIAELENA POLANCO [facility], ALI FACP CCDS Ot E13.9 OTHER SPECIFIED DIABETES MELLITUS WITHOU 10/16/2018 MARIAELENA POLANCO [facility], ALI FACP CCDS Ot E78.4 OTHER HYPERLIPIDEMIA 10/16/2018 MARIAELENA POLANCO [facility], ALI FACP CCDS Ot I10 ESSENTIAL (PRIMARY) HYPERTENSION 10/16/2018 MARIAELENA POLANCO [facility], ALI FACP CCDS Ot I25.10 ATHSCL HEART DISEASE [place] CORONARY 10/16/2018 MARIAELENA POLANCO [facility], ALI FACP CCDS Ot I25.2 OLD MYOCARDIAL INFARCTION 10/16/2018 MARIAELENA POLANCO [facility], ALI FACP CCDS Ot I48.0 PAROXYSMAL ATRIAL FIBRILLATION 10/16/2018 MARIAELENA POLANCO [facility], ALI FACP CCDS Ot M79.89 OTHER [...] DO Ot I25.10 ATHSCL HEART DISEASE OF [place] CORONARY 06/10/2019 ZAFAR GARZA DO Ot I48.91 UNSPECIFIED ATRIAL FIBRILLATION 06/10/2019 ZAFAR GARZA DO Ot K21.9 GASTRO-ESOPHAGEAL REFLUX DISEASE WITHOUT 06/10/2019 ZAFAR GARZA DO Ot K44.9 DIAPHRAGMATIC HERNIA WITHOUT OBSTRUCTION 06/10/2019 ZAFAR GARZA DO Ot M19.90 UNSPECIFIED OSTEOARTHRITIS, UNSPECIFIED 06/10/2019 ZAFAR GARZA DO Ot N39.0 URINARY TRACT INFECTION, SITE NOT SPECIF 06/10/2019 ZAFAR GARZA DO Ot Z79.4 RETIREMENT (CURRENT) USE OF INSULIN 06/10/2019 ZAFAR GARZA DO Ot Z79.82 FISH ICER (CURRENT) USE OF ASPIRIN 06/10/2019 ZAFAR GARZA DO Ot Z79.89 1 RETIREMENT (CURRENT) USE OF OPIATE ANALGE 06/10/2019 ZAFAR GARZA DO Ot Z79.89 9 OTHER FISH ICER (CURRENT) DRUG THERAPY 06/10/2019 ZAFAR GARZA DO [...] DO Ot I25.10 ATHSCL HEART DISEASE OF [place] CORONARY 06/10/2019 ZAFAR GARZA DO Ot I48.91 UNSPECIFIED ATRIAL FIBRILLATION 06/10/2019 ZAFAR GARZA DO Ot K21.9 GASTRO-ESOPHAGEAL REFLUX DISEASE WITHOUT 06/10/2019 ZAFAR GARZA DO Ot K44.9 DIAPHRAGMATIC HERNIA WITHOUT OBSTRUCTION 06/10/2019 ZAFAR GARZA DO Ot M19.90 UNSPECIFIED OSTEOARTHRITIS, UNSPECIFIED 06/10/2019 ZAFAR GARZA DO Ot N39.0 URINARY TRACT INFECTION, SITE NOT SPECIF 06/10/2019 ZAFAR GARZA DO Ot Z79.4 RETIREMENT (CURRENT) USE OF INSULIN 06/10/2019 ZAFAR GARZA DO Ot Z79.82 RETIREMENT (CURRENT) USE OF ASPIRIN 06/10/2019 ZAFAR GARZA DO Ot Z79.89 1 RETIREMENT (CURRENT) USE OF OPIATE ANALGE 06/10/2019 ZAFAR GARZA DO Ot Z79.89 9 OTHER FISH ICER (CURRENT) DRUG THERAPY 06/10/2019 ZAFAR GARZA DO [...] OF AORTOCORONARY BYPASS GRAFT 06/14/2019 SULEMAN YAP MEDICAL OBSERVER Ot I 10 ESSENTIAL (PRIMARY) HYPERTENSION 06/18/2019 SULEMAN YAP MEDICAL OBSERVER Ot I 10 ESSENTIAL (PRIMARY) HYPERTENSION 07/10/2019 ALEA FAUSTIN MEDICAL OBSERVER Ot N95.1 MENOPAUSAL AND FEMALE CLIMACTERIC STATES 07/10/2019 ALEA FAUSTIN MEDICAL OBSERVER Ot Z12.31 ENCNTR SCREEN MAMMOGRAM FOR MALIGNANT NE 07/23/2019 ALEA FAUSTIN MEDICAL OBSERVER Ot N95.1 MENOPAUSAL AND FEMALE CLIMACTERIC STATES 07/23/2019 ALEA FAUSTIN MEDICAL OBSERVER Ot Z12.31 ENCNTR SCREEN MAMMOGRAM FOR MALIGNANT NE 07/25/2019 ALEA FAUSTIN MEDICAL OBSERVER Ot M85.851 OTH DISRD OF BONE DENSITY AND STRUCTURE, 07/25/2019 ALEA FAUSTIN MEDICAL OBSERVER Ot Z12.31 ENCNTR SCREEN MAMMOGRAM FOR MALIGNANT NE 07/25/2019 ALEA FAUSTIN MEDICAL OBSERVER Ot Z13.820 ENCOUNTER FOR SCREENING FOR OSTEOPOROSIS 07/25/2019 ALEA FAUSTINP Ot Z78.0 ASYMPTOMATIC MENOPAUSAL STATE 07/30/2019 ALEA FAUSTINP Ot M85.851 OTH DISRD OF BONE DENSITY AND STRUCTURE, 07/30/2019 ALEA FAUSTIN MEDICAL OBSERVER Ot Z12.31 ENCNTR SCREEN MAMMOGRAM FOR MALIGNANT NE 07/30/2019 ALEA FAUSTIN MEDICAL OBSERVER Ot Z13.820 ENCOUNTER FOR SCREENING FOR OSTEOPOROSIS 07/30/2019 ALEA FAUSTIN MEDICAL OBSERVER Ot Z78.0 ASYMPTOMATIC MENOPAUSAL STATE 07/30/2019 ALEA FAUSTIN MEDICAL OBSERVER Ot M85.851 OTH DISRD OF BONE DENSITY AND STRUCTURE, 07/30/2019 ALEA FAUSTINP Ot Z12.31 ENCNTR SCREEN MAMMOGRAM FOR MALIGNANT NE 07/30/2019 ALEA FAUSTIN MEDICAL OBSERVER Ot Z13.820 ENCOUNTER FOR SCREENING FOR OSTEOPOROSIS [...] CCDS Ot I25.10 ATHSCL HEART DISEASE OF [place] CORONARY 01/09/2020 MARIAELENA POLANCO FACC, [facility] Ot I77.89 OTHER SPECIFIED DISORDERS OF ARTERIES AN 01/09/2020 MARIAELENA POLANCO FACC, [facility] CCD[facility] Ot Z95.0 PRESENCE OF CARDIAC PACEMAKER 01/09/2020 MARIAELENA POLANCO FACC, REX FACP CCDS Ot Z95.5 PRESENCE OF CORONARY ANGIOPLASTY IMPLANT Procedures Code Description Performed By Christopher valdez On 45.23 COLO NOSCOPY 05/24/2011 51.23 LAPA ROSCOPIC CHOLECYSTECTOMY 05/24/2011 53.59 ABD WALL ANALI REPAIR NEC 05/24/2011 86.04 OTHE R SKIN SUBQ I D 12/14/2013 [id number] DI LATION OF 1 COR ART WITH DRUG-ELUT INT 12/02/2016 [id number] IN SERT OF MONITOR DEV INTO CHEST SUBCU/F 12/02/2016 [id number] ME ASURE OF CARDIAC SAMPL PRESSURE, L H 12/02/2016 [id number] FL UOROSCOPY OF MULT COR ART USING L OSM 12/02/2016 [id number] FL UOROSCOPY OF LEFT HEART USING LOW [...] 12/02/16 16:27 Myoglobin, serum 27.9 ng/mL 10.0-92.0 EQK3M25 gene mutation analysis - 16:27 [id number] gene mutation analysis Normal NRG Capillary blood [...] - 01/31/18 13:39 CULTURE, GENITAL SEE NOTE [facility] PATHOLOGY REPORT (TISSUE PAHOLOGY) - 01/13 13:39 CLINICAL INFORMATION [facility] PATHOLOGIST [facility] CMP - 05/24/18 09:33 GLUCOSE 345 mg/dL 65-99 UREA NITROGEN (BUN) 15 mg/dL 7-25 CREATININE 0.69 mg/dL 0.50-0.99 eGFR NON-AFR. CITIZEN [place] 93 mL/min/1.73m2 > OR = 60 eGFR [...] 7-25 CREATININE 0.80 mg/dL 0.50-0.99 eGFR NON-AFR. CITIZEN OF [place] 78 mL/min/1.73m2 > OR = 60 eGFR [...] Status Pt. Type Provider Facility Loc./Unit Complaint [id number] 10/04/2019 15:20:00 10/04/2019 23:59:5 9 CLS Outpatient ALEA FAUSTIN APRN [facility] [id number] 10/04/2019 15:20:00 Document Registration [id number] 10/18/2018 15:15:00 Document Registration [id number] 08/14/2018 16:00:00 Document Registration [id number] 05/24/2018 08:40:00 Document Registration [id number] 01/31/2018 10:40:00 Document Registration [id number] 09/14/2017 16:40:00 Document Registration [id number] 11/05/2019 14:07:00 23:59:59 CLS Preadmit MARIAELENA POLANCO FACC, REX PERALES CCDS [facility] RAD CAD,CAROTID ART DISEASE,HYPERLIPIDEMIA,HYPERTENSIO [id number] 08/28/2019 09:01:00 11:55:00 DIS Outpatient MYCHAL LAND DO [facility] ENDO SCREENING/GERD/N V [id number] 08/24/2019 10:00:00 10:31:00 DIS Outpatient MYCHAL LAND DO [facility] PREOP COLONOSCOPY/EGD [id number] 07/24/2019 13:26:00 23:59:59 CLS Outpatient ALEA FAUSTIN [facility] RAD ASYMPTOMATIC [place] L STATE [id number] 07/05/2019 08:30:00 23:59:59 CLS Preadmit ALEA FAUSTIN [facility] RAD SCREENING [id number] 06/12/2019 12:18:00 23:59:59 CLS Outpatient SULEMAN YAP MEDICAL OBSERVER [facility] LAB I10 [id number] 06/09/2019 18:00:00 14:25:00 DIS Inpatient GREG CISNEROS ZAFAR K[place] [facility] ICU CP R/O ACS,HYPOKALEMIA [id number] 01/27/2018 22:35:00 018 23:01:00 DIS Emergency NO KIRK APRN [facility] ER VAGINAL PAIN;CYCST [id number] 01/25/2018 09:12:00 018 23:59:59 CLS Outpatient MARIAELENA POLANCO FACC, ALI FACP CC DS [facility] CARD R06.02 SOB [id number] 01/10/2018 07:12:00 018 23:59:59 CLS Outpatient MARIAELENA POLANCO FACC, ALI FACP CC DS [facility] CARD R06.02 SOB [id number] 10/10/2017 16:12:00 018 21:21:00 DIS Emergency EMILEE DENNISON MD [facility] ER WEAKNESS/DIARRH EA [id number] 05/24/2017 07:34:00 017 11:49:00 DIS Outpatient MARIAELENA POLANCO FACC, ALI FACP CC DS [facility] CATH SINUS PAUSE SINUS BRADYCARDIA,SSS [id number] 01/02/2017 16:55:00 017 17:28:00 DIS Inpatient MANUELA MUNOZ MD [facility] 4TH ATYPICAL CONCERN FOR MY DOCANDIAL INFACTION [id number] 12/31/2016 12:51:00 017 23:59:59 CLS Outpatient MARIAELENA POLANCO FACC, ALI FACP CC DS [facility] CARD Z95.5,I25.1 0 [id number] 12/09/2016 11:27:00 017 23:59:59 CLS Outpatient SULEMAN YAP [facility] RAD RT GROIN PAIN [id number] 12/02/2016 16:44:00 017 12:00:00 DIS Inpatient GOMEZ REBOLLEDO MD [facility] ICU STEMI [id number] 11/19/2016 11:07:00 23:59:59 CLS Outpatient MARIAELENA POLANCO FACC, REX PERALES CC DS [facility] LAB CAD,DIABETES,HYPERLIDEMIA,HTN [id number] 10/19/2016 10:35:00 017 13:22:00 DIS Emergency NO KIRK APRN [facility] ER POST OP BLEEDING [id number] 10/05/2016 09:14:00 017 11:45:00 DIS Outpatient MARIAELENA POLANCO FACC, REX PERALES CC DS [facility] CATH SOB,CAD [id number] 01/27/2016 13:59:00 016 13:46:00 DIS Outpatient ALEA AFUSTIN [facility] REHAB NECK PAIN WITH L RADIC ULOPATHY [id number] 06/10/2015 21:09:00 015 10:06:00 DIS Inpatient ANDREA RIEVRA MD [facility] ICU NEW ONSET AFIB;UTI;H/O CAD [id number] 07/28/2014 15:06:00 014 17:02:00 DIS Emergency NO KIRK APRN [facility] ER LUMP IN GROIN AREA POST HEART CATH [id number] 07/23/2014 08:11:00 014 09:50:00 DIS Outpatient MARIAELENA POLANCO FACC, REX PERALES CC DS [facility] CATH ABNORMAL ST RESS, CHEST PAIN [id number] 07/17/2014 16:34:00 014 17:23:00 DIS Inpatient REX FERRELL MD, FACC, FACP CCD S [facility] CSD CHEST PAIN ON EXERTION,COLLAZO,DIZZINESS [id number] 07/09/2014 08:29:00 23:59:59 CLS Outpatient MARIAELENA POLANCO FACC, REX PERALES CC DS [facility] CARD CAD,HLP,HTN [id number] 07/08/2014 12:05:00 23:59:59 CLS Outpatient SULEMAN YAP [facility] LAB CAD,HYPERLIPIDE IZZY [id number] 06/24/2014 12:36:00 23:59:59 CLS Outpatient JOSH DANIELSON DO [facility] RAD RUQ PAIN [id number] 06/20/2014 12:31:00 23:59:59 CLS Outpatient JOSH DANIELSON DO [facility] LAB RUQ PAIN [id number] 12/14/2013 15:41:00 17:23:00 DIS Inpatient NICOLE POLANCO, ANDREA [place] [facility] 4TH CAT BITE CELLULITIS R H AND; DIABETES OUT OF CONTRO [id number] 01/15/2020 08:45:00 P EN Preadmit MARIAELENA POLANCO FACC, ALI FACP CCDS [facility] CARD CAD [id number] 01/09/2020 20:54:[address] Inpatient MARIAELENA POLANCO FACC, ALI FACP CCDS [facility] ICU ACUTE VA [id number] 01/08/2020 09:04:[address] Outpatient MARIAELENA POLANCO FACC, ALI FACP CCDS [facility] CARD CAD [id number] 07/10/2011 16:47:00 Document Registration [id number] 05/24/2011 18:15:00 Document Registration [id number] 05/18/2011 15:49:00 Document Registration
--- NOTE | 2020-01-09 21:50 | CARDIAC CATHETERIZATION ---
DATE OF SERVICE: 01/09/2020 CARDIAC CATHETERIZATION AND CORONARY INTERVENTION REPORT The patient is a 64-year-old lady with known coronary artery disease, who presented with acute ST elevation myocardial infarction to the Emergency Room. She had ongoing symptoms, and this was associated with nausea and vomiting and nonsustained ventricular tachycardia. Emergency cardiac catheterization was recommended. Informed consent was obtained. DESCRIPTION OF PROCEDURE: She was brought to the cardiac catheterization laboratory. Right groin was prepared and draped in the usual sterile fashion. Lidocaine 1% was used for local anesthesia. Modified Seldinger technique was used to advance a 5-Welsh sheath in the right femoral artery. PERCUTANEOUS INTERVENTION OF THE RIGHT CORONARY ARTERY: We proceeded with angiography of the right coronary artery first with a 6-Welsh JR4 guide catheter. This indicated that the right coronary artery was proximally occluded. We proceeded with percutaneous intervention. We advanced a ChoICE floppy wire across the lesion and the tip was placed in the distal vessel. We tried to suction thrombus with a suction catheter, but the catheter was resulting in prolapse of the guide and the wire. We reengaged the coronary and advanced a wire and carried out balloon angioplasty at multiple spots. This restored antegrade flow. The flow was somewhat sluggish initially and gradually improved. We stented a distal segment that was exhibiting 90% stenosis. We stented a midsegment which was exhibiting 70% to 80% stenosis. We carried out balloon angioplasty to a previously placed stent in the right coronary artery. This resulted in improvement of flow to GLORIA 3 and no significant residual stenosis in the proximal, mid and distal segments. The very distal segment has moderate diffuse disease that was not intervened on. The distal stent placed today is Alpine Xience 2.75 x 15 mm. The mid vessel stent placed today is Alpine Xience 3.0 x 8 mm. The stents are not overlapping. PERCUTANEOUS INTERVENTION OF THE LEFT ANTERIOR DESCENDING ARTERY: Following completion of the infarct-related right coronary artery, we carried out angiography of the left coronary system. We used a 6-Welsh JL4 catheter. This showed that the left anterior descending artery had severe proximal disease. This was an 80 to 90% stenosis, which appeared unstable. We, therefore, decided to intervene on this. We removed the diagnostic catheter and used a 6-Welsh JL4 guide catheter. We advanced a ChoICE floppy wire across the lesion and the tip was placed in the distal vessel. We stented the lesion with Alpine Xience 2.5 x 12 mm stent, which resulted in resolution of stenosis to less than to 0% and normal antegrade flow. The left circumflex artery exhibits 60% stenosis in its mid and distal portions. The first obtuse marginal branch has a patent stent and had 70% mid vessel stenosis. This stenosis was not intervened on today. LEFT VENTRICULAR ANGIOGRAPHY: Following completion of the diagnostic coronary angiography and subsequent interventions, we carried out left ventricular angiography. We used a 6-Welsh pigtail catheter. Left ventricular angiography was performed. The pigtail catheter was then pulled back and removed. Angiography of the right femoral artery was carried out through the sheath and Mynx was used to achieve hemostasis. HEMODYNAMICS: Left ventricular end-diastolic pressure following coronary angiography was 24 mmHg. There was no significant pressure gradient on pullback across the aortic valve. Ascending aortic pressure was 145/78 with a mean 105 mmHg. CONCLUSIONS: 1. Proximal occlusion of the right coronary artery resulting in acute inferior wall ST elevation myocardial infarction. This was treated with balloon angioplasty of proximal right coronary artery stent that is known to be Alpine Xience 3.0 x 15 mm and that was placed in 2017. The mid right coronary artery was stented with Alpine Xience 3.0 x 18 mm stent. The distal right coronary artery was stented with Alpine Xience 2.75 x 15 mm stent today. 2. The left anterior descending artery was exhibiting 80-90% proximal stenosis and was stented with 2.5 x 12 mm Alpine Xience stent today. The mid left anterior descending artery exhibits patent stent. 3. The left circumflex artery has 60% mid vessel and distal stenoses. The first obtuse marginal branch has a patent proximal stent and 70% mid vessel stenosis that was not intervened on today. 4. Well-preserved global left ventricular systolic function with an ejection fraction approximately 60%. 5. Posterobasal hypokinesis. 6. Elevated left ventricular end-diastolic pressure, measuring 23 mmHg. DISCUSSION AND RECOMMENDATIONS: Dual antiplatelet therapy with aspirin and Brilinta have been initiated. She has chronic atrial fibrillation and needs a stroke prophylaxis. We are continuing Lovenox at this time and this will later be switched to Xarelto that she has chronically been on. Risk factor modification has been reviewed. She has been hospitalized for further evaluation and treatment. Job ID: [id number] DocumentID: [id number] Dictated Date: 01/09/2020 21:21:13 Wide Load Escort Date: 01/09/2020 21:49:30 Dictated By: REX FERRELL MD, MA, FACP, FACC,
[2020-01-09] MEDS: inSUlin ASPART (NovoLOG) 1 UNIT/0.01 ML (CHARGE PER UNIT) SC SCH (23:14)
[2020-01-09] MEDS: ENOXAPARIN 80 MG/0.8 ML (LOVENOX) SYR SC SCH (23:17)
[2020-01-10] VITALS (25 sets, daily range): BP systolic 87–145; BP diastolic 62–93
[2020-01-10 03:26] LABS: BASOPHILS % (AUTO) 0 % (0-10); EOSINOPHILS % (AUTO) 0 % (0-10); HEMATOCRIT 40 % (35-52); HEMOGLOBIN 13.2 G/DL (11.5-16.0); LYMPHOCYTES # (AUTO) 1.2 X 10^3 (1.0-4.0); LYMPHOCYTES % (AUTO) 6 % (12-44); MEAN CORPUSCULAR HEMOGLOBIN 28 PG (25-34); MEAN CORPUSCULAR HGB CONC 33 G/DL (32-36); MEAN CORPUSCULAR VOLUME 84 FL (80-99); MONOCYTES # (AUTO) 1.1 X 10^3 (0.0-1.0); MONOCYTES % (AUTO) 6 % (0-12); NEUTROPHILS # (AUTO) 16.3 X 10^3 (1.8-7.8); NEUTROPHILS % (AUTO) 87 % (42-75); PLATELET COUNT 237 10^3/uL (130-400); RED CELL DISTRIBUTION WIDTH 14.4 % (10.0-14.5); WHITE BLOOD COUNT 18.6 10^3/uL (4.3-11.0)
[2020-01-10 03:39] LABS: ALBUMIN 3.1 GM/DL (3.2-4.5); POTASSIUM 3.7 MMOL/L (3.6-5.0)
[2020-01-10 03:40] LABS: CALCIUM 7.8 MG/DL (8.5-10.1)
[2020-01-10 03:42] LABS: TOTAL PROTEIN 6.2 GM/DL (6.4-8.2)
[2020-01-10 03:43] LABS: BILIRUBIN,TOTAL 0.6 MG/DL (0.1-1.0)
[2020-01-10 03:45] LABS: CREATININE SERUM 0.97 MG/DL (0.60-1.30); PHOSPHORUS 3.5 MG/DL (2.3-4.7)
[2020-01-10] MEDS ORDERED: morphine INJ 4 MG/ML 1 ML (VIAL/SYRINGE) ONE (06:07)
[2020-01-10] MEDS ORDERED: NITROGLYCERIN 2% OINT 1 GM UNIT DOSE PACKET TOP ONE (06:15)
[2020-01-10] MEDS ORDERED: morphine INJ 4 MG/ML 1 ML (VIAL/SYRINGE) IVP PRN (06:15)
[2020-01-10] MEDS: inSUlin ASPART (NovoLOG) 1 UNIT/0.01 ML (CHARGE PER UNIT) SC SCH ×5 (06:24→21:00)
--- NOTE | 2020-01-10 08:15 | NUR ---
THIS NURSE NOTIFIED SULEMAN GUZMÁN WITH DR FERRELL PT SYSTOLIC BLOOD PRESSURE HAS BEEN 88-90S. HR RATE HAS BEEN IN THE 70S. ORDERS GIVEN TO HOLD MORNING DOSE OF METOPROLOL.
[2020-01-10] MEDS: ASPIRIN 81 MG CHEW (CHILDREN'S ASA) PO SCH (08:25)
[2020-01-10] MEDS: meTOprolol SUCCINATE 100 MG (TOPROL XL) TAB PO SCH (08:25)
[2020-01-10] MEDS: TICAGRELOR 90 MG TABLET (BRILINTA) PO SCH ×2 (08:25→20:55)
[2020-01-10] MEDS: ENOXAPARIN 80 MG/0.8 ML (LOVENOX) SYR SC SCH ×2 (08:26→20:54)
[2020-01-10] MEDS: NS IV 1000 ML 1,000 ML IV SCH ×2 (08:26→23:45)
--- NOTE | 2020-01-10 08:41 | Diagnostic Imaging Report ---
INDICATION: Myocardial infarct. Time of exam 3:43 AM Correlation is made with prior chest from 06/09/2019. Heart size is stable. Cardiac pacemaker remains in place. The lungs are clear. The pulmonary vascularity is normal. No infiltrates, effusion or pneumothorax is identified. IMPRESSION: No acute cardiopulmonary process is detected. Dictated by: Dictated on workstation # [id number]
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
--- NOTE | 2020-01-10 10:00 | NUR ---
THIS NURSE NOTIFIED DR NOWAK OF CONSULT.
[2020-01-10] MEDS: NITROGLYCERIN 2% OINT 1 GM UNIT DOSE PACKET TOP SCH ×3 (10:49→23:45)
[2020-01-10] MEDS ORDERED: NAPR-915 PO (11:15)
[2020-01-10] MEDS ORDERED: ALEN70TA5 PO (11:15)
[2020-01-10] MEDS ORDERED: OMEP20CA18 PO (11:15)
[2020-01-10] MEDS ORDERED: INSU100I23 SQ (11:16)
--- NOTE | 2020-01-10 11:25 | NUR ---
SPOKE WITH THE PT, WENT THRU THE EXT MED HISTORY AND CALLED [facility] TO COMPLETE THE MED REC VITALYPUMA FERGSUONSHINE- PT LAST PICKED UP ON 06-06-2019 #10 PEN- PT SAYS SHE DOESNT ALWAYS USE THREE TIMES A DAY DUE TO SKIPPING MEALS. SHE HAS A PEN WITH HER IN HER PURSE AND SAYS SHE HAS MORE AT HOME. I DID DOCUMENT THE PAST DUE FILL ON THE MED REC OTC MEDS: ASPIRIN 81
--- NOTE | 2020-01-10 11:34 | NUR ---
CM/SS: Visited with pt as to plan for discharge Plan: Pt to return home with no identified services Summary: Pt reports to having had a heart attack. Pt reports a history of heart issues and that she is feeling better at this time. Pt reports living with her brother and her son lives around the corner from her. Pt reports not having any services in the home and that they are managing at this time. Pt reports having equipment in the home. Front wheeled walker and a walker with a seat. She denies needing any equipment at this time. Pt is encouraged to work with physical therapy and and get up if she is feeling better. RN reports pt does not want to do much at this time. Pt shares that when she is dizzy she does not like to move much. She denies being dizzy at this time. Pt thanks this worker for the visit.
[2020-01-10] MEDS ORDERED: NS IV 500 ML 500 ML ONE (16:33)
--- NOTE | 2020-01-10 16:40 | NUR ---
1508-THIS NURSE ATTEMPTED TO CONTACT DR NOWAK REGARDING PT BLOOD SUGAR AND LOW URINE OUTPUT. WILL CONTINUE TO MONITOR. 1630- THIS NURSE SPOKE WITH DR NOWAK REGARDING PT BLOOD SUGAR AND HOME MEDS. SEE ORDER HX. THIS NURSE ALSO NOTIFIED DR NOWAK ABOUT PT LOW URINE OUTPUT SEE ORDER HX. WILL CONTINUE TO MONITOR.
[2020-01-10] MEDS ORDERED: NS IV 500 ML 500 ML IV ONE (16:45)
[2020-01-11] VITALS (12 sets, daily range): BP systolic 80–149; BP diastolic 51–93
[2020-01-11 03:41] LABS: BASOPHILS % (AUTO) 0 % (0-10); EOSINOPHILS % (AUTO) 0 % (0-10); HEMATOCRIT 37 % (35-52); HEMOGLOBIN 11.9 G/DL (11.5-16.0); LYMPHOCYTES # (AUTO) 2.5 X 10^3 (1.0-4.0); LYMPHOCYTES % (AUTO) 18 % (12-44); MEAN CORPUSCULAR HEMOGLOBIN 28 PG (25-34); MEAN CORPUSCULAR HGB CONC 33 G/DL (32-36); MEAN CORPUSCULAR VOLUME 87 FL (80-99); MEAN PLATELET VOLUME 12.4 FL (7.4-10.4); MONOCYTES # (AUTO) 1.4 X 10^3 (0.0-1.0); MONOCYTES % (AUTO) 10 % (0-12); NEUTROPHILS # (AUTO) 9.7 X 10^3 (1.8-7.8); NEUTROPHILS % (AUTO) 71 % (42-75); PLATELET COUNT 204 10^3/uL (130-400); RED CELL DISTRIBUTION WIDTH 14.3 % (10.0-14.5); WHITE BLOOD COUNT 13.7 10^3/uL (4.3-11.0)
[2020-01-11 04:04] LABS: BUN/CREATININE RATIO 20; CALCIUM 7.8 MG/DL (8.5-10.1); CARBON DIOXIDE 20 MMOL/L (21-32); CHLORIDE 106 MMOL/L (98-107); CREATININE SERUM 0.83 MG/DL (0.60-1.30); GFR ESTIMATED > 60; GLUCOSE 130 MG/DL (70-105); MAGNESIUM 1.8 MG/DL (1.6-2.4); PHOSPHORUS 2.2 MG/DL (2.3-4.7); POTASSIUM 3.5 MMOL/L (3.6-5.0); SODIUM 135 MMOL/L (135-145)
[2020-01-11] MEDS: inSUlin ASPART (NovoLOG) 1 UNIT/0.01 ML (CHARGE PER UNIT) SC SCH ×2 (04:40→11:33)
[2020-01-11] MEDS ORDERED: MAGNESIUM 1 GM/100 ML IVPB 100 ML IV SCH (06:00)
[2020-01-11] MEDS ORDERED: KCL 20 MEQ TAB (K-DUR) PO SCH (06:00)
[2020-01-11] MEDS ORDERED: POTASSIUM CL 10MEQ/50ML IVPB 50 ML IV SCH (06:00)
--- NOTE | 2020-01-11 06:25 | Diagnostic Imaging Report ---
Indication: Chest pain Portable chest 3:22 AM There is a dual-chamber pacemaker. Heart size and pulmonary vascularity are normal. Lungs are clear. There are no effusions or pneumothoraces. IMPRESSION: No acute abnormalities in the chest Dictated by: Dictated on workstation # [id number]
[2020-01-11] MEDS: NITROGLYCERIN 2% OINT 1 GM UNIT DOSE PACKET TOP SCH ×2 (06:35→11:34)
[2020-01-11] MEDS: TICAGRELOR 90 MG TABLET (BRILINTA) PO SCH (08:28)
[2020-01-11] MEDS: meTOprolol SUCCINATE 100 MG (TOPROL XL) TAB PO SCH (08:29)
[2020-01-11] MEDS: ENOXAPARIN 80 MG/0.8 ML (LOVENOX) SYR SC SCH (08:29)
[2020-01-11] MEDS: ASPIRIN 81 MG CHEW (CHILDREN'S ASA) PO SCH (08:29)
[2020-01-11] MEDS ORDERED: KCL 20 MEQ TAB (K-DUR) PO ONE (09:00)
[2020-01-11] MEDS ORDERED: RIVA15TA PO (09:06)
[2020-01-11] MEDS ORDERED: ASPI-999 PO (09:06)
[2020-01-11] MEDS ORDERED: NITR0.4T42 SL (09:06)
[2020-01-11] MEDS ORDERED: TICA90TA PO (09:06)
[2020-01-11] MEDS ORDERED: MTP100TCR PO (09:06)
[2020-01-11] MEDS ORDERED: ATOR80TA76 PO (09:07)
--- NOTE | 2020-01-11 09:08 | Discharge Inst-Cardiology ---
Discharge Inst-Cardiac Discharge Medications New Medications: Atorvastatin Calcium (Atorvastatin Calcium) 80 Mg Tablet 80 MG PO DAILY, #90 TAB 3 Refills Rivaroxaban (Xarelto) 15 Mg Tablet 15 MG PO DAILY, #90 TAB 3 Refills Aspirin (Aspirin) 81 Mg Tab.chew 81 MG PO DAILY for 90 Days, #90 TAB Metoprolol Succinate (Metoprolol Succinate) 100 Mg Tab.er.24h 100 MG PO DAILY for 90 Days, #90 TAB 3 Refills Nitroglycerin (Nitroglycerin) 0.4 Mg Tab.subl 0.4 MG SL UD PRN for CHEST PAIN (ANGINA), #100 TAB 1 Refill Ticagrelor (Brilinta) 90 Mg Tablet 90 MG PO BID for 90 Days, #180 TAB 3 Refills Continued Medications: Alendronate Sodium (Alendronate Sodium) 70 Mg Tablet 70 MG PO TUES, TAB Colestipol HCl (Colestipol HCl) 1 Gm Tablet 2 GM PO BID, TAB Dulaglutide (Trulicity) 0.75 Mg/0.5 Ml Pen.injctr 1.5 MG SQ SAT Insulin Detemir (Levemir Flextouch) 100 Unit/1 Ml Insuln.pen 55 UNIT SQ BID, EA Insulin Lispro (Humalog Kwikpen) 100 Unit/1 Ml Insuln.pen 25-30 UNIT SQ AC, EA LAST FILLED 06-06-2019 #10 PENS Omeprazole (Omeprazole) 20 Mg Capsule.dr 20 MG PO DAILY, CAP Discontinued Medications: Aspirin (Aspirin EC) 81 Mg Tablet.dr 81 MG PO DAILY, TAB Naproxen (Naproxen) 500 Mg Tablet 500 MG PO BID PRN for PAIN-MILD (1-4), TAB Rivaroxaban (Xarelto) 20 Mg Tablet 20 MG PO DAILY, TAB REX FERRELL MD FACP FAC CCDS January 11, 2020 09:08
--- NOTE | 2020-01-11 09:09 | Discharge Inst-Post CATH ---
Discharge Inst-CATH/EP Post Cardiac Cath/EP D/C Inst Follow Up/Plan F/u with Dr Gonzalez next week ACTIVITY * Go Home directly and rest. * Limit activity of the leg (or wrist if it was used) for 7 days including aerobics, swimming, jogging, bicycling, etc. * Restrict stair-climbing for 7 days if possible, if not, climb up with your no n-cath leg, then bring together on the same step. * Avoid lifting, pushing, pulling or excessive movement of the affected ext remity for 7 days. * Customary sexual activity may be resumed after 2 days-use caution not to use a position that strains or causes pain to the affected extremity. * No driving for 24 hours. * NO SMOKING. * Avoid straining for bowel movements for 7 days. * Gentle walking on level ground is allowed. * Returning to work will depend on the type of procedure and the results. Your doctor will discuss this with you. CALL YOUR DOCTOR FOR ANY OF THE FOLLOWING: *If bleeding from the puncture site occurs- Apply gentle pressure to site with clean cloth and call your doctor or EMS. * If a knot or lump forms under the skin, increases in size, or causes pain. * If bruising appears to be worsening or moving further down your leg instead of disappearing. * Temperature above 101 F. CARE OF YOUR GROIN INCISION; * Bruising or purple discoloration of the skin near the puncture site is common. * You may shower only, no bathtub bathing for 5 days. Be careful to avoid slipping as your leg may feel stiff. * If a closure device was used on your femoral artery, please see the attached guide regarding care of the device and your leg. * Leave dressing on FOR 24 hours. CARE OF YOUR WRIST INCISION; * Bruising or purple discoloration of the skin near the puncture site is common. * You may shower. * DO NOT submerge wrist. * Leave dressing on FOR 24 hours. REX GONZALEZ MD FACP FAC CCDS January 11, 2020 09:09
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
--- NOTE | 2020-01-11 10:00 | NUR ---
THIS NURSE SPOKE WITH DR NOWAK ABOUT DR FERRELL'S CONCERNS WITH PT DM MANAGEMENT AND ELEVATED WBC. DR NOWAK SAID SHE BELIEVES ELEVATED WBC IS RELATED TO THE HEART CATH AND SHE WILL MAKE AN APPOINTMENT FOR HER WITH HER PCP. PT IS OKAY TO DC. WILL CONTINUE TO MONITOR.
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
--- NOTE | 2020-01-11 12:14 | NUR ---
CM/SS: Visited with pt as to her plan for discharge. She will be discharged home today with no identified services. Pt will follow up with her heart physician post discharge.
== END 2020-01-11 12:22 | disposition home or self-care (01) | DRG 247 ==
LOC: EDUNIT# 17:56 → ER 17:57 → CATH 18:41 → ICU 20:39 → CATH 20:54 → ICU 20:54
PROVIDERS: ADMIT Internal Medicine Cardiovascular Disease; ATTEND Internal Medicine Cardiovascular Disease
PROC: 027136Z Dilation of Coronary Artery, Two Arteries with Three Drug-eluting Intraluminal Devices, Percutaneous Approach (ICD-10-PCS; principal; 2020-01-09)
PROC: 4A023N7 Measurement of Cardiac Sampling and Pressure, Left Heart, Percutaneous Approach (ICD-10-PCS; 2020-01-09)
PROC: B2111ZZ Fluoroscopy of Multiple Coronary Arteries using Low Osmolar Contrast (ICD-10-PCS; 2020-01-09)
PROC: B2151ZZ Fluoroscopy of Left Heart using Low Osmolar Contrast (ICD-10-PCS; 2020-01-09)
DX: I21.19 ST elevation (STEMI) myocardial infarction involving other coronary artery of inferior wall (principal); I47.2 Ventricular tachycardia; I25.10 Atherosclerotic heart disease of native coronary artery without angina pectoris; I48.0 Paroxysmal atrial fibrillation; I48.92 Unspecified atrial flutter; I65.23 Occlusion and stenosis of bilateral carotid arteries; I25.2 Old myocardial infarction; I08.3 Combined rheumatic disorders of mitral, aortic and tricuspid valves; I70.0 Atherosclerosis of aorta; I10 Essential (primary) hypertension; E66.9 Obesity, unspecified; G47.30 Sleep apnea, unspecified; E11.51 Type 2 diabetes mellitus with diabetic peripheral angiopathy without gangrene; E78.5 Hyperlipidemia, unspecified; K21.9 Gastro-esophageal reflux disease without esophagitis; M19.91 Primary osteoarthritis, unspecified site; M81.0 Age-related osteoporosis without current pathological fracture; R60.9 Edema, unspecified; K44.9 Diaphragmatic hernia without obstruction or gangrene; Z95.5 Presence of coronary angioplasty implant and graft; Z95.0 Presence of cardiac pacemaker; Z79.4 Long term (current) use of insulin; Z68.33 Body mass index [BMI] 33.0-33.9, adult; Z79.01 Long term (current) use of anticoagulants; Z87.440 Personal history of urinary (tract) infections; I49.5 Sick sinus syndrome
CPT/HCPCS: 36415; 51702; 71045; 80048; 80053; 80061; 82150; 82550; 82553; 82962; 83690; 83735; 83874; 83880; 84100; 84484; 85007; 85025; 85027; 85610; 85730; 87081; 93005; 93041; 93306; 93458; 96374; 96375; 99291

== ENCOUNTER 2020-01-29 07:24 | Day surgery (SDC) | payer MEDICARE, MEDICAID ==
[~2020-01-29] VITALS: Ht 165 cm; Wt 91.0 kg
[2020-01-29] VITALS (9 sets, daily range): BP systolic 131–155; BP diastolic 71–103
[~2020-01-29 07:24] MED LIST changes: +ALEN70TA5 PO; -AMIODARONE (OMNICELL DRIP KIT) 150 MG/3 ML IV ONE; +ATOR80TA76 PO; -EPINEPHrine 0.1 MG/ML 10 ML (HOSPIRA) SYR IJ ONE; +INSU100I23 SQ; -LIDOCAINE BOLUS 100 MG/5 ML (IMS) SYR INJ ONE; -MAGNESIUM 1 GM/100 ML IVPB 100 ML IV ONE; +MTP100TCR PO; +NITR0.4T42 SL; +OMEP20CA18 PO; +RIVA15TA PO
[2020-01-29] MEDS ORDERED: LIDOCAINE 1% INJ 20 ML 20 ML VIAL ONE (07:35)
[2020-01-29] MEDS ORDERED: HEParin (CATH LAB) 2,000 ML IV ONE (07:35)
[2020-01-29] MEDS ORDERED: NS IV 1000 ML 1,000 ML IV SCH ×2 (07:45→10:04)
[2020-01-29 08:07] LABS: HEMOGLOBIN 13.6 G/DL (11.5-16.0); MEAN PLATELET VOLUME 10.9 FL (7.4-10.4); RED CELL DISTRIBUTION WIDTH 14.2 % (10.0-14.5); WHITE BLOOD COUNT 10.1 10^3/uL (4.3-11.0)
[2020-01-29] MEDS ORDERED: MIDAZOLAM 5 MG/5 ML (VERSED) VIAL ONE (08:08)
[2020-01-29] MEDS ORDERED: HEParin 1000 UNIT/ML (10ML VIAL) FOR BOLUS ONE (08:08)
[2020-01-29] MEDS ORDERED: fentaNYL INJECTION 100 MCG/2 ML AMP ONE (08:08)
[2020-01-29] MEDS ORDERED: TICAGRELOR 90 MG TABLET (BRILINTA) PO ONE (08:09)
[2020-01-29] MEDS ORDERED: ASPIRIN 81 MG CHEW (CHILDREN'S ASA) ONE (08:09)
[2020-01-29] MEDS ORDERED: NITRO DRIP 25000 MCG/D5W 250 ML IV ONE (08:09)
[2020-01-29 08:30] LABS: ALANINE AMINOTRANSFERASE 12 U/L (0-55); ALBUMIN 3.6 GM/DL (3.2-4.5); ALKALINE PHOSPHATASE 97 U/L (40-136); BILIRUBIN,TOTAL 0.5 MG/DL (0.1-1.0); BUN/CREATININE RATIO 13; CALCIUM 9.4 MG/DL (8.5-10.1); CARBON DIOXIDE 27 MMOL/L (21-32); CHLORIDE 103 MMOL/L (98-107); CHOLESTEROL 191 MG/DL (< 200); CREATININE SERUM 0.84 MG/DL (0.60-1.30); GFR ESTIMATED > 60; GLUCOSE 235 MG/DL (70-105); HDL CHOLESTEROL 48 MG/DL (40-60); POTASSIUM 3.5 MMOL/L (3.6-5.0); SODIUM 138 MMOL/L (135-145); TOTAL PROTEIN 7.5 GM/DL (6.4-8.2); TRIGLYCERIDES 133 MG/DL (<150); VLDL CHOLESTEROL 27 MG/DL (5-40)
[2020-01-29] MEDS ORDERED: EPTIFIBATIDE BOLUS 20 ML IV ONE (09:07)
--- NOTE | 2020-01-29 10:04 | Cardiac Procedure Note-CS/ASA ---
Pre-Procedure Note Pre-Op Procedure Note H&P Reviewed The H&P was reviewed, patient examined and no changes noted. Date H&P Reviewed: Jan 29, 2020 Time H&P Reviewed: 08:45 Conscious Sedation Pre-Proced Time 08:45 ASA Score 3 For ASA 3 and 4: Consider anesthesia and medical clearance. Also, for patients with a history of failed moderate sedation consider anesthesia. Airway Lungs Heart ASA score ASA 1: a normal healthy patient ASA 2: a patient with a mild systemic disease (mid diabetes, controlled hypertension, obesity ASA 3: a patient with a severe systemic disease that limits activity (angina, COPD, prior Myocardial infarction) ASA 4: a patient with an incapacitating disease that is a constant threat to life (CHF, renal failure) ASA 5: a moribund patient not expected to survive 24 hrs. (ruptured aneurysm) ASA 6: a declared brain- patient whose organs are being harvested. For emergent operations, add the letter E after the classification Mallampati Classification Grade 2 Sedation Plan Analgesia, Amnesia, Plan communicated to team members, Discussed options with patient/fam, Discussed risks with patient/fam The patient is an appropriate candidate to undergo the planned procedure, sedation, and anesthesia. The patient immediately re-assessed prior to indication. REX FERRELL MD FACP FAC CCDS Jan 29, 2020 10:04
[2020-01-29] MEDS ORDERED: NITROGLYCERIN 0.4 MG SL TABS BTL 25'S SL PRN (10:15)
[2020-01-29] MEDS ORDERED: PATIENT MAY USE OWN MEDS, ALL PO SCH (10:15)
--- NOTE | 2020-01-29 10:43 | CARDIAC CATHETERIZATION ---
DATE OF SERVICE: 01/29/2020 CARDIAC CATHETERIZATION AND CORONARY INTERVENTION REPORT The patient is a 64-year-old lady who has multivessel coronary artery disease and has had multiple prior interventions and the most recent one of which was on 01/09/2020 when she had presented with acute inferior ST elevation myocardial infarction and underwent percutaneous intervention for a proximally occluded right coronary artery that was associated with a large amount of thrombus. This was carried out successfully. She was noted to have severe left anterior descending artery disease, as well which was stented. She also had left circumflex disease. She has not had recurrent chest discomfort, but has slowly progressive exertional shortness of breath. Because of symptoms and known coronary artery disease, cardiac catheterization was carried out today after having obtained an informed consent. Informed consent was also obtained for ad hoc coronary intervention, if needed. DESCRIPTION OF PROCEDURE: She was brought to the cardiac catheterization laboratory in a fasting state. Right groin was prepared and draped in the usual sterile fashion. Lidocaine 1% was used for local anesthesia. Modified Seldinger technique was used to advance a 5-American sheath into the right femoral artery. A 5-American JL4 catheter was used for left coronary angiography and 5-American JR4 catheter was used for right coronary angiography. Subsequently, percutaneous intervention was carried out to a fairly large obtuse marginal branch of the left circumflex that is described below. PERCUTANEOUS INTERVENTION TO THE FIRST OBTUSE MARGINAL BRANCH OF THE LEFT CIRCUMFLEX ARTERY: We exchanged the sheath over a wire for a 6-American sheath. We gave a double bolus of Integrilin. We used a 6-American JL4 guide catheter. We advanced a ChoICE floppy wire across the lesion. The vessel is tortuous, and we were not able to advance a stent because of tortuosity. We used a jeff wire (ChoICE extra support). We were then able to advance the stent over the ChoICE floppy wire and subsequently remove the jeff wire after the stent had been positioned. The stent was deployed at 15 atmospheres. This achieved a final stent lumen size of 2.1 mm in diameter. Angiography indicated that the previous site of 70% to 80% stenosis had no significant residual stenosis and flow throughout the vessel was normal. She tolerated the procedure well. Angioplasty equipment was removed. Angiography of the right femoral artery was carried out through the sheath. Mynx was used to achieve hemostasis. HEMODYNAMICS: Aortic pressure was 108/66 with a mean of 72 mmHg. Left ventricular catheterization was not carried out. CORONARY ANGIOGRAPHY: Coronary calcification is seen. Left main coronary artery is free of significant disease. Left anterior descending artery has a patent proximal stent that is Alpine Xience 2.5 x 12 that was placed on 01/09/2020. She has a previously placed stent in the mid left anterior descending that is patent. The left circumflex artery was exhibiting 70% to 80% mid vessel stenosis that was successfully stented with Resolute [place] 2.0 x 12 mm stent today with reduction of stenosis to 0% residual. The AV groove left circumflex artery has moderately severe diffuse disease beyond the origin of the first obtuse marginal. The vessel here is of a small caliber (less than 1.5 mm) and does not appear amenable to percutaneous intervention. The right coronary artery is large and dominant. It has multiple patent stents. The very distal portion of the right coronary artery has diffuse moderate to moderately severe disease with stenoses of up to 60 to 70%. These were not intervened on. CONCLUSIONS: 1. Multivessel coronary artery disease. On 01/29/2020, she underwent stenting of the mid portion of the first obtuse marginal branch of the left circumflex with Resolute [place] 2.0 x 12 mm with reduction of stenosis from 70% to 80% to 0%. Previously, on cardiac catheterization on 01/09/2020, she was treated for acute occlusion in the right coronary with a large amount of thrombus that was treated with balloon angioplasty of the previous right coronary artery stent (Alpine Xience 3.0 x 15 mm placed in 2016) and mid vessel stenting with Alpine Xience 3.0 x 18 and distal vessel stenting with Alpine Xience 2.75 x 15 mm. These stents were found to be patent on 01/29/2020. The distal right coronary artery has moderate to moderately severe diffuse disease. The left anterior descending artery has been stented with Alpine Xience 2.5 x 12 mm on 01/09/2020 and this is patent. An old mid left anterior descending artery stent is also patent. The AV groove left circumflex, beyond the first obtuse marginal branch, has diffuse disease with multiple moderately severe stenoses and is of a small caliber and does not appear amenable to intervention. DISCUSSION AND RECOMMENDATIONS: We are continuing dual antiplatelet therapy with Brilinta and aspirin. She also has been on Xarelto for stroke prophylaxis because of a history of paroxysmal atrial fibrillation. The plan would be to continue therapy with aspirin for a week and then stop while continuing therapy with Brilinta and Xarelto. For a week, she would remain on all 3 agents if no bleeding. We will hold Xarelto today to reduce risk of post-cardiac catheterization bleeding. Job ID: [id number] DocumentID: [id number] Dictated Date: 01/29/2020 09:54:46 Rpg Programmer Date: 01/29/2020 10:42:31 Dictated By: REX FERRELL MD, MA, FACP, FACC, MTDD
[2020-01-29] MEDS: ACETAMINOPHEN 325 MG TABLET PO PRN (15:11)
--- NOTE | 2020-01-29 21:10 | NUR ---
PT HAS OWN GLUCOMETER. PT TOOK BLOOD SUGAR AND IT WAS 187, VERIFIED BY THIS RN. PT REQUESTED HOME DOSE OF LEVEMIR 55 UNITS BID BE STARTED. NOTIFIED DR PENG. SEE ORDER HX
[2020-01-29] MEDS: COLESTIPOL 1 GM (COLESTID) TAB PO SCH (21:19)
[2020-01-29] MEDS: TICAGRELOR 90 MG TABLET (BRILINTA) PO SCH (21:19)
[2020-01-30 03:43] LABS: HEMOGLOBIN 12.4 G/DL (11.5-16.0); MEAN PLATELET VOLUME 10.7 FL (7.4-10.4); RED CELL DISTRIBUTION WIDTH 13.7 % (10.0-14.5); WHITE BLOOD COUNT 10.1 10^3/uL (4.3-11.0)
[2020-01-30 03:49] LABS: CHLORIDE 104 MMOL/L (98-107); POTASSIUM 3.2 MMOL/L (3.6-5.0); SODIUM 137 MMOL/L (135-145)
[2020-01-30 03:51] LABS: CALCIUM 8.5 MG/DL (8.5-10.1); GLUCOSE 142 MG/DL (70-105)
[2020-01-30 03:53] LABS: CARBON DIOXIDE 26 MMOL/L (21-32)
[2020-01-30 03:55] LABS: CREATININE SERUM 0.75 MG/DL (0.60-1.30); GFR ESTIMATED > 60
[2020-01-30 03:56] LABS: BUN/CREATININE RATIO 15
[2020-01-30] MEDS: ACETAMINOPHEN 325 MG TABLET PO PRN (04:10)
[2020-01-30 04:19] VITALS: BP 137/86
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
[2020-01-30 08:00] VITALS: BP 131/76
[2020-01-30] MEDS: TICAGRELOR 90 MG TABLET (BRILINTA) PO SCH (08:29)
[2020-01-30] MEDS: COLESTIPOL 1 GM (COLESTID) TAB PO SCH (08:29)
[2020-01-30] MEDS ORDERED: PANTOPRAZOLE 20 MG TABLET (PROTONIX) PO SCH (09:00)
[2020-01-30] MEDS ORDERED: ASPIRIN 81 MG CHEW (CHILDREN'S ASA) PO SCH (09:00)
[2020-01-30] MEDS ORDERED: meTOprolol SUCCINATE 100 MG (TOPROL XL) TAB PO SCH (09:00)
--- NOTE | 2020-01-30 09:00 | Discharge Inst-Cardiology ---
Discharge Inst-Cardiac Discharge Medications Continued Medications: Alendronate Sodium (Alendronate Sodium) 70 Mg Tablet 70 MG PO TUES, TAB Aspirin (Aspirin) 81 Mg Tab.chew 81 MG PO DAILY for 90 Days, #90 TAB Atorvastatin Calcium (Atorvastatin Calcium) 80 Mg Tablet 80 MG PO DAILY, #90 TAB 3 Refills Colestipol HCl (Colestipol HCl) 1 Gm Tablet 2 GM PO BID, TAB Dulaglutide (Trulicity) 0.75 Mg/0.5 Ml Pen.injctr 1.5 MG SQ SAT Insulin Detemir (Levemir Flextouch) 100 Unit/1 Ml Insuln.pen 55 UNIT SQ BID, EA Insulin Lispro (Humalog Kwikpen) 100 Unit/1 Ml Insuln.pen 25-30 UNIT SQ AC, EA LAST FILLED 06-06-2019 #10 PENS Metoprolol Succinate (Metoprolol Succinate) 100 Mg Tab.er.24h 100 MG PO DAILY for 90 Days, #90 TAB 3 Refills Nitroglycerin (Nitroglycerin) 0.4 Mg Tab.subl 0.4 MG SL UD PRN for CHEST PAIN (ANGINA), #100 TAB 1 Refill Omeprazole (Omeprazole) 20 Mg Capsule.dr 20 MG PO DAILY, CAP Rivaroxaban (Xarelto) 15 Mg Tablet 15 MG PO DAILY, #90 TAB 3 Refills Ticagrelor (Brilinta) 90 Mg Tablet 90 MG PO BID for 90 Days, #180 TAB 3 Refills Patient Instructions Patient Instructions: Continue aspirin Continue Brilinta twice a day Continue Xarelto daily Continue all medications as listed Please schedule follow up appointment to see Dr. Gonzalez in 1 weeks. Lab: CBC, BMP - have lab done a few days prior to your appointment with SULEMAN Lowery Jan 30, 2020 09:00
[2020-01-30] MEDS ORDERED: KCL 20 MEQ TAB (K-DUR) PO ONE (09:30)
--- NOTE | 2020-01-30 09:57 | NUR ---
Pt is Yazidi, declined sacrament and states she was going home. Penology Teacher offered blessing.
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
[2020-01-30] MEDS ORDERED: RIVAROXABAN 15 MG TABLET (XARELTO) PO SCH (17:00)
== END 2020-01-30 10:30 | disposition home or self-care (01) ==
LOC: CATH 07:24 → ICU 10:00 → CSD 22:25 → CATH 01-30 10:30
PROVIDERS: ATTEND Internal Medicine Cardiovascular Disease
DX: I25.10 Atherosclerotic heart disease of native coronary artery without angina pectoris (principal); I65.23 Occlusion and stenosis of bilateral carotid arteries; I48.0 Paroxysmal atrial fibrillation; I10 Essential (primary) hypertension; I49.5 Sick sinus syndrome; I21.3 ST elevation (STEMI) myocardial infarction of unspecified site; E78.5 Hyperlipidemia, unspecified; E11.9 Type 2 diabetes mellitus without complications; E66.9 Obesity, unspecified; K52.9 Noninfective gastroenteritis and colitis, unspecified; Z79.02 Long term (current) use of antithrombotics/antiplatelets; Z79.82 Long term (current) use of aspirin; Z88.2 Allergy status to sulfonamides; Z88.8 Allergy status to other drugs, medicaments and biological substances; Z79.01 Long term (current) use of anticoagulants; Z79.899 Other long term (current) drug therapy; Z79.4 Long term (current) use of insulin; Z95.0 Presence of cardiac pacemaker; Z90.49 Acquired absence of other specified parts of digestive tract; Z68.33 Body mass index [BMI] 33.0-33.9, adult; Z95.828 Presence of other vascular implants and grafts; Z80.0 Family history of malignant neoplasm of digestive organs; Z82.3 Family history of stroke
CPT/HCPCS: 36415; 80048; 80053; 80061; 85027; 85610; 85730; 87081; 93005; 93454

== ENCOUNTER → 2020-02-11 | Outpatient (CLI) | payer MEDICARE, MEDICAID ==
[2020-02-11 12:47] LABS: BASOPHILS % (AUTO) 1 % (0-10); EOSINOPHILS # (AUTO) 0.4 10^3/uL (0.0-0.3); EOSINOPHILS % (AUTO) 4 % (0-10); HEMATOCRIT 37 % (35-52); HEMOGLOBIN 12.1 G/DL (11.5-16.0); LYMPHOCYTES # (AUTO) 1.9 X 10^3 (1.0-4.0); LYMPHOCYTES % (AUTO) 22 % (12-44); MEAN CORPUSCULAR HEMOGLOBIN 28 PG (25-34); MEAN CORPUSCULAR HGB CONC 33 G/DL (32-36); MEAN CORPUSCULAR VOLUME 85 FL (80-99); MEAN PLATELET VOLUME 11.5 FL (7.4-10.4); MONOCYTES # (AUTO) 0.6 X 10^3 (0.0-1.0); MONOCYTES % (AUTO) 7 % (0-12); NEUTROPHILS # (AUTO) 5.7 X 10^3 (1.8-7.8); NEUTROPHILS % (AUTO) 66 % (42-75); PLATELET COUNT 211 10^3/uL (130-400); WHITE BLOOD COUNT 8.7 10^3/uL (4.3-11.0)
[2020-02-11 13:12] LABS: BUN/CREATININE RATIO 15; CALCIUM 8.9 MG/DL (8.5-10.1); CARBON DIOXIDE 22 MMOL/L (21-32); CHLORIDE 104 MMOL/L (98-107); CREATININE SERUM 0.81 MG/DL (0.60-1.30); GFR ESTIMATED > 60; GLUCOSE 285 MG/DL (70-105); POTASSIUM 3.4 MMOL/L (3.6-5.0); SODIUM 136 MMOL/L (135-145)
== END ==
LOC: LAB 12:26
PROVIDERS: ATTEND Nurse Practitioner Family
DX: E87.6 Hypokalemia (principal); I25.10 Atherosclerotic heart disease of native coronary artery without angina pectoris
CPT/HCPCS: 36415; 80048; 85025

== ENCOUNTER → 2020-02-26 | Outpatient (CLI) | payer MEDICARE, MEDICAID ==
[2020-02-26 11:42] LABS: CHLORIDE 105 MMOL/L (98-107); POTASSIUM 4.3 MMOL/L (3.6-5.0); SODIUM 140 MMOL/L (135-145)
[2020-02-26 11:44] LABS: CALCIUM 9.4 MG/DL (8.5-10.1); GLUCOSE 136 MG/DL (70-105)
[2020-02-26 11:45] LABS: CARBON DIOXIDE 27 MMOL/L (21-32)
[2020-02-26 11:48] LABS: CREATININE SERUM 0.84 MG/DL (0.60-1.30); GFR ESTIMATED > 60
[2020-02-26 11:49] LABS: BUN/CREATININE RATIO 12
== END ==
LOC: LAB 11:09
PROVIDERS: ATTEND Nurse Practitioner Family
DX: E87.6 Hypokalemia (principal)
CPT/HCPCS: 36415; 80048

== ENCOUNTER → 2020-05-08 | Outpatient (CLI) | payer MEDICARE, MEDICAID ==
[~2020-05-08] MED LIST changes: +ASPI-1238 PO; -ASPI-983 PO; +CANA100T PO; +LISI10TA2 PO
--- NOTE | 2020-05-08 15:13 | Diagnostic Imaging Report ---
PROCEDURE: CT urinary tract, rule out kidney stone. TECHNIQUE: Multiple contiguous axial images were obtained through the abdomen and pelvis without the use of intravenous contrast. Auto Exposure Controls were utilized during the CT exam to meet ALARA standards for radiation dose reduction. INDICATION: Hematuria and left flank pain. COMPARISON: Correlation is made with prior CT from 06/24/2014. FINDINGS: The lung bases are clear. No discrete liver mass is identified. The gallbladder is surgically absent. No biliary ductal dilatation is identified. Pancreas and spleen are unremarkable. No adrenal mass is detected. No definite renal calculi are detected. There is a cortical low density in left kidney measuring 19 mm in size, suggestive of a cyst. No hydronephrosis is identified. No definite ureteral or bladder calculi are detected. Aorta is non-aneurysmal. The small and large bowel loops are normal caliber. There is no obstruction. No inflammatory changes are seen. There is abdominal wall mesh in the right lateral upper abdomen. No free fluid or fluid collection is identified. The uterus is unremarkable. The bony structures appear nonacute. IMPRESSION: 1. No evidence of urinary tract calculi or obstruction. No acute process in the abdomen or pelvis is identified. Dictated by: Dictated on workstation # [id number]
== END ==
LOC: RAD 14:45
PROVIDERS: ATTEND Nurse Practitioner Community Health
DX: R31.9 Hematuria, unspecified (principal); R10.9 Unspecified abdominal pain; Z90.49 Acquired absence of other specified parts of digestive tract
CPT/HCPCS: 74176

== ENCOUNTER 2020-05-24 13:53 | Emergency (ER) | payer MEDICARE, MEDICAID ==
[~2020-05-24] VITALS: Ht 165 cm; Wt 88.6 kg
[~2020-05-24 13:53] MED LIST changes: -PANT40TA3 PO; +PANT40TA52 PO
[2020-05-24] MEDS ORDERED: ASPIRIN 81 MG CHEW (CHILDREN'S ASA) PO ONE ×2 (14:00→14:15)
[2020-05-24] MEDS ORDERED: NS IV 500 ML 500 ML IV SCH (14:15)
[2020-05-24] MEDS ORDERED: PROMETHAZINE INJ 25 MG/ML (PHENERGAN) AMP IVP ONE (14:15)
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
[2020-05-24 14:18] LABS: BASOPHILS # (AUTO) 0.1 10^3/uL (0.0-0.1); BASOPHILS % (AUTO) 1 % (0-10); EOSINOPHILS # (AUTO) 0.4 10^3/uL (0.0-0.3); EOSINOPHILS % (AUTO) 3 % (0-10); HEMATOCRIT 42 % (35-52); HEMOGLOBIN 13.5 g/dL (11.5-16.0); LYMPHOCYTES # (AUTO) 2.7 10^3/uL (1.0-4.0); LYMPHOCYTES % (AUTO) 21 % (12-44); MEAN CORPUSCULAR HEMOGLOBIN 28 pg (25-34); MEAN CORPUSCULAR HGB CONC 32 g/dL (32-36); MEAN CORPUSCULAR VOLUME 86 fL (80-99); MEAN PLATELET VOLUME 11.6 fL (9.0-12.2); MONOCYTES % (AUTO) 7 % (0-12); NEUTROPHILS # (AUTO) 8.9 10^3/uL (1.8-7.8); NEUTROPHILS % (AUTO) 68 % (42-75); PLATELET COUNT 264 10^3/uL (130-400); WHITE BLOOD COUNT 13.1 10^3/uL (4.3-11.0)
--- NOTE | 2020-05-24 14:26 | Diagnostic Imaging Report ---
INDICATION: Dizziness, chest pain and nausea COMPARISON is made to study of 04/29/2020. Heart size and pulmonary vascularity are within normal limits. Left anterior chest wall dual-chamber cardiac pacemaker is in stable position. There is no evidence of pneumothorax or significant pleural fluid. IMPRESSION: No acute abnormality or significant adverse change. Dictated by: Dictated on workstation # [id number]
[2020-05-24 14:28] LABS: ALBUMIN 3.6 GM/DL (3.2-4.5)
[2020-05-24 14:29] LABS: POTASSIUM 3.9 MMOL/L (3.6-5.0)
[2020-05-24 14:30] LABS: CALCIUM 9.4 MG/DL (8.5-10.1)
[2020-05-24 14:31] LABS: PROTHROMBIN TIME PATIENT 13.5 SEC (12.2-14.7); TOTAL PROTEIN 7.3 GM/DL (6.4-8.2)
[2020-05-24 14:33] LABS: BILIRUBIN,TOTAL 0.5 MG/DL (0.1-1.0)
[2020-05-24 14:35] LABS: CREATININE SERUM 1.07 MG/DL (0.60-1.30)
[2020-05-24 14:38] LABS: MAGNESIUM 1.8 MG/DL (1.6-2.4)
[2020-05-24 15:19] LABS: BILIRUBIN,URINE NEGATIVE (NEGATIVE); CLARITY,URINE CLEAR; COLOR,URINE YELLOW; GLUCOSE, URINE (UA) 3+ (NEGATIVE); KETONES,URINE NEGATIVE (NEGATIVE); LEUKOCYTE ESTERASE ,URINE NEGATIVE (NEGATIVE); NITRITE,URINE NEGATIVE (NEGATIVE); PROTEIN,URINE TRACE (NEGATIVE)
[2020-05-24 15:38] LABS: BACTERIA,URINE TRACE /HPF; SQUAMOUS EPITHELIAL CELL,UR 25-50 /HPF
[2020-05-24] MEDS ORDERED: SCOPOLAMINE 1.5 MG (TRANSDERM-SCOP) PATCH TD ONE (15:45)
--- NOTE | 2020-05-24 16:00 | NUR ---
DR PENG HERE SEEING PT AT THIS TIME.
--- NOTE | 2020-05-24 16:33 | NUR ---
PT COMPLAINS OF RESTLESS LEG SYNDROME AFTER PHENERGAN. NO NOTIFIED.
[2020-05-24] MEDS ORDERED: LORazepam INJ 2 MG/ML (ATIVAN) VIAL IVP PRN (16:45)
[2020-05-24 17:01] VITALS: BP 102/76
--- NOTE | 2020-05-24 17:31 | Consultation-Cardiology ---
HPI-Cardiology Cardiology Consultation: Date of Consultation 05/24/20 Date of Admission Attending Physician Admitting Physician [facility] Consulting Physician Serenity LEONG MD HPI: Time Seen by a Provider: 16:00 Chief Complaint: dizziness this is a 65-year-old lady with extensive cardiac history including atrial fibrillation, permanent pacemaker, numerous PCI, diabetes, hypertension. She had recent coronary angiography done on 04/30/2020 requiring PTCA to an in-stent restenosis of the left circumflex artery. She presents with complaining of dizziness and nausea. She was also not feeling well. She denies any chest pain or shortness of breath. She denies active smoking. Pertinent family history is negative for premature coronary disease. Improved dizziness with IV fluids in the ER. Stable hemodynamics. Review of Systems-Cardiology Review of Systems Constitutional: As described under HPI; No As described under HPI, No no symptoms reported, No chills, No fever; lightheadedness, tiredness Eyes: No As described under HPI, No no symptoms reported, No blindness, No blurred vision, No contact lenses, No drainage, No decreased acuity, No foreign body sensation, No pain, No vision change Ears/Nose/Throat: No As described under HPI, No no symptoms reported, No chronic hearing loss, No ear discharge, No ear pain, No nasal drainage, No ulcerations Respiratory: No no symptoms reported; As described under HPI; No As described under HPI, No cough, No orthopnea, No shortness of breath, No SOB with excertion Cardiovascular: No no symptoms reported; As described under HPI; No As described under HPI, No chest pain, No edema, No irregular heart rate, No lightheadedness, No palpitations Gastrointestinal: No no symptoms reported, No As described under HPI, No abdomen distended, No abdominal pain, No blood streaked bowels, No constipation, No diarrhea, No nausea, No vomiting; nausea/vomiting/diarrhea; No stool coloration changes Genitourinary: No As described under HPI, No burning, No dysuria, No discharge, No frequency, No flank pain, No hematuria, No urgency : Yes : No Skin: No rash, No skin related problems, No ulcerations Psychiatric/Neurological: No anxiety, No depression, No seizure, No focal weakness, No syncope Hematologic: No bleeding abnormalities NVI-Xzhqac-Ritzem Hx Patient Social History Alcohol Use: Denies Use Recreational Drug Use: No Smoking Status: Never a Smoker 2nd Hand Smoke Exposure: No Recent Foreign Travel: No Recent Infectious Disease Expo: No Immunizations Up To Date Tetanus Booster (TDap): Unknown Date of Influenza Vaccine: May 29, 2019 Past Medical History PMH As described under Assessment. Family Medical History Family History: Alcoholism 09 BROTHER 09 BROTHER Cancer 09 SISTER Cancer of colon 03 MOTHER Cataract Congestive heart failure 03 MOTHER Dementia 03 MOTHER Family history: Allergy Family history: Arthritis Family history: Cardiovascular disease Family history: Diabetes mellitus 03 MOTHER Family history: Glaucoma Family history: Hypertension 03 MOTHER History of - anemia History of - respiratory disease 03 MOTHER Myocardial infarction 03 MOTHER Stroke 03 MOTHER No Family History of: Abdominal aortic aneurysm Oriental's disease Aphasia Chest pain Cystic fibrosis Dysphagia Family history: Alzheimer's disease Family history: Asthma Family history: Breast disease Family history: Coronary thrombosis Family history: Gastrointestinal disease Family history: Osteoporosis Family history: Thyroid disorder Headache Hearing loss Heart disease Hereditary disease History of - disorder History of drug abuse Human immunodeficiency virus (HIV) seropositivity Hypercholesterolemia Infertile Kidney disease Malignant neoplasm of lung Parkinson's disease Prostate cancer Psychotic disorder Seizure disorder Tuberculosis Visual impairment Allergies and Home Medications Allergies Coded Allergies: Sulfa (Sulfonamide Antibiotics) (Verified Allergy, Unknown, 05/27/07) pseudoephedrine (Verified Allergy, Unknown, 05/27/07) triprolidine (Verified Allergy, Unknown, 05/27/07) Home Medications Alendronate Sodium 70 Mg Tablet, 70 MG PO TU, (Reported) LAST FILLED 02-21-2020 #12/24 DAY SUPPLY Aspirin 81 Mg Tab.chew, 81 MG PO DAILY, (Reported) Atorvastatin Calcium 80 Mg Tablet, 80 MG PO DAILY, (Reported) Canagliflozin 100 Mg Tablet, 100 MG PO DAILY, (Reported) LAST FILLED 02-21-2020 #30 DAY SUPPLY Colestipol HCl 1 Gm Tablet, 2 GM PO BID, (Reported) Dulaglutide 0.75 Mg/0.5 Ml Pen.injctr, 1.5 MG SQ SAT, (Reported) Insulin Detemir 100 Unit/1 Ml Insuln.pen, 55 UNIT SQ BID, (Reported) Lisinopril 10 Mg Tablet, 10 MG PO DAILY Prescribed by: MARISSA NOWAK on 05/01/20 1048 Metoprolol Succinate 100 Mg Tab.er.24h, 100 MG PO DAILY, (Reported) Nitroglycerin 0.4 Mg Tab.subl, 0.4 MG SL UD PRN for CHEST PAIN (ANGINA) Prescribed by: REX GONZALEZ on 01/11/20 0906 Omeprazole 20 Mg Capsule.dr, 20 MG PO DAILY, (Reported) Rivaroxaban 15 Mg Tablet, 15 MG PO DAILY, (Reported) Ticagrelor 90 Mg Tablet, 90 MG PO BID, (Reported) Patient Home Medication List Home Medication List Reviewed: Yes Physical Exam-Cardiology Physical Exam Vital Signs/I&O 05/24/20 05/24/20 13:53 17:01 Temp 35.8 Pulse 105 88 Resp 16 16 B/P (MAP) 152/80 (104) 102/76 Pulse Ox 98 97 O2 Delivery Room Air Room Air Capillary Refill : Less Than 3 Seconds Constitutional: AAO x 3 HEENT: PERRL; No discharge; hearing is well preserved, oral hygience is good; No ulceration, No xanthelasmas are seen Neck: No carotid bruit; carotid pulses are 2 + bilaterally Respiratory: chest is bilaterally symmetric, lungs clear to auscultation Cardiovascular: irregularly irregular, S1 and S2; No diastolic murmur, No systolic murmur Gastrointestinal: soft, audible bowel sounds; No spleenomegaly Rectal: deferred Extremities: normal range of motion, non-tender, normal inspection; No clubbing, No cyanosis; no lower extremity edema bilateral; No significant edema Neurologic/Psychiatric: no motor/sensory deficits, alert, normal mood/affect, oriented x 3, power is 5/5 both on sides Skin: normal color, warm/dry; No rash, No ulcerations Data Review Labs Laboratory Tests 05/24/20 14:10: White Blood Count 13.1H, Red Blood Count 4.89, Hemoglobin 13.5, Hematocrit 42, Mean Corpuscular Volume 86, Mean Corpuscular Hemoglobin 28, Mean Corpuscular Hemoglobin Concent 32, Red Cell Distribution Width 13.9, Platelet Count 264, Mean Platelet Volume 11.6, Immature Granulocyte % (Auto) 0, Neutrophils (%) (Auto) 68, Lymphocytes (%) (Auto) 21, Monocytes (%) (Auto) 7, Eosinophils (%) (Auto) 3, Basophils (%) (Auto) 1, Neutrophils # (Auto) 8.9H, Lymphocytes # (Auto) 2.7, Monocytes # (Auto) 1.0, Eosinophils # (Auto) 0.4H, Basophils # (Auto) 0.1, Immature Granulocyte # (Auto) 0.1, Prothrombin Time 13.5, INR Comment 1.0, Activated Partial Thromboplast Time 33, Sodium Level 139, Potassium Level 3.9, Chloride Level 103, Carbon Dioxide Level 25, Anion Gap 11, Blood Urea Nitrogen 13, Creatinine 1.07, Estimat Glomerular Filtration Rate 51, BUN/Creatinine Ratio 12, Glucose Level 273H, Calcium Level 9.4, Corrected Calcium 9.7, Magnesium Level 1.8, Total Bilirubin 0.5, Aspartate Amino Transf (AST/SGOT) 14, Alanine Aminotransferase (ALT/SGPT) 12, Alkaline Phosphatase 77, Myoglobin 56.3, Troponin I 0.056H, B-Type Natriuretic Peptide 169.2H, Total Protein 7.3, Albumin 3.6 05/24/20 15:10: Urine Color YELLOW, Urine Clarity CLEAR, Urine pH 6.0, Urine Specific [place] 1.015L, Urine Protein TRACEH, Urine Glucose (UA) 3+H, Urine Ketones NEGATIVE, Urine Nitrite NEGATIVE, Urine Bilirubin NEGATIVE, Urine Urobilinogen 1.0, Urine Leukocyte Esterase NEGATIVE, Urine RBC (Auto) NEGATIVE, Urine RBC NONE, Urine WBC 2-5, Urine Squamous Epithelial Cells 25-50H, Urine Crystals NONE, Urine Bacteria TRACE, Urine Casts NONE, Urine Mucus NEGATIVE, Urine Culture Indicated NO 05/24/20 16:08: Troponin I 0.059H ECG Impression ECG Initial ECG Impression: Nonspecific Changes, Atrial Fibrillation A/P-Cardiology Assessment/Admission Diagnosis dizziness, Nausea, History of CAD/PCI, Borderline positive troponin, chronic Atrial fibrillation, permanent pacemaker, Diabetes Plan dizziness, stable hemodynamics. However already received IV fluids. Could be secondary to dehydration. Will likely require an event monitor on Tuesday. Nausea, defer to the ER team. History of CAD/PCI, recent coronary angiography done on 04/30/2020 which showed severe in-stent restenosis of left circumflex artery which was treated successfully with balloon angioplasty. Continue Brilinta. Patient is also on Xarelto. Borderline positive troponin, she denies any chest pain. Serial troponin shows no increasing trend. All previous troponins are same levels. Negative EKG for acute ST-T wave abnormalities. I'm okay with discharging the patient to follow- up with Dr. Gonzalez on Tuesday. chronic Atrial fibrillation, on Xarelto. No active issues. Event monitor. permanent pacemaker,no acute clinical concerns. Diabetes Thank you for your consultation. Please call me if you have any questions. Ash Leong MD, FACP, FACC, FSCAI, FHRS, CCDS Interventional Cardiology Cardiac Electrophysiology Vascular Medicine and Endovascular Interventions Serenity LEONG MD May 24, 2020 17:31
== END 2020-05-24 17:01 | disposition home or self-care (01) ==
LOC: EDUNIT# 13:53 → ER 13:54
DX: R42 Dizziness and giddiness (principal); R11.2 Nausea with vomiting, unspecified; I48.91 Unspecified atrial fibrillation; I25.10 Atherosclerotic heart disease of native coronary artery without angina pectoris; I25.2 Old myocardial infarction; I10 Essential (primary) hypertension; E78.00 Pure hypercholesterolemia, unspecified; K21.9 Gastro-esophageal reflux disease without esophagitis; E11.9 Type 2 diabetes mellitus without complications; Z88.2 Allergy status to sulfonamides; Z88.8 Allergy status to other drugs, medicaments and biological substances; Z79.82 Long term (current) use of aspirin; Z79.4 Long term (current) use of insulin; Z79.01 Long term (current) use of anticoagulants; Z95.5 Presence of coronary angioplasty implant and graft; Z82.49 Family history of ischemic heart disease and other diseases of the circulatory system; Z80.0 Family history of malignant neoplasm of digestive organs
CPT/HCPCS: 36415; 71045; 80053; 81000; 83735; 83874; 83880; 84484; 85025; 85610; 85730; 93041

== ENCOUNTER 2020-05-31 10:58 | Observation (INO) | payer MEDICARE, MEDICAID ==
[~2020-05-31] VITALS: Ht 165.1 cm; Wt 97.0 kg
[2020-05-31] MEDS ORDERED: ASPIRIN 81 MG CHEW (CHILDREN'S ASA) PO ONE ×2 (11:00→11:15)
[2020-05-31] MEDS ORDERED: NITROGLYCERIN 0.4 MG SL TABS BTL 25'S SL ONE (11:08)
[2020-05-31] MEDS ORDERED: NITROGLYCERIN 0.4 MG SL TABS BTL 25'S SL PRN ×2 (11:15→15:15)
[2020-05-31] MEDS ORDERED: SCOPOLAMINE 1.5 MG (TRANSDERM-SCOP) PATCH TD ONE (11:15)
[2020-05-31] MEDS ORDERED: ONDANSETRON 4 MG/2 ML (SDV) Z0FRAN IVP ONE (11:15)
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
[2020-05-31 11:24] LABS: BASOPHILS # (AUTO) 0.1 10^3/uL (0.0-0.1); BASOPHILS % (AUTO) 1 % (0-10); EOSINOPHILS # (AUTO) 0.2 10^3/uL (0.0-0.3); EOSINOPHILS % (AUTO) 2 % (0-10); HEMATOCRIT 41 % (35-52); HEMOGLOBIN 13.2 g/dL (11.5-16.0); LYMPHOCYTES # (AUTO) 2.5 10^3/uL (1.0-4.0); LYMPHOCYTES % (AUTO) 26 % (12-44); MEAN CORPUSCULAR HEMOGLOBIN 28 pg (25-34); MEAN CORPUSCULAR HGB CONC 32 g/dL (32-36); MEAN CORPUSCULAR VOLUME 87 fL (80-99); MEAN PLATELET VOLUME 11.7 fL (9.0-12.2); MONOCYTES # (AUTO) 0.8 10^3/uL (0.0-1.0); MONOCYTES % (AUTO) 8 % (0-12); NEUTROPHILS # (AUTO) 6.2 10^3/uL (1.8-7.8); NEUTROPHILS % (AUTO) 63 % (42-75); PLATELET COUNT 211 10^3/uL (130-400); WHITE BLOOD COUNT 9.8 10^3/uL (4.3-11.0)
--- NOTE | 2020-05-31 11:25 | NUR ---
pt denies improvement in pain after nitro. bp improved. 130/91. pt c/o developing headache et persistent dizziness.
[2020-05-31 11:35] LABS: ALBUMIN 3.8 GM/DL (3.2-4.5); CHLORIDE 101 MMOL/L (98-107); POTASSIUM 3.7 MMOL/L (3.6-5.0); SODIUM 136 MMOL/L (135-145)
[2020-05-31 11:36] LABS: CALCIUM 9.1 MG/DL (8.5-10.1)
[2020-05-31 11:37] LABS: GLUCOSE 256 MG/DL (70-105); TOTAL PROTEIN 7.5 GM/DL (6.4-8.2)
[2020-05-31 11:39] LABS: BILIRUBIN,TOTAL 0.5 MG/DL (0.1-1.0); CARBON DIOXIDE 25 MMOL/L (21-32)
[2020-05-31 11:41] LABS: ALKALINE PHOSPHATASE 90 U/L (40-136); CREATININE SERUM 0.88 MG/DL (0.60-1.30); FIBRIN DEGRADATION PRODUCTS 0.56 UG/ML (0.00-0.49); GFR ESTIMATED > 60; INR 0.9 (0.8-1.4); PROTHROMBIN TIME PATIENT 12.7 SEC (12.2-14.7)
[2020-05-31 11:42] LABS: BUN/CREATININE RATIO 11
[2020-05-31 11:44] LABS: ALANINE AMINOTRANSFERASE 13 U/L (0-55); MAGNESIUM 1.9 MG/DL (1.6-2.4)
--- NOTE | 2020-05-31 11:54 | Diagnostic Imaging Report ---
INDICATION: Chest pain. COMPARISON: 05/24/2020. FINDINGS: Single view of the chest demonstrates stable slight cardiac enlargement. Lungs are clear. There is no pneumothorax but pacemaker stable. Osseous structures are age-appropriate. IMPRESSION: No acute cardiopulmonary findings. Dictated by: Dictated on workstation # [id number]
[2020-05-31] MEDS ORDERED: hydrALAZINE (APESOLINE) 20 MG/ML VIAL ONE (12:15)
[2020-05-31] MEDS ORDERED: hydrALAZINE (APESOLINE) 20 MG/ML VIAL IV ONE (12:30)
[2020-05-31] MEDS ORDERED: meTOprolol SUCCINATE 100 MG (TOPROL XL) TAB PO ONE (12:30)
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
--- NOTE | 2020-05-31 12:43 | NUR ---
dr cates at bedside to evaluate pt
[2020-05-31 13:16] VITALS: BP 116/69
[2020-05-31 13:26] VITALS: BP 116/69
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
[2020-05-31] MEDS ORDERED: FLU QUAD HIGH DOSE 240 MCG/0.7 ML 2020-21 (FLUZONE) IM ONE (14:00)
[2020-05-31] MEDS ORDERED: ACETAMINOPHEN 325 MG TABLET ONE (14:12)
[2020-05-31] MEDS: LACTATED RINGERS 1,000 ML IV SCH ×2 (14:14→21:31)
[2020-05-31] MEDS ORDERED: ACETAMINOPHEN 325 MG TABLET PO PRN (14:15)
[2020-05-31] MEDS ORDERED: ONDANSETRON 4 MG/2 ML (SDV) Z0FRAN IVP PRN (15:15)
[2020-05-31] MEDS ORDERED: NON-FORMULARY MEDICATION 1 EA EA (Dulaglutide (Trulicity) 1.5 MG) SQ SCH (15:15)
[2020-05-31] MEDS ORDERED: NON-FORMULARY MEDICATION 1 EA EA (Alendronate Sodium 70 MG) PO SCH (15:15)
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
[2020-05-31 15:54] VITALS: BP 144/77
[2020-05-31] MEDS: morphine INJ 4 MG/ML 1 ML (VIAL/SYRINGE) IV PRN ×2 (16:59→21:33)
[2020-05-31] MEDS: inSUlin ASPART (NovoLOG) 1 UNIT/0.01 ML (CHARGE PER UNIT) SC SCH ×2 (17:09→21:24)
[2020-05-31 20:00] VITALS: BP 108/70
[2020-05-31] MEDS: TICAGRELOR 90 MG TABLET (BRILINTA) PO SCH (21:32)
[2020-05-31] MEDS: COLESTIPOL 1 GM (COLESTID) TAB PO SCH (21:32)
[2020-05-31] MEDS ORDERED: MELATONIN 3 MG TABLET PO PRN (22:00)
[2020-05-31] MEDS ORDERED: CALCIUM CARBONATE 500 MG (TUMS) TAB.CHEW PO PRN (22:00)
[2020-05-31] MEDS ORDERED: DOCUSATE SODIUM 100 MG (COLACE) CAP PO PRN (22:00)
[2020-05-31] MEDS ORDERED: ALPRAZolam 0.25 MG (XANAX) TAB PO PRN (22:00)
[2020-05-31] MEDS ORDERED: diphenhydrAMINE 25 MG TAB (BENADRYL) PO PRN (22:00)
[2020-05-31] MEDS ORDERED: LOPERAMIDE 2 MG (IMODIUM) TABLET PO PRN (22:00)
[2020-06-01] VITALS (13 sets, daily range): BP systolic 114–150; BP diastolic 57–93
[2020-06-01 03:22] LABS: BASOPHILS # (AUTO) 0.1 10^3/uL (0.0-0.1); BASOPHILS % (AUTO) 1 % (0-10); EOSINOPHILS # (AUTO) 0.3 10^3/uL (0.0-0.3); EOSINOPHILS % (AUTO) 3 % (0-10); HEMATOCRIT 34 % (35-52); HEMOGLOBIN 10.7 g/dL (11.5-16.0); LYMPHOCYTES # (AUTO) 2.7 10^3/uL (1.0-4.0); LYMPHOCYTES % (AUTO) 28 % (12-44); MEAN CORPUSCULAR HEMOGLOBIN 28 pg (25-34); MEAN CORPUSCULAR HGB CONC 32 g/dL (32-36); MEAN CORPUSCULAR VOLUME 88 fL (80-99); MEAN PLATELET VOLUME 11.7 fL (9.0-12.2); MONOCYTES # (AUTO) 0.7 10^3/uL (0.0-1.0); MONOCYTES % (AUTO) 7 % (0-12); NEUTROPHILS # (AUTO) 5.9 10^3/uL (1.8-7.8); NEUTROPHILS % (AUTO) 61 % (42-75); PLATELET COUNT 184 10^3/uL (130-400); WHITE BLOOD COUNT 9.6 10^3/uL (4.3-11.0)
[2020-06-01 03:31] LABS: CHLORIDE 102 MMOL/L (98-107); POTASSIUM 4.2 MMOL/L (3.6-5.0); SODIUM 136 MMOL/L (135-145)
[2020-06-01 03:32] LABS: CALCIUM 8.5 MG/DL (8.5-10.1); TRIGLYCERIDES 112 MG/DL (<150); VLDL CHOLESTEROL 22 MG/DL (5-40)
[2020-06-01 03:33] LABS: GLUCOSE 138 MG/DL (70-105); TOTAL PROTEIN 5.7 GM/DL (6.4-8.2)
[2020-06-01 03:34] LABS: CARBON DIOXIDE 27 MMOL/L (21-32)
[2020-06-01 03:35] LABS: BILIRUBIN,TOTAL 0.5 MG/DL (0.1-1.0)
[2020-06-01 03:37] LABS: ALKALINE PHOSPHATASE 57 U/L (40-136); CHOLESTEROL 146 MG/DL (< 200); CREATININE SERUM 0.88 MG/DL (0.60-1.30); GFR ESTIMATED > 60
[2020-06-01 03:38] LABS: BUN/CREATININE RATIO 15
[2020-06-01 03:39] LABS: HDL CHOLESTEROL 34 MG/DL (40-60)
[2020-06-01 03:40] LABS: ALANINE AMINOTRANSFERASE 11 U/L (0-55)
[2020-06-01] MEDS: inSUlin ASPART (NovoLOG) 1 UNIT/0.01 ML (CHARGE PER UNIT) SC SCH ×5 (05:48→22:34)
--- NOTE | 2020-06-01 06:12 | Progress Note - Hospitalist ---
Subjective HPI/CC On Admission Date Seen by Provider: Jun 01, 2020 Time Seen by Provider: 11:00 Subjective/Events-last exam Patient not having too much pain Lower back pain x 1 month No dysp[address] Dr Gonzalez will decide next step in her care Review of Systems General: Fatigue, Malaise Cardiovascular: Chest Pain Musculoskeletal: back pain Objective Exam Vital Signs Vital Signs Date Time Temp Pulse Resp B/P (MAP) Pulse Ox O2 Delivery O2 Flow Rate FiO2 06/01/20 16:55 63 18 147/72 (97) 97 Room Air 06/01/20 15:40 36.8 05/31/20 11:15 2.00 Capillary Refill : Less Than 3 Seconds General Appearance: No Apparent Distress, WD/WN, Chronically ill Respiratory: Chest Non Tender, Lungs Clear, Normal Breath Sounds, No Accessory Muscle Use, No Respiratory Distress Cardiovascular: Regular Rate, Rhythm, No Edema, No Gallop, No JVD, No Murmur, Normal Peripheral Pulses Neurologic/Psychiatric: Alert, Oriented x3, No Motor/Sensory Deficits, Normal Mood/Affect Results/Procedures Lab Laboratory Tests 06/01/20 03:00 Patient resulted labs reviewed. Assessment/Plan Assessment and Plan Assess & Plan/Chief Complaint Assessment: Chest pain CAD recent stents HTN HLP Low back pain Plan: Pain control Dr Gonzalez consult Clinical Quality Measures AMI/AHF: ASA po Prior to arrival: No DVT/VTE Risk/Contraindication: Risk Factor Score Per Nursin RFS Level Per Nursing on Admit: 4+=Very High ZAFAR GARZA DO Jun 01, 2020 06:12
[2020-06-01] MEDS: LACTATED RINGERS 1,000 ML IV SCH ×3 (06:27→22:31)
[2020-06-01] MEDS: RIVAROXABAN 15 MG TABLET (XARELTO) PO SCH (08:50)
[2020-06-01] MEDS: meTOprolol SUCCINATE 100 MG (TOPROL XL) TAB PO SCH (08:50)
[2020-06-01] MEDS: TICAGRELOR 90 MG TABLET (BRILINTA) PO SCH ×2 (08:50→21:12)
[2020-06-01] MEDS: SENNA W/DOCUSATE (SENOKOT S) TABLET PO SCH ×2 (08:51→21:14)
[2020-06-01] MEDS: PANTOPRAZOLE 20 MG TABLET (PROTONIX) PO SCH (08:51)
[2020-06-01] MEDS: lisINopril 10 MG (PRINIVIL) TABLET PO SCH (08:55)
[2020-06-01] MEDS: COLESTIPOL 1 GM (COLESTID) TAB PO SCH ×2 (08:55→22:31)
[2020-06-01] MEDS ORDERED: meTOprolol SUCCINATE 100 MG (TOPROL XL) TAB PO SCH (09:00)
[2020-06-01] MEDS ORDERED: NON-FORMULARY MEDICATION 1 EA EA (Canagliflozin (Invokana) 100 MG) PO SCH (09:00)
[2020-06-01] MEDS ORDERED: ASPIRIN 81 MG CHEW (CHILDREN'S ASA) PO SCH (09:00)
[2020-06-01] MEDS: morphine INJ 4 MG/ML 1 ML (VIAL/SYRINGE) IV PRN ×2 (12:48→21:14)
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
[2020-06-01] MEDS ORDERED: HEParin (CATH LAB) 2,000 ML IV ONE (13:54)
[2020-06-01] MEDS ORDERED: fentaNYL INJECTION 100 MCG/2 ML AMP ONE (13:54)
[2020-06-01] MEDS ORDERED: MIDAZOLAM 5 MG/5 ML (VERSED) VIAL ONE (13:54)
[2020-06-01] MEDS ORDERED: NS IV 1000 ML 0 ML ONE (13:54)
[2020-06-01] MEDS ORDERED: LIDOCAINE 1% INJ 20 ML 20 ML VIAL ONE (13:54)
[2020-06-01] MEDS ORDERED: HEParin 1000 UNIT/ML (10ML VIAL) FOR BOLUS ONE (14:42)
[2020-06-01] MEDS ORDERED: EPTIFIBATIDE BOLUS 20 ML IV ONE (14:42)
[2020-06-01] MEDS ORDERED: ASPIRIN 81 MG CHEW (CHILDREN'S ASA) ONE (15:16)
[2020-06-01] MEDS ORDERED: NS IV 1000 ML 1,000 ML IV SCH (15:23)
[2020-06-01] MEDS ORDERED: PATIENT MAY USE OWN MEDS, ALL PO SCH (15:30)
--- NOTE | 2020-06-01 16:01 | CARDIAC CATHETERIZATION ---
DATE OF SERVICE: 06/01/2020 CARDIAC CATHETERIZATION REPORT The patient is a 65-year-old lady who is known to have coronary artery disease and has had previous multiple coronary interventions. She presented with chest pain. She continued to have intermittent chest pain in the hospital and the troponin ancelmo mildly. Cardiac catheterization was recommended. Informed consent was obtained for cardiac catheterization and possible ad hoc coronary intervention. DESCRIPTION OF PROCEDURE: She was brought to the cardiac catheterization laboratory. Right groin was prepared and draped in the usual sterile fashion. Lidocaine 1% was used for local anesthesia. Modified Seldinger technique was used to advance a 5-Greenlandic sheath in right femoral artery, 5-Greenlandic JL4 catheter for left coronary angiography, 5-Greenlandic JR4 catheter for right coronary angiography, 5-Greenlandic pigtail catheter was used for left heart catheterization and left ventricular angiography. The wire was meeting with some resistance in the abdominal aorta. We carried out catheter exchanges over an exchange length wire. At the end of the procedure, the pigtail was pulled back to the level of L1 and abdominal aortic angiography was performed to evaluate the reason why the wire advancement had met with some resistance in the abdominal aorta. The catheter and the wires were removed. Angiography of the right femoral artery had been carried out through the sheath at the beginning of the procedure. At the end of the procedure, Mynx was used to achieve hemostasis. She tolerated the procedure well. PERCUTANEOUS INTERVENTION TO THE RIGHT CORONARY ARTERY: Following completion of the coronary diagnostic procedure, percutaneous intervention was carried out to the right coronary artery that was distally occluded. This is described below. Following completion of the interventional procedure, we carried out repeat left coronary angiography because the initial left coronary images had not gotten restored in the patient folder. We also carried out the pigtail related left heart catheterization and abdominal aortic angiography after the coronary intervention had been completed. For the coronary intervention, we exchanged the sheath over a wire for a 6-Greenlandic sheath and used a 6-Greenlandic JR4 guide catheter with side holes to engage the right coronary artery. We advanced a BMW wire across the complete occlusion in the distal right coronary artery that was at the distal end of the distal stent in the right coronary artery. The wire advanced and we then carried out balloon angioplasty and that opened up the distal vessel. We then placed a stent in the distal right coronary artery. This slightly overlaps the previously placed distal stent. The stent was deployed at 12 atmospheres. Subsequently, the balloon was pulled back to cover the overlap of the two stents and the balloon was inflated to 20 atmospheres to get good apposition of the new stent to the old stent. The balloon was then removed. Subsequent angiography revealed 0% residual stenosis and normal antegrade flow. Previously, the flow in the distal right coronary artery was GLORIA 0. Following intervention, flow in the right coronary artery is GLORIA 3. The patient tolerated the procedure well. HEMODYNAMICS: Left ventricular end-diastolic pressure following coronary angiography was 14 mmHg. There is no significant pressure gradient on pullback across the aortic valve. CORONARY ANGIOGRAPHY: Coronary calcification is seen. Left main coronary artery does not exhibit significant disease. Left anterior descending artery has diffuse mild to moderate plaque. Left circumflex artery has a patent stent in the mid portion of the first obtuse marginal branch. The continuation of the left circumflex artery following the first obtuse marginal branch has approximately 70% to 80% stenosis. This is the site of balloon angioplasty carried out on 04/30/2020. The right coronary artery is large and dominant and was occluded in its portion at the distal end of the distal stent. To this, successful intervention was carried out that is detailed above, and this resulted in no significant residual stenosis at the end of the procedure and normal antegrade flow in the right coronary artery. LEFT VENTRICULAR ANGIOGRAPHY: Left ventricular angiography was carried out in the right anterior oblique projection. There is posterobasal hypokinesis to akinesis. Left ventricular ejection fraction is approximately 45%. ABDOMINAL AORTIC ANGIOGRAPHY: Abdominal aortic angiography indicates an eccentric plaque in the infrarenal abdominal aorta without significant stenosis or aneurysm formation. The renal arteries are identified and do not exhibit significant disease. Aortoiliac bifurcation is intact and does not exhibit significant disease. CONCLUSIONS: 1. Coronary artery disease as detailed above. The culprit lesion was distal occlusion of the right coronary to which successful intervention was carried out. Now, including all previous stents, the right coronary artery has, from proximal to distal, 3.0 x 15 mm, 3.0 x 18 mm, 2.75 x 15 mm, and 2.5 x 23 mm drug-eluting stents. The left anterior descending artery has a patent 2.5 x 12 mm stent. There is also another patent mid left anterior descending artery stent the dimensions of which are not known. The first obtuse marginal branch of left circumflex artery has a patent 2.0 x 12 mm drug-eluting stent. The continuation of the left circumflex artery following the origin of the first obtuse marginal branch has approximately 70% stenosis, recurrent after balloon angioplasty of 04/30/2020 (small vessel) 3. Impairment of global left ventricular systolic function with ejection fraction of approximately 45%. 4. Posterobasal hypokinesis to akinesis. 5. Mild elevation of left ventricular end-diastolic pressure. DISCUSSION AND RECOMMENDATIONS: Her current regimen is being continued. She is currently on Brilinta for coronary artery disease and Xarelto for atrial fibrillation. We are adding aspirin 81 mg a day. This will be continued for about a week. We will then discontinue aspirin and continue Brilinta for a year and then switch Brilinta out to aspirin if all studies well. Risk factor modification was reviewed. She remains hospitalized at the time of this dictation. Job ID: [id number] DocumentID: [id number] Dictated Date: 06/01/2020 15:39:33 [employer] Engineering Manager Date: 06/01/2020 16:00:50 Dictated By: REX FERRELL MD, MA, FACP, FACC, MTDD
[2020-06-02 00:06] VITALS: BP 109/70
[2020-06-02] MEDS: HYDROcodone/APAP 5 MG/325 MG (LORTAB) TAB PO PRN ×2 (00:06→14:33)
[2020-06-02 04:00] VITALS: BP 107/68
[2020-06-02 04:32] LABS: HEMOGLOBIN 10.3 g/dL (11.5-16.0); MEAN PLATELET VOLUME 11.6 fL (9.0-12.2); WHITE BLOOD COUNT 11.4 10^3/uL (4.3-11.0)
[2020-06-02 04:42] LABS: CHLORIDE 104 MMOL/L (98-107); POTASSIUM 3.5 MMOL/L (3.6-5.0); SODIUM 138 MMOL/L (135-145)
[2020-06-02 04:44] LABS: CALCIUM 8.6 MG/DL (8.5-10.1); GLUCOSE 89 MG/DL (70-105)
[2020-06-02 04:45] LABS: CARBON DIOXIDE 26 MMOL/L (21-32)
[2020-06-02 04:48] LABS: CREATININE SERUM 0.87 MG/DL (0.60-1.30); GFR ESTIMATED > 60
[2020-06-02 04:49] LABS: BUN/CREATININE RATIO 14
[2020-06-02] MEDS: LACTATED RINGERS 1,000 ML IV SCH ×2 (05:31→14:28)
[2020-06-02 08:05] VITALS: BP 113/68
[2020-06-02] MEDS: lisINopril 10 MG (PRINIVIL) TABLET PO SCH (08:43)
[2020-06-02] MEDS: TICAGRELOR 90 MG TABLET (BRILINTA) PO SCH (08:43)
[2020-06-02] MEDS: PANTOPRAZOLE 20 MG TABLET (PROTONIX) PO SCH (08:43)
[2020-06-02] MEDS: RIVAROXABAN 15 MG TABLET (XARELTO) PO SCH (08:43)
[2020-06-02] MEDS: meTOprolol SUCCINATE 100 MG (TOPROL XL) TAB PO SCH (08:43)
[2020-06-02] MEDS: SENNA W/DOCUSATE (SENOKOT S) TABLET PO SCH (08:43)
[2020-06-02] MEDS: COLESTIPOL 1 GM (COLESTID) TAB PO SCH (08:45)
[2020-06-02] MEDS ORDERED: ASPIRIN 81 MG CHEW (CHILDREN'S ASA) PO SCH (09:00)
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
--- NOTE | 2020-06-02 10:26 | Discharge Summary ---
Discharge Summary Hospital Course Was the Problem List Reviewed?: Yes Problems/Dx: (1) Chest pain Status: Acute Qualifiers: Qualified Codes: R07.9 - Chest pain, unspecified (2) HTN (hypertension) Status: Chronic Qualifiers: Qualified Codes: I10 - Essential (primary) hypertension (3) HLD (hyperlipidemia) Status: Chronic Qualifiers: Qualified Codes: E78.5 - Hyperlipidemia, unspecified (4) CAD (coronary artery disease) Status: Chronic Qualifiers: Qualified Codes: I25.119 - Atherosclerotic heart disease of rosebud coronary artery with unspecified angina pectoris (5) Atrial fibrillation Status: Chronic Hospital Course Date of Admission: May 31, 2020 at 12:24 Admission Diagnosis : Family Physician/Provider: Lucrecia Campos Date of Discharge: 06/02/20 Discharge Diagnosis: Assessment: Chest pain due to unstable angina s/p stent placement CAD recent stents HTN HLP Low back pain Plan: Pain control Dr Gonzalez consult Hospital Course: Hospital Course: Pt had an uneventful hospital course when she was admitted for chest pain, had recent stents placed [address] Gonzalez. She underwent cardiac catheterization with subsequent stent placement with intervention and pt tolerated that procedure well and all medications were confirmed and sent in by Dr. Gonzalez and she will have follow up with [facility] and Dr. Gonzalez. Labs and Pending Lab Test: Laboratory Tests 06/01/20 12:45: Glucometer 102 06/01/20 16:26: Glucometer 102 06/01/20 22:25: Glucometer 185H 06/02/20 04:10: White Blood Count 11.4H, Red Blood Count 3.66L, Hemoglobin 10.3L, Hematocrit 32L , Mean Corpuscular Volume 88, Mean Corpuscular Hemoglobin 28, Mean Corpuscular Hemoglobin Concent 32, Red Cell Distribution Width 14.3, Platelet Count 167, Emily n Platelet Volume 11.6, Sodium Level 138, Potassium Level 3.5L, Chloride Level 104, Carbon Dioxide Level 26, Anion Gap 8, Blood Urea Nitrogen 12, Creatinine 0.87, Estimat Glomerular Filtration Rate > 60, BUN/Creatinine Ratio 14, Glucose Level 89, Calcium Level 8.6 Home Meds Active Lisinopril 10 Mg Tablet 10 Mg PO DAILY Nitroglycerin 0.4 Mg Tab.subl 0.4 Mg SL UD PRN Reported Invokana (Canagliflozin) 100 Mg Tablet 100 Mg PO DAILY LAST FILLED 02-21-2020 #30 DAY SUPPLY Brilinta (Ticagrelor) 90 Mg Tablet 90 Mg PO BID Xarelto (Rivaroxaban) 15 Mg Tablet 15 Mg PO DAILY Metoprolol Succinate 100 Mg Tab.er.24h 100 Mg PO DAILY Atorvastatin Calcium 80 Mg Tablet 80 Mg PO DAILY Aspirin 81 Mg Tab.chew 81 Mg PO DAILY Alendronate Sodium 70 Mg Tablet 70 Mg PO TUES LAST FILLED 02-21-2020 #12/24 DAY SUPPLY Omeprazole 20 Mg Capsule.dr 20 Mg PO DAILY Levemir Flextouch (Insulin Detemir) 100 Unit/1 Ml Insuln.pen 55 Unit SQ BID Colestipol HCl 1 Gm Tablet 2 Gm PO BID Trulicity (Dulaglutide) 0.75 Mg/0.5 Ml Pen.injctr 1.5 Mg SQ SAT Assessment/Pt Instructions chc 1 week Discharge Planning: <30 minutes discharge planning Discharge Instructions Discharge Diet: No Restrictions Activity as Tolerated: Yes Pneumonia Vaccine Order Indica: Yes Discharge Physical Examination Vital Signs Vital Signs Date Time Temp Pulse Resp B/P (MAP) Pulse Ox O2 Delivery O2 Flow Rate FiO2 06/02/20 08:51 Room Air 06/02/20 08:05 36.0 69 20 113/68 (83) 99 05/31/20 11:15 2.00 General Appearance: No Apparent Distress, WD/WN, Chronically ill Respiratory: Normal Breath Sounds Cardiovascular: Regular Rate, Rhythm Neurologic/Psychiatric: Alert, Oriented x3 Allergies: Coded Allergies: Sulfa (Sulfonamide Antibiotics) (Verified Allergy, Unknown, 05/27/07) pseudoephedrine (Verified Allergy, Unknown, 05/27/07) triprolidine (Verified Allergy, Unknown, 05/27/07) Discharge Summary Date of Admission May 31, 2020 at 12:24 Date of Discharge Discharge Date: Jun 02, 2020 Admission Diagnosis Assessment: Chest pain CAD with previous stents placed [address] Gonzalez HTN HLP Plan: ACS monitoring Pain control Cardiology consultation Discharge Diagnosis Assessment: Chest pain CAD recent stents HTN HLP Low back pain Plan: Pain control Dr Gonzalez consult (1) Chest pain Status: Acute Qualifiers: Qualified Codes: R07.9 - Chest pain, unspecified (2) HTN (hypertension) Status: Chronic Qualifiers: Qualified Codes: I10 - Essential (primary) hypertension (3) HLD (hyperlipidemia) Status: Chronic Qualifiers: Qualified Codes: E78.5 - Hyperlipidemia, unspecified (4) CAD (coronary artery disease) Status: Chronic Qualifiers: Qualified Codes: I25.119 - Atherosclerotic heart disease of rosebud coronary artery with unspecified angina pectoris (5) Atrial fibrillation Status: Chronic Clinical Quality Measures AMI/AHF: ASA po Prior to arrival: No DVT/VTE Risk/Contraindication: Risk Factor Score Per Nursin RFS Level Per Nursing on Admit: 4+=Very High ZAFAR GARZA DO Jun 02, 2020 10:26
[2020-06-02] MEDS: inSUlin ASPART (NovoLOG) 1 UNIT/0.01 ML (CHARGE PER UNIT) SC SCH ×2 (10:42→16:25)
[2020-06-02 12:00] VITALS: BP 121/71
--- NOTE | 2020-06-02 14:09 | NUR ---
RD ASSESSMENT PMHx: CAD; afib; hypercholesterolemia; HTN; chronic UTI; GERD; chronic diarrhea; hiatal hernia; DM PT INTERACTION: Pt was awake and pleasant during nutrition assessment. Pt states current appetite is good. Note avg PO intake 75% meals, per chart review. Pt states following a regular diet at home, and has no issues with chewing/swallowing food. Pt states some recent issues with nausea, but not vomiting, constipation, or diarrhea, and that her last BM was /4. Note pt currently on bowel regimen of senna BID, per chart review. Pt states no recent wt changes. Note recent 17# wt gain x5mon, per chart review. When asked about current level of DM management: "It's not really good." Note unable to determine recent HbA1c, per chart review. ABNORMAL NUTRITION-RELATED LAB VALUES LOW: K 3.5 HIGH: Est. kcal needs: 1450 kcal | 15 kcal/kg Est. Pro needs: 78 g Pro | 0.8 g Pro/kg PES STATEMENT: Food- and nutrition-related knowledge deficit (NB-1.1) related to lack of prior nutrition-related education as evidenced by pt interview INTERVENTION: Continue with current diet order of CHO 60g/m 1snack diet. Offered and provided diet education on DM management. Discussed CHO counting, portion control, appropriate snacking, and smartphone applications. Pt verbalized understanding of information provided. Will continue to follow and reassess as pt needs, intake, and status change. Teo Mratin, MS KWASI LD
[2020-06-02 16:19] VITALS: BP 130/75
[2020-06-02] MEDS ORDERED: MTP100TCR PO (16:43)
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
== END 2020-06-02 17:30 | disposition home or self-care (01) ==
LOC: EDUNIT# 10:58 → ER 10:59 → CSD 12:24
PROVIDERS: ADMIT Internal Medicine; ATTEND Internal Medicine
DX: I25.110 Atherosclerotic heart disease of native coronary artery with unstable angina pectoris (principal); I10 Essential (primary) hypertension; E78.5 Hyperlipidemia, unspecified; I48.91 Unspecified atrial fibrillation; E78.00 Pure hypercholesterolemia, unspecified; E11.51 Type 2 diabetes mellitus with diabetic peripheral angiopathy without gangrene; K21.9 Gastro-esophageal reflux disease without esophagitis; K44.9 Diaphragmatic hernia without obstruction or gangrene; M19.90 Unspecified osteoarthritis, unspecified site; R60.9 Edema, unspecified; Z79.4 Long term (current) use of insulin; Z79.899 Other long term (current) drug therapy; I65.23 Occlusion and stenosis of bilateral carotid arteries; Z79.82 Long term (current) use of aspirin; Z88.2 Allergy status to sulfonamides; Z88.8 Allergy status to other drugs, medicaments and biological substances; Z95.5 Presence of coronary angioplasty implant and graft; Z80.0 Family history of malignant neoplasm of digestive organs; Z80.9 Family history of malignant neoplasm, unspecified; Z82.3 Family history of stroke
CPT/HCPCS: 71045; 75625; 80048; 80053 ×2; 80061; 82962 ×3; 83735; 83874; 83880; 84484 ×2; 85025 ×2; 85027; 85379; 85610; 85730; 93005 ×2; 93041; 93458; 99284; C1725; C1760; C1769; C1874; C1887; C1894; C9600; 36415; 90662; 96374; 96375

== ENCOUNTER 2020-11-30 04:19 | Emergency (ER) | payer MEDICARE, MEDICAID ==
[~2020-11-30] VITALS: Ht 165.1 cm; Wt 97.0 kg
[~2020-11-30 04:19] MED LIST changes: -ALEN70TA5 PO; +ALEN70TA80 PO; -CIPR500T4 PO; +CIPR500T5 PO; -CLIN300C11 PO; +CLIN300C12 PO; -LISI10TA2 PO; +LISI10TA25 PO
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
[2020-11-30] MEDS ORDERED: TETANUS,DIPTH,PERTUSS P/F (BOOSTRIX) 0.5 ML VIAL IM ONE (04:45)
[2020-11-30 04:49] LABS: BASOPHILS # (AUTO) 0.1 10^3/uL (0.0-0.1); BASOPHILS % (AUTO) 1 % (0-10); EOSINOPHILS # (AUTO) 0.3 10^3/uL (0.0-0.3); EOSINOPHILS % (AUTO) 4 % (0-10); HEMATOCRIT 38 % (35-52); HEMOGLOBIN 12.1 g/dL (11.5-16.0); LYMPHOCYTES # (AUTO) 2.1 10^3/uL (1.0-4.0); LYMPHOCYTES % (AUTO) 26 % (12-44); MEAN CORPUSCULAR HEMOGLOBIN 28 pg (25-34); MEAN CORPUSCULAR HGB CONC 32 g/dL (32-36); MEAN CORPUSCULAR VOLUME 88 fL (80-99); MEAN PLATELET VOLUME 11.5 fL (9.0-12.2); MONOCYTES # (AUTO) 0.6 10^3/uL (0.0-1.0); MONOCYTES % (AUTO) 8 % (0-12); NEUTROPHILS # (AUTO) 4.8 10^3/uL (1.8-7.8); NEUTROPHILS % (AUTO) 61 % (42-75); PLATELET COUNT 182 10^3/uL (130-400); WHITE BLOOD COUNT 7.9 10^3/uL (4.3-11.0)
[2020-11-30 05:02] LABS: PROTHROMBIN TIME PATIENT 13.3 SEC (12.2-14.7)
[2020-11-30 05:08] LABS: ALBUMIN 3.4 GM/DL (3.2-4.5); BILIRUBIN,TOTAL 0.4 MG/DL (0.1-1.0); CALCIUM 8.8 MG/DL (8.5-10.1); CREATININE SERUM 1.39 MG/DL (0.60-1.30); POTASSIUM 3.6 MMOL/L (3.6-5.0); TOTAL PROTEIN 6.8 GM/DL (6.4-8.2)
[2020-11-30 06:25] VITALS: BP 179/91
--- NOTE | 2020-11-30 09:51 | Diagnostic Imaging Report ---
EXAMINATION: CT head, face and CT cervical spine without contrast. TECHNIQUE: Multiple contiguous axial images were obtained through the face, brain and cervical spine without the use of intravenous contrast. Sagittal and coronal reformations through the cervical spine were then performed. All CT scans use one or more of the following dose optimizing techniques: automated exposure control, MA and/or KvP adjustment based on a patient size and exam type, or iterative reconstruction. HISTORY: Trauma COMPARISON: None available. FINDINGS: The neely-white matter differentiation is normal. No mass effect or midline shift. The ventricles are normal in size and configuration. Basilar cisterns are patent. There are no intra- or extra-axial fluid collections. There is no intracranial hemorrhage. The orbits are normal. Paranasal sinuses are normal. Mastoid air cells are clear. There is a soft tissue injury to the left forehead. No osseus lesions or fractures are seen. No fracture is seen in the face. The nasal bones are normal. Mandible and maxillae are normal. Zygomatic arches are normal. Pterygoid plates are normal. No soft tissue abnormality is seen. The alignment of the cervical spine is normal. No fracture is seen. Vertebral body heights are normal. The craniocervical junction is normal. There is mild degenerative disease in the cervical spine. There is no spinal canal stenosis. No soft tissue abnormality is seen in the neck. Limited views of the superior thorax are normal. IMPRESSION: 1. No acute intracranial abnormality. 2. No cervical spine fracture. 3. No fracture in the face. There is no significant disagreement with the preliminary report. Dictated by: Dictated on workstation # [id number]
== END 2020-11-30 06:27 | disposition home or self-care (01) ==
LOC: EDUNIT# 04:19 → ER 04:21
DX: S09.90XA Unspecified injury of head, initial encounter (principal); S01.112A Laceration without foreign body of left eyelid and periocular area, initial encounter; I10 Essential (primary) hypertension; I25.2 Old myocardial infarction; I48.91 Unspecified atrial fibrillation; E11.9 Type 2 diabetes mellitus without complications; E78.00 Pure hypercholesterolemia, unspecified; K21.9 Gastro-esophageal reflux disease without esophagitis; M81.0 Age-related osteoporosis without current pathological fracture; E66.9 Obesity, unspecified; Z23 Encounter for immunization; Z79.01 Long term (current) use of anticoagulants; Z79.82 Long term (current) use of aspirin; Z79.4 Long term (current) use of insulin; Z88.2 Allergy status to sulfonamides; Z88.8 Allergy status to other drugs, medicaments and biological substances; Z95.5 Presence of coronary angioplasty implant and graft; Z80.0 Family history of malignant neoplasm of digestive organs; W01.198A Fall on same level from slipping, tripping and stumbling with subsequent striking against other object, initial encounter; Y92.008 Other place in unspecified non-institutional (private) residence as the place of occurrence of the external cause
CPT/HCPCS: 36415; 70450; 70486; 72125; 80053; 85025; 85610; 85730; 90715; 93041

== ENCOUNTER 2021-05-03 14:28 | Observation (INO) | payer MEDICARE, MEDICAID ==
[~2021-05-03] VITALS: Ht 165 cm; Wt 98.2 kg
[2021-05-03] MEDS ORDERED: NITROGLYCERIN 0.4 MG SL TABS BTL 25'S SL ONE (14:50)
[2021-05-03] MEDS ORDERED: ASPIRIN 81 MG CHEW (CHILDREN'S ASA) ONE (14:50)
[2021-05-03 14:52] LABS: BASOPHILS # (AUTO) 0.1 10^3/uL (0.0-0.1); BASOPHILS % (AUTO) 1 % (0-10); EOSINOPHILS # (AUTO) 0.2 10^3/uL (0.0-0.3); EOSINOPHILS % (AUTO) 2 % (0-10); HEMATOCRIT 40 % (35-52); HEMOGLOBIN 12.6 g/dL (11.5-16.0); LYMPHOCYTES # (AUTO) 1.5 X 10^3 (1.0-4.0); LYMPHOCYTES % (AUTO) 14 % (12-44); MEAN CORPUSCULAR HEMOGLOBIN 27 pg (25-34); MEAN CORPUSCULAR HGB CONC 32 g/dL (32-36); MEAN CORPUSCULAR VOLUME 87 fL (80-99); MEAN PLATELET VOLUME 10.9 fL (9.0-12.2); MONOCYTES # (AUTO) 0.9 X 10^3 (0.0-1.0); MONOCYTES % (AUTO) 8 % (0-12); NEUTROPHILS # (AUTO) 8.1 X 10^3 (1.8-7.8); NEUTROPHILS % (AUTO) 75 % (42-75); PLATELET COUNT 229 10^3/uL (130-400); WHITE BLOOD COUNT 10.8 10^3/uL (4.3-11.0)
[2021-05-03] MEDS: NITROGLYCERIN 0.4 MG SL TABS BTL 25'S SL PRN ×3 (14:56→20:02)
[2021-05-03] MEDS ORDERED: ASPIRIN 81 MG CHEW (CHILDREN'S ASA) PO ONE (15:00)
[2021-05-03 15:05] LABS: ALBUMIN 3.8 GM/DL (3.2-4.5); CHLORIDE 104 MMOL/L (98-107); POTASSIUM 3.6 MMOL/L (3.6-5.0); SODIUM 139 MMOL/L (135-145)
[2021-05-03 15:06] LABS: CALCIUM 9.2 MG/DL (8.5-10.1)
[2021-05-03 15:07] LABS: GLUCOSE 101 MG/DL (70-105); TOTAL PROTEIN 7.9 GM/DL (6.4-8.2)
[2021-05-03 15:08] LABS: CARBON DIOXIDE 26 MMOL/L (21-32)
[2021-05-03 15:11] LABS: ALKALINE PHOSPHATASE 94 U/L (40-136); CREATININE SERUM 0.84 MG/DL (0.60-1.30); GFR ESTIMATED 68
[2021-05-03 15:12] LABS: BUN/CREATININE RATIO 15
[2021-05-03 15:14] LABS: ALANINE AMINOTRANSFERASE 11 U/L (0-55); MAGNESIUM 1.9 MG/DL (1.6-2.4)
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
--- NOTE | 2021-05-03 15:38 | Diagnostic Imaging Report ---
EXAMINATION: Chest radiograph, portable AP view. DATE: 05/03/2021 3:07 PM INDICATION: 66-year-old female, chest pain. COMPARISON: May 31, 2020. FINDINGS: There is a left-sided cardiac assist device with leads. The leads appear intact. Heart size and mediastinal contours are unchanged. There is no identified pneumothorax. There is no large pleural effusion. There is no identified focal airspace consolidation. IMPRESSION: No identified acute cardiopulmonary abnormality. Dictated by: Dictated on workstation # [id number]
[2021-05-03] MEDS ORDERED: RIVAROXABAN 20 MG TABLET (XARELTO) PO STA (17:02)
[2021-05-03] MEDS ORDERED: meTOproloL SUCCINATE 50 MG (TOPROL XL) TAB PO SCH (17:15)
[2021-05-03] MEDS ORDERED: ONDANSETRON 4 MG/2 ML (SDV) Z0FRAN IV PRN (19:00)
[2021-05-03] MEDS: inSUlin ASPART (NovoLOG) 1 UNIT/0.01 ML (CHARGE PER UNIT) SC SCH (20:41)
[2021-05-03] MEDS ORDERED: CALCIUM CARBONATE 500 MG (TUMS) TAB.CHEW PO PRN (20:45)
[2021-05-03] MEDS ORDERED: MELATONIN 3 MG TABLET PO PRN (20:45)
[2021-05-03] MEDS ORDERED: amLODIPine 5 MG (NORVASC) TAB PO ONE (20:45)
[2021-05-03] MEDS ORDERED: HYDROcodone/APAP 5 MG/325 MG (LORTAB) TAB PO PRN (20:45)
[2021-05-03] MEDS ORDERED: ALPRAZolam 0.25 MG (XANAX) TAB PO PRN (20:45)
[2021-05-03] MEDS ORDERED: diphenhydrAMINE 25 MG TAB (BENADRYL) PO PRN (20:45)
[2021-05-03] MEDS ORDERED: ACETAMINOPHEN 500 MG TAB (TYLENOL) PO PRN (20:45)
[2021-05-03] MEDS ORDERED: DOCUSATE SODIUM 100 MG (COLACE) CAP PO PRN (20:45)
[2021-05-03] MEDS ORDERED: LOPERAMIDE 2 MG (IMODIUM) TABLET PO PRN (20:45)
[2021-05-03] MEDS: FAMOTIDINE 20 MG (PEPCID) TABLET PO SCH (21:02)
[2021-05-03] MEDS: SENNA W/DOCUSATE (SENOKOT S) TABLET PO SCH (21:02)
[2021-05-03] MEDS: morphine INJ 4 MG/ML 1 ML (VIAL/SYRINGE) IV PRN (23:10)
[2021-05-04 05:29] LABS: BASOPHILS # (AUTO) 0.1 10^3/uL (0.0-0.1); BASOPHILS % (AUTO) 1 % (0-10); EOSINOPHILS # (AUTO) 0.2 10^3/uL (0.0-0.3); EOSINOPHILS % (AUTO) 2 % (0-10); HEMATOCRIT 35 % (35-52); HEMOGLOBIN 10.9 g/dL (11.5-16.0); LYMPHOCYTES # (AUTO) 1.4 10^3/uL (1.0-4.0); LYMPHOCYTES % (AUTO) 16 % (12-44); MEAN CORPUSCULAR HEMOGLOBIN 28 pg (25-34); MEAN CORPUSCULAR HGB CONC 31 g/dL (32-36); MEAN CORPUSCULAR VOLUME 89 fL (80-99); MEAN PLATELET VOLUME 11.4 fL (9.0-12.2); MONOCYTES # (AUTO) 0.9 10^3/uL (0.0-1.0); MONOCYTES % (AUTO) 10 % (0-12); NEUTROPHILS # (AUTO) 6.5 10^3/uL (1.8-7.8); NEUTROPHILS % (AUTO) 72 % (42-75); PLATELET COUNT 166 10^3/uL (130-400)
[2021-05-04 05:44] LABS: POTASSIUM 3.7 MMOL/L (3.6-5.0)
[2021-05-04 05:45] LABS: CALCIUM 8.4 MG/DL (8.5-10.1)
[2021-05-04] MEDS: inSUlin ASPART (NovoLOG) 1 UNIT/0.01 ML (CHARGE PER UNIT) SC SCH ×4 (05:47→20:24)
[2021-05-04 05:49] LABS: CREATININE SERUM 0.74 MG/DL (0.60-1.30)
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
[2021-05-04] MEDS: SENNA W/DOCUSATE (SENOKOT S) TABLET PO SCH ×2 (07:39→20:24)
[2021-05-04] MEDS: meTOprolol SUCCINATE 100 MG (TOPROL XL) TAB PO SCH (08:43)
[2021-05-04] MEDS: amLODIPine 5 MG (NORVASC) TAB PO SCH (08:43)
[2021-05-04] MEDS: ASPIRIN 81 MG CHEW (CHILDREN'S ASA) PO SCH (08:43)
[2021-05-04] MEDS: FAMOTIDINE 20 MG (PEPCID) TABLET PO SCH ×2 (08:43→20:24)
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
[2021-05-04] MEDS ORDERED: REGADENOSON 0.4 MG/5 ML SYR (LEXISCAN) IV ONE (12:30)
[2021-05-04] MEDS: morphine INJ 4 MG/ML 1 ML (VIAL/SYRINGE) IV PRN (15:11)
[2021-05-04] MEDS ORDERED: RIVAROXABAN 20 MG TABLET (XARELTO) PO SCH (17:00)
[2021-05-05] MEDS: morphine INJ 4 MG/ML 1 ML (VIAL/SYRINGE) IV PRN (01:14)
[2021-05-05 05:12] LABS: BASOPHILS # (AUTO) 0.1 10^3/uL (0.0-0.1); BASOPHILS % (AUTO) 1 % (0-10); EOSINOPHILS # (AUTO) 0.1 10^3/uL (0.0-0.3); EOSINOPHILS % (AUTO) 1 % (0-10); HEMATOCRIT 38 % (35-52); HEMOGLOBIN 11.6 g/dL (11.5-16.0); LYMPHOCYTES # (AUTO) 1.7 10^3/uL (1.0-4.0); LYMPHOCYTES % (AUTO) 17 % (12-44); MEAN CORPUSCULAR HEMOGLOBIN 27 pg (25-34); MEAN CORPUSCULAR HGB CONC 31 g/dL (32-36); MEAN CORPUSCULAR VOLUME 88 fL (80-99); MONOCYTES # (AUTO) 0.9 10^3/uL (0.0-1.0); MONOCYTES % (AUTO) 9 % (0-12); NEUTROPHILS % (AUTO) 72 % (42-75); PLATELET COUNT 201 10^3/uL (130-400); WHITE BLOOD COUNT 9.8 10^3/uL (4.3-11.0)
[2021-05-05 05:35] LABS: ALBUMIN 3.2 GM/DL (3.2-4.5)
[2021-05-05 05:36] LABS: POTASSIUM 3.8 MMOL/L (3.6-5.0)
[2021-05-05 05:37] LABS: CALCIUM 8.4 MG/DL (8.5-10.1)
[2021-05-05 05:38] LABS: TOTAL PROTEIN 6.7 GM/DL (6.4-8.2)
[2021-05-05 05:40] LABS: BILIRUBIN,TOTAL 0.6 MG/DL (0.1-1.0)
[2021-05-05 05:42] LABS: CREATININE SERUM 0.79 MG/DL (0.60-1.30)
[2021-05-05] MEDS: inSUlin ASPART (NovoLOG) 1 UNIT/0.01 ML (CHARGE PER UNIT) SC SCH ×3 (05:48→16:56)
[2021-05-05] MEDS ORDERED: REGADENOSON 0.4 MG/5 ML SYR (LEXISCAN) IV ONE (08:46)
[2021-05-05 09:47] VITALS: BP 125/77
[2021-05-05] MEDS ORDERED: AMLO-250 PO (11:24)
[2021-05-05] MEDS ORDERED: RIVA20TA2 PO (11:24)
[2021-05-05] MEDS ORDERED: MTP100TCR PO (11:24)
--- NOTE | 2021-05-05 11:24 | Discharge Summary ---
Discharge Summary Hospital Course Was the Problem List Reviewed?: Yes Problems/Dx: (1) Chest pain Status: Acute Qualifiers: Qualified Codes: R07.9 - Chest pain, unspecified (2) CAD (coronary artery disease) Status: Chronic (3) Insulin dependent diabetes mellitus with complications Status: Chronic (4) HLD (hyperlipidemia) Status: Chronic (5) HTN (hypertension) Status: Chronic Hospital Course Date of Admission: May 03, 2021 at 16:54 Admission Diagnosis : Family Physician/Provider: Lucrecia Campos Date of Discharge: 05/05/21 Discharge Diagnosis: Chest pain with no reversible ischemia on stress test, CAD with interventions Hospital Course: Hospital course: Pt had an uneventful hospital course, she was admitted for observation for chest pain with a history of CAD and intervention, she underwent stress test by Dr. Gonzalez who reviewed all of her medications and no reversible ischemia so she was discharged in improved condition. Labs and Pending Lab Test: Laboratory Tests 05/04/21 15:49: Glucometer 147H 05/04/21 20:23: Glucometer 163H 05/05/21 04:40: White Blood Count 9.8, Red Blood Count 4.30, Hemoglobin 11.6, Hematocrit 38, Mean Corpuscular Volume 88, Mean Corpuscular Hemoglobin 27, Mean Corpuscular Hemoglobin Concent 31L, Red Cell Distribution Width 15.0H, Platelet Count 201, Mean Platelet Volume 12.0, Immature Granulocyte % (Auto) 1, Neutrophils (%) (A uto) 72, Lymphocytes (%) (Auto) 17, Monocytes (%) (Auto) 9, Eosinophils (%) (Auto) 1, Basophils (%) (Auto) 1, Neutrophils # (Auto) 7.0, Lymphocytes # (Auto) 1.7, Monocytes # (Auto) 0.9, Eosinophils # (Auto) 0.1, Basophils # (Auto) 0.1, Immature Granulocyte # (Auto) 0.1, Sodium Level 135, Potassium Level 3.8, Chloride Level 105, Carbon Dioxide Level 23, Anion Gap 7, Blood Urea Nitrogen 21H, Creatinine 0.79, Estimat Glomerular Filtration Rate 73, BUN/Creatinine Ratio 27, Glucose Level 137H, Calcium Level 8.4L, Corrected Calcium 9.0, Total Bilirubin 0.6, Aspartate Amino Transf (AST/SGOT) 11, Alanine Aminotransferase (ALT/SGPT) 8, Alkaline Phosphatase 94, Total Protein 6.7, Albumin 3.2 Home Meds Active Amlodipine Besylate 5 Mg Tablet 5 Mg PO DAILY Metoprolol Succinate 100 Mg Tab.er.24h 100 Mg PO DAILY Xarelto Tablet (Rivaroxaban) 20 Mg Tablet 20 Mg PO DAILY@1700 Metoprolol Succinate 100 Mg Tab.er.24h 200 Mg PO DAILY Lisinopril 10 Mg Tablet 10 Mg PO DAILY Nitroglycerin 0.4 Mg Tab.subl 0.4 Mg SL UD PRN Reported Invokana (Canagliflozin) 100 Mg Tablet 100 Mg PO DAILY LAST FILLED 02-21-2020 # DAY SUPPLY Brilinta (Ticagrelor) 90 Mg Tablet 90 Mg PO BID Xarelto (Rivaroxaban) 15 Mg Tablet 15 Mg PO DAILY Atorvastatin Calcium 80 Mg Tablet 80 Mg PO DAILY Aspirin 81 Mg Tab.chew 81 Mg PO DAILY Alendronate Sodium 70 Mg Tablet 70 Mg PO TUES LAST FILLED 02-21-2020 #12/24 DAY SUPPLY Omeprazole 20 Mg Capsule.dr 20 Mg PO DAILY Levemir Flextouch (Insulin Detemir) 100 Unit/1 Ml Insuln.pen 55 Unit SQ BID Colestipol HCl 1 Gm Tablet 2 Gm PO BID Trulicity (Dulaglutide) 0.75 Mg/0.5 Ml Pen.injctr 1.5 Mg SQ SAT Assessment/Pt Instructions [facility] in 1 week Discharge Planning: <30 minutes discharge planning Discharge Instructions Discharge Diet: Cardiac Diet Activity as Tolerated: Yes Discharge Physical Examination Vital Signs Vital Signs Date Time Temp Pulse Resp B/P (MAP) Pulse Ox O2 Delivery O2 Flow Rate FiO2 05/05/21 09:47 73 17 125/77 (93) 97 Room Air 05/05/21 08:00 35.8 General Appearance: No Apparent Distress, WD/WN, Chronically ill Neurologic/Psychiatric: Alert, Oriented x3 Allergies: Coded Allergies: Sulfa (Sulfonamide Antibiotics) (Verified Allergy, Unknown, 11/30/20) pseudoephedrine (Verified Allergy, Unknown, 11/30/20) triprolidine (Verified Allergy, Unknown, 11/30/20) Discharge Summary Date of Admission May 03, 2021 at 16:54 Date of Discharge Discharge Date: May 05, 2021 Admission Diagnosis Assessment: Chest pain CAD with stents Hypertension Hyperlipidemia Peripheral vascular disease Discharge Diagnosis Await cardiology evaluation (1) Chest pain Status: Acute Qualifiers: Qualified Codes: R07.9 - Chest pain, unspecified (2) CAD (coronary artery disease) Status: Chronic (3) Insulin dependent diabetes mellitus with complications Status: Chronic (4) HLD (hyperlipidemia) Status: Chronic (5) HTN (hypertension) Status: Chronic Clinical Quality Measures AMI/AHF: ASA po Prior to arrival: No (DENIES) ZAFAR GARZA DO May 05, 2021 11:24
[2021-05-05] MEDS ORDERED: ACETAMINOPHEN 325 MG TABLET PO PRN (12:30)
--- NOTE | 2021-05-05 13:12 | Progress Note - Hospitalist ---
NO MEMBRENO MED STUDENT 05/05/21 1312: Subjective HPI/CC On Admission Date Seen by Provider: May 05, 2021 Time Seen by Provider: 08:00 Chief complaint: Chest pain History of present illness: This is a 66-year-old white female with known CAD and prior interventions with stents who presented to the ER with complaints of chest pain. Due to her risk factors she was placed in the hospital consulted Dr. Gonzalez who is her regular embedded nurse and will await his decision for risk ratification. She does not use home oxygen. Subjective/Events-last exam Anisha states the morphine she was given for pain yesterday improved her symptoms and helped her sleep overnight. She still reports some mild chest pain without nausea or abdominal pain. Anisha is about to have a echo and stress test with card iology today. Objective Exam Vital Signs Vital Signs Date Time Temp Pulse Resp B/P (MAP) Pulse Ox O2 Delivery O2 Flow Rate FiO2 05/05/21 09:47 73 17 125/77 (93) 97 Room Air 05/05/21 08:00 35.8 Capillary Refill : Less Than 3 Seconds General Appearance: No Apparent Distress, WD/WN HEENT: PERRL/EOMI, TMs Normal Neck: Full Range of Motion, Normal Inspection Respiratory: Chest Non Tender, Lungs Clear, Normal Breath Sounds, No Accessory Muscle Use, No Respiratory Distress Cardiovascular: Regular Rate, Rhythm, Normal Peripheral Pulses, Systolic Murmur (+1/6) Gastrointestinal: Non Tender, Soft; No Distended Extremity: Pedal Edema (chronic bilateral LE swelling "due to a fall multiple years ago") Neurologic/Psychiatric: Alert, Oriented x3 Skin: Normal Color, Warm/Dry Results/Procedures Lab Laboratory Tests 05/05/21 04:40 Patient resulted labs reviewed. Assessment/Plan Assessment and Plan Assess & Plan/Chief Complaint chest pain hx prior [place], Afib, CAD, HTN, HLD, DM -stress test and Echo today -Morphine IV Q4H PRN for pain -Xarelto for anticoagulation continue home medications Clinical Quality Measures AMI/AHF: ASA po Prior to arrival: No (DENIES) ALISHA FREDERICK DO 05/06/21 0540: Subjective Subjective/Events-last exam Discharge planned Supervisory-Addendum Brief Verification & Attestation Participated in pt care: history, MDM, physical Personally performed: exam, history, MDM, supervision of care Care discussed with: Medical Student Procedures: n/a Results interpretation: Verified all documentation Verification and Attestation of Medical Student E/M Service A medical student performed and documented this service in my presence. I reviewed and verified all information documented by the medical student and made modifications to such information, when appropriate. I personally performed the physical exam and medical decision making. Alisha Frederick, May 06, 2021,05:40 NO MEMBRENO MED STUDENT May 05, 2021 13:12 ALISHA FREDERICK DO May 06, 2021 05:40
--- NOTE | 2021-05-05 13:14 | STRESS TEST ---
DATE OF SERVICE: 05/05/2021 RESTING AND POST REGADENOSON TECHNETIUM-99M TETROFOSMIN SPECT CT IMAGING. CLINICAL DIAGNOSES: Coronary artery disease, chest discomfort. ORDERING PHYSICIAN: Dr. Gonzalez. PRIMARY PHYSICIAN: [facility]. Baseline images were carried out after injection of 9.89 mCi of technetium-99m Tetrofosmin. This was followed by 0.4 mg regadenoson and 29.5 mCi of technetium-99 Tetrofosmin for stress imaging. The electrocardiogram showed atrial fibrillation. There were intermittent paced ventricular beats. The electrocardiogram did not change significantly with the regadenoson infusion. The patient tolerated the procedure well. Review of images at rest and following stress indicates a predominantly fixed inferior perfusion defect. Gated images show basal inferior akinesis. Left ventricular ejection fraction is calculated to be 40%. Left ventricular end diastolic volume 63 mL. TID is absent (1.09). CONCLUSIONS: 1. Inferior wall myocardial infarction without significant ischemia. 2. Basal inferior akinesis. 3. Left ventricular ejection fraction is calculated to be 40%. Job ID: [id number] DocumentID: [id number] Dictated Date: 05/05/2021 13:01:52 Smoked Meat Preparer Date: 05/05/2021 13:13:35 Dictated By: REX GONZALEZ MD, MA, FACP, FACC,
[2021-05-05 15:15] VITALS: BP 111/83
[2021-05-05] MEDS ORDERED: FAMO-119 PO (15:38)
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
[2021-05-05] MEDS: FAMOTIDINE 20 MG (PEPCID) TABLET PO SCH (16:54)
[2021-05-05] MEDS: amLODIPine 5 MG (NORVASC) TAB PO SCH (16:54)
[2021-05-05] MEDS: ASPIRIN 81 MG CHEW (CHILDREN'S ASA) PO SCH (16:54)
[2021-05-05] MEDS: meTOprolol SUCCINATE 100 MG (TOPROL XL) TAB PO SCH (16:55)
[2021-05-05] MEDS: SENNA W/DOCUSATE (SENOKOT S) TABLET PO SCH (16:55)
[2021-05-05 16:57] VITALS: BP 111/83
== END 2021-05-05 16:45 | disposition home or self-care (01) ==
LOC: EDUNIT# 14:28 → ER 14:31 → CSD 16:54
PROVIDERS: ADMIT Internal Medicine; ATTEND Internal Medicine
DX: R07.89 Other chest pain (principal); I48.0 Paroxysmal atrial fibrillation; I25.10 Atherosclerotic heart disease of native coronary artery without angina pectoris; I25.2 Old myocardial infarction; I25.5 Ischemic cardiomyopathy; I10 Essential (primary) hypertension; I65.23 Occlusion and stenosis of bilateral carotid arteries; I49.5 Sick sinus syndrome; E78.00 Pure hypercholesterolemia, unspecified; N39.0 Urinary tract infection, site not specified; K21.9 Gastro-esophageal reflux disease without esophagitis; K59.09 Other constipation; M19.90 Unspecified osteoarthritis, unspecified site; M81.0 Age-related osteoporosis without current pathological fracture; E78.5 Hyperlipidemia, unspecified; E11.9 Type 2 diabetes mellitus without complications; E66.9 Obesity, unspecified; Z79.82 Long term (current) use of aspirin; Z79.4 Long term (current) use of insulin; Z79.899 Other long term (current) drug therapy; Z95.0 Presence of cardiac pacemaker; Z68.36 Body mass index [BMI] 36.0-36.9, adult; Z80.0 Family history of malignant neoplasm of digestive organs
CPT/HCPCS: 71045; 78452; 80048; 80053 ×2; 80061; 82947 ×3; 83735; 83874; 84484; 85025 ×3; 85610; 85730; 93005 ×3; 93017; 93041; 93306; 99284; A9502; G0378; 36415

== ENCOUNTER 2021-11-24 08:00 | Day surgery (SDC) | payer MEDICARE, MEDICAID ==
[2021-11-24] VITALS (11 sets, daily range): BP systolic 125–161; BP diastolic 74–101
[~2021-11-24] VITALS: Ht 165.1 cm; Wt 95.7 kg
[~2021-11-24 08:00] MED LIST changes: +AMLO-250 PO; +CLIN-144 PO; -CLIN300C12 PO; +FAMO-119 PO; +HEParin (CATH LAB) 2,000 ML IV ONE; +LIDOCAINE 1% INJ 50 ML (XYLOCAINE) VIAL ONE; +NS IV 1000 ML 1,000 ML IV SCH; +NS IV 1000 ML 1,000 ML ONE
[2021-11-24 08:13] LABS: HEMATOCRIT 44 % (35-52); HEMOGLOBIN 14.1 g/dL (11.5-16.0); MEAN CORPUSCULAR HEMOGLOBIN 27 pg (25-34); MEAN CORPUSCULAR HGB CONC 32 g/dL (32-36); MEAN CORPUSCULAR VOLUME 86 fL (80-99); MEAN PLATELET VOLUME 11.2 fL (9.0-12.2); PLATELET COUNT 237 10^3/uL (130-400); WHITE BLOOD COUNT 11.7 10^3/uL (4.3-11.0)
[2021-11-24 08:31] LABS: ALBUMIN 3.8 GM/DL (3.2-4.5); BILIRUBIN,TOTAL 0.9 MG/DL (0.1-1.0); CALCIUM 9.2 MG/DL (8.5-10.1); CREATININE SERUM 0.99 MG/DL (0.60-1.30); POTASSIUM 3.4 MMOL/L (3.6-5.0); TOTAL PROTEIN 7.5 GM/DL (6.4-8.2)
[2021-11-24] MEDS ORDERED: MTP100TCR PO (08:47)
[2021-11-24] MEDS ORDERED: RIVA15TA PO (08:47)
[2021-11-24] MEDS ORDERED: ROPI1TAB PO (08:47)
[2021-11-24] MEDS ORDERED: AMLO-250 PO (08:47)
[2021-11-24] MEDS ORDERED: DULA3PEN SQ (08:47)
[2021-11-24] MEDS ORDERED: CHOL200059 PO (08:47)
[2021-11-24] MEDS ORDERED: INSU100V5 SQ (08:47)
[2021-11-24] MEDS ORDERED: NAPR-915 PO (08:47)
[2021-11-24] MEDS ORDERED: NITR0.4T39 SL (08:47)
[2021-11-24] MEDS ORDERED: fentaNYL INJ 100 MCG/2 ML AMP ONE (10:56)
[2021-11-24] MEDS ORDERED: MIDAZOLAM 5 MG/5 ML (VERSED) VIAL ONE (10:56)
--- NOTE | 2021-11-24 11:52 | Cardiac Procedure Note-CS/ASA ---
Pre-Procedure Note Pre-Op Procedure Note H&P Reviewed The H&P was reviewed, patient examined and no changes noted. Date H&P Reviewed: Nov 24, 2021 Time H&P Reviewed: 11:00 Conscious Sedation Pre-Proced Time 11:00 ASA Score 3 For ASA 3 and 4: Consider anesthesia and medical clearance. Also, for patients with a history of failed moderate sedation consider anesthesia. Airway Lungs Heart ASA score ASA 1: a normal healthy patient ASA 2: a patient with a mild systemic disease (mid diabetes, controlled hypertension, obesity ASA 3: a patient with a severe systemic disease that limits activity (angina, COPD, prior Myocardial infarction) ASA 4: a patient with an incapacitating disease that is a constant threat to life (CHF, renal failure) ASA 5: a moribund patient not expected to survive 24 hrs. (ruptured aneurysm) ASA 6: a declared brain- patient whose organs are being harvested. For emergent operations, add the letter E after the classification Mallampati Classification Grade 3 Sedation Plan Analgesia, Amnesia, Plan communicated to team members, Discussed options with patient/fam, Discussed risks with patient/fam The patient is an appropriate candidate to undergo the planned procedure, sedation, and anesthesia. The patient immediately re-assessed prior to indication. REX FERRELL MD FACP FAC CCDS Nov 24, 2021 11:52
--- NOTE | 2021-11-24 12:03 | Discharge Inst-Cardiology ---
Discharge Inst-Cardiac Discharge Medications Continued Medications: Amlodipine Besylate (Amlodipine Besylate) 5 Mg Tablet 5 MG PO DAILY, TAB Aspirin (Aspirin) 81 Mg Tab.chew 81 MG PO DAILY PRN for CHEST PAIN (ANGINA), TAB Atorvastatin Calcium (Atorvastatin Calcium) 80 Mg Tablet 80 MG PO DAILY, TAB Cholecalciferol (Vitamin D3) (Vitamin D3) 50 Mcg Tablet 50 MCG PO DAILY, TAB Dulaglutide (Trulicity) 3 Mg/0.5 Ml Pen.injctr 3 MG SQ TUESDAY, EA Insulin Determir (Levemir) 1,000 Units/10 Ml Soln 55 UNITS SQ BID, EA LAST FILLED 12/25/2020 #30ML Metoprolol Succinate (Metoprolol Succinate) 100 Mg Tab.er.24h 100 MG PO DAILY, TAB Nitroglycerin (Nitroglycerin) 0.4 Mg Tab.subl 0.4 MG SL UD PRN for CHEST PAIN, TAB Rivaroxaban (Xarelto) 15 Mg Tablet 15 MG PO DAILY, TAB Ropinirole HCl (Ropinirole HCl) 1 Mg Tablet 1 MG PO HS, TAB Discontinued Medications: Naproxen (Naproxen) 500 Mg Tablet 500-1000 MG PO Q12H PRN for PAIN-MILD (1-4), TAB TAKES 1-2 (500MG) TABLETS REX FERRELL MD [facility] Nov 24, 2021 12:03
--- NOTE | 2021-11-24 12:03 | Discharge Inst-Post CATH ---
Discharge Inst-CATH/EP Post Cardiac Cath/EP D/C Inst Follow Up/Plan F/u with Dr Gonzalez in 2 weeks ACTIVITY * Go Home directly and rest. * Limit activity of the leg (or wrist if it was used) for 7 days including aerobics, swimming, jogging, bicycling, etc. * Restrict stair-climbing for 7 days if possible, if not, climb up with your n on-cath leg, then bring together on the same step. * Avoid lifting, pushing, pulling or excessive movement of the affected ex tremity for 7 days. * Customary sexual activity may be resumed after 2 days-use caution not to use a position that strains or causes pain to the affected extremity. * No driving for 24 hours. * NO SMOKING. * Avoid straining for bowel movements for 7 days. * Gentle walking on level ground is allowed. * Returning to work will depend on the type of procedure and the results. Your doctor will discuss this with you. CALL YOUR DOCTOR FOR ANY OF THE FOLLOWING: *If bleeding from the puncture site occurs- Apply gentle pressure to site with clean cloth and call your doctor or EMS. * If a knot or lump forms under the skin, increases in size, or causes pain. * If bruising appears to be worsening or moving further down your leg instead of disappearing. * Temperature above 101 F. CARE OF YOUR GROIN INCISION; * Bruising or purple discoloration of the skin near the puncture site is common. * You may shower only, no bathtub bathing for 5 days. Be careful to avoid slipping as your leg may feel stiff. * If a closure device was used on your femoral artery, please see the attached guide regarding care of the device and your leg. * Leave dressing on FOR 24 hours. CARE OF YOUR WRIST INCISION; * Bruising or purple discoloration of the skin near the puncture site is common. * You may shower. * DO NOT submerge wrist. * Leave dressing on FOR 24 hours. REX GONZALEZ MD [facility] Nov 24, 2021 12:03
[2021-11-24] MEDS ORDERED: PATIENT MAY USE OWN MEDS, ALL PO SCH (12:15)
[2021-11-24] MEDS ORDERED: NS IV 1000 ML 1,000 ML IV SCH (12:15)
--- NOTE | 2021-11-24 14:07 | CARDIAC CATHETERIZATION ---
DATE OF SERVICE: 11/24/2021 CARDIAC CATHETERIZATION REPORT The patient is a 66-year-old lady with a history of coronary artery disease and has been experiencing increasing shortness of breath and intermittent chest discomfort. Cardiac catheterization was carried out today after having obtained an informed consent. DESCRIPTION OF PROCEDURE: She was brought to the cardiac catheterization laboratory in a fasting state. Right groin was prepared and draped in the usual sterile fashion. Lidocaine 1% was used for local anesthesia. Modified Seldinger technique was used to advance a 5-Wallisian sheath in right femoral artery, 5-Wallisian JL4 catheter for left coronary angiography, 5-Wallisian JR4 catheter for right coronary angiography, 5-Wallisian pigtail catheter was used for left heart catheterization and left ventricular angiography. Angiography of the right femoral artery was carried out through the sheath. Mynx was used to achieve hemostasis following sheath removal. She tolerated the procedure well. HEMODYNAMICS: Left ventricular end-diastolic pressure following coronary angiography was 12 mmHg. There is no significant pressure gradient on pullback across the aortic valve. CORONARY ANGIOGRAPHY: Coronary calcification is seen. Left main coronary artery is free of significant disease. Left anterior descending artery has a patent stent in its proximal portion that is known to be 2.5 x 12 mm stent. It does not exhibit significant in-stent restenosis. A stent in the mid portion. Left anterior descending artery exhibits approximately 30% in-stent restenosis. The dimensions of the stents are not known. The mid left anterior descending artery has multiple up to 50% stenoses. The left circumflex artery is nondominant. It exhibits a patent stent in an obtuse marginal. This is known to be 2.0 x 12 mm stent. Right coronary artery is occluded after the origin of the first right ventricular branch. The proximal right coronary artery has multiple 50% stenoses. The distal right coronary artery is collateralized by the left coronary system. LEFT VENTRICULAR ANGIOGRAPHY: Left ventricular angiography was carried out in the right anterior oblique projection. Global left ventricular systolic function is well preserved. Ejection fraction is approximately 50 to 55%. There is posterobasal hypokinesis. CONCLUSIONS: 1. Coronary artery disease as detailed above. There is moderate disease of the left coronary system. A dominant right coronary artery is occluded in its mid portion and is collateralized with the left coronary system. The proximal right coronary artery has moderate disease. Stents are patent in the left anterior descending and left circumflex arteries. 2. Left ventricular end-diastolic pressure 12 mmHg. 3. Left ventricular ejection fraction 50% to 55%. 4. Posterobasal hypokinesis. Job ID: [id number] DocumentID: [id number] Dictated Date: 11/24/2021 12:00:42 [employer]ile Driver Operator Date: 11/24/2021 14:07:10 Dictated By: REX FERRELL MD, MA, FACP, FACC,
== END 2021-11-24 15:45 | disposition home or self-care (01) ==
LOC: CATH 08:00
PROVIDERS: ATTEND Internal Medicine Cardiovascular Disease
DX: I25.10 Atherosclerotic heart disease of native coronary artery without angina pectoris (principal); I25.5 Ischemic cardiomyopathy; I48.21 Permanent atrial fibrillation; I65.23 Occlusion and stenosis of bilateral carotid arteries; I10 Essential (primary) hypertension; E78.2 Mixed hyperlipidemia; I49.5 Sick sinus syndrome; E66.9 Obesity, unspecified; Z68.36 Body mass index [BMI] 36.0-36.9, adult; K52.9 Noninfective gastroenteritis and colitis, unspecified; I87.2 Venous insufficiency (chronic) (peripheral); R60.0 Localized edema; Z79.01 Long term (current) use of anticoagulants; Z79.899 Other long term (current) drug therapy; Z95.5 Presence of coronary angioplasty implant and graft; Z95.0 Presence of cardiac pacemaker
CPT/HCPCS: 80053; 80061; 85027; 85610; 85730; 87081; 93005; 93458; C1760; C1894; 36415

== ENCOUNTER 2022-01-06 20:44 | Observation (INO) | payer MEDICARE, MEDICAID ==
[~2022-01-06] VITALS: Ht 165 cm; Wt 93.4 kg
[~2022-01-06 20:44] MED LIST changes: +CHOL200059 PO; +DULA3PEN SQ; -HEParin (CATH LAB) 2,000 ML IV ONE; -LIDOCAINE 1% INJ 50 ML (XYLOCAINE) VIAL ONE; +NITR0.4T39 SL; -NS IV 1000 ML 1,000 ML IV SCH; -NS IV 1000 ML 1,000 ML ONE
[2022-01-06 21:13] LABS: BASOPHILS # (AUTO) 0.1 10^3/uL (0.0-0.1); BASOPHILS % (AUTO) 1 % (0-10); EOSINOPHILS # (AUTO) 0.2 10^3/uL (0.0-0.3); EOSINOPHILS % (AUTO) 1 % (0-10); HEMATOCRIT 41 % (35-52); HEMOGLOBIN 13.6 g/dL (11.5-16.0); LYMPHOCYTES # (AUTO) 2.2 10^3/uL (1.0-4.0); LYMPHOCYTES % (AUTO) 20 % (12-44); MEAN CORPUSCULAR HEMOGLOBIN 28 pg (25-34); MEAN CORPUSCULAR HGB CONC 33 g/dL (32-36); MEAN CORPUSCULAR VOLUME 84 fL (80-99); MEAN PLATELET VOLUME 12.1 fL (9.0-12.2); MONOCYTES # (AUTO) 0.9 10^3/uL (0.0-1.0); MONOCYTES % (AUTO) 8 % (0-12); NEUTROPHILS # (AUTO) 7.8 10^3/uL (1.8-7.8); NEUTROPHILS % (AUTO) 70 % (42-75); PLATELET COUNT 217 10^3/uL (130-400); WHITE BLOOD COUNT 11.1 10^3/uL (4.3-11.0)
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
[2022-01-06] MEDS ORDERED: meTOprolol SUCCINATE 100 MG (TOPROL XL) TAB PO ONE (21:15)
[2022-01-06] MEDS ORDERED: RIVAROXABAN 15 MG TABLET (XARELTO) PO ONE (21:15)
[2022-01-06] MEDS ORDERED: ASPIRIN 81 MG CHEW (CHILDREN'S ASA) PO ONE (21:15)
[2022-01-06] MEDS ORDERED: amLODIPine 5 MG (NORVASC) TAB PO ONE (21:15)
[2022-01-06 21:17] LABS: ALBUMIN 3.7 GM/DL (3.2-4.5); POTASSIUM 3.3 MMOL/L (3.6-5.0)
[2022-01-06 21:18] LABS: CALCIUM 9.5 MG/DL (8.5-10.1)
[2022-01-06 21:19] LABS: INR 1.1 (0.8-1.4); PROTHROMBIN TIME PATIENT 14.1 SEC (12.2-14.7)
[2022-01-06 21:20] LABS: TOTAL PROTEIN 7.4 GM/DL (6.4-8.2)
[2022-01-06 21:21] LABS: BILIRUBIN,TOTAL 1.2 MG/DL (0.1-1.0)
[2022-01-06 21:23] LABS: CREATININE SERUM 0.99 MG/DL (0.60-1.30)
[2022-01-06 21:26] LABS: MAGNESIUM 1.6 MG/DL (1.6-2.4)
[2022-01-06] MEDS ORDERED: morphine INJ 10 MG/ML 1ML (SYR OR VIAL) IVP STA ×2 (22:03→23:09)
[2022-01-06] MEDS ORDERED: ONDANSETRON 4 MG/2 ML (SDV) Z0FRAN IVP ONE (22:15)
--- NOTE | 2022-01-06 22:25 | Diagnostic Imaging Report ---
CLINICAL INDICATION: Patient with chest pain. EXAM: Portable chest x-ray upright view. COMPARISON: Chest x-ray dated 05/03/2021. FINDINGS: Lungs/pleura: Minimal atelectasis in both lung bases is seen. Lungs are clear. There is no pneumothorax. There is no pleural effusion. Mediastinum: Unremarkable. Pulmonary vasculature: Unremarkable. Heart: Stable cardiomegaly. Stable cardiac pacemaker seen. Bones/extrathoracic soft tissue: There are degenerative spurs involving the spine. IMPRESSION: 1: There is no radiographic evidence of acute cardiopulmonary process. 2: Stable cardiomegaly with no significant pulmonary vascular congestion. Dictated by: Dictated on workstation # [id number]
[2022-01-06] MEDS ORDERED: NITROGLYCERIN 0.4 MG SL TABS BTL 25'S SL STA (23:09)
[2022-01-06] MEDS ORDERED: ACETAMINOPHEN 500 MG TAB (TYLENOL) PO ONE (23:15)
[2022-01-06] MEDS ORDERED: morphine INJ 4 MG/ML 1 ML (VIAL/SYRINGE) IV PRN (23:45)
[2022-01-06] MEDS ORDERED: NITROGLYCERIN 0.4 MG SL TABS BTL 25'S SL PRN (23:45)
[2022-01-06] MEDS ORDERED: CATHETER FLUSH 10 ML SYR IVP PRN (23:45)
[2022-01-06] MEDS ORDERED: ONDANSETRON 4 MG/2 ML (SDV) Z0FRAN IV PRN (23:45)
[2022-01-06 23:58] VITALS: BP 143/94
[2022-01-07] VITALS (11 sets, daily range): BP systolic 91–142; BP diastolic 60–90
[2022-01-07] MEDS ORDERED: RT-ALBUTEROL/IPRATROPIUM 3 ML (DUONEB) VIAL INH PRN (00:15)
[2022-01-07] MEDS: CATHETER FLUSH 10 ML SYR IVP SCH ×2 (05:47→14:32)
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
[2022-01-07] MEDS ORDERED: NS IV 1000 ML 1,000 ML IV SCH ×2 (08:45→14:15)
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
[2022-01-07] MEDS ORDERED: ASPIRIN E.C. 81 MG (ECOTRIN) TAB PO SCH (09:00)
[2022-01-07] MEDS ORDERED: HEParin (CATH LAB) 2,000 ML IV ONE (09:23)
[2022-01-07] MEDS ORDERED: LIDOCAINE 1% INJ 20 ML VIAL ONE (09:23)
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
[2022-01-07] MEDS ORDERED: CLOPIDOGREL 300 MG (PLAVIX) TABLET PO ONE (09:45)
[2022-01-07] MEDS ORDERED: INSU100I29 SQ (11:05)
[2022-01-07] MEDS ORDERED: ISOS30TA82 PO (11:05)
[2022-01-07] MEDS ORDERED: fentaNYL INJ 100 MCG/2 ML AMP ONE (12:52)
[2022-01-07] MEDS ORDERED: MIDAZOLAM 5 MG/5 ML (VERSED) VIAL ONE (12:52)
[2022-01-07] MEDS ORDERED: NS IV 1000 ML 1,000 ML ONE (13:01)
[2022-01-07] MEDS ORDERED: NITRO DRIP 25000 MCG/D5W 0 ML IV ONE (13:29)
[2022-01-07] MEDS ORDERED: HEParin 1000 UNIT/ML (10ML VIAL) FOR BOLUS ONE (13:29)
[2022-01-07] MEDS ORDERED: EPTIFIBATIDE BOLUS 10 ML IV ONE ×2 (13:29→13:30)
[2022-01-07] MEDS ORDERED: CLOPIDOGREL 75 MG (PLAVIX) TABLET ONE (13:54)
[2022-01-07] MEDS ORDERED: ASPIRIN 81 MG CHEW (CHILDREN'S ASA) ONE (13:54)
[2022-01-07] MEDS ORDERED: PATIENT MAY USE OWN MEDS, ALL PO SCH (14:15)
--- NOTE | 2022-01-07 14:53 | CARDIAC CATHETERIZATION ---
DATE OF SERVICE: 01/06/2022 CARDIAC CATHETERIZATION AND CORONARY INTERVENTION REPORT The patient is a 66-year-old lady, who has a history of coronary artery disease. She presents with chest pain and the troponin was mildly elevated, indicating a small non-ST elevation myocardial infarction. She has been noncompliant with her medications. Compliance is advised and cardiac catheterization was carried out after having obtained an informed consent. DESCRIPTION OF PROCEDURE: She was brought to the cardiac catheterization laboratory in a fasting state. Right groin was prepared and draped in the usual sterile fashion. Lidocaine 1% was used for local anesthesia. Modified Seldinger technique was used to advance a 5-Cambodian sheath into the right femoral artery, 5-Cambodian JL4 catheter was used for left coronary angiography, 5-Cambodian JR4 catheter was used for right coronary angiography, 5-Cambodian pigtail catheter was used for left heart catheterization and left ventricular angiography. Subsequently, percutaneous intervention was carried out in the right coronary artery and is described below. PERCUTANEOUS INTERVENTION OF THE RIGHT CORONARY: The right coronary artery is occluded in its mid portion and this is a chronic occlusion. The proximal and mid right coronary artery exhibit severe disease, and this diseased segment supplies right ventricular branch and this appears to be the culprit in causing the patient's chest discomfort and non-ST elevation myocardial infarction. Accordingly, our plan was to carry out percutaneous intervention to the proximal right coronary artery, which supplies right ventricular branch. The distal right coronary artery is chronically occluded and is collateralized, and we did not plan any intervention of that segment of the right coronary. We exchanged the sheath over a wire for a 6-Cambodian sheath and gave a double bolus of Integrilin and 5000 units of intravenous heparin. We used a 6-Cambodian JR4 guide catheter, which was resulting in pressure dampening, indicating that there was considerable ostial stenosis of the right coronary, as well. We removed this catheter and used a 6-Cambodian JR4 guide catheter with side holes. We then were able to advance the Cho[employer] floppy wire into the right ventricular branch of the right ventricle and it was placed in the mid portion of this branch and percutaneous intervention was carried out to the ostial and proximal right coronary artery that is proximal to this right ventricular branch and which was exhibiting up to 90% in-stent restenosis. We carried out balloon angioplasty of this segment, including the ostium, with 2.5 x 20 mm balloon. Multiple balloon inflations were carried out up to 16 atmospheres. Subsequent angiography revealed less than 10% stenosis at the previous sites of up to approximately 90% stenosis. The flow through the right ventricular branch remains normal. Where the right ventricular branch originates from the right coronary artery, there appears to be moderate stenosis and we did not balloon that because the vessel is of a small caliber. The patient tolerated the procedure well. Angiography of the right femoral artery had been carried out through the sheath at the beginning of the procedure. At the end of the procedure, we used Mynx to achieve hemostasis following sheath removal. HEMODYNAMICS: Left ventricular end-diastolic pressure following coronary angiography was 19 mmHg. There was no significant pressure gradient on pullback across the aortic valve. Ascending aortic pressure was 104/61 with a mean of 78 mmHg. CORONARY ANGIOGRAPHY: Left main coronary artery and left anterior descending arteries have diffuse moderate disease and calcification. A stented segment of the left anterior descending artery is patent. There is approximately 50% stenosis proximal to the stented segment. There is also approximately a 50 to 60% stenosis in the mid portion of the left anterior descending. The right coronary artery is collateralized from the left coronary system. The right coronary artery is large and dominant. There is chronically occluded in its mid portion. The chronic occlusion was not addressed. However, the proximal right coronary artery also was exhibiting considerable and in-stent restenosis of up to 90% to which successful balloon angioplasty was carried out with reduction of stenosis to less than 10%. This segment of the right coronary artery supplies a right ventricular branch and these lesions appeared to have been the culprit lesion and causing the patient's non-ST elevation myocardial infarction. LEFT VENTRICULAR ANGIOGRAPHY: Left ventricular angiography was not performed because it had just been done on 11/24/2021 and it had shown posterobasal hypokinesis and left ventricular ejection fraction of 50 to 55%. CONCLUSIONS: Coronary artery disease primarily consisting of moderate diffuse disease of the left coronary system and mid vessel occlusion of the right coronary that is collateralized by the left coronary system. The ostial and proximal right coronary artery had up to 90% proximal stenosis and this segment of the artery supplies a right ventricular branch. Successful balloon angioplasty was carried out to the proximal and ostial segment of the right coronary artery with reduction of stenosis from 90% to less than 10% residual. Job ID: [id number] DocumentID: [id number] Dictated Date: 01/07/2022 14:02:15 Outsole Splicer Date: 01/07/2022 14:52:48 Dictated By: REX FERRELL MD, MA, FACP, FACC, MTDD
[2022-01-07] MEDS ORDERED: RIVAROXABAN 15 MG TABLET (XARELTO) PO SCH (17:00)
[2022-01-07] MEDS ORDERED: CLOP75TA28 PO (17:51)
--- NOTE | 2022-01-07 18:02 | Discharge Summary ---
Diagnosis/Chief Complaint Date of Admission January 06, 2022 at 23:04 Date of Discharge 01/07/22 Admission Diagnosis Admission Diagnosis NSTEMI CAD Ischemic Cardiomyopathy Atrial Fibrillation HTN HLD IDDM Obesity Discharge Diagnosis See Above Discharge Summary-Simple/Stand Procedures Cardiac Cath by Dr Gonzalez 01/07/22: No intervention needed, see procedure note Consultations Dr Gonzalez, Cardiology Discharge Physical Examination Allergies: Coded Allergies: Sulfa (Sulfonamide Antibiotics) (Verified Allergy, Unknown, 11/30/20) pseudoephedrine (Verified Allergy, Unknown, 11/30/20) triprolidine (Verified Allergy, Unknown, 11/30/20) Vitals & I&Os Vital Sign - Last 12Hours Date Time Temp Pulse Resp B/P (MAP) Pulse Ox O2 Delivery O2 Flow Rate FiO2 01/07/22 16:26 Room Air 01/07/22 16:00 36.1 69 12 110/83 (92) 90 01/06/22 23:58 21 General Appearance: Alert, Oriented X3, No Acute Distress HEENT: Mucous Memb Moist/[place] Respiratory: Clear to Auscultation, Normal Air Movement Cardiovascular: Regular Rate, No Murmurs Abdominal: Normal Bowel Sounds, Soft, No Tenderness, No Masses Extremities: Other (trace edema present bilaterally) Skin: No Rashes Neuro: Normal Speech, Sensation Intact, Cranial Nerves 3-12 NL Psych/Mental Status: Mental Status NL, Mood NL Hospital Course Was the Problem List Reviewed?: Yes See final discharge diagnosis. Radiology Reviewed NAME: REI PRYOR [facility] REC#: [id number] PT STATUS: ADM Carlitos : 1955 PHYSICIAN: DAPHNE JEROME MD ADMIT DATE: 01/06/22/[facility] Signed Date of Exam:01/06/22 CHEST 1 VIEW, AP/PA ONLY CLINICAL INDICATION: Patient with chest pain. EXAM: Portable chest x-ray upright view. COMPARISON: Chest x-ray dated 05/03/2021. FINDINGS: Lungs/pleura: Minimal atelectasis in both lung bases is seen. Lungs are clear. There is no pneumothorax. There is no pleural effusion. Mediastinum: Unremarkable. Pulmonary vasculature: Unremarkable. Heart: Stable cardiomegaly. Stable cardiac pacemaker seen. Bones/extrathoracic soft tissue: There are degenerative spurs involving the spine. IMPRESSION: 1: There is no radiographic evidence of acute cardiopulmonary process. 2: Stable cardiomegaly with no significant pulmonary vascular congestion. Dictated by: Dictated on workstation # [id number] Dict: 01/06/222216 Trans: 01/06/222339 PJ [id number] Interpreted by: ANTOLIN SAEZ MD Electronically signed by: ANTOLIN SAEZ MD 01/06/22 234 Discussion & Recommendations 66 yo F with known CAD that presented to ER with chest pain and found to have NSTEMI. Patient had cardiac cath on 01/07/22 that did not result in intervention. No meds changes made by cardiology and she was given the ok to discharge today. F.u with PCP 1-2 weeks Discharge Condition at discharge stable Instructions to patient/family Please see electronic discharge instructions given to patient. Discharge Medications Reviewed and agree with Discharge Medication list on patient's Discharge Instruction sheet Clinical Quality Measures AMI/AHF: ASA po Prior to arrival: MARISSA Munguia MD January 07, 2022 18:02
--- NOTE | 2022-01-07 18:07 | Discharge Summary ---
Discharge [facility] Reconcile Patient Problems Problems Reviewed?: Yes Discharge Medications New, Converted or Re-Newed RX: Transmitted to Pharmacy New Medications: Clopidogrel Bisulfate (Clopidogrel) 75 Mg Tablet 75 MG PO DAILY for 30 Days, #30 TAB 5 Refills Continued Medications: Amlodipine Besylate (Amlodipine Besylate) 5 Mg Tablet 5 MG PO DAILY, TAB Atorvastatin Calcium (Atorvastatin Calcium) 80 Mg Tablet 80 MG PO DAILY, TAB Cholecalciferol (Vitamin D3) (Vitamin D3) 50 Mcg Tablet 50 MCG PO DAILY, TAB Dulaglutide (Trulicity) 3 Mg/0.5 Ml Pen.injctr 3 MG SQ SAT, EA LAST FILLED 09-02-2021 #3/84 DAY SUPPLY Insulin Detemir (Levemir Flextouch) 100 Unit/Ml (3 Ml) Insuln.pen 55 UNIT SQ HS, EA LAST FILLED 12-25-2020 #10 PENS/54 DAY SUPPLY Isosorbide Mononitrate (Isosorbide Mononitrate ER) 30 Mg Tab.er.24h 30 MG PO DAILY, TAB Metoprolol Succinate (Metoprolol Succinate) 100 Mg Tab.er.24h 100 MG PO DAILY, TAB LAST FILLED 09-20-2021 #90/90 DAY SUPPLY Nitroglycerin (Nitroglycerin) 0.4 Mg Tab.subl 0.4 MG SL UD PRN for CHEST PAIN, TAB Rivaroxaban (Xarelto) 15 Mg Tablet 15 MG PO DAILY, TAB Ropinirole HCl (Ropinirole HCl) 1 Mg Tablet 1 MG PO HS PRN for RLS, TAB Patient Instructions Goal/Follow Up Appt: f/u PCP 1-2 weeks Activity & Diet Discharge Diet: Cardiac Diet Activity as Tolerated: Yes MARISSA NOWAK MD January 07, 2022 18:07
[2022-01-08] MEDS ORDERED: CLOPIDOGREL 75 MG (PLAVIX) TABLET PO SCH (09:00)
== END 2022-01-07 18:42 | disposition home or self-care (01) ==
LOC: EDUNIT# 20:44 → ER 20:47 → CSD 23:04
PROVIDERS: ADMIT Family Medicine; ATTEND Family Medicine
DX: I25.10 Atherosclerotic heart disease of native coronary artery without angina pectoris (principal); I21.4 Non-ST elevation (NSTEMI) myocardial infarction; I25.5 Ischemic cardiomyopathy; I10 Essential (primary) hypertension; I65.23 Occlusion and stenosis of bilateral carotid arteries; I49.5 Sick sinus syndrome; I48.0 Paroxysmal atrial fibrillation; I48.20 Chronic atrial fibrillation, unspecified; I87.2 Venous insufficiency (chronic) (peripheral); E11.9 Type 2 diabetes mellitus without complications; E66.9 Obesity, unspecified; E87.6 Hypokalemia; E78.00 Pure hypercholesterolemia, unspecified; R60.0 Localized edema; K52.9 Noninfective gastroenteritis and colitis, unspecified; Z79.01 Long term (current) use of anticoagulants; Z95.5 Presence of coronary angioplasty implant and graft; Z79.84 Long term (current) use of oral hypoglycemic drugs; Z79.899 Other long term (current) drug therapy; Z68.36 Body mass index [BMI] 36.0-36.9, adult; Z91.19 Patient's noncompliance with other medical treatment and regimen
CPT/HCPCS: 71045; 80053; 80061; 83036; 83735; 83874; 84484 ×2; 85025; 85610; 85730; 92920; 93005 ×2; 93041; 93458; 96376; 99284; C1725; C1760; C1769; C1887 ×2; C1894 ×2; G0378; 36415; 96374; 96375

== ENCOUNTER 2022-09-03 10:32 | Emergency (ER) | payer OTHER, MEDICAID ==
[~2022-09-03] VITALS: Ht 165 cm; Wt 93.0 kg
[~2022-09-03 10:32] MED LIST changes: -ALEN70TA2 PO; +ALEN70TA85 PO; +CLOP-31 PO; -CLOP75TA69 PO; +ISOS30TA82 PO
[2022-09-03] MEDS ORDERED: ASPIRIN 81 MG CHEW (CHILDREN'S ASA) PO ONE (10:45)
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
[2022-09-03] MEDS ORDERED: KETOROLAC 30 MG/ML VIAL IVP ONE (11:00)
--- NOTE | 2022-09-03 11:15 | Diagnostic Imaging Report ---
CLINICAL INDICATION: Chest pain. EXAM: Portable chest x-ray upright view. COMPARISON: Chest x-ray dated 01/06/2022. FINDINGS: Lungs/pleura: Lungs are clear. There is no pneumothorax. There is no pleural effusion. Mediastinum: Unremarkable. Pulmonary vasculature: Unremarkable. Heart: Stable cardiomegaly. Stable appearance position of the cardiac pacemaker in good position. Bones/extrathoracic soft tissue: Unremarkable. IMPRESSION: 1: Stable chest x-ray exam with no radiographic evidence of acute cardiopulmonary process. 2: Stable cardiomegaly with no significant pulmonary vascular congestion. Dictated by: Dictated on workstation # [id number]
[2022-09-03 11:21] LABS: BASOPHILS # (AUTO) 0.1 10^3/uL (0.0-0.1); BASOPHILS % (AUTO) 1 % (0-10); EOSINOPHILS # (AUTO) 0.6 10^3/uL (0.0-0.3); EOSINOPHILS % (AUTO) 7 % (0-10); HEMATOCRIT 39 % (35-52); HEMOGLOBIN 12.6 g/dL (11.5-16.0); LYMPHOCYTES # (AUTO) 2.1 10^3/uL (1.0-4.0); LYMPHOCYTES % (AUTO) 22 % (12-44); MEAN CORPUSCULAR HEMOGLOBIN 28 pg (25-34); MEAN CORPUSCULAR HGB CONC 32 g/dL (32-36); MEAN CORPUSCULAR VOLUME 85 fL (80-99); MEAN PLATELET VOLUME 12.1 fL (9.0-12.2); MONOCYTES # (AUTO) 0.8 10^3/uL (0.0-1.0); MONOCYTES % (AUTO) 8 % (0-12); NEUTROPHILS % (AUTO) 62 % (42-75); PLATELET COUNT 204 10^3/uL (130-400); WHITE BLOOD COUNT 9.7 10^3/uL (4.3-11.0)
[2022-09-03 11:30] LABS: PROTHROMBIN TIME PATIENT 13.8 SEC (12.2-14.7)
[2022-09-03 11:50] LABS: ALBUMIN 3.5 GM/DL (3.2-4.5); BILIRUBIN,TOTAL 0.6 MG/DL (0.1-1.0); CALCIUM 9.2 MG/DL (8.5-10.1); CREATININE SERUM 1.01 MG/DL (0.60-1.30); MAGNESIUM 1.7 MG/DL (1.6-2.4); POTASSIUM 3.5 MMOL/L (3.6-5.0); TOTAL PROTEIN 7.2 GM/DL (6.4-8.2)
[2022-09-03 12:03] VITALS: BP 122/78
== END 2022-09-03 12:03 | disposition home or self-care (01) ==
LOC: EDUNIT# 10:32 → ER 10:34
DX: I48.91 Unspecified atrial fibrillation (principal); M54.2 Cervicalgia; E66.9 Obesity, unspecified; Z68.34 Body mass index [BMI] 34.0-34.9, adult; Z95.5 Presence of coronary angioplasty implant and graft; Z95.0 Presence of cardiac pacemaker
CPT/HCPCS: 36415; 71045; 80053; 83735; 83874; 83880; 84484; 85025; 85610; 85730; 93005; 93041

== ENCOUNTER 2022-09-19 17:24 | Emergency (ER) | payer OTHER, MEDICAID ==
[~2022-09-19] VITALS: Ht 165 cm; Wt 135.0 kg
[2022-09-19 17:32] VITALS: BP 132/87
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
[2022-09-19 18:12] LABS: BASOPHILS # (AUTO) 0.1 10^3/uL (0.0-0.1); BASOPHILS % (AUTO) 1 % (0-10); EOSINOPHILS # (AUTO) 0.5 10^3/uL (0.0-0.3); EOSINOPHILS % (AUTO) 5 % (0-10); HEMATOCRIT 43 % (35-52); HEMOGLOBIN 13.9 g/dL (11.5-16.0); LYMPHOCYTES % (AUTO) 19 % (12-44); MEAN CORPUSCULAR HEMOGLOBIN 27 pg (25-34); MEAN CORPUSCULAR HGB CONC 32 g/dL (32-36); MEAN CORPUSCULAR VOLUME 85 fL (80-99); MONOCYTES % (AUTO) 9 % (0-12); NEUTROPHILS # (AUTO) 7.3 10^3/uL (1.8-7.8); NEUTROPHILS % (AUTO) 67 % (42-75); PLATELET COUNT 217 10^3/uL (130-400); WHITE BLOOD COUNT 10.9 10^3/uL (4.3-11.0)
[2022-09-19 18:21] LABS: POTASSIUM 3.5 MMOL/L (3.6-5.0)
[2022-09-19 18:27] LABS: CREATININE SERUM 1.05 MG/DL (0.60-1.30)
[2022-09-19 18:29] LABS: MAGNESIUM 1.7 MG/DL (1.6-2.4)
--- NOTE | 2022-09-19 18:31 | Diagnostic Imaging Report ---
INDICATION: Right hand numbness and weakness. Difficulty gripping for the last 20 minutes. Fell onto hand 2 weeks ago. EXAMINATION: CT brain without contrast, 09/19/2022. All CT scans use one or more of the following dose optimizing techniques: automated exposure control, MA and/or KvP adjustment based on patient size and exam type or iterative reconstruction. COMPARISON: 11/30/2020. FINDINGS: There is no acute hemorrhage or infarct. No mass, mass effect or midline shift. No hydrocephalus. No acute osseous abnormality. Paranasal sinuses and mastoid air cells are clear. IMPRESSION: No acute intracranial process. Dictated by: Dictated on workstation # [id number]
[2022-09-19] MEDS ORDERED: LACTATED RINGERS 1,000 ML IV ONE (18:45)
[2022-09-19 18:47] LABS: CLARITY,URINE CLOUDY; COLOR,URINE ORANGE; GLUCOSE, URINE (UA) NEGATIVE (NEGATIVE); KETONES,URINE TRACE (NEGATIVE); LEUKOCYTE ESTERASE ,URINE 3+ (NEGATIVE); NITRITE,URINE NEGATIVE (NEGATIVE); PROTEIN,URINE 1+ (NEGATIVE)
[2022-09-19 18:56] LABS: BACTERIA,URINE MODERATE /HPF; BILIRUBIN,URINE 1+ (NEGATIVE); RBC,URINE 0-2 /HPF; WBC,URINE >100 /HPF
[2022-09-19] MEDS ORDERED: cefTRIAXone 1 GM PRE-MIX 50 ML IV STA (18:57)
[2022-09-19] MEDS ORDERED: CEPH500T PO (19:50)
== END 2022-09-19 20:05 | disposition home or self-care (01) ==
LOC: EDUNIT# 17:24 → ER 17:26
DX: M62.81 Muscle weakness (generalized) (principal); R20.2 Paresthesia of skin; N39.0 Urinary tract infection, site not specified; I25.10 Atherosclerotic heart disease of native coronary artery without angina pectoris; I25.2 Old myocardial infarction; E66.9 Obesity, unspecified; Z68.42 Body mass index [BMI] 45.0-49.9, adult; Z95.5 Presence of coronary angioplasty implant and graft; Z95.0 Presence of cardiac pacemaker; Z88.2 Allergy status to sulfonamides; Z79.01 Long term (current) use of anticoagulants; Z79.02 Long term (current) use of antithrombotics/antiplatelets
CPT/HCPCS: 36415; 70450; 80048; 81000; 83735; 85025; 87077; 87088; 93041

== ENCOUNTER 2023-04-13 13:22 | Emergency (ER) | payer MEDICARE, MEDICAID ==
[~2023-04-13] VITALS: Ht 165.1 cm; Wt 90.7 kg
[~2023-04-13 13:22] MED LIST changes: +CEPH500T PO; -INSU100I29 SC; +INSU100I30 SC; +INSU100I30 SQ
[2023-04-13] MEDS ORDERED: FAMOTIDINE 20 MG TABLET PO STA (13:40)
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
[2023-04-13] MEDS ORDERED: ASPIRIN 81 MG CHEWABLE TABLET PO ONE (13:45)
[2023-04-13] MEDS ORDERED: TICAGRELOR 90 MG TABLET (BRILINTA) PO ONE (13:45)
[2023-04-13] MEDS ORDERED: RIVAROXABAN 15 MG TABLET (XARELTO) PO ONE (13:45)
[2023-04-13] MEDS ORDERED: LIDOCAINE 2% VISCOUS 15 ML UDC PO ONE (13:45)
[2023-04-13] MEDS ORDERED: ANTACID SUSPENSION 30 ML UDC PO ONE (13:45)
[2023-04-13 13:52] LABS: BASOPHILS # (AUTO) 0.1 10^3/uL (0.0-0.1); BASOPHILS % (AUTO) 1 % (0-10); EOSINOPHILS # (AUTO) 0.5 10^3/uL (0.0-0.3); EOSINOPHILS % (AUTO) 6 % (0-10); HEMATOCRIT 41 % (35-52); LYMPHOCYTES % (AUTO) 21 % (12-44); MEAN CORPUSCULAR HEMOGLOBIN 27 pg (25-34); MEAN CORPUSCULAR HGB CONC 32 g/dL (32-36); MEAN CORPUSCULAR VOLUME 85 fL (80-99); MEAN PLATELET VOLUME 11.5 fL (9.0-12.2); MONOCYTES # (AUTO) 0.8 10^3/uL (0.0-1.0); MONOCYTES % (AUTO) 8 % (0-12); NEUTROPHILS # (AUTO) 6.2 10^3/uL (1.8-7.8); NEUTROPHILS % (AUTO) 64 % (42-75); PLATELET COUNT 185 10^3/uL (130-400); WHITE BLOOD COUNT 9.6 10^3/uL (4.3-11.0)
[2023-04-13 14:03] LABS: ALBUMIN 3.6 GM/DL (3.2-4.5); INR 1.1 (0.8-1.4); PROTHROMBIN TIME PATIENT 14.3 SEC (12.2-14.7)
[2023-04-13 14:04] LABS: POTASSIUM 3.1 MMOL/L (3.6-5.0)
[2023-04-13 14:05] LABS: CALCIUM 8.9 MG/DL (8.5-10.1)
[2023-04-13 14:06] LABS: TOTAL PROTEIN 7.4 GM/DL (6.4-8.2)
[2023-04-13 14:08] LABS: BILIRUBIN,TOTAL 0.8 MG/DL (0.1-1.0)
[2023-04-13 14:10] LABS: CREATININE SERUM 1.07 MG/DL (0.60-1.30)
[2023-04-13 14:12] LABS: MAGNESIUM 1.8 MG/DL (1.6-2.4)
--- NOTE | 2023-04-13 14:26 | Diagnostic Imaging Report ---
INDICATION: Chest pain COMPARISON: 09/03/2022 FINDINGS: Single frontal view of the chest demonstrates moderate cardiomegaly. Pulmonary vasculature is within normal limits. Left-sided dual-lead pacemaker is noted. The lungs are well aerated and clear. No large pleural effusion or pneumothorax is seen. The visualized osseous structures show no acute abnormalities. IMPRESSION: 1. Moderate cardiomegaly, but no evidence of failure or focal infiltrate Dictated by: Dictated on workstation # [id number]
[2023-04-13] MEDS ORDERED: POTASSIUM CHLORIDE 20 MEQ TABLET PO ONE (15:30)
[2023-04-13 16:22] VITALS: BP 156/88
== END 2023-04-13 16:22 | disposition home or self-care (01) ==
LOC: EDUNIT# 13:22 → ER 13:25
DX: R07.9 Chest pain, unspecified (principal); I48.20 Chronic atrial fibrillation, unspecified; E66.9 Obesity, unspecified; E11.9 Type 2 diabetes mellitus without complications; Z79.4 Long term (current) use of insulin; Z79.01 Long term (current) use of anticoagulants; Z68.42 Body mass index [BMI] 45.0-49.9, adult
CPT/HCPCS: 36415; 71045; 80053; 83690; 83735; 83880; 84484; 85025; 85610; 85730; 93005; 93041

== ENCOUNTER 2023-06-07 08:39 | Day surgery (SDC) | payer MEDICARE ==
[~2023-06-07] VITALS: Ht 165.1 cm; Wt 94.1 kg
[2023-06-07] VITALS (7 sets, daily range): BP systolic 128–172; BP diastolic 68–107
[~2023-06-07 08:39] MED LIST changes: +ROPI1TAB46 PO
[2023-06-07] MEDS ORDERED: NS IV 1000 ML 1,000 ML IV SCH ×2 (08:45→14:15)
[2023-06-07] MEDS ORDERED: LIDOCAINE 1% INJ 20 ML VIAL ONE (08:49)
[2023-06-07] MEDS ORDERED: HEParin (CATH LAB) 2,000 ML IV ONE (08:49)
[2023-06-07] MEDS ORDERED: NS IV 1000 ML 1,000 ML ONE (08:49)
[2023-06-07 09:17] LABS: HEMATOCRIT 41 % (35-52); HEMOGLOBIN 13.3 g/dL (11.5-16.0); MEAN CORPUSCULAR HEMOGLOBIN 27 pg (25-34); MEAN CORPUSCULAR HGB CONC 32 g/dL (32-36); MEAN CORPUSCULAR VOLUME 84 fL (80-99); MEAN PLATELET VOLUME 11.8 fL (9.0-12.2); PLATELET COUNT 226 10^3/uL (130-400)
[2023-06-07 09:40] LABS: INR 1.1 (0.8-1.4); PROTHROMBIN TIME PATIENT 14.2 SEC (12.2-14.7)
[2023-06-07 09:46] LABS: ALBUMIN 3.8 GM/DL (3.2-4.5); BILIRUBIN,TOTAL 0.9 MG/DL (0.1-1.0); CREATININE SERUM 0.91 MG/DL (0.60-1.30); POTASSIUM 3.2 MMOL/L (3.6-5.0); TOTAL PROTEIN 7.6 GM/DL (6.4-8.2)
[2023-06-07] MEDS ORDERED: ASPI-1238 PO (09:46)
[2023-06-07] MEDS ORDERED: LISI10TA25 PO (09:46)
[2023-06-07] MEDS ORDERED: INSU100I88 SQ (09:46)
[2023-06-07] MEDS ORDERED: CALC-140 PO (09:46)
[2023-06-07] MEDS ORDERED: DULA4.5P SQ (09:46)
[2023-06-07] MEDS ORDERED: VITS1TAB2 PO (09:46)
[2023-06-07] MEDS ORDERED: fentaNYL INJECTION 100 MCG/2 ML VIAL ONE (12:18)
[2023-06-07] MEDS ORDERED: VERAPAMIL 5 MG/2 ML (CALAN) VIAL IV ONE (12:18)
[2023-06-07] MEDS ORDERED: MIDAZOLAM INJ 5 MG/5 ML VIAL ONE (12:18)
[2023-06-07] MEDS ORDERED: HEParin 1000 UNIT/ML (10ML VIAL) FOR BOLUS ONE (12:19)
[2023-06-07] MEDS ORDERED: NITRO DRIP 25000 MCG/D5W 0 ML IV ONE (12:20)
--- NOTE | 2023-06-07 13:58 | Cardiac Procedure Note-CS/ASA ---
Pre-Procedure Note Pre-Op Procedure Note Date of Available H&P: Jun 02, 2023 Date H&P Reviewed: Jun 07, 2023 Time H&P Reviewed: 11:00 History & Physical: H&P Reviewed Moderate Sedation PreProcedure ASA Score 3 Airway Lungs Heart ASA score ASA 1: a normal healthy patient ASA 2: a patient with a mild systemic disease (mid diabetes, controlled hypertension, obesity ASA 3: a patient with a severe systemic disease that limits activity (angina, COPD, prior Myocardial infarction) ASA 4: a patient with an incapacitating disease that is a constant threat to life (CHF, renal failure) ASA 5: a moribund patient not expected to survive 24 hrs. (ruptured aneurysm) ASA 6: a declared brain- patient whose organs are being harvested. For emergent operations, add the letter E after the classification Mallampati Classification Grade 3 Sedation Plan Analgesia, Amnesia, Plan communicated to team members The patient is an appropriate candidate to undergo the planned procedure, sedation, and anesthesia. The patient immediately re-assessed prior to indication. REX FERRELL MD FACP [facility] Jun 07, 2023 13:58
--- NOTE | 2023-06-07 14:08 | Cardiac Cath Report ---
CARDIAC CATHETERIZATION DATE OF PROCEDURE: 06-07-23 INDICATION: Chest pain HISTORY: The patient is a 68 year old female with known CAD and h/o multiple cor PCI who has had recurrent chest discomfort PROCEDURES PERFORMED: 1. Cor angio; 2. LHC and LV angio PROCEDURE DESCRIPTION: After informed consent and in the fasting state, left heart catheterization was performed through the R femoral artery utilizing a 5 Romanian system by percutaneous approach. 5F JL4 for L cors; 5F JR4 for R cor; 5F pigtail for LHC and LV angio HEMODYNAMICS: LVEDP 13 mmHg; no significant pressure gradient on pullback cross the aortic valve CORONARY ANGIOGRAPHY: Cor calcium present Left main coronary artery: Ok Left anterior descending coronary artery: 70% prox, 80% mid and another 70% mid to distal, patent prox and midvessel stents Left circumflex coronary artery: patent mid-vessel stent in OM 1, 70-80% mid LCX stenosis after the origin of OM 1 Right coronary artery: Patent prox stent, 90% mid-vessel stenosis, occluded RCA past RV branch from RCA, L -> R collateral seen LV Angio: [place]ON projection only. Basal inf and basal anterior hypokineses. LVEF 45% IMPRESSION: 1. Multivessel CAD: Left anterior descending coronary artery: 70% prox, 80% mid and another 70% mid to distal, patent prox and midvessel stents. Left circumflex coronary artery: patent mid-vessel stent in OM 1, 70-80% mid LCX stenosis after the origin of OM 1. Right coronary artery: Patent prox stent, 90% mid-vessel stenosis, occluded RCA past RV branch from RCA, L -> R collateral seen 2. LVEDP 13 mmHg 3. Basal inf and basal anterior hypokineses. LVEF 45% PLAN Surgical consultation for CABG REX FERRELL MD FACP [facility] Jun 07, 2023 14:08
--- NOTE | 2023-06-07 14:12 | Discharge Inst-Cardiology ---
Discharge Inst-Cardiac Discharge Medications Continued Medications: Aspirin (Aspirin EC) 81 Mg Tablet.dr 81 MG PO DAILY, TAB Atorvastatin Calcium (Atorvastatin Calcium) 80 Mg Tablet 80 MG PO DAILY, TAB Calcium Carbonate/Vitamin D3 (Calcium + Vitamin D Tablet) 600 Mg Calcium-5 Mcg (200 Unit) Tablet 1 EACH PO HS, TAB Dulaglutide (Trulicity) 4.5 Mg/0.5 Ml Pen.injctr 4.5 MG SQ TUESDAY, EA Insulin Detemir (Levemir Flexpen) 100 Unit/Ml (3 Ml) Insuln.pen 50 UNIT SQ BID, EA Lisinopril (Lisinopril) 10 Mg Tablet 10 MG PO DAILY, TAB Metoprolol Succinate (Metoprolol Succinate) 100 Mg Tab.er.24h 100 MG PO DAILY, TAB Nitroglycerin (Nitroglycerin) 0.4 Mg Tab.subl 0.4 MG SL UD PRN for CHEST PAIN, TAB Rivaroxaban (Xarelto) 15 Mg Tablet 15 MG PO DAILY, TAB Ropinirole HCl (Ropinirole HCl) 1 Mg Tablet 1 MG PO HS, TAB Vit A,C & E/Lutein/Minerals (Healthy Eyes Tablet) 300MCG-200 Tablet 1 EACH PO HS, TAB Patient Instructions Patient Instructions: Hold rivaroxaban today. Resume tomorrow REX FERRELL MD FACP [facility] Jun 07, 2023 14:12
--- NOTE | 2023-06-07 14:13 | Discharge Inst-Post CATH ---
Discharge Inst-CATH/EP Post Cardiac Cath/EP D/C Inst Follow Up/Plan F/u with Dr Gonzalez next week ACTIVITY * Go Home directly and rest. * Limit activity of the leg (or wrist if it was used) for 7 days including a erobics, swimming, jogging, bicycling, etc. * Restrict stair-climbing for 7 days if possible, if not, climb up with your non-cath leg, then bring together on the same step. * Avoid lifting, pushing, pulling or excessive movement of the affected extre mity for 7 days. * Customary sexual activity may be resumed after 2 days-use caution not to use a position that strains or causes pain to the affected extremity. * No driving for 24 hours. * NO SMOKING. * Avoid straining for bowel movements for 7 days. * Gentle walking on level ground is allowed. * Returning to work will depend on the type of procedure and the results. Your d octor will discuss this with you. CALL YOUR DOCTOR FOR ANY OF THE FOLLOWING: *If bleeding from the puncture site occurs- Apply gentle pressure to site with clean cloth and call your doctor or EMS. * If a knot or lump forms under the skin, increases in size, or causes pain. * If bruising appears to be worsening or moving further down your leg instead of disappearing. * Temperature above 101 F. CARE OF YOUR GROIN INCISION; * Bruising or purple discoloration of the skin near the puncture site is common. * You may shower only, no bathtub bathing for 5 days. Be careful to avoid slipping as your leg may feel stiff. * If a closure device was used on your femoral artery, please see the attached guide regarding care of the device and your leg. * Leave dressing on FOR 24 hours. CARE OF YOUR WRIST INCISION; * Bruising or purple discoloration of the skin near the puncture site is common. * You may shower. * DO NOT submerge wrist. * Leave dressing on FOR 24 hours. REX GONZALEZ MD FACP [facility] Jun 07, 2023 14:13
[2023-06-07] MEDS ORDERED: PATIENT MAY USE OWN MEDS, ALL PO SCH (14:15)
== END 2023-06-07 18:00 | disposition home or self-care (01) ==
LOC: CATH 08:39 → EDSTATUS 10:00 → CATH 14:09 → SDC 14:09 → CATH 18:00 → SDC 18:00
PROVIDERS: ATTEND Internal Medicine Cardiovascular Disease
DX: I25.118 Atherosclerotic heart disease of native coronary artery with other forms of angina pectoris (principal); I48.20 Chronic atrial fibrillation, unspecified; I42.0 Dilated cardiomyopathy; R94.39 Abnormal result of other cardiovascular function study; E11.9 Type 2 diabetes mellitus without complications; I65.23 Occlusion and stenosis of bilateral carotid arteries; I49.5 Sick sinus syndrome; I48.0 Paroxysmal atrial fibrillation; E78.5 Hyperlipidemia, unspecified; E66.9 Obesity, unspecified; R60.0 Localized edema; K52.9 Noninfective gastroenteritis and colitis, unspecified; I87.2 Venous insufficiency (chronic) (peripheral); Z95.5 Presence of coronary angioplasty implant and graft; Z91.199 Patient's noncompliance with other medical treatment and regimen due to unspecified reason; Z68.36 Body mass index [BMI] 36.0-36.9, adult; Z98.890 Other specified postprocedural states; Z90.49 Acquired absence of other specified parts of digestive tract; Z79.899 Other long term (current) drug therapy; Z79.01 Long term (current) use of anticoagulants
CPT/HCPCS: 36415; 36430; 80053; 80061; 85027; 85610; 85730; 87081; 93005; 93458